=== PATIENT | female | born 1955 | race Caucasian/White ===

== ENCOUNTER → 2016-10-20 | Outpatient (CLI) | payer BC ==
[~2016-10-20] MED LIST: ALBUAER2 INH; ALPR-411 PO; BUPR-79 PO; DESM0.2T2 PO; FLUT220A INH; GLC500 PO; IMIP25TA3 PO; LEVO50TA6 PO; LISI-729 PO; OMEP20CA59 PO; RANI300T PO; SIMV20TA2 PO; THL24/300 PO; [UNRECOGNIZED DRUG - CODE] PO
--- NOTE | 2016-10-20 09:35 | DIAGNOSTIC IMAGING REPORT ---
THYROID ULTRASOUND CLINICAL HISTORY: Multiple thyroid nodules. COMPARISON STUDY: Thyroid ultrasound January 30, 2013. TECHNIQUE: Sonography of the thyroid gland was performed. FINDINGS: The right thyroid lobe measures 4.5 x 1.2 x 1.5 cm and the left lobe measures 5.1 x 0.8 x 1.6 cm. Several small thyroid nodules are again noted, the largest of which is within the isthmus, measuring 1.1 x 1.1 x 0.5 cm. This nodule was previously biopsied. This nodule has decreased in size since prior exam. No enlarging thyroid nodules are noted. IMPRESSION: Multinodular thyroid gland. Interval decrease in size of the dominant previously biopsied isthmus nodule. No enlarging thyroid nodules. No nodules meet criteria for biopsy. Electronically signed by: Dariusz Guzman M.D. 10/20/2016 9:32 AM Dictated Date/Time: 10/20/2016 9:30 AM
== END | disposition home or self-care (01) ==
LOC: C.ULTR 08:31
PROVIDERS: ATTEND Internal Medicine Endocrinology, Diabetes & Metabolism
DX: E04.2 Nontoxic multinodular goiter (principal)

== ENCOUNTER → 2016-10-23 | Outpatient (CLI) | payer BC ==
[2016-10-23 10:56] LABS: HEMATOCRIT 42.1 % (37-47); MEAN CELL VOLUME 91.1 fL (80-100); MEAN CORPUSCULAR HEMOGLOBIN 31.2 pg (25-34); MEAN CORPUSCULAR HGB CONC 34.2 g/dl (32-36); PLATELET COUNT 237 K/uL (130-400); RED BLOOD COUNT 4.62 M/uL (4.2-5.4); WHITE BLOOD COUNT 5.11 K/uL (4.8-10.8)
[2016-10-23 11:11] LABS: ALT/SGPT 20 U/L (12-78); AST/SGOT 9 U/L (15-37); BLOOD UREA NITROGEN 22 mg/dl (7-18); BUN/CREATININE RATIO 19.6 (10-20); CALCIUM 9.6 mg/dl (8.5-10.1); CARBON DIOXIDE 26 mmol/L (21-32); CHLORIDE 104 mmol/L (98-107); GLUCOSE 119 mg/dl (70-99); POTASSIUM 4.3 mmol/L (3.5-5.1); SODIUM 139 mmol/L (136-145)
[2016-10-23 11:18] LABS: ALB/GLOB RATIO 1.1 (0.9-2); ALKALINE PHOSPHATASE 94 U/L (45-117); CHOLESTEROL 159 mg/dl (0-200); CHOLESTEROL/HDL RATIO 3.1; ESTIMATED AVERAGE GLUCOSE 189 mg/dl; FERRITIN 18.1 ng/ml (8.0-388.0); HA1C FLAG Normal (Normal); HDL CHOLESTEROL 52 mg/dl; LDL CHOLESTEROL CALCULATED 69 mg/dl; TRIGLYCERIDES 191 mg/dl (0-150); VERY LOW DENSITY LIPOPROT CALC 38 mg/dl
== END | disposition home or self-care (01) ==
LOC: C.LABBC 09:15
PROVIDERS: ATTEND Internal Medicine Endocrinology, Diabetes & Metabolism
DX: Z00.00 Encounter for general adult medical examination without abnormal findings (principal); Z11.59 Encounter for screening for other viral diseases; E11.9 Type 2 diabetes mellitus without complications; E23.2 Diabetes insipidus; E78.5 Hyperlipidemia, unspecified; E03.9 Hypothyroidism, unspecified

== ENCOUNTER → 2016-11-04 | Outpatient (CLI) | payer BC ==
--- NOTE | 2016-11-04 08:14 | MAMMOGRAPHY REPORT ---
BILATERAL DIGITAL SCREENING MAMMOGRAM WITH CAD: 11/04/2016 CLINICAL HISTORY: Routine screening. Patient has no complaints. TECHNIQUE: Current study was also evaluated with a Computer Aided Detection (CAD) system. Bilatera l CC and MLO views were obtained. COMPARISON: Comparison is made to exams dated: 08/29/2014 mammogram, 09/12/2012 mammogram, 07/30/2011 ma mmogram, 07/29/2010 mammogram, 07/02/2009 mammogram - [facility], and 09/18/2007. BREAST COMPOSITION: There are scattered areas of fibroglandular density in both breasts. FINDINGS: No suspicious masses, calcifications, or areas of architectural distortion are noted in e ither breast. There has been no significant interval change compared to prior exams. Scattered bilat eral benign-appearing calcifications are not significantly changed. IMPRESSION: ACR BI-RADS CATEGORY 2: BENIGN There is no mammographic evidence of malignancy. A 1 year screening mammogram is recommended. The p atient will receive written notification of the results. Approximately 10% of breast cancers are not detected with mammography. A negative mammographic repor t should not delay biopsy if a clinically suggestive mass is present. Gardenia Ward M.D. /:11/04/2016 07:37:58 Hoe Worker: Sharmaine Chu, [facility] letter sent: Normal 1/2 BI-RADS Code: ACR BI-RADS Category 2: Benign
== END | disposition home or self-care (01) ==
LOC: C.MAMM 07:03
PROVIDERS: ATTEND Internal Medicine
DX: Z12.31 Encounter for screening mammogram for malignant neoplasm of breast (principal)

== ENCOUNTER → 2017-03-07 | Outpatient (CLI) | payer BC ==
[2017-03-07 10:13] LABS: ESTIMATED AVERAGE GLUCOSE 140 mg/dl; HA1C FLAG Normal (Normal)
== END | disposition home or self-care (01) ==
LOC: C.LAB1850 06:56
PROVIDERS: ATTEND Internal Medicine Endocrinology, Diabetes & Metabolism
DX: E11.65 Type 2 diabetes mellitus with hyperglycemia (principal); E55.9 Vitamin D deficiency, unspecified

== ENCOUNTER → 2017-04-01 | Outpatient (CLI) | payer BC | END | disposition home or self-care (01) | LOC: C.PAPS 14:11 | PROVIDERS: ATTEND Obstetrics & Gynecology | DX: Z12.4 Encounter for screening for malignant neoplasm of cervix (principal); Z78.0 Asymptomatic menopausal state; Z11.51 Encounter for screening for human papillomavirus (HPV) ==

== ENCOUNTER 2019-07-03 06:23 | Observation (INO) ==
[2019-07-03] MEDS ORDERED: LIDOCAINE HCL 1% 20 ML VIAL ONE (07:19)
[2019-07-03] MEDS ORDERED: BUPIVACAINE 0.25% 30 ML VIAL ONE (07:19)
[2019-07-03] MEDS ORDERED: BACITRACIN INJ 50,000 UNIT VIAL ONE (07:19)
--- NOTE | 2019-07-03 07:52 | Pre Anesthesia Assessment ---
Date of Service July 03, 2019 Pre Sedation Assessment Vital Signs Temp Pulse Resp BP Pulse Ox 07/03/19 07:05 37.2 C 71 16 159/97 H 98 Cardiovascular + regular rate Respiratory normal respiratory effort, lungs clear to auscultation Pre-Sedation Airway Assessment Smoking Status: Never smoker Hx Sleep Apnea: No Short, Thick Neck: No Thyromental Distance: > or= 3.5 Finger Breadths Oral Cavity: + Chipped Teeth and + Dental Abnormalities Mallampati Class: II ASA: ASA3 NPO Status Date of Last Intake of Fluids: 07/02/19 Time of Last Intake of Fluids: 17:00 Date of Last Intake of Solid Food: 07/02/19 Time of Last Intake of Solid Foods: 17:00 Procedure Planning Contraindications for Sedation: none Current Medications Reviewed: Yes Notes The planned sedation has been discussed with the patient. Informed Consent was obtained. I have identified the patient, determined the appropriateness of sedation and have assessed the patient immediately prior to the procedure. All medicine(s) and interventions are by my order.
--- NOTE | 2019-07-03 07:54 | History & Physical Report ---
Date of Service July 03, 2019 Assessment & Plan (1) AV dissociation: History of Present Illness Chief Complaint: HONEYCUTT; AV dissociation Primary Care Provider: Patti Guzman MD +HONEYCUTT with chronic AV dissociation; cardiac cath was unremarkable for a HIS bundle ppm Allergies Allergy/AdvReac Type Severity Reaction Status Date / Time aspirin AdvReac Verified 04/10/19 14:56 Home Medications Home Medications Medication Instructions Recorded Confirmed Type albuterol sulfate 90 mcg/actuation 2 puffs INHALATION Q4H PRN #1 gm 03/02/19 07/03/19 History aerosol inhaler alprazolam 0.5 mg tablet 0.25 - 0.5 mg PO BID PRN #30 tab 03/02/19 07/03/19 History desmopressin 0.2 mg tablet 0.2 mg PO BID #180 tab 03/02/19 07/03/19 History fluticasone propionate 110 2 puffs INHALATION BID #3 gm 03/02/19 07/03/19 History mcg/actuation HFA aerosol inhaler glimepiride 1 mg tablet 1 mg PO DAILY #90 tab 03/02/19 07/03/19 History levothyroxine 50 mcg tablet 50 mcg PO QAM #90 tab 03/02/19 07/03/19 History lisinopril 5 mg tablet 5 mg PO DAILY #90 tab 03/02/19 07/03/19 History magnesium oxide 500 mg capsule 500 mg PO DAILY cap 03/02/19 07/03/19 History metformin 500 mg tablet,extended 1,000 mg PO BID #360 tab 03/02/19 07/03/19 History release 24 hr pantoprazole 40 mg tablet,delayed 40 mg PO DAILY #90 tab 03/02/19 07/03/19 History release simvastatin 40 mg tablet 40 mg PO HS #90 tab 03/02/19 07/03/19 History imipramine HCl 50 mg tablet See Rx Instructions PO .COMPLEX 03/13/19 07/03/19 History tab theophylline 400 mg 400 mg PO DAILY cap 03/13/19 07/03/19 History capsule,extended release 24 hr cholecalciferol (vitamin D3) 50 2,000 units PO DAILY 03/16/19 07/03/19 History mcg (2,000 unit) capsule cyanocobalamin (vitamin B-12) 1,000 mcg PO DAILY 05/08/19 07/03/19 History Past Med/Surg History Medical History Allergic rhinitis (Chronic) Asthma (Chronic) Depression with anxiety (Chronic) Diabetes insipidus (Chronic) Diabetes type 2, controlled (Chronic) Dyslipidemia (Chronic) GERD (gastroesophageal reflux disease) (Chronic) Hypomagnesemia (Chronic) Hypothyroidism (Chronic) Multiple thyroid nodules (Chronic) Second degree AV block (Chronic) Vitamin D deficiency (Chronic) Surgical History History of cardiac cath History of cholecystectomy Family History Father Heart disease Mother Heart disease Other No family history of adverse response to anesthesia No family history of bleeding disorder Social History Preferred Language: Samoan Communication Ability: Effective Patient Access Coordinator Required: No Beliefs That Will Affect Care: None Current Living Situation: Spouse current occupational status: employed 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 Other Information That Helps Us Care for You: No Feels Safe at Home: Yes Safety Concerns: Feels Safe At This Time Smoking Status: Never smoker Second Hand Exposure: Yes ; Hx Alcohol Use: Yes Alcohol type: beer Hx Substance Use: No Review of Systems All systems reviewed & are unremarkable except as noted in HPI & below Physical Exam Physical Exam: aaox3, NAD NC/AT, EOMI Supple No JVD Nrl S1/S2, No murmur CTA b/l no w/r/r soft nt/nd no LE edema b/l skin intact no focal deficits ENMT: Mallampati Class: II Respiratory: normal respiratory effort, lungs clear to auscultation Cardiovascular: Rate/Rhythm: regular rate Results & Data Vital Signs (Past 12 Hours) Vital Signs Temp Pulse Resp BP Pulse Ox 07/03/19 07:05 37.2 C 71 16 159/97 H 98
[2019-07-03] MEDS ORDERED: fentaNYL citrate 100 MCG/2 ML VIAL ONE ×2 (07:56→08:45)
[2019-07-03] MEDS ORDERED: MIDAZOLAM HCL 5 MG/ML 1 ML VIAL ONE ×2 (07:56→08:56)
[2019-07-03] MEDS ORDERED: CEFAZOLIN 250 MG/ML 1 GM VIAL ONE ×2 (07:56→08:14)
[2019-07-03] MEDS ORDERED: ATROPINE SULFATE 0.1 MG/ML 10ML SYR IV ONE (09:39)
[2019-07-03] MEDS ORDERED: ACETAMINOPHEN 325 MG TAB PO PRN (10:46)
[2019-07-03] MEDS ORDERED: OXYCODONE/ACETAMINOPHEN 5mg/325mg TAB PO PRN (10:46)
--- NOTE | 2019-07-03 10:48 | Post Anesthesia Assessment ---
Date of Service July 03, 2019 Post Sedation Assessment Vital Signs Temp Pulse Resp BP Pulse Ox 07/03/19 07:05 37.2 C 71 16 159/97 H 98 Recovery Score Activity: Moves 4 extremities Respiration: Deep Breath/Cough Circulation: +/-20% PreAnes Value Consciousness: Fully Awake Oxygen Saturation: > 92% On Room Air Discharge Sedation Level of Care: Fast Track Phase II Post Sedation Plan On clinical assessment, the patient appears to have tolerated the sedation without complications. Patient is recovering as anticipated. Patient will continue to be monitored by nursing and may be discharged when sedation discharge criteria are met per below protocol. Upon Completions of procedure up to 15 minutes continue every 5 minute vital signs and the P.A.R. score; then discharge to a Phase I or Fast Track to Phase II per the following guidelines: * Discharge Patient to appropriate Phase II area if PAR is 8 or greater or return to pre- procedure baseline. The post - procedure orders will be as directed. * If PAR score is less than 8 or not return to pre-procedure baseline then patient will follow Phase I monitoring till PAR is reached for Phase II. The Phase I may be done in procedure room or may call to secure a Phase I area. * If naloxone or flumazenil are used for reversal, hold in Phase I for continued monitoring from when last reversal dose was given for a minimum of 60 minutes or longer pending the nurse and/or physician discretion of patient condition before discharge to Phase II. Please call the Sedation Physician to re-evaluate and complete post-note for discharge to Phase II area. Do NOT discharge from procedure sedation or Phase 1 until post- sedation evaluation note is complete by procedure /sedation MD Sedation Discharge Instructions to be given to the patient at discharge to home.
--- NOTE | 2019-07-03 10:49 | Operative Report ---
Post Operative Report Pre & Post Diagnosis AV dissociation Operation Date: 07/03/19 08:00 <No data on this case meets the specified criteria> I identified the patient and participated in the time-out.: Yes Procedure Operation Date: 07/03/19 08:00 Actual Procedures p Cineradiography w/Routine Exam - Charline Hernandez DO Surgeon Charline Hernandez, Utility Tech none Estimated Blood Loss 30 Findings Consistent with Post-Op Diagnosis Specimens none Description of Procedure see official report I attest to the content of the Intraoperative Record and any orders documented therein. Any exceptions are noted below.
--- NOTE | 2019-07-03 10:56 | Discharge Summary ---
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 Discharge Exam aaox3, NAD NC/AT, EOMI Supple No JVD Nrl S1/S2, No murmur CTA b/l no w/r/r soft nt/nd no LE edema b/l skin intact no focal deficits left pectoral incision intact, no hematoma mild ecchymosis ENMT Mallampati Class: II Respiratory normal respiratory effort, lungs clear to auscultation Cardiovascular Rate/Rhythm: regular rate Discharge Data Allergies Allergy/AdvReac Type Severity Reaction Status Date / Time aspirin AdvReac Verified 04/10/19 14:56 Procedures Performed Operation Date: 07/03/19 08:00 Actual Procedures p Cineradiography w/Routine Exam - Charline Hernandez, Ordered Studies ECG: -His bundle paced CXR: No PTX, leads in position Pacemaker Interrogation 07/04/2019: Normal lead testing and function Echocardiogram 07/03/2019: No Pericardial effusion 07/03/19 06:45 EP Lab Images for PACS ONCE Hospital Course (1) AV dissociation: Total Time Total Time Spent Total Time Spent (In Minutes): 35 Total Time Includes: Examination of the Patient, Discharge Planning, Medication Reconciliation and Other Discharge Plan Discharge Items Reason For Visit: HIS BUNDLE PACER Discharge Diagnosis: 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 Condition on Discharge: Good Activity: As commented below Activity Comment: do not lift the left elbow over the left shoulder for 1 month Lifting: No more than 10 pounds Lifting Comment: do not lift more than 10 pounds with the left arm for 2 weeks Bathing: Keep incision dry Bathing Comment: keep dressing on & incision dry until your wound check Sexual Activity: After two weeks Call non-emergency contact if: you have any medication questions Addtl Attending Provider Instructions: Device and wound check at [facility], [place] on Tuesday07/10/2019 at 12:30pm Pending Studies at Discharge: No Stand-Alone Forms: My [facility] Medications and DC Order Prescriptions: Continued desmopressin 0.2 mg tablet 0.2 mg PO BID Qty: 180 RF: 0 cholecalciferol (vitamin D3) 2,000 unit capsule 2,000 units PO DAILY RF: 0 alprazolam 0.5 mg tablet 0.25 - 0.5 mg PO BID PRN (Reason: Anxiety) Qty: 30 RF: 0 fluticasone propionate 110 mcg/actuation HFA aerosol inhaler 2 puffs inhalation BID Qty: 3 RF: 0 glimepiride 1 mg tablet 1 mg PO DAILY Qty: 90 RF: 0 levothyroxine 50 mcg tablet 50 mcg PO QAM Qty: 90 RF: 0 lisinopril 5 mg tablet 5 mg PO DAILY Qty: 90 RF: 0 magnesium oxide 500 mg capsule 500 mg PO DAILY RF: 0 metformin 500 mg tablet extended release 24 hr 1,000 mg PO BID Qty: 360 RF: 0 pantoprazole 40 mg tablet,delayed release (DR/EC) 40 mg PO DAILY Qty: 90 RF: 0 albuterol sulfate 90 mcg/actuation HFA aerosol inhaler 2 puffs inhalation Q4H PRN (Reason: Dyspnea) Qty: 1 RF: 0 simvastatin 40 mg tablet 40 mg PO HS Qty: 90 RF: 0 Nikunj-24 400 mg capsule,extended release 24hr 400 mg PO DAILY RF: 0 imipramine HCl 50 mg tablet See Rx Instructions PO .COMPLEX RF: 0 cyanocobalamin (vitamin B-12) 1,000 mcg Tablet 1,000 mcg PO DAILY RF: 0 Admission Data Admit Date/Time: 07/03/19 11:02 Attending Provider: Charline Hernandez Admit Provider: Charline Hernandez Primary Care Provider: Patti Guzman
--- NOTE | 2019-07-03 14:04 | Electrocardiogram Report ---
Test Reason : Blood Pressure : / mmHG Vent. Rate : 071 BPM Atrial Rate : 071 BPM P-R Int : 184 ms QRS Dur : 164 ms QT Int : 550 ms P-R-T Axes : 027 -02 174 degrees QTc Int : 597 ms Atrial-sensed ventricular-paced rhythm Abnormal ECG When compared with ECG of 14-AUG-2018 08:51, Electronic ventricular pacemaker has replaced Junctional rhythm Confirmed by Abdi Sandy ([id number]) on 07/03/2019 2:03:54 PM Referred By: Charline Hernandez Confirmed By:Abdi Sandy
--- NOTE | 2019-07-04 08:24 | XRay Report ---
XR chest 2V PA/lateral CLINICAL HISTORY: post his bundle ppm COMPARISON STUDY: Chest radiograph June 25, 2013 and June 18, 2015. FINDINGS: There is no pneumothorax following placement of a dual lead left subclavian pacemaker. Lead tips project over the right atrial appendage and right ventricle. Cardiomegaly is noted without evid ence for pulmonary edema. Linear bilateral opacities suggest atelectasis. A hiatal hernia is noted. T here are cholecystectomy clips. IMPRESSION: No pneumothorax following placement of a dual lead left subclavian pacemaker. ACT 112: Negative or not required by law. Electronically signed by: Dariusz Guzman M.D. 07/04/2019 8:23 AM
--- NOTE | 2019-07-04 13:58 | Operative Report ---
DATE OF OPERATION: 07/03/2019 PREOPERATIVE DIAGNOSIS: Atrioventricular dissociation accelerated junctional rhythms. POSTOPERATIVE DIAGNOSIS: Atrioventricular dissociation accelerated junctional rhythms. PROCEDURE: His bundle dual chamber rate responsive permanent pacemaker under fluoroscopic guidance along with peripheral venogram, intracardiac electrogram mapping of the His bundle region. SURGEON: Charline Hernandez DO. ASSISTANTS: None. ANESTHESIA: Monitored anesthetic care administered under my supervision by Wallace Calixto. Start time 8:16, end time 10:40. A total of 7 mg of Versed and 175 mcg of fentanyl. INTRAVENOUS FLUIDS: 529 mL. INTRAVENOUS CONTRAST: 10 mL. ANTIBIOTICS: Two grams of Ancef. BLOOD LOSS: 30 mL. URINE OUTPUT: Not applicable. SPECIMENS: None. FINDINGS: See below. DRAINS: None. INDICATIONS FOR THE PROCEDURE: This is a 64-year-old female who has a past medical history for AV dissociation since 07/2018, accelerated junctional rhythms, diabetes, hypertension, hyperlipidemia, asthma, coronary artery disease, minimal disease by cardiac cath in 04/2019, SIGNIFICANT ALLERGY TO BETA BLOCKERS WITH AN ACUTE ASTHMA EXACERBATION IN THE PAST, gastroesophageal reflux disease, anxiety with a depression component, and family history of coronary artery disease. Due to her AV dissociation, she was recommended a His bundle pacemaker. CONSENT: Consent was obtained prior to the patient going into electrophysiology lab. The patient was informed of the risks, benefits and alternative procedure. Risks include but not limited to sudden cardiac , cardiac arrhythmias, cerebrovascular accident, myocardial infarction, injury to the blood vessels, chamber of the heart, lung, bleeding, and infection. The patient understood these risks and agreed to the procedure as planned. Informed consent was obtained. DESCRIPTION OF THE PROCEDURE: The patient was brought into the electrophysiology lab in a fasting state. She was connected to continuous cardiac monitoring. A timeout was performed to ensure patient's identity and procedure correctly. The patient was prepped and draped over the left infraclavicular space in normal surgical standard fashion. She received prophylactic antibiotics prior to incision. Moderate conscious sedation was administered under my supervision for patient's comfort level. [place] precautions were maintained throughout the procedure. 10 mL of 1% lidocaine-bupivacaine mixture were given in the left deltopectoral groove. Incision was made in the left deltopectoral groove. Blunt dissection performed down to identify cephalic vein. Cephalic vein was identified and isolated using 0 silk ties. The vein was nicked with an 11 blade and a guidewire was inserted without any resistance. A 7-Japanese sheath was inserted over the guidewire and the dilator was removed and a second guidewire was inserted through the sheath to allow for retained venous access. The sheath was removed, flushed and reinserted over the dilator and then reinserted over one of the guidewires, and the guidewire and dilator were removed. Then, the preformed His bundle sheath was advanced into the right atrium under fluoroscopic guidance over a Glidewire. The Glidewire and dilator were removed and then the His lead was advanced and we did electrogram intracardiac mapping of the His bundle region. We found the HV to be 75 milliseconds, really could not get an accurate AH due to the AV dissociation. At one point, I had a nice His signal, but when I screwed it in, I found that it was a little bit too nonselective, so I opted to retract it and try again. I did swap out the sheath for a new preformed sheath hoping that this maybe will get me better contact areas. A lot of times we found a nice His, but for some reason we were not getting much in the capture. It was only at higher voltages that it would even capture any tissue. I then tried to swap out the preformed sheath for a deflectable sheath, so the 7-Japanese sheath had to be swapped out for a 9.5-Japanese sheath, then the deflectable His sheath was inserted. This actually allowed me to get higher up on the septum; however, it was too anterior position that I kept bumping into the right ventricle. So, I then removed that. I opted then to do a peripheral venogram and seeing if maybe I got more proximal access instead of through the cephalic, through the axillary that I would get better contact with the tissue in the His bundle region and a better capture threshold. So, 10 mL of IV contrast diluted in 10 mL of saline followed by 20 mL flush was used to perform a peripheral venogram. Axillary venous system was then accessed through a needle stick and a guidewire was inserted without any resistance. An 8-Japanese sheath was inserted over the guidewire. The guidewire and dilator were removed. Then, the preformed His bundle sheath was advanced into the right atrium and we continued with intracardiac electrogram mapping of the His bundle region, and ultimately found it adequate but it was a little bit still nonselective area, screwed it in. The sheath was then slit under fluoroscopic guidance followed then by the 8-Japanese sheath was slit. The lead was fixated to pectoralis muscle using 0 silk suture. Then, I placed the right atrial lead through the 9.5-Japanese sheath that was in the cephalic access and placed the right atrial lead up into the right atrial appendage under fluoroscopic guidance. There was adequate pacing and sensing thresholds and no diaphragmatic stimulation with high output pacing. The 9.5-Japanese sheath was peeled away and lead was fixated to pectoralis muscle using 0 silk suture. There was some backbleeding from the cephalic venous site, so I put a 2-0 Vicryl pursestring around that to stop the backbleeding. Then, additional lidocaine was given and a pacemaker pocket was created using blunt dissection over the pectoralis muscle within the pectoralis fascia. I did secure the right atrial lead to the pectoralis muscle using 0 silk suture. The pocket was flushed with copious amounts of bacitracin saline wash and inspected for hemostasis. Pulse generator was attached to the lead, making sure that the pins were in appropriate position, passed set screws and set screws were all tightened. Pulse generator was then placed in the pocket, making sure that the leads were lying flat beneath the device. A stay stitch using 0 silk suture was used to secure the device to pectoralis muscle. The incision was then closed in 3-layer fashion using 2-0 Vicryl interrupted suture followed by 3-0 Vicryl interrupted suture, followed by 4-0 Monocryl running stitch and Dermabond followed by Telfa and micropore dressing. EQUIPMENT: 1. Pulse generator is a Medtronic Nereyda XT DR CHUYITA [place] [id number], serial number [id number]. 2. Right atrial lead is a Medtronic 5076-52 cm, serial number [id number]. 3. His bundle lead is a Medtronic 9020-69 cm, serial number [id number]. INTRACARDIAC MAPPING: The HV was 75 milliseconds, the [place] QRS was 80 milliseconds, the paced QRS was 140 milliseconds. INTRAOPERATIVE TESTIN. Right atrial lead: P waves 1.2 millivolts, impedance 768 ohms, threshold 1.6 volts at 0.5 milliseconds. 2. His bundle lead: R-wave 6.7 millivolts, impedance 570 ohms, threshold 0.9 volts at 1 millisecond. FINAL MEASUREMENTS THROUGH THE DEVICE: 1. Right atrial lead: P waves 1.4 millivolts, impedance 760 ohms, threshold 0.5 volts at 0.4 milliseconds. 2. His bundle lead: R waves 5.4, impedance 551 ohms, threshold 1 volt at 1 millisecond. FINAL PARAMETERS: DDD 60/130, right atrial amplitude 3.5 volts, pulse width 0.4 milliseconds, sensitivity 0.3 millivolts. Right ventricular amplitude 3 volts, His bundle lead amplitude 3 volts, pulse width 1 millisecond, sensitivity 0.45 milliseconds. IMPRESSION: Successful dual chamber nonselective His bundle rate responsive permanent pacemaker under fluoroscopic guidance along with peripheral venogram secondary to atrioventricular dissociation. PLAN: Monitor patient overnight, 12-lead ECG, chest x-ray. She is not allowed to lift the left elbow or left shoulder for 1 month. She cannot lift more than 10 pounds with the left arm for 2 weeks. She is to keep the dressing on and the site dry until her wound check at [facility] next week. Continue her home medications and routine followup. I attest to the content of the Intraoperative Record and any orders documented therein. Any exception s are noted below.
== END 2019-07-04 11:28 | disposition home or self-care (01) ==
LOC: EP 06:23 → 2S 06:23

== ENCOUNTER 2022-11-15 17:59 | Inpatient (IN) ==
[2022-11-15] MEDS ORDERED: ONDANSETRON INJ 2 MG/ML 2 ML VIAL ONE (18:04)
[2022-11-15 18:29] LABS: Basophils # (auto) 0.04 K/uL (0-0.2); Basophils % (auto) 0.3 %; Hematocrit (blood only) 35.7 % (37.0-47.0); Immature Granulocytes # (auto) 0.23 K/uL (0.01-0.20); Immature Granulocytes % (auto) 1.6 %; Lymphocytes # (auto) 2.65 K/uL (1.2-3.4); Lymphocytes % (auto) 18.2 %; Mean Corpuscular Hemoglobin 28.7 pg (25.0-34.0); Mean Corpuscular Hgb Conc 33.6 g/dL (32.0-36.0); Mean Corpuscular Volume 85.4 fL (80.0-100.0); Mean Platelet Volume 9.6 fL (9.4-12.4); Monocytes # (auto) 0.67 K/uL (0.11-0.59); Monocytes % (auto) 4.6 %; Neutrophils # (auto) 10.96 K/uL (1.40-6.50); Neutrophils % (auto) 75.3 %; Platelet Count 358 K/uL (130-400); RDW Coefficient of Variation 14.3 % (11.5-14.5); Red Blood Count 4.18 M/uL (4.20-5.40); White Blood Count 14.55 K/ul (4.8-10.8)
[2022-11-15] MEDS ORDERED: OPTIRAY 320 500ml IV ONE (18:30)
--- NOTE | 2022-11-15 18:33 | CT Scan Report ---
HEAD CT NONCONTRAST CT DOSE: 966.89 mGy.cm HISTORY: Altered mental status. neuro deficit, acute stroke suspected TECHNIQUE: Multiaxial CT images of the head were performed without the use of intravenous contrast. A utomated exposure control was utilized for this study. A dose lowering technique was utilized adheri ng to the principles of ALARA. Comparison: Brain MRI 10/08/2015. Findings: Trace left mastoid effusion is noted. The right mastoid air cells are clear. The paranasal sinuses are clear. Prior bilateral lens replacement. The calvarium and skull base are intact. The jules tricles and sulci are within normal limits. There is no mass, hematoma, midline shift, or acute infar ct. Impression: No acute intracranial abnormality. ACT 112: Negative or not required by law. Electronically signed by: Anderson Villagomez M.D. 11/15/2022 6:31 PM
--- NOTE | 2022-11-15 18:38 | CT Scan Report ---
HEAD & NECK CTA HISTORY: Altered mental status. neuro deficit, acute stroke suspected TECHNIQUE: Multiaxial CT images of the head were performed following the intravenous administration o f contrast to evaluate the major cerebral vessels. Multiaxial CT images of the neck were also perform ed following the intravenous administration of contrast to evaluate the major cervical vessels. Maxim um intensity projection images were also obtained. A dose lowering technique was utilized adhering to the principles of ALARA. COMPARISON: Brain MRI 10/08/2015. FINDINGS: There is no mass, hematoma, midline shift, or acute infarct. Visualized intracranial internal carotid arteries, distal vertebral arteries, and basilar artery are widely patent. There is no significant s tenosis, occlusion, or aneurysm seen within the bilateral ACAs, MCAs, or data processor. The major dural venous sinuses are patent. Mild calcified plaque within the bilateral carotid siphons. The aortic arch and proximal great vessels are widely patent. There is no significant stenosis, occ lusion, or dissection identified within the bilateral common carotid, internal carotid, or vertebral arteries. No pneumothorax. Interlobular septal thickening and patchy groundglass densities within the upper lobes posteriorly. This likely represents pulmonary edema. Left-sided pacemaker wires are note d. IMPRESSION: 1. No significant stenosis, occlusion, or aneurysm within the [place] of [place]. 2. No significant stenosis, occlusion, or dissection identified within the carotid or vertebral arter ies. 3. [id number] pulmonary edema. ACT 112: Negative or not required by law. Electronically signed by: Anderson Villagomez M.D. 11/15/2022 6:36 PM
--- NOTE | 2022-11-15 18:38 | CT Scan Report ---
HEAD & NECK CTA HISTORY: Altered mental status. neuro deficit, acute stroke suspected TECHNIQUE: Multiaxial CT images of the head were performed following the intravenous administration o f contrast to evaluate the major cerebral vessels. Multiaxial CT images of the neck were also perform ed following the intravenous administration of contrast to evaluate the major cervical vessels. Maxim um intensity projection images were also obtained. A dose lowering technique was utilized adhering to the principles of ALARA. COMPARISON: Brain MRI 10/08/2015. FINDINGS: There is no mass, hematoma, midline shift, or acute infarct. Visualized intracranial internal carotid arteries, distal vertebral arteries, and basilar artery are widely patent. There is no significant s tenosis, occlusion, or aneurysm seen within the bilateral ACAs, MCAs, or manager beauty. The major dural venous sinuses are patent. Mild calcified plaque within the bilateral carotid siphons. The aortic arch and proximal great vessels are widely patent. There is no significant stenosis, occ lusion, or dissection identified within the bilateral common carotid, internal carotid, or vertebral arteries. No pneumothorax. Interlobular septal thickening and patchy groundglass densities within the upper lobes posteriorly. This likely represents pulmonary edema. Left-sided pacemaker wires are note d. IMPRESSION: 1. No significant stenosis, occlusion, or aneurysm within the [place]. 2. No significant stenosis, occlusion, or dissection identified within the carotid or vertebral arter ies. 3. [id number] pulmonary edema. ACT 112: Negative or not required by law. Electronically signed by: Anderson Villagomez M.D. 11/15/2022 6:36 PM
[2022-11-15 18:42] LABS: Partial Thromboplastin Ratio 0.9; Partial Thromboplastin Time 25.4 Seconds (21.0-31.0); Prothrombin Time 10.9 Seconds (9.0-12.0)
[2022-11-15 18:49] LABS: Alanine Aminotransferase 136 U/L (7-52); Albumin Globulin Ratio 1.7 (0.9-2); Albumin Level 4.1 gm/dl (3.4-5.0); Alkaline Phosphatase 74 U/L (34-104); Anion Gap 12 (3-11); Aspartate Aminotransferase 187 U/L (13-39); BUN Creatinine Ratio 18.8 (10-20); Bilirubin,Total 0.3 mg/dl (0.2-1.0); Blood Urea Nitrogen 18 mg/dl (6-23); Calcium 9.3 mg/dl (8.6-10.3); Carbon Dioxide 18 mmol/L (21-32); Chloride 103 mmol/L (98-107); Est GFR (African American) 70.4 ml/min; Est GFR (Non-African American) 60.8 ml/min; Globulin 2.4 gm/dl (2.5-4.0); Glucose 211 mg/dl (70-99(Fasting)); Magnesium 1.3 mg/dl (1.7-2.4); Potassium 4.3 mmol/L (3.5-5.1); Sodium 133 mmol/L (136-145); Total Protein 6.5 gm/dl (6.0-8.3)
[2022-11-15 18:55] LABS: Troponin I High Sensitivity 22.3 pg/ml (0-14)
[2022-11-15] MEDS ORDERED: ONDANSETRON INJ 2 MG/ML 2 ML VIAL IV STA (19:06)
[2022-11-15] MEDS ORDERED: MAGNESIUM SULFATE / D5W 1 GM/100 ML BAG IV STA (19:34)
[2022-11-15] MEDS: MAGNESIUM SULFATE / D5W 1 GM/100 ML BAG IV SCH ×2 (21:15→23:22)
[2022-11-15] MEDS ORDERED: 0.2 MICRON FILTER SET 1 EACH IV ONE (22:12)
[2022-11-15] MEDS ORDERED: HEPARIN SODIUM/DEXTROSE 25,000 UNITS/500 ML BAG IV SCH (22:30)
--- NOTE | 2022-11-15 22:33 | Emergency Department Note ---
Impression & Plan Episode of unresponsiveness, Hypomagnesemia, Elevated troponin Admit to the [facility] ED Provider Note NAME: KRYSTAL RODRIGUEZ AGE: 67 SEX: F ARRIVES VIA: Ambulance INFORMANT: EMS and the patient's ED PROVIDER(S): Adela Coley DO CHIEF COMPLAINT: Unresponsive episode PLAN: Disposition: Admit to the [facility] Condition: Guarded MEDICAL DECISION MAKING: This is a 67-year-old female patient who presents to the emergency department with an unresponsive episode. performed CPR for less than 1 minute before he realized the patient was breathing on her own and stopped. Has been described that patient had her teeth clenched and was breathing loudly. Upon EMS arrival, patient had her own pulse and was breathing. They placed a nasal airway and nonrebreather mask. She had normal vital signs. Patient had a normal blood sugar. Patient's explained that the patient had described feeling stressed throughout the day. Laboratory studies revealed no leukocytosis or anemia. She did have a low magnesium and elevated troponin. Patient went for CT of the brain as well as CT angiogram of the brain and neck which were all normal. Patient's mental status slowly improved throughout her stay in the emergency department to the point that she would open her eyes to her name but would not follow commands. I considered the possibility of acute CVA, seizure, or cardiac dysrhythmia. The patient's pacer will require interrogation. I discussed the case with the [facility] and they will evaluate for further management. Triage Nursing notes reviewed and agree with them. Additional history obtained from the patient's who is at the bedside Vital Signs: reviewed and unremarkable Differential diagnosis: Hypoglycemia, seizure, acute CVA, cardiac dysrhythmia, cardiac arrest ER treatment provided: Cardiac monitoring Twelve-lead EKG IV normal saline bolus IV magnesium Diagnostics interpreted by me: ECG: AV paced rhythm at 103. There is some ST segment depression in the lateral leads Cardiac Monitoring: Paced rhythm at 100 Laboratory studies: See below Imaging studies: As per radiology Portable chest x-ray: See report CT scan of the brain: See report CT of the brain: See report CT of the neck: See report HPI: 67/F arrives for evaluation of unresponsive episode. Patient's explains that the patient was sitting on the floor in front of him as they were talking when she slowly slumped over. He noted that she was unresponsive with her teeth clenched and appeared to have some facial droop. He thought that she was not breathing and may be pulseless so he began chest compressions on her. This lasted for approximately 1 minute before she began breathing on her own. EMS was called. PAST MEDICAL HISTORY:See Below PAST SURGICAL HISTORY:See Below FAMILY HISTORY:See Below SOCIAL HISTORY:See Below HOME MEDICATIONS:See list ALLERGIES:See list VITALS:See Below PHYSICAL EXAMINATION: HEENT: Head - normocephalic and atraumatic. Pupils are equal, round, and reactive to light. Extraocular eye muscles are intact and sclera are anicteric. Ears - bilaterally patent canals with noninjected tympanic membranes and no evidence of hemotympanum. Nose - moist nasal mucosa without discharge. Mouth - moist buccal mucosa. Oropharynx is nonerythematous and there is no tonsillar exudate or edema noted. Neck: Supple; no cervical lymphadenopathy noted Heart: Tachycardic rate and regular rhythm. There is a normal S1 and S2 with no murmurs, clicks, or gallops appreciated. Lungs: Clear to auscultation bilaterally with no wheezes, rales, or rhonchi. Abdomen: Soft, completely nontender, nondistended, with good bowel sounds. There are no palpable pulsatile masses or hepatosplenomegaly. There is no guarding, rigidity, or rebound noted. Extremities: No evidence of cyanosis, clubbing, or edema. There are easily palpable peripheral pulses. Neuro:The patient is unresponsive and will not follow commands. She does withdrawal to pain in all 4 extremities. ED COURSE: The patient was emergently evaluated in room A1. A complete history and physical was performed. Labs were drawn as above. An order was placed for continuous cardiac monitoring. The patient was in a paced rhythm at a rate of 100. A twelve-lead EKG was obtained as described above. Portable chest x-ray was performed. The patient went for CT scan of the brain and CTA of the brain and neck. The patient's arrived and I obtained a more detailed history from him. Patient was started on a magnesium replacement drip. I discussed the case with the [facility]ist. Adela Coley DO Past Med/Surg History Medical History Allergic rhinitis Asthma not well controlled per pt, has not used it for appox 1 week Depression with anxiety Diabetes insipidus desmopressin for this Diabetes type 2, controlled NIDDM Dyslipidemia GERD (gastroesophageal reflux disease) History of COVID-12 January 2022 > not hospitalized, > no further problems Hypomagnesemia Hypothyroidism Multiple thyroid nodules Pacemaker Jun 2019 > [facility] > 2nd degree AV block > [facility] > [employer] Second degree AV block pacemaker Vitamin D deficiency Surgical History History of cardiac cath 2018 > no stents History of cataract surgery History of cholecystectomy History of colonoscopy History of esophagogastroduodenoscopy (EGD) Family History Father Heart disease Mother Heart disease Other No family history of adverse response to anesthesia No family history of bleeding disorder Social History Smoking Status: Former smoker Tobacco Type: Cigarettes Second Hand Exposure: No; Do You Dip or Chew Tobacco: No; Hx Alcohol Use: Yes Alcohol type: beer Hx Substance Use: No Preferred Language: Canadian Communication Ability: Effective Care Aid Required: No Beliefs That Will Affect Care: None Current Living Situation: Spouse current occupational status: employed 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 Feels Safe at Home: Yes Safety Concerns: Feels Safe At This Time Assistive Devices: Glasses Allergies Allergies Allergy/AdvReac Type Severity Reaction Status Date / Time aspirin AdvReac Intermediate shortness Verified 05/26/22 11:53 of breath Home Meds Home Medications Medication Instructions Recorded Confirmed desmopressin 0.2 mg tablet 0.2 mg PO BID #180 tabs 03/02/19 11/15/22 levothyroxine 50 mcg tablet 50 mcg PO DAILYBB #90 tabs 03/02/19 11/15/22 metformin 500 mg tablet,extended 1,000 mg PO BID #360 tabs 03/02/19 11/15/22 release 24 hr pantoprazole 40 mg tablet,delayed 40 mg PO HS #90 tabs 03/02/19 11/15/22 release simvastatin 40 mg tablet 40 mg PO HS #90 tabs 03/02/19 11/15/22 imipramine HCl 50 mg tablet 50 mg PO DIRECTED 03/13/19 11/15/22 losartan 25 mg tablet 25 mg PO HS 05/29/21 11/15/22 zafirlukast 20 mg tablet 20 mg PO BID 05/29/21 11/15/22 cholecalciferol (vitamin D3) 25 25 mcg PO DAILY 04/30/22 11/15/22 mcg (1,000 unit) chewable tablet (Vitamin D3) prednisone 10 mg tablet 10 mg PO QAM 04/30/22 11/15/22 budesonide 0.5 mg/2 mL suspension 10 mg inhalation [facility] 11/15/22 11/15/22 for nebulization fluticasone 500 mcg-salmeterol 50 2 inh inhalation BID 11/15/22 11/15/22 mcg/dose blistr powdr for inhalation glipizide 10 mg tablet 10 mg PO BID 11/15/22 11/15/22 hydroxyzine HCl 25 mg tablet 25 mg PO QID PRN Anxiety 11/15/22 11/15/22 tezepelumab-ekko 210 mg/1.91 mL 0 mg subcut UD 11/15/22 11/15/22 (110 mg/mL) subcutaneous syringe (Tezspire) Results & Data (ED) Vital Signs Vital Signs - 24 hr 11/15/22 17:46 11/15/22 18:04 11/15/22 18:10 Temperature 36.6 C Temperature Source Axillary Pulse Rate 91 H 105 H 99 H Pulse Rate from SpO2 Sensor 105 H 99 H Respiratory Rate 24 28 H 27 H Respiratory Depth Normal Blood Pressure 154/80 H Blood Pressure Mean 104 Blood Pressure Position Sitting Pulse Oximetry 96 96 92 Oxygen Delivery Method Room Air Room Air Room Air Oxygen Flow Rate Sepsis Recent Fever Within 48 Hours No Sepsis New/Unexplained Change in Mental Status N/A Sepsis Action Taken by Nursing No Action Required Oxygen Flow Rate - Titration Pulse Oximetry Post Tiitration 11/15/22 18:26 11/15/22 18:27 11/15/22 18:27 Temperature Temperature Source Pulse Rate 97 H Pulse Rate from SpO2 Sensor 98 H 99 H Respiratory Rate 20 Respiratory Depth Blood Pressure 154/80 H Blood Pressure Mean 104 Blood Pressure Position Pulse Oximetry 89 L 94 Oxygen Delivery Method Room Air Nasal Cannula Oxygen Flow Rate 2 Sepsis Recent Fever Within 48 Hours Sepsis New/Unexplained Change in Mental Status Sepsis Action Taken by Nursing Oxygen Flow Rate - Titration Pulse Oximetry Post Tiitration 11/15/22 18:03 11/15/22 19:10 11/15/22 20:01 Temperature Temperature Source Pulse Rate 104 H 86 81 Pulse Rate from SpO2 Sensor Respiratory Rate 16 16 Respiratory Depth Blood Pressure 142/83 H 121/65 Blood Pressure Mean 102 83 Blood Pressure Position Pulse Oximetry 97 98 Oxygen Delivery Method Nasal Cannula Nasal Cannula Oxygen Flow Rate 3 3 Sepsis Recent Fever Within 48 Hours Sepsis New/Unexplained Change in Mental Status Sepsis Action Taken by Nursing Oxygen Flow Rate - Titration Pulse Oximetry Post Tiitration 11/15/22 20:12 11/15/22 21:01 Temperature Temperature Source Pulse Rate 86 Pulse Rate from SpO2 Sensor Respiratory Rate 16 Respiratory Depth Blood Pressure 137/79 Blood Pressure Mean 98 Blood Pressure Position Pulse Oximetry 99 97 Oxygen Delivery Method Room Air Nasal Cannula Nasal Cannula Oxygen Flow Rate 3 2 Sepsis Recent Fever Within 48 Hours Sepsis New/Unexplained Change in Mental Status Sepsis Action Taken by Nursing Oxygen Flow Rate - Titration 0 Pulse Oximetry Post Tiitration 98 Laboratory Data 11/15/22 18:12 11/15/22 18:12 Lab Results 11/15/22 11/15/22 11/15/22 Range/Units 18:12 18:12 18:12 WBC 14.55 H (4.8-10.8) K/ul RBC 4.18 L (4.20-5.40) M/uL Hgb 12.0 (12.0-16.0) g/dl POC Hgb (12.0-16.0) g/dl Hct 35.7 L (37.0-47.0) % POC Hct (37-47) % MCV 85.4 (80.0-100.0) fL MCH 28.7 (25.0-34.0) pg MCHC 33.6 (32.0-36.0) g/dL RDW Std Deviation 44.0 (36.4-46.3) fL RDW Coeff of Park 14.3 (11.5-14.5) % Plt Count 358 (130-400) K/uL MPV 9.6 (9.4-12.4) fL Immature Gran % (Auto) 1.6 % Neut % (Auto) 75.3 % Lymph % (Auto) 18.2 % Boyd % (Auto) 4.6 % Eos % (Auto) 0.0 % Baso % (Auto) 0.3 % Neut # (Auto) 10.96 H (1.40-6.50) K/uL Lymph # (Auto) 2.65 (1.2-3.4) K/uL Boyd # (Auto) 0.67 H (0.11-0.59) K/uL Eos # (Auto) 0.00 (0-0.50) K/uL Baso # (Auto) 0.04 (0-0.2) K/uL Immature Gran # (Auto) 0.23 H (0.01-0.20) K/uL PT 10.9 (9.0-12.0) Seconds INR 1.0 (0.9-1.1) APTT 25.4 (21.0-31.0) Seconds PTT Ratio 0.9 POC Sodium (135-144) mmol/L Sodium 133 L (136-145) mmol/L POC Potassium (3.3-5.0) mmol/L Potassium 4.3 (3.5-5.1) mmol/L POC Chloride (101-112) mmol/L Chloride 103 (98-107) mmol/L Carbon Dioxide 18 L (21-32) mmol/L POC Total CO2 (24-31) mmol/L Anion Gap 12 H (3-11) POC Anion Gap POC BUN (7-18) mg/dl BUN 18 (6-23) mg/dl Creatinine 0.96 (0.6-1.2) mg/dl POC Creatinine (0.6-1.3) mg/dl Est Cr Clr Drug Dosing Not Reportable Est GFR ( Amer) 70.4 ml/min Est GFR (Non-Af Amer) 60.8 ml/min BUN/Creatinine Ratio 18.8 (10-20) Glucose 211 H (70-99(Fasting)) mg/dl POC Glucose (other) (70-99) mg/dl Calcium 9.3 (8.6-10.3) mg/dl POC Ioniz Calcium Bernice (1.12-1.32) mmol/l Magnesium 1.3 L (1.7-2.4) mg/dl Total Bilirubin 0.3 (0.2-1.0) mg/dl AST 187 H (13-39) U/L ALT 136 H (7-52) U/L Alkaline Phosphatase 74 (34-104) U/L Troponin I High Sens 22.3 H (0-14) pg/ml Total Protein 6.5 (6.0-8.3) gm/dl Albumin 4.1 (3.4-5.0) gm/dl Globulin 2.4 L (2.5-4.0) gm/dl Albumin/Globulin Ratio 1.7 (0.9-2) SARS-CoV-2, RNA, NAAT (NEGATIVE) Blood Type Antibody Screen 11/15/22 11/15/22 11/15/22 Range/Units 18:16 18:22 19:43 WBC (4.8-10.8) K/ul RBC (4.20-5.40) M/uL Hgb (12.0-16.0) g/dl POC Hgb 12.6 (12.0-16.0) g/dl Hct (37.0-47.0) % POC Hct 37 (37-47) % MCV (80.0-100.0) fL MCH (25.0-34.0) pg MCHC (32.0-36.0) g/dL RDW Std Deviation (36.4-46.3) fL RDW Coeff of Park (11.5-14.5) % Plt Count (130-400) K/uL MPV (9.4-12.4) fL Immature Gran % (Auto) % Neut % (Auto) % Lymph % (Auto) % Boyd % (Auto) % Eos % (Auto) % Baso % (Auto) % Neut # (Auto) (1.40-6.50) K/uL Lymph # (Auto) (1.2-3.4) K/uL Boyd # (Auto) (0.11-0.59) K/uL Eos # (Auto) (0-0.50) K/uL Baso # (Auto) (0-0.2) K/uL Immature Gran # (Auto) (0.01-0.20) K/uL PT (9.0-12.0) Seconds INR (0.9-1.1) APTT (21.0-31.0) Seconds PTT Ratio POC Sodium 134 L (135-144) mmol/L Sodium (136-145) mmol/L POC Potassium 4.3 (3.3-5.0) mmol/L Potassium (3.5-5.1) mmol/L POC Chloride 103 (101-112) mmol/L Chloride (98-107) mmol/L Carbon Dioxide (21-32) mmol/L POC Total CO2 < 5 L* (24-31) mmol/L Anion Gap (3-11) POC Anion Gap TNP POC BUN 18 (7-18) mg/dl BUN (6-23) mg/dl Creatinine (0.6-1.2) mg/dl POC Creatinine 0.9 (0.6-1.3) mg/dl Est Cr Clr Drug Dosing Est GFR ( Amer) ml/min Est GFR (Non-Af Amer) ml/min BUN/Creatinine Ratio (10-20) Glucose (70-99(Fasting)) mg/dl POC Glucose (other) 222 H (70-99) mg/dl Calcium (8.6-10.3) mg/dl POC Ioniz Calcium Bernice 0.99 L (1.12-1.32) mmol/l Magnesium (1.7-2.4) mg/dl Total Bilirubin (0.2-1.0) mg/dl AST (13-39) U/L ALT (7-52) U/L Alkaline Phosphatase (34-104) U/L Troponin I High Sens (0-14) pg/ml Total Protein (6.0-8.3) gm/dl Albumin (3.4-5.0) gm/dl Globulin (2.5-4.0) gm/dl Albumin/Globulin Ratio (0.9-2) SARS-CoV-2, RNA, NAAT NEGATIVE (NEGATIVE) Blood Type A Positive Antibody Screen NEGATIVE Administered Medications Atorvastatin Calcium (Atorvastatin 40 Mg Tab) 40 mg PO HS KELSIE Stop: 12/16/22 20:59 Last Admin: 11/16/22 20:05 Dose: 40 mg Documented By: BEBETO Budesonide (Budesonide 0.5 Mg/2 Ml Vial (Pulmicort)) 1 mg INH BIDR KELSIE Stop: 12/16/22 06:59 Last Admin: 11/17/22 07:46 Dose: 1 mg Documented By: Admin: 11/16/22 20:02 Dose: 1 mg Documented By: Admin: 11/16/22 07:43 Dose: 1 mg Documented By: ODILIA Desmopressin Acetate (Desmopressin Acetate 0.1 Mg Tab) 0.2 mg PO BID KELSIE Stop: 12/16/22 08:59 Last Admin: 11/17/22 08:18 Dose: 0.2 mg Documented By: Admin: 11/16/22 20:06 Dose: 0.2 mg Documented By: Admin: 11/16/22 08:09 Dose: 0.2 mg Documented By: RYLAND Enoxaparin Sodium (Enoxaparin Inj 40 Mg/0.4 Ml Syr) 40 mg SQ QAM KELSIE Stop: 12/17/22 08:59 Last Admin: 11/17/22 07:47 Dose: 40 mg Documented By: CARLOS Fluticasone/Vilanterol (Fluticasone/Vilanterol 200/25mcg 14 Puffs/Inhaler) 1 puffs INH DAILY KELSIE Stop: 12/16/22 08:59 Last Admin: 11/17/22 07:47 Dose: 1 puffs Documented By: Admin: 11/16/22 08:09 Dose: 1 puffs Documented By: RYLAND Amiodarone HCl/Dextrose (Nexterone / D5w) 360 mg in 200 mls @ 16.667 mls/hr IV .Q12H KELSIE Stop: 12/16/22 04:39 Last Admin: 11/17/22 07:52 Dose: 0.5 mg/min, 16.7 mls/hr Documented By: CARLOS Co-signed By: ES Infusion: 11/17/22 07:41 Dose: 0.5 mg/min, 16.7 mls/hr Documented By: CARLOS Co-signed By: ES Admin: 11/16/22 19:42 Dose: 0.5 mg/min, 16.7 mls/hr Documented By: BEBETO Co-signed By: TG Infusion: 11/16/22 19:28 Dose: 1 mg/min, 33.3 mls/hr Documented By: BRA Co-signed By: TG Admin: 11/16/22 13:27 Dose: 1 mg/min, 33.3 mls/hr Documented By: SABINO Co-signed By: BLK Infusion: 11/16/22 13:27 Dose: 1 mg/min, 33.3 mls/hr Documented By: BPAlex Co-signed By: PETER Infusion: 11/16/22 10:40 Dose: 1 mg/min, 33.3 mls/hr Documented By: RYLAND Co-signed By: GPF Infusion: 11/16/22 07:12 Dose: 0.5 mg/min, 16.7 mls/hr Documented By: CAIO Co-signed By: RYLAND Admin: 11/16/22 04:35 Dose: 0.5 mg/min, 16.7 mls/hr Documented By: CAIO Co-signed By: TG Piperacillin Sod/Tazobactam (Sod 4.5 gm/ Dextrose) 120 mls @ 30 mls/hr IV Q8H KELSIE; Protocol Stop: 11/18/22 23:59 Last Infusion: 11/17/22 08:53 Dose: 0 mls/hr Documented By: Admin: 11/17/22 05:21 Dose: 30 mls/hr Documented By: Infusion: 11/17/22 02:01 Dose: 0 mls/hr Documented By: Admin: 11/16/22 21:37 Dose: 30 mls/hr Documented By: Infusion: 11/16/22 19:44 Dose: 0 mls/hr Documented By: Admin: 11/16/22 15:19 Dose: 30 mls/hr Documented By: Infusion: 11/16/22 09:46 Dose: 0 mls/hr Documented By: Admin: 11/16/22 06:09 Dose: 30 mls/hr Documented By: CAIO Acetaminophen (Ofirmev) 1,000 mg in 100 mls @ 400 mls/hr IV Q8H PRN PRN Reason: Fever Stop: 11/19/22 00:53 Last Infusion: 11/16/22 20:42 Dose: 0 mls/hr Documented By: Admin: 11/16/22 20:24 Dose: 400 mls/hr Documented By: Infusion: 11/16/22 02:44 Dose: 0 mls/hr Documented By: Admin: 11/16/22 02:29 Dose: 400 mls/hr Documented By: CAIO Insulin Aspart (Insulin Aspart Per Unit Charge) 0 units SC ACHS KELSIE Stop: 12/15/22 22:51 Last Admin: 11/17/22 07:51 Dose: 2 units Documented By: CARLOS Co-signed By: DINA Admin: 11/16/22 20:34 Dose: 4 units Documented By: BEBETO Co-signed By: SHALONDA Levothyroxine Sodium (Levothyroxine Sodium 50 Mcg Tablet) [facility]: 12/16/22 06:29 Last Admin: 11/17/22 05:30 Dose: 50 mcg Documented By: Admin: 11/16/22 06:09 Dose: 50 mcg Documented By: CAIO Montelukast Sodium (Montelukast Sodium 10 Mg Tablet) 10 mg PO QPM [facility]; Protocol Stop: 12/16/22 20:59 Last Admin: 11/16/22 20:05 Dose: 10 mg Documented By: BEBETO Pantoprazole Sodium (Pantoprazole 40 Mg Tab) 40 mg PO [facility] Stop: 12/16/22 20:59 Last Admin: 11/16/22 20:05 Dose: 40 mg Documented By: BEBETO Prednisone (Prednisone 10 Mg Tablet) 10 mg PO DAILY [facility] Stop: 12/16/22 08:59 Last Admin: 11/17/22 07:48 Dose: 10 mg Documented By: Admin: 11/16/22 08:09 Dose: 10 mg Documented By: RYLAND Vitamin D (Cholecalciferol 1,000 Units 25 Mcg Tab) 1,000 units PO DAILY [facility] Stop: 12/16/22 08:59 Last Admin: 11/17/22 07:46 Dose: 1,000 units Documented By: Admin: 11/16/22 08:09 Dose: 1,000 units Documented By: RYLAND Discontinued Medications Amiodarone HCl/Dextrose (Amiodarone 360mg / 200ml D5w (Season[employer] Use Only)) Confirm Administered Dose 360 mg IV .STK-MED ONE Stop: 11/16/22 13:23 Last Admin: 11/16/22 15:11 Dose: Not Given Documented By: RYLAND Fentanyl Citrate (Fentanyl Citrate Pf 100 Mcg/2 Ml Vial) Confirm Administered Do se 100 mcg .ROUTE .STK-MED ONE Stop: 11/16/22 13:47 Last Admin: 11/16/22 14:10 Dose: Not Given Documented By: NIKI Furosemide (Furosemide Inj 20 Mg/2 Ml Vial) 20 mg IV ONE ONE Stop: 11/16/22 15:23 Last Admin: 11/16/22 15:30 Dose: 20 mg Documented By: RYLAND Heparin Sodium (Porcine) (Heparin Sod (Porcine) 1000 Unit/Ml) 5,000 units IV 2320 ONE Stop: 11/15/22 23:21 Last Admin: 11/15/22 23:30 Dose: 5,000 units Documented By: CAIO Co-signed By: SHALONDA Heparin Sodium (Porcine) (Heparin (Porcine) 1000 Unit/Ml 10 Ml ([employer] Use Only)) Confirm Administered Dose 10,000 units .ROUTE .STK-MED ONE Stop: 11/16/22 13:47 Last Admin: 11/16/22 14:10 Dose: Not Given Documented By: NIKI Heparin Sodium/Dextrose (Heparin 60973 Unit/500 Ml D5w) Confirm Administered Dose 25,000 units IV .STK-MED ONE Stop: 11/15/22 22:56 Last Admin: 11/15/22 23:06 Dose: Not Given Documented By: CAIO Heparin Sodium/Sodium Chloride (Heparin In Nss Infusion 1000 Unit/500 Ml (2 U/Ml) Bag) Confirm Administered Dose 3,000 units IV .STK-MED ONE Stop: 11/16/22 13:47 Last Admin: 11/16/22 15:11 Dose: Not Given Documented By: RYLAND Magnesium Sulfate/Dextrose (Magnesium Sulfate / D5w) 1 gm in 100 mls @ 100 mls/hr IV NOW STA Stop: 11/15/22 20:33 Last Infusion: 11/15/22 20:48 Dose: 0 mls/hr Documented By: Admin: 11/15/22 19:48 Dose: 100 mls/hr Documented By: MINDY Magnesium Sulfate/Dextrose (Magnesium Sulfate / D5w) 1 gm in 100 mls @ 50 mls/hr IV Q2H [facility] Stop: 11/16/22 02:44 Last Infusion: 11/16/22 03:32 Dose: 0 mls/hr Documented By: Admin: 11/16/22 01:33 Dose: 50 mls/hr Documented By: Infusion: 11/16/22 01:22 Dose: 50 mls/hr Documented By: Admin: 11/15/22 23:22 Dose: 50 mls/hr Documented By: Infusion: 11/15/22 23:15 Dose: 50 mls/hr Documented By: Admin: 11/15/22 21:15 Dose: 50 mls/hr Documented By: MINDY Heparin Sodium/Dextrose (Heparin Sodium/Dextrose) 25,000 units in 500 mls @ 23 mls/hr IV .[id number] KELSIE; Protocol Stop: 12/15/22 22:29 Last Titration: 11/16/22 15:20 Dose: 0 units/hr, 0 mls/hr Documented By: RYLAND Co-signed By: GPF Titration: 11/16/22 09:00 Dose: 1,150 units/hr, 23 mls/hr Documented By: RYLAND Co-signed By: CMP Titration: 11/16/22 07:12 Dose: 1,150 units/hr, 23 mls/hr Documented By: CAIO Co-signed By: RYLAND Admin: 11/15/22 23:22 Dose: 1,150 units/hr, 23 mls/hr Documented By: CAIO Co-signed By: SHALONDA Amiodarone HCl/Dextrose (Nexterone / D5w) 360 mg in 200 mls @ 33.333 mls/hr IV 2240 ONE; Protocol Stop: 11/16/22 04:39 Last Infusion: 11/16/22 06:11 Dose: 0 mg/min, 0 mls/hr Documented By: CAIO Co-signed By: DORETHA Admin: 11/15/22 22:57 Dose: 1 mg/min, 33.3 mls/hr Documented By: CAIO Co-signed By: SHALONDA Piperacillin Sod/Tazobactam (Sod 4.5 gm/ Dextrose) 120 mls @ 240 mls/hr IV 0030 ONE; Protocol Stop: 11/16/22 00:59 Last Infusion: 11/16/22 02:54 Dose: 0 mls/hr Documented By: Admin: 11/16/22 01:03 Dose: 240 mls/hr Documented By: CAIO Hydrocortisone Sodium (Succinate 50 mg/ Syringe) 1 mls @ 4 mls/min IV Q6H KELSIE Stop: 12/16/22 00:00 Last Admin: 11/16/22 01:03 Dose: 4 mls/min Documented By: CAIO Desmopressin Acetate 0.5 mcg/ (Sodium Chloride) 50.125 mls @ 100 mls/hr IV 0145 ONE Stop: 11/16/22 02:15 Last Infusion: 11/16/22 02:54 Dose: 0 mls/hr Documented By: Admin: 11/16/22 01:47 Dose: 100 mls/hr Documented By: CAIO Potassium Chloride (K González / Wtr) 10 meq in 100 mls @ 100 mls/hr IV ONE ONE Stop: 11/17/22 07:33 Last Infusion: 11/17/22 07:57 Dose: 0 mls/hr Documented By: Admin: 11/17/22 06:53 Dose: 100 mls/hr Documented By: BEBETO Magnesium Sulfate/Dextrose (Magnesium Sulfate / D5w) 1 gm in 100 mls @ 50 mls/hr IV ONE ONE Stop: 11/17/22 08:33 Last Infusion: 11/17/22 08:53 Dose: 0 mls/hr Documented By: Admin: 11/17/22 06:50 Dose: 50 mls/hr Documented By: BEBETO Insulin Aspart (Insulin Aspart Per Unit Charge) 0 units SC Q6 KELSIE Stop: 12/15/22 22:51 Last Admin: 11/16/22 16:53 Dose: Not Given Documented By: Admin: 11/16/22 11:48 Dose: 1 units Documented By: RYLAND Co-signed By: TISHA Admin: 11/16/22 06:38 Dose: 2 units Documented By: CAIO Co-signed By: MISHEL Admin: 11/15/22 23:10 Dose: 3 units Documented By: CAIO Co-signed By: DORETHA Ioversol (Optiray 320 500ml) 110 ml IV ONCE ONE Stop: 11/15/22 18:31 Last Admin: 11/15/22 18:19 Dose: 110 ml Documented By: THERESE Metoprolol Tartrate (Metoprolol Tartrate 1 Mg/Ml Vial) 2.5 mg IV Q6 KELSIE Stop: 12/16/22 00:00 Last Admin: 11/16/22 11:48 Dose: 2.5 mg Documented By: Admin: 11/16/22 06:10 Dose: 2.5 mg Documented By: Admin: 11/15/22 23:22 Dose: 2.5 mg Documented By: CAIO Metoprolol Tartrate (Metoprolol Tartrate 1 Mg/Ml Vial) 5 mg IV NOW STA Stop: 11/16/22 10:07 Last Admin: 11/16/22 10:13 Dose: 5 mg Documented By: RYLAND Metoprolol Tartrate (Metoprolol Tartrate 25 Mg Tab) 25 mg PO ONE ONE Stop: 11/16/22 15:35 Last Admin: 11/16/22 16:01 Dose: 25 mg Documented By: RYLAND Metoprolol Tartrate (Metoprolol Tartrate 25 Mg Tab) 25 mg PO BID [facility] Stop: 12/16/22 20:59 Last Admin: 11/17/22 07:48 Dose: 25 mg Documented By: Admin: 11/16/22 20:05 Dose: 25 mg Documented By: BEBETO Midazolam HCl (Midazolam Hcl 1 Mg/Ml 2ml Vial) Confirm Administered Dose 2 mg .ROUTE .STK-MED ONE Stop: 11/16/22 13:47 Last Admin: 11/16/22 14:10 Dose: Not Given Documented By: NIKI Miscellaneous (Zafirlukast 20 Mg - Order Awaiting Action) 1 each N/A QS [facility] Stop: 12/16/22 07:59 Last Admin: 11/16/22 08:09 Dose: Not Given Documented By: RYLAND Nicardipine HCl (Nicardipine Hcl Inj 2.5 Mg/Ml 10 Ml Amp) Confirm Administered Dose 25 mg .ROUTE .STK-MED ONE Stop: 11/16/22 13:47 Last Admin: 11/16/22 15:12 Dose: Not Given Documented By: RYLAND Nitroglycerin/Dextrose (Nitroglycerin/D5w 100mcg/Ml 20ml Syr) Confirm Administered Dose 2,000 mcg .ROUTE .STK-MED ONE Stop: 11/16/22 13:49 Last Admin: 11/16/22 15:12 Dose: Not Given Documented By: RYLAND Ondansetron HCl (Ondansetron Inj 2 Mg/Ml 2 Ml Vial) Confirm Administered Dose 4 mg .ROUTE .STK-MED ONE Stop: 11/15/22 18:05 Last Admin: 11/15/22 19:09 Dose: Not Given Documented By: LOUISA Ondansetron HCl (Ondansetron Inj 2 Mg/Ml 2 Ml Vial) 4 mg IV NOW STA Stop: 11/15/22 19:07 Last Admin: 11/15/22 18:09 Dose: 4 mg Documented By: LOUISA Imaging Data Radiologist's Impression: Head CT 11/15/22 18:[address] DOSE: 966.89 mGy.cm HISTORY: Altered mental status. neuro deficit, acute stroke suspected TECHNIQUE: Multiaxial CT images of the head were performed without the use of intravenous contrast. Automated exposure control was utilized for this study. A dose lowering technique was utilized adhering to the principles of ALARA. Comparison: Brain MRI 10/08/2015. Findings: Trace left mastoid effusion is noted. The right mastoid air cells are clear. The paranasal sinuses are clear. Prior bilateral lens replacement. The calvarium and skull base are intact. The ventricles and sulci are within normal limits. There is no mass, hematoma, midline shift, or acute infarct. Impression: No acute intracranial abnormality. ACT 112: Negative or not required by law. Electronically signed by: Anderson Villagomez M.D. 11/15/2022 6:31 PM Head CTA 11/15/22 18:04 HEAD & NECK CTA HISTORY: Altered mental status. neuro deficit, acute stroke suspected TECHNIQUE: Multiaxial CT images of the head were performed following the intravenous administration of contrast to evaluate the major cerebral vessels. Multiaxial CT images of the neck were also performed following the intravenous administration of contrast to evaluate the major cervical vessels. Maximum intensity projection images were also obtained. A dose lowering technique was utilized adhering to the principles of ALARA. COMPARISON: Brain MRI 10/08/2015. FINDINGS: There is no mass, hematoma, midline shift, or acute infarct. Visualized intracranial internal carotid arteries, distal vertebral arteries, and basilar artery are widely patent. There is no significant stenosis, occlusion, or aneurysm seen within the bilateral ACAs, MCAs, or business analyst ecommerce. The major dural venous sinuses are patent. Mild calcified plaque within the bilateral carotid siphons. The aortic arch and proximal great vessels are widely patent. There is no significant stenosis, occlusion, or dissection identified within the bilateral common carotid, internal carotid, or vertebral arteries. No pneumothorax. Interlobular septal thickening and patchy groundglass densities within the upper lobes posteriorly. This likely represents pulmonary edema. Left-sided pacemaker wires are noted. IMPRESSION: 1. No significant stenosis, occlusion, or aneurysm within the [place]. 2. No significant stenosis, occlusion, or dissection identified within the carotid or vertebral arteries. 3. Iuik-gy-kwcryjpy pulmonary edema. ACT 112: Negative or not required by law. Electronically signed by: Anderson Villagomez M.D. 11/15/2022 6:36 PM Neck CTA 11/15/22 18:04 HEAD & NECK CTA HISTORY: Altered mental status. neuro deficit, acute stroke suspected TECHNIQUE: Multiaxial CT images of the head were performed following the intravenous administration of contrast to evaluate the major cerebral vessels. Multiaxial CT images of the neck were also performed following the intravenous administration of contrast to evaluate the major cervical vessels. Maximum intensity projection images were also obtained. A dose lowering technique was utilized adhering to the principles of ALARA. COMPARISON: Brain MRI 10/08/2015. FINDINGS: There is no mass, hematoma, midline shift, or acute infarct. Visualized intracranial internal carotid arteries, distal vertebral arteries, and basilar artery are widely patent. There is no significant stenosis, occlusion, or aneurysm seen within the bilateral ACAs, MCAs, or business analyst ecommerce. The major dural venous sinuses are patent. Mild calcified plaque within the bilateral carotid siphons. The aortic arch and proximal great vessels are widely patent. There is no significant stenosis, occlusion, or dissection identified within the bilateral common carotid, internal carotid, or vertebral arteries. No pneumothorax. Interlobular septal thickening and patchy groundglass densities within the upper lobes posteriorly. This likely represents pulmonary edema. Left-sided pacemaker wires are noted. IMPRESSION: 1. No significant stenosis, occlusion, or aneurysm within the [place]. 2. No significant stenosis, occlusion, or dissection identified within the carotid or vertebral arteries. 3. Lgek-tg-eojcoams pulmonary edema. ACT 112: Negative or not required by law. Electronically signed by: Anderson Villagomez M.D. 11/15/2022 6:36 PM Discharge Plan Visit Data Chief Complaint: Unresponsive Stated Complaint: UNRESPONSIVE ED Provider: Adela Coley Discharge Problem: Episode of unresponsiveness, Hypomagnesemia, Elevated troponin Patient Disposition: Admitted As Inpatient Discharge Instructions Interventions: ED Discharge Assessment Last Done: 11/15/22 22:10
[2022-11-15] MEDS ORDERED: AMIODARONE / D5W 360 MG/200 ML BAG IV ONE (22:40)
[2022-11-15] MEDS ORDERED: Heparin IV Adult Wt-Based Standard WITH Bolus Protocol IV SCH (22:42)
[2022-11-15] MEDS ORDERED: HYDROCORTISONE SOD SUCCINATE 100 MG/2 ML VIAL IV SCH (22:52)
[2022-11-15] MEDS ORDERED: GLUCOSE 10 TAB/TUBE PO PRN (22:52)
[2022-11-15] MEDS ORDERED: PHARMACIST DISCHARGE MED REC CONSULT PRN (22:52)
[2022-11-15] MEDS ORDERED: GLUCOSE 40% GEL 15 GM TUBE PO PRN (22:52)
[2022-11-15] MEDS ORDERED: DEXTROSE 50% 50 ML SYRINGE IV PRN (22:52)
[2022-11-15] MEDS ORDERED: CARBOHYDRATES FOR HYPOGLYCEMIA PO PRN (22:52)
[2022-11-15] MEDS ORDERED: GLUCAGON FOR INJ 1 MG VIAL SQ PRN (22:52)
[2022-11-15] MEDS ORDERED: ICU Protocol for HYPERglycemia SCH (22:52)
[2022-11-15] MEDS ORDERED: LORazepam 2 MG/1 ML VIAL IV PRN (22:52)
[2022-11-15] MEDS ORDERED: HEPARIN 25000 UNIT/500 ML D5W IV ONE (22:55)
[2022-11-15] MEDS: INSULIN ASPART PER UNIT CHARGE SC SCH (23:10)
[2022-11-15] MEDS ORDERED: HEPARIN SOD (PORCINE) 1000 UNIT/ML IV ONE (23:20)
[2022-11-15] MEDS: METOPROLOL TARTRATE 1 MG/ML VIAL IV SCH (23:22)
--- NOTE | 2022-11-15 23:24 | Critical Care Consultation ---
Date of Consultation November 15, 2022 Assessment & Plan (1) Cardiac arrest: Reason Critically Ill: [age]-year-old female presents to the ICU after a presumed cardiac arrest from ventricular tachycardia in which the patient received CPR by her and resumed ROSC prior to EMS arrival. She now is admitted to the ICU with mild neurological impairment, currently on heparin and amiodarone drips. Neuro - Acute encephalopathysuspect that she has mild anoxic injury from a presumed cardiac arrest earlier today. This appears to be improving. Her CT head, CTA neck and head were unremarkable. Hold home antidepressants for now. Monitor Cardiac - Cardiac arrestpresumed that the patient was pulseless for short period given her pacer interrogation with 2 minutes of ventricular tachycardia. She did receive CPR by her during this time. ROSC was achieved prior to EMS arrival and she did not receive additional CPR or defibrillation. - History of AV block with pacemaker. EKG paced with QTc of 580. Magnesium also 1.3. Torsades? - Troponin 22 07/28/2008. Started on heparin drip. - Cardiology consulted. Starting on amiodarone drip and IV metoprolol. Patient will likely undergo cardiac catheterization - Follow-up echo -Holding antihypertensives for now - Currently hemodynamically stable and not requiring vasopressor support. Continue to monitor closely in ICU Respiratory - Hypoxialikely mixed etiology as the patient appears to have cardiopulmonary congestion following her arrest and possible aspiration into the right lower lobe based on CT findings. She also has history of asthma but no issue at this time. - Currently maintaining oxygen saturation on nasal cannula without respiratory distress. Wean oxygen as tolerated - Hold on diuresis for now as patient has history of diabetes insipidus and is on desmopressin - Continue prednisone,Breo Ellipta, Pulmicort,nebs as needed - Continuous monitoring pulse ox GI - N.p.o. for now GERDProtonix RENAL/LYTES - Creatinine within normal limits, monitor routine BMPs and replete electrolytes as indicated. Diabetes insipiduscontinue desmopressin - Foleystrict I's and O's ENDO - Diabetes mellitusholding oral agents in favor of sliding scale. ICU hyperglycemic protocol Hypothyroidcontinue Synthroid HEME - H&H stable, monitor routine CBC ID - Aspiration pneumonia?Blood cultures pending. Zosyn for now LINES/IV ACCESS - Peripheral IVs x2 DVT PROPHYLAXIS - SCDs, heparin drip I have personally spent 55 minutes of critical care time in the direct management of this patient. This is a life/limb threatening event. This includes time spent evaluating patient, direct bedside care, chart review, placing orders, interpretation of diagnostic studies, discussion with consultants, patient, and family members, as well as other required patient management activities. This time is exclusive of all separately billable procedures, and teaching time and separate from and in addition to any other critical care service time. Thank you for allowing us to participate in the care of this patient. Please refer to my attending physician's documentation for any further recommendations. (2) Ventricular tachycardia: (3) Hypomagnesemia: (4) Encephalopathy acute: (5) Elevated troponin: (6) Second degree AV block: (7) Hypothyroidism: (8) Dyslipidemia: (9) Asthma: (10) GERD (gastroesophageal reflux disease): (11) Diabetes insipidus: (12) Diabetes type 2, controlled: History of Present Illness Attending Physician: Robert Blanchard MD History of Present Illness Patient is a 67-year-old female with a past medical history of type 2 diabetes, CKD stage III, diabetes insipidus, HLD, asthma, complete heart block (s/p pacemaker), GERD, depression who presented to the emergency department after episode of unresponsiveness and possible cardiac arrest. Patient had witnessed episode for which she became unresponsive and temporarily stopped breathing in which she received CPR for approximately 2 minutes by her . When EMS arrived at the scene patient was obtunded, But did not require additional CPR or shock. Patient was confused and brought to the emergency department where she underwent CT head and CTA head and neck which were unremarkable. Chest x-ray showed bilateral opacifications and she underwent CT chest with contrast which showed Patchy pulmonary opacities in the posterior bilateral upper lobes and the superior segment of the right lower lobe, hiatal hernia, and moderate cardiomegaly. She had magnesium of 1.3 and prolonged QTc of 580 on her EKG which showed paced rhythm. Initial troponin was 22. Her pacemaker was interrogated which showed a 2-minute run of ventricular tachycardia. Cardiology was consulted and recommended amiodarone drip, heparin drip, and metoprolol. It is likely that she will require cardiac catheterization. Patient is now being admitted to ICU for further management at this time. On arrival to the ICU the patient answers questions and follows commands but appears to have some neurological impairment with difficulty remembering which is not her baseline. This is improvement of the initial exam in the emergency department where she was noted to be combative. I would expect that the patient had pulseless V. tach with cardiac arrest and now is exhibiting symptoms of mild anoxic injury. She currently denies headache, dizziness, sore throat, congestion, cough, chest pain, palpitations, shortness of breath, abdominal pain, nausea or vomiting, or diarrhea. Patient does report swelling in her bilateral lower extremities, but has no edema on exam. Allergies Allergy/AdvReac Type Severity Reaction Status Date / Time aspirin AdvReac Intermediate shortness Verified 05/26/22 11:53 of breath Home Medications Medication Instructions Recorded Confirmed Type desmopressin 0.2 mg tablet 0.2 mg PO BID #180 tabs 03/02/19 11/15/22 History levothyroxine 50 mcg tablet 50 mcg PO DAILYBB #90 tabs 03/02/19 11/15/22 History metformin 500 mg tablet,extended 1,000 mg PO BID #360 tabs 03/02/19 11/15/22 History release 24 hr pantoprazole 40 mg tablet,delayed 40 mg PO HS #90 tabs 03/02/19 11/15/22 History release simvastatin 40 mg tablet 40 mg PO HS #90 tabs 03/02/19 11/15/22 History imipramine HCl 50 mg tablet 50 mg PO DIRECTED 03/13/19 11/15/22 History losartan 25 mg tablet 25 mg PO HS 05/29/21 11/15/22 History zafirlukast 20 mg tablet 20 mg PO BID 05/29/21 11/15/22 History cholecalciferol (vitamin D3) 25 25 mcg PO DAILY 04/30/22 11/15/22 History mcg (1,000 unit) chewable tablet (Vitamin D3) prednisone 10 mg tablet 10 mg PO QAM 04/30/22 11/15/22 History budesonide 0.5 mg/2 mL suspension 10 mg inhalation [facility] 11/15/22 11/15/22 History for nebulization fluticasone 500 mcg-salmeterol 50 2 inh inhalation BID 11/15/22 11/15/22 History mcg/dose blistr powdr for inhalation glipizide 10 mg tablet 10 mg PO BID 11/15/22 11/15/22 History hydroxyzine HCl 25 mg tablet 25 mg PO QID PRN Anxiety 11/15/22 11/15/22 History tezepelumab-ekko 210 mg/1.91 mL 0 mg subcut UD 11/15/22 11/15/22 History (110 mg/mL) subcutaneous syringe (Tezspire) Patient History Medical History (Updated 11/16/22 @ 03:08 by MADAY Ahuja) Allergic rhinitis Asthma not well controlled per pt, has not used it for appox 1 week Depression with anxiety Diabetes insipidus desmopressin for this Diabetes type 2, controlled NIDDM Dyslipidemia GERD (gastroesophageal reflux disease) History of COVID-12 January 2022 > not hospitalized, > no further problems Hypomagnesemia Hypothyroidism Multiple thyroid nodules Pacemaker Jun 2019 > [facility] > 2nd degree AV block > follows with Dr. Hernandez with [facility], last checked August 2021 > [employer]tr[employer] Second degree AV block pacemaker Vitamin D deficiency Surgical History History of cardiac cath 2018 > no stents History of cataract surgery History of cholecystectomy History of colonoscopy History of esophagogastroduodenoscopy (EGD) Family History Father Heart disease Mother Heart disease Other No family history of adverse response to anesthesia No family history of bleeding disorder Social History Smoking Status: Former smoker Tobacco Type: Cigarettes Second Hand Exposure: No; Do You Dip or Chew Tobacco: No; Hx Alcohol Use: Yes Alcohol type: beer Hx Substance Use: No Preferred Language: Thai Communication Ability: Effective Biochemical Engineer Required: No Beliefs That Will Affect Care: None Current Living Situation: Spouse current occupational status: employed 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 Feels Safe at Home: Yes Safety Concerns: Feels Safe At This Time Assistive Devices: Glasses Review of Systems Review of Systems: All systems reviewed & are unremarkable except as noted in HPI & below Physical Exam Constitutional: cooperative and comfortable; no acute distress Eyes: PERRL, conjunctivae normal, anicteric sclerae ENMT: external ear and nose normal, oropharynx normal Neck: trachea midline, no thyromegaly Respiratory: normal respiratory effort, lungs clear to auscultation Cardiovascular: RRR, no murmur, no edema Heart Sounds: normal S1 and normal S2; no murmur Extremities: no edema Gastrointestinal (Abdomen): normal bowel sounds, soft, nontender, no hepatosplenomegaly Musculoskeletal: no cyanosis or clubbing, extremities motor strength 5/5 Skin: no rashes, warm and dry Neurologic: PERRL, EOMI, accommodation nl, no face palsy, no dysarthria Psychiatric: Orientation: oriented to person and cooperative; + not oriented to place and + not oriented to time Cognition: + recent memory not intact Results & Data Results & Data Vital Signs (Past 12 Hours) Vital Signs Temp Pulse Resp BP Pulse Ox O2 Del Method O2 Flow Rate 11/15/22 22:35 87 16 132/70 99 Nasal Cannula 2 11/15/22 22:00 83 11/15/22 21:01 86 16 137/79 97 Nasal Cannula 2 11/15/22 20:12 99 Room Air, Nasal Cannula 3 11/15/22 20:01 81 16 121/65 98 Nasal Cannula 3 11/15/22 19:10 86 16 142/83 H 97 Nasal Cannula 3 11/15/22 18:03 104 H 11/15/22 18:27 154/80 H 11/15/22 18:27 97 H 20 94 Nasal Cannula 2 11/15/22 18:26 89 L Room Air 11/15/22 18:10 99 H 27 H 92 Room Air 11/15/22 18:04 105 H 28 H 96 Room Air 11/15/22 17:46 36.6 C 91 H 24 154/80 H 96 Room Air Coding Level of Care Code 80767 CRITICAL CARE 1ST 30-74M Diagnoses Cardiac arrest I46.9 Ventricular tachycardia I47.20 Hypomagnesemia E83.42 Encephalopathy acute G93.40 Elevated troponin R77.8 Second degree AV block I44.1 Hypothyroidism E03.9 Dyslipidemia E78.5 Asthma J45.909 GERD (gastroesophageal reflux disease) K21.9 Diabetes insipidus E23.2 Diabetes type 2, controlled E11.9
--- NOTE | 2022-11-15 23:51 | History and Physical Report ---
DATE OF ADMISSION: 11/15/2022. CHIEF COMPLAINT: Unresponsive episode. HISTORY OF PRESENT ILLNESS: This is a 67-year-old female with past medical history significant for type 2 diabetes, chronic kidney disease stage III, diabetes insipidus, hyperlipidemia, diaphragmatic hernia, severe persistent asthma, history of complete heart block, status post pacemaker, GERD, history of depression, presents with unresponsive episode. As per , the patient was sitting on the floor talking and suddenly around4-4:30 p.m., she suddenly became unresponsive . He starte CPR and called the EMS and he states had four cycles of CPR and he saw that she was somewhat labored breathing. When the EMS came she was breathing ok but she was unresponsive still. thought during the episode she had brief facial droop and also she was clenching her teeth, but no shaking of the body and no biting of the tongue and no incontinence .Denies recent sickness. No recent fevers, no cough, no nausea, vomiting or diarrhea. Before that, she was doing fine. She had some stress today and she took her medication to relax her. He does not know which medication she took. When she came in to ER, she was still unresponsive. Initial workup with CTA of the head and neck and CT of head were okay. Hemodynamically okay. She was requiring 3 L of oxygen. WBC is 14, creatinine 0.9, magnesium 1.3, AST 187, ALT 136, alkaline phosphatase 74. Troponin I high sensitivity 22.3. SARS-CoV-2 rapid test negative. EKG showed paced rhythm and chest x-ray showed pulmonary edema. The patient is then became alert and awake. Says she is not feeling good. She thinks she might have a stroke, but she is irritable, not answering any questions, moving her lower extremities and she is able to squeeze upper extremities to her , but not cooperative with any other exam, not answering any questions . Per cardiology notes patient had cardiac catheterization April 2019 with minimal CAD disease.She also followed with endocrinology long time back in 2004 for diabetes insipidus and she is taking desmopressin. As per , she did not take regularly, but she is on it. ALLERGIES: ASPIRIN. PAST MEDICAL HISTORY: As mentioned above. PAST SURGICAL HISTORY: Colonoscopy, EGD, laparoscopic cholecystectomy, pacemaker insertion, upper endoscopy. It looks like she has cardiac catheterization April 2019 with minimal CAD disease and she also followed with endocrinology long time back in 2005 for diabetes insipidus and she is taking desmopressin. As per , she did not take regularly, but she is on it. FAMILY HISTORY: Significant for paternal grandmother had breast cancer. Maternal grandfather, diabetes. Paternal grandmother, heart disease, heart disorder. Father had fatal [place] at age of 85. Mother fatal [place] at age of 52. SOCIAL HISTORY: . No smoking. Alcohol occasional. No drug use. REVIEW OF SYSTEMS: Unobtainable at this time. PHYSICAL EXAMINATION: GENERAL: The patient is alert and awake, irritable, not obeying commands. VITAL SIGNS: Temperature 36.6, pulse 81, respirations 16, blood pressure 121/65, oxygen 99% on 3 L. HEENT: No facial droop. Speech is okay, but somewhat restless. Could not examine the eyes. The patient is closing her eyes tight. NECK: No obvious neck masses seen. CARDIOVASCULAR: S1 and S2 heard. Regular rate and rhythm. No murmur, no gallop. RESPIRATORY SYSTEM: Normal AP diameter. No accessory muscle use. No wheezing, crackles. ABDOMEN: Soft, bowel sounds present, nontender, no distention. CENTRAL NERVOUS SYSTEM: Alert and awake. Irritable. Not obeying commands and not answering questions, but able to move her extremities and squeeze her upper hands. Speech is clear. No obvious facial droop seen. Could not do complete examination as the patient is irritable and not cooperative. EXTREMITIES: No edema, no erythema. LABORATORY DATA: WBC 14.5, hemoglobin 12, hematocrit 35.7, platelets 358. PT 10.9, INR 1, APTT 25.4. Sodium 133, potassium 4.3, chloride 103, CO2 18, BUN 18, creatinine 0.9, serum glucose 211, calcium 9.3, magnesium 1.3, total bilirubin 0.3, AST 187, ALT 136, alkaline phosphatase 74. Troponin I high sensitivity 2.4. SARS-CoV-2 rapid test negative. IMAGING DATA: Chest x-ray, pulmonary edema. Neck CTA, no significant stenosis, bmrp-[id number]-wzkbzcit pulmonary edema. CTA of the head, no significant stenosis, uwem-[id number] pulmonary edema. CTAof the head without contrast, no acute intracranial abnormalities. EKG, atrial sensed ventricular paced rhythm at a rate of 103, QTc of 589. ASSESSMENT AND PLAN: This is a 67-year-old female, who presents with unresponsive episode. 1. Unresponsive episode, etiology unclear, questionable stroke or cardiac event. Labs are okay. Initial workup with CTA of the head and neck was okay.Has pulmonary edema. The patient is apparently irritable, could be postictal. Will do the seizure precautions. IV Ativan p.r.n. for any breakthrough seizures. Could not do MRI scan because of the pacemaker. We will consult Neurology. We will get an EEG, echocardiogram, pacemaker interrogation. Closely monitor in the ICU. Later Medtr[employer] pacer interrogation revealed VT for 2 minutes around 4pm. Possible VT arrest. Notified cardiology and was recommended amiodarone drip, b blockers replace electrolytes and ok for heparin. Close monitor in ICU 2. Hypomagnesia , prolonged QTc? atrial sensed ventricular paced rhythm .d/w cardiology. IV magnesium. We will follow the repeat labs. 3. Leukocytosis. Possible aspiration. Possible reactive. Empiric abx. 4. Hypoxia Pul edema. on oxygen. Close monitor.Holding on diuretics for now. 5. Mild elevation of troponin. Trended up to 22 to 109 Could be demand ischemia. Follow serial enzymes and echocardiogram.On iv heparin 6. Diabetes. Hold home glipizide. Place on insulin sliding scale. Follow the blood sugars. 7. History of DI. On desmopressin The patient is also on prednisone?. 8. History of asthma. Continue home inhalers. 9. Chronic kidney disease, stage III. Currently, creatinine of 0.9. We will follow the labs. 10. Gastroesophageal reflux disease. On Protonix. 11. Hypothyroidism. We will follow thyroid profile. 12. Hypertension. On losartan, which we will hold for now and monitor the blood pressure. 13. Hyperlipidemia, on statin. 14. Deep venous thrombosis prophylaxis. Sequential compression devices for now. DISPOSITION: Closely monitor in the ICU. Level 1 full code. Job ID: [id number] [facility]
[2022-11-16] MEDS ORDERED: HYDROCORTISONE SOD 50 MG in SYRINGE 0 ML IV SCH
[2022-11-16] MEDS ORDERED: PIPERACILLIN/TAZOBACTAM 4.5 GM (over 30 mins) IV ONE (00:30)
[2022-11-16 00:35] LABS: Appearance Urine Clear (Clear); Bilirubin Urine Negative (Negative); Blood Urine Negative (Negative); Color Urine Yellow; Glucose Urine UA 1+ (Negative); Ketones Urine Trace (Negative); Leukocyte Esterase Urine Negative (Negative); Nitrite Urine Negative (Negative); Protein Urine Negative (Negative); Specific Gravity Urine 1.014 (1.000-1.030); Urobilinogen Urine Negative (Negative)
--- NOTE | 2022-11-16 00:37 | CT Scan Report ---
Exam(s): CT CHEST Without Contrast EXAM: CT Chest Without Intravenous Contrast CLINICAL HISTORY: Reason for exam: Hypoxia. TECHNIQUE: Axial computed tomography images of the chest without intravenous contrast. CTDI is 39.35 mGy and DLP is 716.83 mGy-cm. Automated exposure control was utilized for the study. A dose lowering technique was utilized adhering to the principles of ALARA. COMPARISON: No relevant prior studies available. FINDINGS: Lungs: Patchy pulmonary opacities within posterior bilateral upper lobes and the superior segment of the right lower lobe. Bibasilar subsegmental atelectasis. Pleural space: Unremarkable. No pneumothorax. No significant effusion. Heart: Moderate cardiomegaly. No significant pericardial effusion. No significant coronary artery calcifications. Mediastinum: Large hiatal hernia. Bones/joints: Unremarkable. No acute fracture. No dislocation. Soft tissues: Unremarkable. Vasculature: Unremarkable. No thoracic aortic aneurysm. Lymph nodes: Unremarkable. No enlarged lymph nodes. Gallbladder and bile ducts: Status post cholecystectomy. IMPRESSION: 1. Patchy pulmonary opacities within posterior bilateral upper lobes and the superior segment of the right lower lobe. 2. Large hiatal hernia. 3. Moderate cardiomegaly. Electronically signed by: Jonh Jasmine M.D. 11/16/22 00:36 AM
[2022-11-16] MEDS: MAGNESIUM SULFATE / D5W 1 GM/100 ML BAG IV SCH (01:33)
[2022-11-16] MEDS ORDERED: DESMOPRESSIN ACETATE 0.5 MCG in SODIUM CHLORIDE 0.9% 50 ML IV ONE (01:45)
[2022-11-16] MEDS: ACETAMINOPHEN 1,000 MG/100 ML VIAL IV PRN ×2 (02:29→20:24)
[2022-11-16] MEDS: AMIODARONE / D5W 360 MG/200 ML BAG IV SCH ×3 (04:35→19:42)
[2022-11-16 05:55] LABS: Basophils # (auto) 0.01 K/uL (0-0.2); Basophils % (auto) 0.2 %; Hematocrit (blood only) 37.1 % (37.0-47.0); Hemoglobin 12.2 g/dl (12.0-16.0); Immature Granulocytes # (auto) 0.04 K/uL (0.01-0.20); Immature Granulocytes % (auto) 0.6 %; Lymphocytes # (auto) 0.48 K/uL (1.2-3.4); Lymphocytes % (auto) 7.7 %; Mean Corpuscular Hemoglobin 28.5 pg (25.0-34.0); Mean Corpuscular Hgb Conc 32.9 g/dL (32.0-36.0); Mean Corpuscular Volume 86.7 fL (80.0-100.0); Mean Platelet Volume 9.6 fL (9.4-12.4); Monocytes # (auto) 0.25 K/uL (0.11-0.59); Neutrophils # (auto) 5.43 K/uL (1.40-6.50); Neutrophils % (auto) 87.5 %; Platelet Count 305 K/uL (130-400); RDW Coefficient of Variation 14.4 % (11.5-14.5); RDW Standard Deviation 45.1 fL (36.4-46.3); Red Blood Count 4.28 M/uL (4.20-5.40); White Blood Count 6.21 K/ul (4.8-10.8)
[2022-11-16] MEDS: PIPERACILLIN/TAZOBACTAM 4.5 GM in DEXTROSE 5% 100 ML IV SCH ×3 (06:09→21:37)
[2022-11-16] MEDS: LEVOTHYROXINE SODIUM 50 MCG TABLET PO SCH (06:09)
[2022-11-16] MEDS: METOPROLOL TARTRATE 1 MG/ML VIAL IV SCH ×2 (06:10→11:48)
[2022-11-16 06:17] LABS: Bilirubin,Total 0.3 mg/dl (0.2-1.0); Chol HDL Ratio 2.5 (0-5); Magnesium 2.5 mg/dl (1.7-2.4); Phosphorus 3.3 mg/dl (2.5-4.9)
[2022-11-16 06:30] LABS: Troponin I High Sensitivity 100.8 pg/ml (0-14)
[2022-11-16 06:34] LABS: BUN Creatinine Ratio 17.6 (10-20); Creatinine Clr Calc Pharmacy 60.4 ml/min; Est GFR (African American) 75.1 ml/min; Est GFR (Non-African American) 64.8 ml/min; Potassium 4.3 mmol/L (3.5-5.1); Total Protein 6.5 gm/dl (6.0-8.3)
[2022-11-16] MEDS: INSULIN ASPART PER UNIT CHARGE SC SCH ×4 (06:38→20:34)
--- NOTE | 2022-11-16 06:48 | XRay Report ---
XR chest 1V portable CLINICAL HISTORY: Altered mental status. COMPARISON STUDY: Chest radiograph May 29, 2021. FINDINGS: Left subclavian dual-lead pacer is in place. A hiatal hernia is again noted. There is no pn eumothorax. Possible small bilateral pleural effusions. Moderate interstitial thickening is present. Cardiomegaly is unchanged. IMPRESSION: Cardiomegaly with interstitial pulmonary edema and possible small bilateral pleural effus ions. ACT 112: Negative or not required by law. Electronically signed by: Dariusz Guzman M.D. 11/16/2022 6:47 AM
[2022-11-16 07:22] LABS: Estimated Average Glucose 186 mg/dl; Hemoglobin A1C 8.1 % (4.5-5.6)
[2022-11-16] MEDS: BUDESONIDE 0.5 MG/2 ML VIAL (PULMICORT) INH SCH ×2 (07:43→20:02)
[2022-11-16] MEDS: FLUTICASONE/VILANTEROL 200/25MCG 14 PUFFS/INHALER INH SCH (08:09)
[2022-11-16] MEDS: DESMOPRESSIN ACETATE 0.1 MG TAB PO SCH ×2 (08:09→20:06)
[2022-11-16] MEDS: CHOLECALCIFEROL 1,000 UNITS 25 MCG TAB PO SCH (08:09)
[2022-11-16] MEDS: predniSONE 10 MG TABLET PO SCH (08:09)
[2022-11-16 08:30] LABS: Partial Thromboplastin Ratio 1.7
[2022-11-16 08:54] LABS: Partial Thromboplastin Time 47.2 Seconds (21.0-31.0)
--- NOTE | 2022-11-16 09:05 | Electrocardiogram Report ---
Test Reason : Blood Pressure : / mmHG Vent. Rate : 103 BPM Atrial Rate : 103 BPM P-R Int : 144 ms QRS Dur : 172 ms QT Int : 450 ms P-R-T Axes : 000 024 140 degrees QTc Int : 589 ms Atrial-sensed ventricular-paced rhythm Abnormal ECG When compared with ECG of 29-MAY-2021 09:04, Vent. rate has increased BY 7 BPM Confirmed by Abdi Sandy ([id number]) on 11/16/2022 9:04:37 AM Referred By: REFERRED SELF Confirmed By:Abdi Sandy
[2022-11-16 09:07] LABS: iSTAT Blood Urea Nitrogen 18 mg/dl (7-18); iSTAT Carbon Dioxide < 5 mmol/L (24-31); iSTAT Chloride 103 mmol/L (101-112); iSTAT Creatinine 0.9 mg/dl (0.6-1.3); iSTAT Glucose 222 mg/dl (70-99); iSTAT Hematocrit 37 % (37-47); iSTAT Hemoglobin 12.6 g/dl (12.0-16.0); iSTAT Ionized Calcium 0.99 mmol/l (1.12-1.32); iSTAT Potassium 4.3 mmol/L (3.3-5.0); iSTAT Sodium 134 mmol/L (135-144)
[2022-11-16] MEDS ORDERED: METOPROLOL TARTRATE 1 MG/ML VIAL IV STA (10:06)
--- NOTE | 2022-11-16 11:02 | Cardiology Consultation ---
Date of Consultation November 16, 2022 Assessment & Plan (1) Cardiac arrest: (2) Ventricular tachycardia: (3) Severe left ventricular systolic dysfunction: (4) Fever: Patient with Temperature of 38 C, and likely has had a mild degree of aspiration for which she is on empiric antibiotics with Zosyn. She does not have any preceding symptoms suggestive of infection before her event yesterday. Patient is noted to have a severe decline in her left ventricular systolic dysfunction compared to previous study performed at the time of pacemaker implantation in 2019 with LVEF in the range of 20 to 25%. She has had previous cardiac catheterization 2018 with minimally nonobstructive disease. At present continue IV metoprolol and amiodarone. She has a past documented allergy to metoprolol which apparently exacerbated her asthma in the past, but thus far she is tolerating well. Her mental status is appropriate. Likely proceed with diagnostic cardiac catheterization to exclude coronary culprit in an effort to delineate if this is an ischemic or nonischemic cardiomyopathy. In the meantime her device has been interrogated as noted, we will increase the basal pacing rate from 60 to 75 bpm and attempt to overdrive pace and suppress ventricular arrhythmia. Several providers had expressed concerns with regards to the patient's QT interval being in excess of 500 ms. The patient has a ventricular paced QRS and therefore the QT interval is felt to not be diagnostic in this case and I do not think her ventricular tachycardia is due to an acquired prolonged QT syndrome.. Case discussed with Dr Ocasio of critical care medicine and Dr Blanchard for purpose of coordination of care. I spent a total of 65 minutes on the date of service in preparation, delivery, and documentation of the care provided to this patient, excluding any time spent in the performance of separately billed services. History of Present Illness Attending Physician: Robert Blanchard MD History of Present Illness Beatriz Birmingham is a 67 year old female seen in cardiology consultation Of a cardiac arrest event. The patient's cardiac history dates back to 2019. She has been found to have intermittent high-grade AV block. Cardiac catheterization was performed in April, revealing mild nonobstructive disease including a 10 to 20% lesion in the proximal LAD. She went on to have a dual-chamber Medtronic permanent pacemaker placed on 07/03/2019 with right atrial lead and a His bundle lead. An echocardiogram was performed at [facility] on 07/03/2019 immediately following the device findings of normal left ventricular systolic function, ejection fraction of 60 to 65% at that time without valvular heart disease. Yesterday the patient had a loss of consciousness event witnessed by her . Bystander CPR was initiated with spontaneous return of circulation. When she arrived to the emergency department by EMS she was initially confused. Noncontrast CT of the brain and CT angiogram of the head and neck were unremarkable. The patient's Medtronic pacemaker has since been interrogated and she was found to have an episode of ventricular tachycardia that occurred at 5:07 PM on 11/15/2022 that was approximately 3 minutes in duration. She was admitted to the intensive care unit overnight last night. Her mental status has improved. She has been treated with IV metoprolol and amiodarone infusion. Telemetry has revealed ongoing sinus rhythm with atrial sensed rhythm and ventricular paced rhythm with the exception of a recurrent brief episode of ventricular tachycardia that occurred at 956 this morning with associated near syncope and spontaneous termination of the arrhythmia with resolution of symptoms. The patient does not recall most of the events from yesterday. But she is awake and oriented at present. An echocardiogram performed this morning revealed severe left ventricular systolic dysfunction with ejection fraction the range of 20 to 25% with severe global left ventricular hypokinesis, focal akinesis of the basal septal and basal inferior segments. Mild aortic regurgitation is present. Mild tricuspid vegetation present with mild to moderate pulmonary hypertension, pulmonary artery systolic pressure estimated to be 57 mmHg. Patient notes recent dyspnea on exertion. No recent chest discomfort. No other syncope spells. Further interrogation of her pacemaker does reveal that she had a 24 beat run of nonsustained VT observed on 04/14/2022. Allergies Allergy/AdvReac Type Severity Reaction Status Date / Time aspirin AdvReac Intermediate shortness Verified 05/26/22 11:53 of breath Home Medications Medication Instructions Recorded Confirmed Type desmopressin 0.2 mg tablet 0.2 mg PO BID #180 tabs 03/02/19 11/15/22 History levothyroxine 50 mcg tablet 50 mcg PO DAILYBB #90 tabs 03/02/19 11/15/22 History metformin 500 mg tablet,extended 1,000 mg PO BID #360 tabs 03/02/19 11/15/22 History release 24 hr pantoprazole 40 mg tablet,delayed 40 mg PO HS #90 tabs 03/02/19 11/15/22 History release simvastatin 40 mg tablet 40 mg PO HS #90 tabs 03/02/19 11/15/22 History imipramine HCl 50 mg tablet 50 mg PO DIRECTED 03/13/19 11/15/22 History losartan 25 mg tablet 25 mg PO HS 05/29/21 11/15/22 History zafirlukast 20 mg tablet 20 mg PO BID 05/29/21 11/15/22 History cholecalciferol (vitamin D3) 25 25 mcg PO DAILY 04/30/22 11/15/22 History mcg (1,000 unit) chewable tablet (Vitamin D3) prednisone 10 mg tablet 10 mg PO QAM 04/30/22 11/15/22 History budesonide 0.5 mg/2 mL suspension 10 mg inhalation [facility] 11/15/22 11/15/22 History for nebulization fluticasone 500 mcg-salmeterol 50 2 inh inhalation BID 11/15/22 11/15/22 History mcg/dose blistr powdr for inhalation glipizide 10 mg tablet 10 mg PO BID 11/15/22 11/15/22 History hydroxyzine HCl 25 mg tablet 25 mg PO QID PRN Anxiety 11/15/22 11/15/22 History tezepelumab-ekko 210 mg/1.91 mL 0 mg subcut UD 11/15/22 11/15/22 History (110 mg/mL) subcutaneous syringe (Tezspire) Patient History Medical History Allergic rhinitis Asthma not well controlled per pt, has not used it for appox 1 week Depression with anxiety Diabetes insipidus desmopressin for this Diabetes type 2, controlled NIDDM Dyslipidemia GERD (gastroesophageal reflux disease) History of COVID-12 January 2022 > not hospitalized, > no further problems Hypomagnesemia Hypothyroidism Multiple thyroid nodules Pacemaker Jun 2019 > [facility] > 2nd degree AV block > follows with Dr. Hernandez with [facility], last checked August 2021 > Medtronic Second degree AV block pacemaker Vitamin D deficiency Surgical History History of cardiac cath 2018 > no stents History of cataract surgery History of cholecystectomy History of colonoscopy History of esophagogastroduodenoscopy (EGD) Family History Father Heart disease Mother Heart disease Other No family history of adverse response to anesthesia No family history of bleeding disorder Social History Smoking Status: Former smoker Tobacco Type: Cigarettes Second Hand Exposure: No; Do You Dip or Chew Tobacco: No; Hx Alcohol Use: Yes Alcohol type: beer Hx Substance Use: No Preferred Language: Serbian Communication Ability: Effective 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 Beliefs That Will Affect Care: None Current Living Situation: Spouse current occupational status: employed current occupation: [employer] Feels Safe at Home: Yes Safety Concerns: Feels Safe At This Time Assistive Devices: Glasses Review of Systems Review of Systems: All systems reviewed & are unremarkable except as noted in HPI & below Physical Exam Physical Exam: Temp Pulse Resp BP Pulse Ox O2 Del Method O2 Flow Rate 37.7 C H 60 19 138/98 99 Nasal Cannula 2 11/16/22 08:30 11/16/22 10:13 11/16/22 08:30 11/16/22 10:13 11/16/22 08:30 11/16/22 07:47 11/16/22 07:47 Constitutional: WD/WN, vitals as above Respiratory: normal respiratory effort, lungs clear to auscultation Cardiovascular: RRR, no murmur, no edema Chest (Breasts): normal inspection/palpation of breasts Gastrointestinal (Abdomen): normal bowel sounds, soft, nontender, no hepatosplenomegaly Neurologic: PERRL, EOMI, accommodation nl, no face palsy, no dysarthria Results & Data Laboratory Results Cardiac Enzymes 11/15/22 11/15/22 11/15/22 Range/Units 18:12 21:21 21:21 AST 187 H (13-39) U/L Troponin I High Sens 22.3 H 109.5 H* D (0-14) pg/ml B-Natriuretic Peptide 458 H (0-100) pg/ml 11/16/22 Range/Units 05:38 AST 90 H (13-39) U/L Troponin I High Sens 100.8 H* (0-14) pg/ml B-Natriuretic Peptide (0-100) pg/ml Coagulation 05/22/23 05/22/23 05/23/23 Range/Units 18:12 21:21 07:40 PT 10.9 (9.0-12.0) Seconds APTT 25.4 47.2 H* (21.0-31.0) Seconds B-Natriuretic Peptide 458 H (0-100) pg/ml Lipids 11/16/22 Range/Units 05:38 Triglycerides 59 (0-150) mg/dl Cholesterol 145 (0-200) mg/dl HDL Cholesterol 57 mg/dl Cholesterol/HDL Ratio 2.5 (0-5) CBC 11/15/22 11/16/22 Range/Units 18:12 05:38 WBC 14.55 H 6.21 (4.8-10.8) K/ul RBC 4.18 L 4.28 (4.20-5.40) M/uL Hgb 12.0 12.2 (12.0-16.0) g/dl Hct 35.7 L 37.1 (37.0-47.0) % Plt Count 358 305 (130-400) K/uL Neut # (Auto) 10.96 H 5.43 (1.40-6.50) K/uL Lymph # (Auto) 2.65 0.48 L (1.2-3.4) K/uL [place] # (Auto) 0.67 H 0.25 (0.11-0.59) K/uL Eos # (Auto) 0.00 0.00 (0-0.50) K/uL Baso # (Auto) 0.04 0.01 (0-0.2) K/uL Comprehensive Metabolic Panel 11/15/22 11/16/22 Range/Units 18:12 05:38 Sodium 133 L 139 (136-145) mmol/L Potassium 4.3 4.3 (3.5-5.1) mmol/L Chloride 103 106 (98-107) mmol/L Carbon Dioxide 18 L 23 (21-32) mmol/L BUN 18 16 (6-23) mg/dl Creatinine 0.96 0.91 (0.6-1.2) mg/dl Glucose 211 H 224 H (70-99(Fasting)) mg/dl Calcium 9.3 9.0 (8.6-10.3) mg/dl Direct Bilirubin 0.0 (0-0.2) mg/dl AST 187 H 90 H (13-39) U/L ALT 136 H 101 H (7-52) U/L Alkaline Phosphatase 74 75 (34-104) U/L Total Protein 6.5 6.5 (6.0-8.3) gm/dl Albumin 4.1 4.0 (3.4-5.0) gm/dl Diagnostic Findings EKG performed today 11/16/2022 and reviewed independently: Sinus rhythm with atrial sensing, ventricular paced QRS complexes. Appropriate capture noted. Pacemaker interrogation as noted above, normal functioning device. CT of the chest performed 11/16/2022: Summary of radiology report: Patchy pulmonary opacities in the posterior bilateral lobes moderate cardiomegaly, large hiatal hernia
[2022-11-16] MEDS ORDERED: AMIODARONE 360MG / 200ML D5W (CATH LAB USE ONLY) IV ONE (13:22)
[2022-11-16] MEDS ORDERED: HEPARIN (PORCINE) 1000 UNIT/ML 10 ML (CATH LAB USE ONLY) ONE (13:46)
[2022-11-16] MEDS ORDERED: niCARdipine HCL INJ 2.5 MG/ML 10 ML AMP ONE (13:46)
[2022-11-16] MEDS ORDERED: fentaNYL citrate PF 100 MCG/2 ML VIAL ONE (13:46)
[2022-11-16] MEDS ORDERED: MIDAZOLAM HCL 1 MG/ML 2ML VIAL ONE (13:46)
[2022-11-16] MEDS ORDERED: NITROGLYCERIN/D5W 100MCG/ML 20ML SYR ONE (13:48)
--- NOTE | 2022-11-16 14:37 | Hospitalist Progress Note ---
Date of Service November 16, 2022 Assessment & Plan (1) Ventricular tachycardia: Plan 67-year-old female with PMH of T2DM, CKD stage III, diabetes insipidus, HLD, diaphragmatic hernia, severe persistent asthma, complex heart block status post pacemaker, GERD, depression presented with an unresponsive episode secondary to ventricular tachycardia at home around 5 PM on 11/15/2022. Patient's started CPR and patient had ROSC prior to EMS arrival. 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 Acute Severe LV systolic dysfunciton: 11/16 Echo with EF of 20 to 25%. 07/03/19 ECHO w/ EF of 60-65%. Pulmonary edema: 2/2 cardiac arrest and severe HF Patient was unconscious and patient's initiated CPR prior to arrival, patient had ROSC prior to EMS arrival. Likely pulseless VT at home. Patient might have had aspiration during the event. H/o AV block w/ pacemaker placement. Patient now stable mentation nayak, no neurological signs or symptoms noted. Had 2 events of VT in the morning, patient did not have chest pain or feeling of heart racing. Discussed with cardiology, plan for diagnostic cardiac cath. Patient being managed in ICU, heparin drip for elevated trop. CArdio on board, appreciate recs. On amiod drip and iv metoprolol for VT. Hypomagnesemia: Monitor and replete. Possible aspiration pneumonia: Continue with Zosyn. CT chest reviewed. Patient febrile. Other chronic medical conditions: 6. Diabetes. Hold home glipizide. Place on insulin sliding scale. Follow the blood sugars. 7. History of DI. On desmopressin . 8. History of asthma. Continue home inhalers. 9. Chronic kidney disease, stage III. Currently, creatinine of 0.9. We will follow the labs. 10. Gastroesophageal reflux disease. On Protonix. 11. Hypothyroidism. We will follow thyroid profile. 12. Hypertension. On losartan, which we will hold for now and monitor the blood pressure. 13. Hyperlipidemia, on statin. DVT prophylaxis: SCDs. Disposition: Patient in ICU. Admission and Anticipated Discharge Date Admission Date: November 15, 2022 Subjective Patient seen and examined at bedside as a follow-up of unresponsive episode likely secondary to medical tachycardia at home. Patient was lying in bed, on oxygen via nasal cannula, NAD, denies any chest pain, had 2 episodes of ventricular tachycardia in the morning [first one with 15 beats and second one lasted around 30 seconds.] Patient denies sore throat or flulike illness recently. Patient does have temperature and is febrile. Physical Exam Physical Exam: GENERAL: Alert and oriented x3. NAD, on NC O2. HEENT: No pallor, no icterus. Pupils equal, round and reactive to light. Oral mucosa moist. NECK: No JVD, no neck masses. HEART: S1 and S2 heard. Regular rate and rhythm. No murmur, no gallop. RESPIRATORY SYSTEM: Normal AP diameter. No accessory muscle use. No wheezing, b/b rales ABDOMEN: Soft, bowel sounds present, nontender, no distention. CENTRAL NERVOUS SYSTEM: No facial droop. Speech is clear. Obeys simple commands. Moves extremities. EXTREMITIES: No edema, no erythema seen. Results & Data Results & Data Vital Signs (Past 12 Hours) Vital Signs Temp Pulse Pulse Resp BP BP Pulse Ox 11/16/22 13:01 65 16 122/80 96 11/16/22 11:48 75 120/78 11/16/22 11:41 60 11/16/22 10:13 60 138/98 11/16/22 08:30 37.7 C H 60 19 99 11/16/22 08:30 105/69 11/16/22 08:00 37.8 C H 65 16 98 11/16/22 08:00 121/73 11/16/22 07:30 37.8 C H 64 15 97 11/16/22 07:30 118/77 11/16/22 07:00 37.9 C H 62 17 98 11/16/22 07:00 131/81 11/16/22 06:45 37.9 C H 62 17 96 11/16/22 08:00 61 11/16/22 07:47 64 18 96 11/16/22 06:30 37.8 C H 61 17 98 11/16/22 06:30 125/80 11/16/22 06:00 37.9 C H 74 17 94 11/16/22 06:00 123/72 11/16/22 05:30 37.9 C H 71 19 96 11/16/22 05:30 131/81 11/16/22 05:01 37.9 C H 72 16 98 11/16/22 05:01 139/86 11/16/22 05:00 37.9 C H 75 12 98 11/16/22 04:30 37.9 C H 72 17 89 L 11/16/22 04:30 131/82 11/16/22 04:00 37.9 C H 72 20 95 11/16/22 04:00 135/84 11/16/22 03:30 38.0 C H 72 19 96 11/16/22 03:30 136/73 11/16/22 03:00 38.0 C H 72 20 95 11/16/22 03:00 130/78 11/16/22 06:10 67 123/72 O2 Del Method O2 Flow Rate 11/16/22 13:01 Room Air 11/16/22 11:48 11/16/22 11:41 11/16/22 10:13 11/16/22 08:30 11/16/22 08:30 11/16/22 08:00 11/16/22 08:00 11/16/22 07:30 Room Air 11/16/22 07:30 11/16/22 07:00 11/16/22 07:00 11/16/22 06:45 11/16/22 08:00 11/16/22 07:47 Nasal Cannula 2 11/16/22 06:30 11/16/22 06:30 11/16/22 06:00 11/16/22 06:00 11/16/22 05:30 11/16/22 05:30 11/16/22 05:01 11/16/22 05:01 11/16/22 05:00 11/16/22 04:30 11/16/22 04:30 11/16/22 04:00 11/16/22 04:00 11/16/22 03:30 11/16/22 03:30 11/16/22 03:00 11/16/22 03:00 11/16/22 06:10
[2022-11-16] MEDS ORDERED: FUROSEMIDE INJ 20 MG/2 ML VIAL IV ONE (15:22)
[2022-11-16] MEDS ORDERED: METOPROLOL TARTRATE 25 MG TAB PO ONE (15:34)
--- NOTE | 2022-11-16 15:39 | Communication Note ---
Date of Service: November 16, 2022 Cardiac catheterization films reviewed with Dr. Quezada. Patient with mild progression of the proximal LAD atherosclerosis as compared to the films performed in 2019, however this is not obstructive, and does not explain the patient's severe left ventricular systolic dysfunction with diffuse left ventricular hypokinesis. Patient does have chronic pacing from a His bundle lead with QRS duration of 160 ms, but the echocardiogram does not appear to be consistent with left ventricular dyssynchrony from deleterious pacing effects. Patient's young age of developing AV block in her 60s and history of asthma raises concerns of possible sarcoidosis, however chest CT from overnight did not reveal any mediastinal lymphadenopathy, and the nonischemic cardiomyopathy associated sarcoid often mimics CAD with focal wall motion abnormalities rather than diffuse left ventricular systolic dysfunction. Patient certainly provides a history of progressive dyspnea consistent with her having subacutely developed left ventricular systolic dysfunction over the last few months. 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 We will pr oceed with a dose of furosemide 20 mg IV x1, cautiously given administration of IV contrast for CT angiogram last evening and cardiac catheterization today. Discontinue IV metoprolol and start oral metoprolol. Of note, patient previously not prescribed metoprolol due to asthma, but she has tolerated IV thus far. Future considerations include adding Entresto, but will reconsider this tomorrow in an effort to not start to any medications at 1 time for fear of inducing medication related low blood pressure. We will discontinue unfractioned heparin as this is not felt to have been an acute coronary thrombotic event. Start DVT prophylaxis dose Lovenox tomorrow. LDL cholesterol level 76 mg/dL. Discontinue simvastatin 40 mg daily and transition to atorvastatin 40 mg daily.
--- NOTE | 2022-11-16 15:49 | Critical Care Progress Note ---
Date of Service November 16, 2022 Assessment & Plan (1) Cardiac arrest: Plan: Reason Critically Ill: [age]-year-old female presents to the ICU after a presumed cardiac arrest from ventricular tachycardia in which the patient received CPR by her and resumed ROSC prior to EMS arrival. She now is admitted to the ICU with mild neurological impairment, currently on heparin and amiodarone drips. Neuro - Acute encephalopathyappears to have resolved Cardiac - Ventricular fibrillation -Undergo cardiac cath with cardiology -Continue amiodarone -Continue heparin until cardiac cath -Echo demonstrates interval change Respiratory - Hypoxiaresolved GI - N.p.o. for cardiac cath GERDProtonix RENAL/LYTES - Creatinine within normal limits, monitor routine BMPs and replete electrolytes as indicated. Diabetes insipiduscontinue desmopressin - Foleystrict I's and O's ENDO - Diabetes mellitusholding oral agents in favor of sliding scale. ICU hyperglycemic protocol Hypothyroidcontinue Synthroid HEME - H&H stable, monitor routine CBC ID - Febrile illness -Suspect aspiration pneumonitis. Continue antibiotics as patient may require AICD LINES/IV ACCESS - Peripheral IVs x2 DVT PROPHYLAXIS - SCDs, heparin drip I have personally spent 35 minutes of critical care time in the direct management of this patient. This is a life/limb threatening event. This includes time spent evaluating patient, direct bedside care, chart review, placing orders, interpretation of diagnostic studies, discussion with consultants, patient, and family members, as well as other required patient management activities. This time is exclusive of all separately billable procedures, and teaching time and separate from and in addition to any other critical care service time. (2) Ventricular tachycardia: (3) Hypomagnesemia: (4) Encephalopathy acute: (5) Elevated troponin: (6) Second degree AV block: (7) Hypothyroidism: (8) Dyslipidemia: (9) Asthma: (10) GERD (gastroesophageal reflux disease): (11) Diabetes insipidus: (12) Diabetes type 2, controlled: Admission and Anticipated Discharge Date Admission Date: November 15, 2022 Subjective During my evaluation patient was alert, answering appropriate questions with cardiology regarding diagnosis and need for treatment. Physical Exam Physical Exam: General: Alert. nontoxic. Skin: Warm, dry, Head: Atraumatic Ears, nose, mouth and throat: airway patent Cardiovascular: Normal peripheral perfusion Respiratory: no respiratory distress Gastrointestinal: Non distended Musculoskeletal: No deformity Results & Data Results & Data Vital Signs (Past 12 Hours) Vital Signs Temp Pulse Pulse Resp BP BP Pulse Ox 11/16/22 15:36 37.4 C 75 21 122/77 94 11/16/22 15:21 37.5 C 75 26 H 125/80 91 11/16/22 15:09 37.4 C 90 26 H 122/74 92 11/16/22 14:42 75 117/83 92 11/16/22 14:30 75 139/67 92 11/16/22 13:01 65 16 122/80 96 11/16/22 11:48 75 120/78 11/16/22 11:41 60 11/16/22 10:13 60 138/98 11/16/22 08:30 37.7 C H 60 19 99 11/16/22 08:30 105/69 11/16/22 08:00 37.8 C H 65 16 98 11/16/22 08:00 121/73 11/16/22 07:30 37.8 C H 64 15 97 11/16/22 07:30 118/77 11/16/22 07:00 37.9 C H 62 17 98 11/16/22 07:00 131/81 11/16/22 06:45 37.9 C H 62 17 96 11/16/22 08:00 61 11/16/22 07:47 64 18 96 11/16/22 06:30 37.8 C H 61 17 98 11/16/22 06:30 125/80 11/16/22 06:00 37.9 C H 74 17 94 11/16/22 06:00 123/72 11/16/22 05:30 37.9 C H 71 19 96 11/16/22 05:30 131/81 11/16/22 05:01 37.9 C H 72 16 98 11/16/22 05:01 139/86 11/16/22 05:00 37.9 C H 75 12 98 11/16/22 04:30 37.9 C H 72 17 89 L 11/16/22 04:30 131/82 11/16/22 04:00 37.9 C H 72 20 95 11/16/22 04:00 135/84 11/16/22 06:10 67 123/72 O2 Del Method O2 Flow Rate 11/16/22 15:36 Room Air 11/16/22 15:21 Room Air 11/16/22 15:09 Room Air 11/16/22 14:42 Room Air 11/16/22 14:30 Room Air 11/16/22 13:01 Room Air 11/16/22 11:48 11/16/22 11:41 11/16/22 10:13 11/16/22 08:30 11/16/22 08:30 11/16/22 08:00 11/16/22 08:00 11/16/22 07:30 Room Air 11/16/22 07:30 11/16/22 07:00 11/16/22 07:00 11/16/22 06:45 11/16/22 08:00 11/16/22 07:47 Nasal Cannula 2 11/16/22 06:30 11/16/22 06:30 11/16/22 06:00 11/16/22 06:00 11/16/22 05:30 11/16/22 05:30 11/16/22 05:01 11/16/22 05:01 11/16/22 05:00 11/16/22 04:30 11/16/22 04:30 11/16/22 04:00 11/16/22 04:00 11/16/22 06:10 Coding Level of Care Code 57656 CRITICAL CARE 1ST 30-74M Diagnoses Cardiac arrest I46.9 Ventricular tachycardia I47.20 Hypomagnesemia E83.42 Encephalopathy acute G93.40 Elevated troponin R77.8 Second degree AV block I44.1 Hypothyroidism E03.9 Dyslipidemia E78.5 Asthma J45.909 GERD (gastroesophageal reflux disease) K21.9 Diabetes insipidus E23.2 Diabetes type 2, controlled E11.9
--- NOTE | 2022-11-16 16:27 | Post Anesthesia Assessment ---
Date of Service November 16, 2022 Post Sedation Assessment Vital Signs Temp Pulse Pulse Resp BP BP Pulse Ox 11/16/22 16:06 99.5 F 75 20 120/82 94 11/16/22 15:36 99.3 F 75 21 122/77 94 11/16/22 15:21 99.5 F 75 26 H 125/80 91 11/16/22 15:09 99.3 F 90 26 H 122/74 92 11/16/22 14:42 75 117/83 92 11/16/22 14:30 75 139/67 92 11/16/22 13:01 65 16 122/80 96 11/16/22 11:48 75 120/78 11/16/22 11:41 60 11/16/22 10:13 60 138/98 11/16/22 08:30 99.9 F H 60 19 99 11/16/22 08:30 105/69 11/16/22 08:00 100.0 F H 65 16 98 11/16/22 08:00 121/73 11/16/22 07:30 100.0 F H 64 15 97 11/16/22 07:30 118/77 11/16/22 07:00 100.2 F H 62 17 98 11/16/22 07:00 131/81 11/16/22 06:45 100.2 F H 62 17 96 11/16/22 08:00 61 11/16/22 07:47 64 18 96 11/16/22 06:30 100.0 F H 61 17 98 11/16/22 06:30 125/80 11/16/22 06:00 100.2 F H 74 17 94 11/16/22 06:00 123/72 11/16/22 05:30 100.2 F H 71 19 96 11/16/22 05:30 131/81 11/16/22 05:01 100.2 F H 72 16 98 11/16/22 05:01 139/86 11/16/22 05:00 100.2 F H 75 12 98 11/16/22 04:30 100.2 F H 72 17 89 L 11/16/22 04:30 131/82 11/16/22 04:00 100.2 F H 72 20 95 11/16/22 04:00 135/84 11/16/22 03:30 100.4 F H 72 19 96 05/23/23 03:30 136/73 11/16/22 03:00 100.4 F H 72 20 95 11/16/22 03:00 130/78 11/16/22 02:30 100.4 F H 73 17 96 11/16/22 02:30 132/80 11/16/22 06:10 67 123/72 11/16/22 02:20 100.4 F H 74 20 96 11/16/22 02:10 100.4 F H 74 16 93 11/16/22 02:00 100.2 F H 74 18 95 11/16/22 02:00 130/80 11/16/22 01:50 100.2 F H 72 17 96 11/16/22 01:40 100.2 F H 71 17 97 11/16/22 01:30 100.0 F H 72 19 98 11/16/22 01:30 122/83 11/16/22 01:20 100.0 F H 73 16 98 11/16/22 01:10 100.0 F H 70 18 97 11/16/22 01:00 100.0 F H 72 23 96 11/16/22 01:00 133/73 11/16/22 00:50 100.0 F H 72 17 96 11/16/22 00:40 100.0 F H 73 14 96 11/16/22 00:30 99.9 F H 69 17 97 11/16/22 00:30 131/80 11/16/22 00:20 99.9 F H 71 17 96 11/16/22 00:10 99.9 F H 72 16 96 11/16/22 00:00 99.9 F H 75 16 96 11/16/22 00:00 133/75 11/15/22 23:50 99.9 F H 73 17 97 11/15/22 23:40 99.9 F H 67 20 97 11/16/22 00:05 11/16/22 00:00 80 11/15/22 23:30 99.9 F H 79 21 97 11/15/22 23:30 148/91 H 11/15/22 23:00 99.3 F 88 16 97 11/15/22 22:52 139/81 05 22:52 99.0 F 82 17 97 05 23:55 11/15/22 22:52 88 11/15/22 23:23 98.8 F 81 15 139/81 98 11/15/22 23:22 79 139/81 11/15/22 22:35 87 16 132/70 99 11/15/22 22:00 83 11/15/22 21:01 86 16 137/79 97 11/15/22 20:12 99 11/15/22 20:01 81 16 121/65 98 11/15/22 19:10 86 16 142/83 H 97 11/15/22 18:03 104 H 11/15/22 18:27 154/80 H 11/15/22 18:27 97 H 20 94 11/15/22 18:26 89 L 11/15/22 18:10 99 H 27 H 92 11/15/22 18:04 105 H 28 H 96 11/15/22 17:46 97.9 F 91 H 24 154/80 H 96 Pulse Ox O2 Del Method O2 Del Method O2 Flow Rate O2 Flow Rate 11/16/22 16:06 Room Air 11/16/22 15:36 Room Air 11/16/22 15:21 Room Air 11/16/22 15:09 Room Air 11/16/22 14:42 Room Air 11/16/22 14:30 Room Air 11/16/22 13:01 Room Air 11/16/22 11:48 11/16/22 11:41 11/16/22 10:13 11/16/22 08:30 11/16/22 08:30 11/16/22 08:00 11/16/22 08:00 11/16/22 07:30 Room Air 11/16/22 07:30 11/16/22 07:00 11/16/22 07:00 11/16/22 06:45 11/16/22 08:00 11/16/22 07:47 Nasal Cannula 2 11/16/22 06:30 11/16/22 06:30 11/16/22 06:00 11/16/22 06:00 11/16/22 05:30 11/16/22 05:30 11/16/22 05:01 11/16/22 05:01 11/16/22 05:00 11/16/22 04:30 11/16/22 04:30 11/16/22 04:00 11/16/22 04:00 11/16/22 03:30 11/16/22 03:30 11/16/22 03:00 11/16/22 03:00 11/16/22 02:30 11/16/22 02:30 11/16/22 06:10 11/16/22 02:20 11/16/22 02:10 11/16/22 02:00 11/16/22 02:00 11/16/22 01:50 11/16/22 01:40 11/16/22 01:30 11/16/22 01:30 11/16/22 01:20 11/16/22 01:10 11/16/22 01:00 11/16/22 01:00 11/16/22 00:50 11/16/22 00:40 11/16/22 00:30 11/16/22 00:30 11/16/22 00:20 11/16/22 00:10 11/16/22 00:00 11/16/22 00:00 11/15/22 23:50 11/15/22 23:40 11/16/22 00:05 Nasal Cannula 2 11/16/22 00:00 11/15/22 23:30 11/15/22 23:30 11/15/22 23:00 11/15/22 22:52 11/15/22 22:52 11/15/22 23:55 96 Nasal Cannula 2 11/15/22 22:52 11/15/22 23:23 Nasal Cannula 2 11/15/22 23:22 11/15/22 22:35 Nasal Cannula 2 11/15/22 22:00 11/15/22 21:01 Nasal Cannula 2 11/15/22 20:12 Room Air, Nasal Cannula 3 11/15/22 20:01 Nasal Cannula 3 11/15/22 19:10 Nasal Cannula 3 11/15/22 18:03 11/15/22 18:27 11/15/22 18:27 Nasal Cannula 2 11/15/22 18:26 Room Air 11/15/22 18:10 Room Air 11/15/22 18:04 Room Air 11/15/22 17:46 Room Air Recovery Score Activity: Moves 4 extremities Respiration: Deep Breath/Cough Circulation: +/-20% PreAnes Value Consciousness: Fully Awake Oxygen Saturation: > 92% On Room Air Post Anesthesia Score: 10 Discharge Sedation Level of Care: Fast Track Phase II Post Sedation Plan On clinical assessment, the patient appears to have tolerated the sedation without complications. Patient is recovering as anticipated. Patient will continue to be monitored by nursing and may be discharged when sedation discharge criteria are met per below protocol. Upon Completions of procedure up to 15 minutes continue every 5 minute vital signs and the P.A.R. score; then discharge to a Phase I or Fast Track to Phase II per the following guidelines: * Discharge Patient to appropriate Phase II area if PAR is 8 or greater or return to pre- procedure baseline. The post - procedure orders will be as directed. * If PAR score is less than 8 or not return to pre-procedure baseline then patient will follow Phase I monitoring till PAR is reached for Phase II. The Phase I may be done in procedure room or may call to secure a Phase I area. * If naloxone or flumazenil are used for reversal, hold in Phase I for continued monitoring from when last reversal dose was given for a minimum of 60 minutes or longer pending the nurse and/or physician discretion of patient condition before discharge to Phase II. Please call the Sedation Physician to re-evaluate and complete post-note for discharge to Phase II area. Do NOT discharge from procedure sedation or Phase 1 until post- sedation evaluation note is complete by procedure /sedation MD Sedation Discharge Instructions to be given to the patient at discharge to home.
--- NOTE | 2022-11-16 16:38 | Cardiac Catheterization ---
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 Cardiac Status Clinical evaluation leading to the procedure CAD Presenation: Sx unlikely to be ischemic Diagnostic Physicians Name: Cleve Quezada MD Closure Device Recommendations: Medical Therapy and/or Counseling Cardiac Cath Procedure Full Procedure Date November 16, 2022 Pre-Procedure Diagnosis Pre-Procedure Diagnosis: Cardiomyopathy and Arrhythmia AUC Score AUC Score: 7 Post-Procedure Diagnosis Post-Procedure Diagnosis: Mild CAD Procedure(s) Performed Procedure(s) Performed: Coronary Angiography and Left Heart Cath Central Office Operator Cleve Quezada MD Insurance Salesperson(s) Serg Estimated Blood Loss Estimated Blood Loss: 10 Medication(s) Medication(s): Heparin, Lidocaine 1%, Nicardipine and Nitroglycerin Summary of Findings Indication: Sustained ventricular tachycardia, cardiomyopathy Access: 6 Fr right radial artery Catheters: [place] Findings: LM -Short, normal caliber, no significant disease LAD -medium caliber, calcified, mild diffuse proximal to mid disease up to 40% at takeoff of first septal, distal luminal irregularities, focal 50% stenosis in small apical LAD as wraps around apex. Medium D2 without disease Circumflex -dominant large caliber, no significant disease. Large OM3 with 20 to 30% proximal disease. Left PLB, PDA without significant disease RCA -nondominant, medium caliber, luminal irregularities LVEDP -30 Arterial Closure: TR band Summary: 1. Mild to moderate nonobstructive coronary artery disease -40% mid LAD, focal 50% small apical LAD 25% proximal OM3 2. Elevated intracardiac filling pressure (LVEDP 30) Recommendations: Continued ASCVD risk factor modification and diuretics per Dr. Olivas. Hemodynamics Rest Ao:: 118/73/91 Final Ao: 131/77/99 LV: 127/30 Recommendations Recommendations: Medical Therapy and/or Counseling Specimens Specimens: None Radiation Exposure (mGy) 614 Contrast (mls) 40 Anesthesia Local 5662-5195 Procedural Complication(s) None Disposition ICU I attest to the content of the Intraoperative Record and any orders documented therein. Any exceptions are noted below. [facility] Card Cath Procedure Codes Cardiac Catheterization Procedure 1: Cardiovascular Cath Procedures: 83012 Coronaries and LHC (+/-LV) PG Care Time/CCT Total # of Minutes Spent Total Time Spent with Patient: Total time spent is greater than 50% in coordination of care (as documented) at patient's floor/unit and/or counseling patient:
[2022-11-16] MEDS: MONTELUKAST SODIUM 10 MG TABLET PO SCH (20:05)
[2022-11-16] MEDS: PANTOprazole 40 MG TAB PO SCH (20:05)
[2022-11-16] MEDS: METOPROLOL TARTRATE 25 MG TAB PO SCH (20:05)
[2022-11-16] MEDS: ATORVASTATIN 40 MG TAB PO SCH (20:05)
[2022-11-16] MEDS ORDERED: SIMVASTATIN 40 MG TAB PO SCH (21:00)
[2022-11-17] MEDS: PIPERACILLIN/TAZOBACTAM 4.5 GM in DEXTROSE 5% 100 ML IV SCH ×3 (05:21→21:04)
[2022-11-17] MEDS: LEVOTHYROXINE SODIUM 50 MCG TABLET PO SCH (05:30)
[2022-11-17 06:17] LABS: Basophils # (auto) 0.02 K/uL (0-0.2); Basophils % (auto) 0.3 %; Hematocrit (blood only) 35.8 % (37.0-47.0); Hemoglobin 12.1 g/dl (12.0-16.0); Immature Granulocytes # (auto) 0.03 K/uL (0.01-0.20); Immature Granulocytes % (auto) 0.4 %; Lymphocytes # (auto) 1.23 K/uL (1.2-3.4); Lymphocytes % (auto) 16.5 %; Mean Corpuscular Hemoglobin 28.5 pg (25.0-34.0); Mean Corpuscular Hgb Conc 33.8 g/dL (32.0-36.0); Mean Corpuscular Volume 84.4 fL (80.0-100.0); Mean Platelet Volume 9.6 fL (9.4-12.4); Monocytes # (auto) 0.61 K/uL (0.11-0.59); Monocytes % (auto) 8.2 %; Neutrophils # (auto) 5.55 K/uL (1.40-6.50); Neutrophils % (auto) 74.6 %; Platelet Count 279 K/uL (130-400); RDW Coefficient of Variation 14.6 % (11.5-14.5); RDW Standard Deviation 44.3 fL (36.4-46.3); Red Blood Count 4.24 M/uL (4.20-5.40); White Blood Count 7.44 K/ul (4.8-10.8)
[2022-11-17 06:28] LABS: Calcium 8.7 mg/dl (8.6-10.3); Creatinine Clr Calc Pharmacy 51.8 ml/min; Est GFR (African American) 62.5 ml/min; Est GFR (Non-African American) 53.9 ml/min; Magnesium 1.9 mg/dl (1.7-2.4); Phosphorus 3.9 mg/dl (2.5-4.9); Potassium 3.9 mmol/L (3.5-5.1)
[2022-11-17] MEDS ORDERED: MAGNESIUM SULFATE / D5W 1 GM/100 ML BAG IV ONE (06:34)
[2022-11-17] MEDS ORDERED: POTASSIUM CHLORIDE / WTR 10 MEQ/100 ML PLCT IV ONE (06:34)
[2022-11-17] MEDS: BUDESONIDE 0.5 MG/2 ML VIAL (PULMICORT) INH SCH ×2 (07:46→19:46)
[2022-11-17] MEDS: CHOLECALCIFEROL 1,000 UNITS 25 MCG TAB PO SCH (07:46)
[2022-11-17] MEDS: FLUTICASONE/VILANTEROL 200/25MCG 14 PUFFS/INHALER INH SCH (07:47)
[2022-11-17] MEDS: ENOXAPARIN INJ 40 MG/0.4 ML SYR SQ SCH (07:47)
[2022-11-17] MEDS: METOPROLOL TARTRATE 25 MG TAB PO SCH (07:48)
[2022-11-17] MEDS: predniSONE 10 MG TABLET PO SCH (07:48)
[2022-11-17] MEDS: INSULIN ASPART PER UNIT CHARGE SC SCH ×4 (07:51→20:18)
[2022-11-17] MEDS: AMIODARONE / D5W 360 MG/200 ML BAG IV SCH ×2 (07:52→19:39)
[2022-11-17] MEDS: DESMOPRESSIN ACETATE 0.1 MG TAB PO SCH ×2 (08:18→20:04)
--- NOTE | 2022-11-17 08:21 | Hospitalist Progress Note ---
Date of Service November 17, 2022 Assessment & Plan (1) Ventricular tachycardia: Plan 67-year-old female with PMH of T2DM, CKD stage III, diabetes insipidus, HLD, diaphragmatic hernia, severe persistent asthma, complex heart block status post pacemaker, GERD, depression presented with an unresponsive episode secondary to ventricular tachycardia at home around 5 PM on 11/15/2022. Patient's started CPR and patient had ROSC prior to EMS arrival. She is being managed for the following: Unresponsive episode Cardiac arrest Likely aspiration pneumonia/pneumonitis secondary to cardiac event prior to arrival : Continue with IV Zosyn. Now weaned to room air Acute Severe LV systolic dysfunciton: 11/16 Echo with EF of 20 to 25%. 07/03/19 ECHO w/ EF of 60-65%. Pulmonary edema: 2/2 cardiac arrest and severe HF Patient was unconscious and patient's initiated CPR prior to arrival, patient had ROSC prior to EMS arrival. Likely pulseless VT at home. Patient might have had aspiration during the event. H/o AV block w/ pacemaker placement. Underwent Cardiac Cath 11/16 which showed non obstructive CAD Heparin drip discontinued Switched to oral metoprolol and atorvastatin 40mg Plan for device upgrade to ICD once fever/infection resolves Hypomagnesemia: Monitor and replete. Possible aspiration pneumonia: Continue with Zosyn. Other chronic medical conditions: 6. Diabetes. Hold home glipizide. Place on insulin sliding scale. Follow the blood sugars. 7. History of DI. On desmopressin . 8. History of asthma. Continue home inhalers. 9. Chronic kidney disease, stage III. Currently, creatinine of 0.9. We will follow the labs. 10. Gastroesophageal reflux disease. On Protonix. 11. Hypothyroidism. We will follow thyroid profile. 12. Hypertension. On losartan, which we will hold for now and monitor the blood pressure. 13. Hyperlipidemia, on statin. DVT prophylaxis: previously on heparin drip now discontinued. Lovenox started today Disposition: Patient in ICU. Admission and Anticipated Discharge Date Admission Date: November 15, 2022 Subjective Remains in ICU Patient feels well. Denies chest pain, shortness of breath. Ankle swelling has resolved Reports abdominal discomfort which she attributes to CPR but denies nausea/vomiting. Tolerating diet. No BM since being here which is normal for her, she declines laxative Review of Systems Review of Systems: As above Physical Exam Physical Exam: Appears well, sitting in chair, no acute distress ENMT: head normocephalic, atraumatic, mucous membrane moist Respiratory: breathing comfortably on room air, no wheezing/rhonchi Cardiovascular: regular rate and rhythm, no murmurs/rubs/gallops Gastrointestinal (Abdomen): soft, non distended, no rebound or guarding Musculoskeletal: no edema Neurologic: awake, alert, spontaneously moving extremities, answering questions appropriately Results & Data Results & Data Vital Signs (Past 12 Hours) Vital Signs Temp Pulse Pulse Resp BP BP Pulse Ox 11/17/22 07:47 76 18 96 11/17/22 07:00 37.3 C 75 18 97 11/17/22 06:50 37.3 C 75 16 96 11/17/22 06:45 124/74 11/17/22 06:45 37.3 C 76 17 100 11/17/22 06:40 37.3 C 75 14 94 11/17/22 06:30 37.3 C 75 15 98 11/17/22 06:30 123/79 11/17/22 06:20 37.3 C 75 15 97 11/17/22 06:15 37.2 C 75 14 94 11/17/22 06:15 125/71 11/17/22 06:10 37.2 C 75 15 98 11/17/22 06:00 37.3 C 73 16 92 11/17/22 06:00 121/73 11/17/22 05:50 37.3 C 75 18 95 11/17/22 05:46 37.3 C 75 26 H 96 11/17/22 05:46 108/67 11/17/22 05:40 37.4 C 75 19 95 11/17/22 05:30 37.3 C 75 18 96 11/17/22 05:30 120/73 11/17/22 05:20 37.3 C 75 15 93 11/17/22 05:15 37.3 C 75 15 93 11/17/22 05:15 134/82 11/17/22 05:10 37.3 C 75 20 97 11/17/22 05:00 37.3 C 75 28 H 98 11/17/22 05:00 135/82 11/17/22 04:50 37.3 C 75 24 95 11/17/22 04:45 124/80 05/24/23 04:45 37.2 C 75 17 94 11/17/22 04:40 37.2 C 75 20 93 11/17/22 04:30 37.1 C 73 15 93 11/17/22 04:30 136/83 11/17/22 04:20 37.1 C 75 13 92 11/17/22 04:15 128/79 11/17/22 04:15 37.1 C 75 13 91 11/17/22 04:10 37.1 C 75 15 95 11/17/22 04:00 37.2 C 75 17 96 11/17/22 04:00 130/75 11/17/22 03:50 37.2 C 75 17 95 11/17/22 03:45 37.3 C 75 23 95 11/17/22 03:45 116/75 11/17/22 03:40 37.2 C 75 19 95 11/17/22 03:30 37.3 C 75 22 96 11/17/22 03:30 116/71 11/17/22 03:20 37.3 C 75 19 96 11/17/22 03:15 37.2 C 75 19 98 11/17/22 03:15 128/78 11/17/22 03:10 37.2 C 75 16 96 11/17/22 03:00 37.3 C 75 18 94 11/17/22 03:00 126/83 11/17/22 02:50 37.3 C 75 15 94 11/17/22 01:20 75 11/16/22 20:45 38.0 C H 75 21 93 11/16/22 20:45 115/66 11/16/22 20:30 38.1 C H 75 21 96 11/16/22 20:30 113/72 11/16/22 20:36 38 C H 75 16 113/72 95 O2 Del Method 11/17/22 07:47 Room Air 11/17/22 07:00 11/17/22 06:50 11/17/22 06:45 11/17/22 06:45 11/17/22 06:40 11/17/22 06:30 11/17/22 06:30 11/17/22 06:20 11/17/22 06:15 11/17/22 06:15 11/17/22 06:10 11/17/22 06:00 11/17/22 06:00 11/17/22 05:50 11/17/22 05:46 11/17/22 05:46 11/17/22 05:40 11/17/22 05:30 11/17/22 05:30 11/17/22 05:20 11/17/22 05:15 11/17/22 05:15 11/17/22 05:10 11/17/22 05:00 11/17/22 05:00 11/17/22 04:50 11/17/22 04:45 11/17/22 04:45 11/17/22 04:40 11/17/22 04:30 11/17/22 04:30 11/17/22 04:20 11/17/22 04:15 11/17/22 04:15 11/17/22 04:10 11/17/22 04:00 11/17/22 04:00 11/17/22 03:50 11/17/22 03:45 11/17/22 03:45 11/17/22 03:40 11/17/22 03:30 11/17/22 03:30 11/17/22 03:20 11/17/22 03:15 11/17/22 03:15 11/17/22 03:10 11/17/22 03:00 11/17/22 03:00 11/17/22 02:50 11/17/22 01:20 11/16/22 20:45 11/16/22 20:45 11/16/22 20:30 11/16/22 20:30 11/16/22 20:36 Room Air
--- NOTE | 2022-11-17 09:40 | Critical Care Progress Note ---
Date of Service November 17, 2022 Assessment & Plan (1) Cardiac arrest: Plan: Reason Critically Ill: [age]-year-old female presents to the ICU after a presumed cardiac arrest from ventricular tachycardia in which the patient received CPR by her and resumed ROSC prior to EMS arrival. She now is admitted to the ICU with mild neurological impairment, currently on heparin and amiodarone drips. Neuro - Acute encephalopathyappears to have resolved Cardiac - Cardiomyopathy Ventricular fibrillation -Continue amiodarone -Echo demonstrates interval change Respiratory - Hypoxiaresolved GI - Carb consistent diet GERDProtonix RENAL/LYTES - Creatinine within normal limits, monitor routine BMPs and replete electrolytes as indicated. Diabetes insipiduscontinue desmopressin - Foleystrict I's and O's ENDO - Diabetes mellitusholding oral agents in favor of sliding scale. ICU hyperglycemic protocol Hypothyroidcontinue Synthroid HEME - H&H stable, monitor routine CBC ID - Febrile illness: last documented fever: 2044 -Empiric antibiotic coverage for 72 hours, anticipate discontinuation if remains fever free x24 hours and no blood culture growth LINES/IV ACCESS - Peripheral IVs x2 DVT PROPHYLAXIS - SCDs, lovenox (2) Ventricular tachycardia: (3) Hypomagnesemia: (4) Encephalopathy acute: (5) Elevated troponin: (6) Second degree AV block: (7) Hypothyroidism: (8) Dyslipidemia: (9) Asthma: (10) GERD (gastroesophageal reflux disease): (11) Diabetes insipidus: (12) Diabetes type 2, controlled: Admission and Anticipated Discharge Date Admission Date: November 15, 2022 Results & Data Results & Data Vital Signs (Past 12 Hours) Vital Signs Temp Pulse Pulse Resp BP Pulse Ox O2 Del Method 11/17/22 09:00 37.0 C 75 16 96 11/17/22 09:00 117/67 11/17/22 08:27 37.0 C 75 17 85 L 11/17/22 08:27 105/57 L 11/17/22 08:15 98/56 L 11/17/22 08:15 37.0 C 75 18 95 11/17/22 08:00 36.9 C 75 17 97 11/17/22 08:00 98/65 L 11/17/22 07:45 102/62 11/17/22 07:45 36.9 C 75 19 96 11/17/22 07:30 88/62 L 11/17/22 07:30 37.0 C 76 23 95 11/17/22 07:15 106/60 11/17/22 07:15 37.1 C 75 19 91 11/17/22 07:12 37.1 C 75 18 90 11/17/22 07:12 97/59 L 11/17/22 07:10 87/57 L 11/17/22 07:10 37.2 C 77 18 92 11/17/22 07:08 37.1 C 75 26 H 95 11/17/22 07:08 97/58 L 11/17/22 07:06 37.3 C 75 18 11/17/22 07:06 61/40 L 11/17/22 07:04 71/48 L 11/17/22 07:04 37.2 C 75 17 97 11/17/22 07:01 72/47 L 11/17/22 07:01 37.3 C 75 17 97 11/17/22 07:47 76 18 96 Room Air 11/17/22 07:00 37.3 C 75 18 97 11/17/22 06:50 37.3 C 75 16 96 11/17/22 06:45 124/74 11/17/22 06:45 37.3 C 76 17 100 11/17/22 06:40 37.3 C 75 14 94 11/17/22 06:30 37.3 C 75 15 98 11/17/22 06:30 123/79 11/17/22 06:20 37.3 C 75 15 97 11/17/22 06:15 37.2 C 75 14 94 11/17/22 06:15 125/71 11/17/22 06:10 37.2 C 75 15 98 11/17/22 06:00 37.3 C 73 16 92 11/17/22 06:00 121/73 11/17/22 05:50 37.3 C 75 18 95 11/17/22 05:46 37.3 C 75 26 H 96 11/17/22 05:46 108/67 11/17/22 05:40 37.4 C 75 19 95 11/17/22 05:30 37.3 C 75 18 96 11/17/22 05:30 120/73 11/17/22 05:20 37.3 C 75 15 93 11/17/22 05:15 37.3 C 75 15 93 11/17/22 05:15 134/82 11/17/22 05:10 37.3 C 75 20 97 11/17/22 05:00 37.3 C 75 28 H 98 11/17/22 05:00 135/82 11/17/22 04:50 37.3 C 75 24 95 11/17/22 04:45 124/80 11/17/22 04:45 37.2 C 75 17 94 11/17/22 04:40 37.2 C 75 20 93 11/17/22 04:30 37.1 C 73 15 93 11/17/22 04:30 136/83 11/17/22 04:20 37.1 C 75 13 92 11/17/22 04:15 128/79 11/17/22 04:15 37.1 C 75 13 91 11/17/22 04:10 37.1 C 75 15 95 11/17/22 04:00 37.2 C 75 17 96 11/17/22 04:00 130/75 11/17/22 03:50 37.2 C 75 17 95 11/17/22 03:45 37.3 C 75 23 95 11/17/22 03:45 116/75 11/17/22 03:40 37.2 C 75 19 95 11/17/22 03:30 37.3 C 75 22 96 11/17/22 03:30 116/71 11/17/22 03:20 37.3 C 75 19 96 11/17/22 03:15 37.2 C 75 19 98 11/17/22 03:15 128/78 11/17/22 03:10 37.2 C 75 16 96 11/17/22 03:00 37.3 C 75 18 94 11/17/22 03:00 126/83 11/17/22 02:50 37.3 C 75 15 94 11/17/22 01:20 75 Critical Care Results & Data Vital Signs (Past 12 Hours) Vital Signs Temp Pulse Pulse Resp BP Pulse Ox O2 Del Method 11/17/22 09:00 37.0 C 75 16 96 11/17/22 09:00 117/67 11/17/22 08:27 37.0 C 75 17 85 L 11/17/22 08:27 105/57 L 11/17/22 08:15 98/56 L 11/17/22 08:15 37.0 C 75 18 95 11/17/22 08:00 36.9 C 75 17 97 11/17/22 08:00 98/65 L 11/17/22 07:45 102/62 11/17/22 07:45 36.9 C 75 19 96 11/17/22 07:30 88/62 L 11/17/22 07:30 37.0 C 76 23 95 11/17/22 07:15 106/60 11/17/22 07:15 37.1 C 75 19 91 11/17/22 07:12 37.1 C 75 18 90 11/17/22 07:12 97/59 L 11/17/22 07:10 87/57 L 11/17/22 07:10 37.2 C 77 18 92 11/17/22 07:08 37.1 C 75 26 H 95 11/17/22 07:08 97/58 L 11/17/22 07:06 37.3 C 75 18 11/17/22 07:06 61/40 L 11/17/22 07:04 71/48 L 11/17/22 07:04 37.2 C 75 17 97 11/17/22 07:01 72/47 L 11/17/22 07:01 37.3 C 75 17 97 11/17/22 07:47 76 18 96 Room Air 11/17/22 07:00 37.3 C 75 18 97 11/17/22 06:50 37.3 C 75 16 96 11/17/22 06:45 124/74 11/17/22 06:45 37.3 C 76 17 100 11/17/22 06:40 37.3 C 75 14 94 11/17/22 06:30 37.3 C 75 15 98 11/17/22 06:30 123/79 11/17/22 06:20 37.3 C 75 15 97 11/17/22 06:15 37.2 C 75 14 94 11/17/22 06:15 125/71 11/17/22 06:10 37.2 C 75 15 98 11/17/22 06:00 37.3 C 73 16 92 11/17/22 06:00 121/73 11/17/22 05:50 37.3 C 75 18 95 11/17/22 05:46 37.3 C 75 26 H 96 11/17/22 05:46 108/67 11/17/22 05:40 37.4 C 75 19 95 11/17/22 05:30 37.3 C 75 18 96 11/17/22 05:30 120/73 11/17/22 05:20 37.3 C 75 15 93 11/17/22 05:15 37.3 C 75 15 93 11/17/22 05:15 134/82 11/17/22 05:10 37.3 C 75 20 97 11/17/22 05:00 37.3 C 75 28 H 98 11/17/22 05:00 135/82 11/17/22 04:50 37.3 C 75 24 95 11/17/22 04:45 124/80 11/17/22 04:45 37.2 C 75 17 94 11/17/22 04:40 37.2 C 75 20 93 11/17/22 04:30 37.1 C 73 15 93 11/17/22 04:30 136/83 11/17/22 04:20 37.1 C 75 13 92 11/17/22 04:15 128/79 11/17/22 04:15 37.1 C 75 13 91 11/17/22 04:10 37.1 C 75 15 95 11/17/22 04:00 37.2 C 75 17 96 11/17/22 04:00 130/75 11/17/22 03:50 37.2 C 75 17 95 11/17/22 03:45 37.3 C 75 23 95 11/17/22 03:45 116/75 11/17/22 03:40 37.2 C 75 19 95 11/17/22 03:30 37.3 C 75 22 96 11/17/22 03:30 116/71 05 03:20 37.3 C 75 19 96 11/17/22 03:15 37.2 C 75 19 98 11/17/22 03:15 128/78 11/17/22 03:10 37.2 C 75 16 96 11/17/22 03:00 37.3 C 75 18 94 11/17/22 03:00 126/83 11/17/22 02:50 37.3 C 75 15 94 0523 01:20 75 Lab & Micro Results (Past 24 Hours) RBC 4.24 M/uL (4.20-5.40) 11/17/22 WBC 7.44 K/ul (4.8-10.8) 11/17/22 Hgb 12.1 g/dl (12.0-16.0) 11/17/22 Hct 35.8 % (37.0-47.0) L 11/17/22 MCV 84.4 fL (80.0-100.0) 11/17/22 MCH 28.5 pg (25.0-34.0) 11/17/22 MCHC 33.8 g/dL (32.0-36.0) 11/17/22 RDW Standard Deviation 44.3 fL (36.4-46.3) 11/17/22 RDW Coefficient of Variation 14.6 % (11.5-14.5) H 11/17/22 Plt Count 279 K/uL (130-400) 11/17/22 MPV 9.6 fL (9.4-12.4) 11/17/22 Neutrophils (%) (Auto) 74.6 % 11/17/22 Lymphocytes (%) (Auto) 16.5 % 11/17/22 Monocytes # (Auto) 0.61 K/uL (0.11-0.59) H 11/17/22 Eosinophils # (Auto) 0.00 K/uL (0-0.50) 11/17/22 Immature Granulocyte % (Auto) 0.4 % 11/17/22 Neutrophils # (Auto) 5.55 K/uL (1.40-6.50) 11/17/22 Lymphocytes # (Auto) 1.23 K/uL (1.2-3.4) 11/17/22 Monocytes # (Auto) 0.61 K/uL (0.11-0.59) H 11/17/22 Eosinophils # (Auto) 0.00 K/uL (0-0.50) 11/17/22 Basophils # (Auto) 0.02 K/uL (0-0.2) 11/17/22 Immature Granulocyte # (Auto) 0.03 K/uL (0.01-0.20) 3 Na 136 mmol/L (136-145) 11/17/22 K 3.9 mmol/L (3.5-5.1) 11/17/22 Cl 104 mmol/L (98-107) 11/17/22 CO2 22 mmol/L (21-32) 11/17/22 Anion Gap 10 (3-11) 11/17/22 BUN 17 mg/dl (6-23) 11/17/22 Creatinine 1.06 mg/dl (0.6-1.2) 11/17/22 Estimated GFR ( Amer) 62.5 ml/min 11/17/22 Estimated GFR (Non-Af Amer) 53.9 ml/min 11/17/22 BUN/Creatinine Ratio 16.0 (10-20) 11/17/22 Glu 211 mg/dl (70-99(Fasting)) H 11/17/22 Ca 8.7 mg/dl (8.6-10.3) 11/17/22 Phosphorus Level 3.9 mg/dl (2.5-4.9) 11/17/22 Mg 1.9 mg/dl (1.7-2.4) 11/17/22 05:44 Calcium Level 8.7 mg/dl (8.6-10.3) 11/17/22 05:44 Microbiology 11/15/22 23:02 Aerobic Blood Culture - Preliminary Blood No growth in Aerobic bottle after 24 hours. Anaerobic Blood Culture - Final 11/15/22 23:02 Aerobic Blood Culture - Preliminary Blood No growth in Aerobic bottle after 24 hours. Anaerobic Blood Culture - Final I & O Totals 24 Hours 11/16/22 11/17/22 11/18/22 06:59 06:59 06:59 Intake Total 870.125 / 618.781 2128.510 / 1886.510 520 / 520 Output Total 2150 / 2150 1425 / 1425 Balance -1279.875 / -1279.875 461.510 / 461.510 520 / 520 Cumulative 11/15/22 17:46 thru 11/17/22 08:53 Intake Total 3276.635 Output Total 3575 Balance -298.365 RT Ventilator Mngmt (Last Documented) Ventilator Ordered Settings Respiratory Rate 16 11/17/22 09:00 Ventilator - PT Measurements Respiratory Rate 16 Coding Level of Care Code 92963 SUB INP/OBS CARE 2/35MIN Diagnoses Cardiac arrest I46.9 Ventricular tachycardia I47.20 Hypomagnesemia E83.42 Encephalopathy acute G93.40 Elevated troponin R77.8 Second degree AV block I44.1 Hypothyroidism E03.9 Dyslipidemia E78.5 Asthma J45.909 GERD (gastroesophageal reflux disease) K21.9 Diabetes insipidus E23.2 Diabetes type 2, controlled E11.9
[2022-11-17] MEDS ORDERED: FUROSEMIDE INJ 20 MG/2 ML VIAL IV ONE (10:19)
--- NOTE | 2022-11-17 10:20 | Cardiology Progress Note ---
Date of Service November 17, 2022 Assessment & Plan (1) Cardiac arrest: (2) Ventricular tachycardia: (3) Severe left ventricular systolic dysfunction: (4) Acute on chronic HFrEF (heart failure with reduced ejection fraction): (5) Nonischemic cardiomyopathy: (6) Fever: Plan: Patient with witnessed unresponsive event at home for which her performed CPR for approximately 2 minutes. By the time EMS arrived she was obtunded, however return of circulation had occurred and she did not require additional medication for resuscitation or defibrillation. Mental status appears to be back to her baseline, but she does not recall the day of the event. She describes a several month history of progressive shortness of breath and weight gain and she attributed her breathing issues were due to her asthma, however she has developed severe left ventricular systolic dysfunction, with severe global left ventricular hypokinesis, LVEF 25%. Device interrogation yielded a 3-minute episode of ventricular tachycardia that correlated with her event and I would characterize this has not aborted or survived cardiac arrest event. Patient had 1 additional brief run of nonsustained VT while hospitalized on 11/16/2022 that terminated spontaneously. Therapeutics: The patient has a previously placed dual-chamber permanent pacemaker. The basal rate has been increased from 60-75 and she is now AV sequential paced on telemetry. The basal rate was increased to hopefully suppress underlying PVCs, VT. Given severe left ventricular systolic dysfunction, transition to metoprolol succinate 25 mg twice daily. Continue IV amiodarone load. Diurese with furosemide 20 mg x 1 today. Patient already received a dose of IV potassium, and a dose of oral potassium chloride at 20 mill equivalents would be administered to keep her potassium level above 4 mmol/L. Magnesium level is 1.9 today, and she received IV magnesium. Entresto to be initiated as blood pressure allows today. Future considerations include adding spironolactone. With regards to her cardiac catheterization results, nonobstructive LAD disease noted. Simvastatin changed to atorvastatin for goal LDL less than 70 mg/dL. With regards to fever. Patient with possible aspiration event. Most recent fever was 38 C and just after 8 PM on 11/16/2022. Continue empiric Zosyn. Blood cultures negative thus far. Remove Byers catheter at 2 PM today after she has had her furosemide. DVT prophylaxis: Unfractioned heparin infusion discontinued postcardiac cath, continue Lovenox 40 mg subcu every morning. Ha discussed with Dr Hernandez of EP. Will plan for device upgrade to ICD during hospital stay after fever treated. Future considerations include outpatient PET scan for evaluation of cardiac sarcoidosis given her longstanding history of lung disease, and conduction system disease with third-degree AV block at a relatively young age, and now the development of a nonischemic cardiomyopathy. Admission and Anticipated Discharge Date Admission Date: November 15, 2022 Subjective Patient seen in cardiology follow-up.Overall felt well overnight. She has not had any additional ventricular arrhythmias since 959 on 11/16/2022 when she had an episode of ventricular tachycardia captured on telemetry. She tolerated a dose of IV furosemide yesterday. Byers catheter remains in place. Review of Systems Review of Systems: All systems reviewed & are unremarkable except as noted in HPI & below Physical Exam Physical Exam: Temp Pulse Resp BP Pulse Ox O2 Del Method O2 Flow Rate 37.0 C 75 16 117/67 96 Room Air 2 11/17/22 09:00 11/17/22 09:00 11/17/22 09:00 11/17/22 09:00 11/17/22 09:00 11/17/22 07:47 11/16/22 07:47 Constitutional: WD/WN, vitals as above Respiratory: normal respiratory effort, lungs clear to auscultation Cardiovascular: RRR, no murmur, no edema Chest (Breasts): normal inspection/palpation of breasts Gastrointestinal (Abdomen): normal bowel sounds, soft, nontender, no hepatosplenomegaly Neurologic: PERRL, EOMI, accommodation nl, no face palsy, no dysarthria Results & Data Laboratory Results Cardiac Enzymes 11/16/22 Range/Units 11:22 Troponin I High Sens 61.2 H* D (0-14) pg/ml CBC 11/17/22 Range/Units 05:41 WBC 7.44 (4.8-10.8) K/ul RBC 4.24 (4.20-5.40) M/uL Hgb 12.1 (12.0-16.0) g/dl Hct 35.8 L (37.0-47.0) % Plt Count 279 (130-400) K/uL Neut # (Auto) 5.55 (1.40-6.50) K/uL Lymph # (Auto) 1.23 (1.2-3.4) K/uL Benson # (Auto) 0.61 H (0.11-0.59) K/uL Eos # (Auto) 0.00 (0-0.50) K/uL Baso # (Auto) 0.02 (0-0.2) K/uL Comprehensive Metabolic Panel 11/17/22 Range/Units 05:44 Sodium 136 (136-145) mmol/L Potassium 3.9 (3.5-5.1) mmol/L Chloride 104 (98-107) mmol/L Carbon Dioxide 22 (21-32) mmol/L BUN 17 (6-23) mg/dl Creatinine 1.06 (0.6-1.2) mg/dl Glucose 211 H (70-99(Fasting)) mg/dl Calcium 8.7 (8.6-10.3) mg/dl Intake and Output 11/16/22 11/17/22 11/17/22 22:59 06:59 14:59 Intake Total 1230.667 / 1886.510 120 / 1886.510 520 / 520 Output Total 1125 / 1425 300 / 1425 Balance 105.667 / 461.510 -180 / 461.510 520 / 520 Intake: IV 565.667 / 1221.510 120 / 1221.510 520 / 520 Acetaminophen 1,000 mg In 100 100 / 100 ml @ 400 mls/hr IV Q8H PRN Rx#: [id number] Amiodarone / D5w 360 mg In 200 200 / 394.276 200 / 200 ml @ 0.5 MG/MIN 16.667 mls/hr IV .Q12H [facility] Rx#:[id number] Heparin Sodium/Dextrose 25,000 145.667 / 367.234 units In 500 ml @ 1,150 UNITS/ HR 23 mls/hr IV .[id number] [facility] Rx #:[id number] Magnesium Sulfate / D5w 1 gm In 100 / 100 100 ml @ 50 mls/hr IV ONE ONE Rx#:[id number] Piperacillin/Tazobactam 4.5 gm 120 / 360 120 / 360 120 / 120 In Dextrose 5% 100 ml @ 30 mls/ hr IV Q8H [facility] Rx#:[id number] Potassium Chloride / Wtr 10 meq 100 / 100 In 100 ml @ 100 mls/hr IV ONE ONE Rx#:[id number] Oral 665 / 665 Output: Urine Amount (Catheter) 1125 / 1425 300 / 1425 Temp Sensing Byers 1125 / 1425 300 / 1425 Other: Weight 76.2 kg Weight Measurement Method Built in [facility]
[2022-11-17] MEDS ORDERED: POTASSIUM CHLORIDE CRTAB 20 MEQ TABCR PO STA (10:21)
[2022-11-17] MEDS: VALSARTAN/SACUBITRIL 26/24MG TAB PO SCH ×2 (10:39→10:57)
--- NOTE | 2022-11-17 10:45 | Electrocardiogram Report ---
Test Reason : Blood Pressure : / mmHG Vent. Rate : 069 BPM Atrial Rate : 069 BPM P-R Int : 208 ms QRS Dur : 160 ms QT Int : 510 ms P-R-T Axes : 065 028 245 degrees QTc Int : 546 ms Atrial-sensed ventricular-paced rhythm Abnormal ECG When compared with ECG of 15-NOV-2022 18:02, Vent. rate has decreased BY 34 BPM Confirmed by Abdi Sandy ([id number]) on 11/17/2022 10:44:31 AM Referred By: REFERRED SELF Confirmed By:Abdi Sandy
[2022-11-17] MEDS: LANTUS PER UNIT CHARGE SC SCH ×2 (10:58→20:17)
--- NOTE | 2022-11-17 11:23 | Electrocardiogram Report ---
Test Reason : Blood Pressure : / mmHG Vent. Rate : 075 BPM Atrial Rate : 075 BPM P-R Int : 202 ms QRS Dur : 162 ms QT Int : 432 ms P-R-T Axes : 000 -09 168 degrees QTc Int : 482 ms AV dual-paced rhythm Abnormal ECG When compared with ECG of 16-NOV-2022 06:07, (unconfirmed) Vent. rate has increased BY 6 BPM Confirmed by Abdi Sandy ([id number]) on 11/17/2022 11:22:39 AM Referred By: REFERRED SELF Confirmed By:Abdi Sandy
[2022-11-17] MEDS: CLOPIDOGREL BISULFATE 75 MG TAB PO SCH (12:25)
[2022-11-17] MEDS ORDERED: ACETAMINOPHEN 1,000 MG/100 ML VIAL IV PRN (15:08)
[2022-11-17] MEDS: ACETAMINOPHEN 325 MG TAB PO PRN (15:34)
[2022-11-17] MEDS: METOPROLOL SUCC 25MG EXT REL TAB PO SCH (20:03)
[2022-11-17] MEDS: PANTOprazole 40 MG TAB PO SCH (20:04)
[2022-11-17] MEDS: ATORVASTATIN 40 MG TAB PO SCH (20:04)
[2022-11-17] MEDS: MONTELUKAST SODIUM 10 MG TABLET PO SCH (21:04)
[2022-11-18] MEDS: ACETAMINOPHEN 325 MG TAB PO PRN ×3 (00:15→12:18)
[2022-11-18] MEDS: LEVOTHYROXINE SODIUM 50 MCG TABLET PO SCH (05:34)
[2022-11-18] MEDS: PIPERACILLIN/TAZOBACTAM 4.5 GM in DEXTROSE 5% 100 ML IV SCH ×3 (05:34→23:04)
[2022-11-18 06:05] LABS: Calcium 7.9 mg/dl (8.6-10.3); Magnesium 1.6 mg/dl (1.7-2.4); Potassium 4.5 mmol/L (3.5-5.1)
[2022-11-18 06:14] LABS: BUN Creatinine Ratio 22.7 (10-20); Creatinine Clr Calc Pharmacy 56.7 ml/min; Est GFR (African American) 69.6 ml/min; Phosphorus 3.9 mg/dl (2.5-4.9)
[2022-11-18 07:02] LABS: Basophils # (auto) 0.02 K/uL (0-0.2); Basophils % (auto) 0.2 %; Hematocrit (blood only) 40.6 % (37.0-47.0); Hemoglobin 13.5 g/dl (12.0-16.0); Immature Granulocytes # (auto) 0.03 K/uL (0.01-0.20); Immature Granulocytes % (auto) 0.4 %; Lymphocytes # (auto) 1.63 K/uL (1.2-3.4); Lymphocytes % (auto) 19.7 %; Mean Corpuscular Hemoglobin 28.7 pg (25.0-34.0); Mean Corpuscular Hgb Conc 33.3 g/dL (32.0-36.0); Mean Corpuscular Volume 86.4 fL (80.0-100.0); Mean Platelet Volume 9.7 fL (9.4-12.4); Monocytes # (auto) 0.69 K/uL (0.11-0.59); Monocytes % (auto) 8.3 %; Neutrophils # (auto) 5.92 K/uL (1.40-6.50); Neutrophils % (auto) 71.4 %; Platelet Count 272 K/uL (130-400); RDW Coefficient of Variation 14.6 % (11.5-14.5); White Blood Count 8.29 K/ul (4.8-10.8)
[2022-11-18] MEDS: BUDESONIDE 0.5 MG/2 ML VIAL (PULMICORT) INH SCH ×2 (07:08→19:19)
[2022-11-18 07:33] LABS: Albumin Globulin Ratio 1.5 (0.9-2); Albumin Level 3.8 gm/dl (3.4-5.0); BUN Creatinine Ratio 21.6 (10-20); Bilirubin,Total 0.4 mg/dl (0.2-1.0); Calcium 8.9 mg/dl (8.6-10.3); Creatinine Clr Calc Pharmacy 54.8 ml/min; Est GFR (African American) 69.6 ml/min; Globulin 2.6 gm/dl (2.5-4.0); Potassium 4.1 mmol/L (3.5-5.1); Total Protein 6.4 gm/dl (6.0-8.3)
[2022-11-18] MEDS: LANTUS PER UNIT CHARGE SC SCH ×2 (07:49→20:52)
[2022-11-18] MEDS: INSULIN ASPART PER UNIT CHARGE SC SCH ×4 (07:49→20:52)
[2022-11-18] MEDS: AMIODARONE / D5W 360 MG/200 ML BAG IV SCH (07:49)
[2022-11-18] MEDS ORDERED: FUROSEMIDE INJ 20 MG/2 ML VIAL IV ONE (08:48)
--- NOTE | 2022-11-18 09:05 | Cardiology Progress Note ---
Date of Service November 18, 2022 Assessment & Plan (1) Cardiac arrest: (2) Ventricular tachycardia: (3) Severe left ventricular systolic dysfunction: (4) Acute on chronic HFrEF (heart failure with reduced ejection fraction): (5) Nonischemic cardiomyopathy: (6) Fever: Plan: Patient with witnessed unresponsive event at home for which her performed CPR for approximately 2 minutes. By the time EMS arrived she was obtunded, however return of circulation had occurred and she did not require additional medication for resuscitation or defibrillation. Mental status appears to be back to her baseline, but she does not recall the day of the event. She describes a several month history of progressive shortness of breath and weight gain and she attributed her breathing issues were due to her asthma, however she has developed severe left ventricular systolic dysfunction, with severe global left ventricular hypokinesis, LVEF 25%-Compared to 60-65% in June,. Device interrogation yielded a 3-minute episode of ventricular tachycardia that correlated with her event and I would characterize this has an aborted or survived cardiac arrest event. Patient had 1 additional brief run of nonsustained VT while hospitalized on 11/16/2022 that terminated spontaneously. Therapeutics: The patient has a previously placed dual-chamber permanent pacemaker. The basal rate has been increased from 60-75 and she is now AV sequential paced on telemetry. The basal rate was increased to hopefully suppress underlying PVCs, VT. Discontinue IV amiodarone and transition to oral load with 400 mg PO TID with meals Clopidogrel 75 mg daily (for underlying nonobstructive coronary heart disease in the LAD as patient is allergic to aspirin, reaction of shortness of breath) Metoprolol succinate 25 mg twice daily Entresto 1 tablet twice daily Furosemide 40 mg IV x1 Spironolactone 12.5 mg daily Atorvastatin 40 mg daily Future considerations include adding an oral SGLT2 inhibitor for CHF and DM2, but would prefer to titrate medications as noted above first as blood pressure allows. Last fever was 38 C on 11/16/2022 at 20: 45 hours. Patient to complete course of Zosyn for possible aspiration pneumonia. Case discussed with Dr. Hernandez of EP who performed her initial pacemaker procedure in 2019. Plan for upgrade to ICD once confident pt stable from an infection standpoint and scheduling allows. Diagnostics: Repeat CMP, CBC in am. TSH given h/o hypothyroidism and amiodarone therapy. Future considerations include outpatient PET scan for evaluation of cardiac sarcoidosis given her longstanding history of lung disease, and conduction system disease with third-degree AV block at a relatively young age, and now the development of a nonischemic cardiomyopathy. DVT prophylaxis: Lovenox 40 mg subcu every morning. Billing time I spent a total of 30 minutes on the date of service in preparation, delivery, and documentation of the care provided to this patient, excluding any time spent in the performance of separately billed services. Admission and Anticipated Discharge Date Admission Date: November 15, 2022 Subjective Patient seen in cardiology follow-up. Overall notes feeling well. States that she still does not remember the events of Tuesday or Tuesday. Telemetry reveals AV sequential pacing with rate of 75 bpm, with occasional isolated PVCs, no recurrent ventricular tachycardia since 9:59 AM on 11/16/2022. Byers catheter removed as of the afternoon of 11/17/2022. She remains on IV amiodarone infusion at 0.5mg/min. Review of Systems Review of Systems: All systems reviewed & are unremarkable except as noted in HPI & below Musculoskeletal: Mild epigastric discomfort at the lower rib margin related to chest compress ions, exacerbated by moving in bed. Physical Exam Constitutional: WD/WN, vitals as above Respiratory: normal respiratory effort, lungs clear to auscultation Cardiovascular: RRR, no murmur, no edema Gastrointestinal (Abdomen): normal bowel sounds, soft, nontender, no hepatosplenomegaly Neurologic: PERRL, EOMI, accommodation nl, no face palsy, no dysarthria Psychiatric: A+Ox3, euthymic affect Genitourinary: Byers catheter removed 11/17/2022 Results & Data Vital Signs (Past 12 Hours) Vital Signs Temp Pulse Pulse Resp BP Pulse Ox O2 Del Method 11/18/22 07:00 75 18 99 Room Air 11/18/22 07:00 133/76 11/18/22 07:42 36.7 C 11/18/22 07:10 75 18 96 Room Air 11/18/22 06:00 75 17 130/86 95 Room Air 11/18/22 05:00 75 17 143/81 H 96 Room Air 11/18/22 04:00 36.5 C 75 17 134/82 95 Room Air 05/25/23 03:00 75 17 134/77 95 Room Air 11/18/22 02:00 75 19 123/83 98 Room Air 11/18/22 01:00 75 20 129/96 99 Room Air 11/18/22 00:00 36.6 C 75 20 132/84 95 Room Air 11/17/22 23:00 75 15 147/82 H 96 Room Air 11/17/22 22:00 75 17 132/84 96 Room Air 11/17/22 21:00 76 21 142/88 H 95 Room Air Laboratory Results Hemoglobin 13.5 Platelet count 272 Sodium 133 Potassium 4.1 Creatinine 0.97 Glucose 134 Hemoglobin A1c 8.3% Magnesium 1.6
[2022-11-18] MEDS: FLUTICASONE/VILANTEROL 200/25MCG 14 PUFFS/INHALER INH SCH (09:22)
[2022-11-18] MEDS: DESMOPRESSIN ACETATE 0.1 MG TAB PO SCH ×2 (09:22→19:50)
[2022-11-18] MEDS: SPIRONOLACTONE 12.5 MG TAB PO SCH (09:22)
[2022-11-18] MEDS: predniSONE 10 MG TABLET PO SCH (09:22)
[2022-11-18] MEDS: CLOPIDOGREL BISULFATE 75 MG TAB PO SCH (09:22)
[2022-11-18] MEDS: VALSARTAN/SACUBITRIL 26/24MG TAB PO SCH ×2 (09:22→19:50)
[2022-11-18] MEDS: CHOLECALCIFEROL 1,000 UNITS 25 MCG TAB PO SCH (09:22)
[2022-11-18] MEDS: METOPROLOL SUCC 25MG EXT REL TAB PO SCH ×2 (09:22→19:51)
[2022-11-18] MEDS: ENOXAPARIN INJ 40 MG/0.4 ML SYR SQ SCH (09:23)
[2022-11-18] MEDS: MAGNESIUM OXIDE 400 MG TAB PO SCH ×2 (09:25→19:51)
--- NOTE | 2022-11-18 09:51 | Hospitalist Progress Note ---
Date of Service November 18, 2022 Assessment & Plan (1) Ventricular tachycardia: Plan 67-year-old female with PMH of T2DM, CKD stage III, diabetes insipidus, HLD, diaphragmatic hernia, severe persistent asthma, complex heart block status post pacemaker, GERD, depression presented with an unresponsive episode secondary to ventricular tachycardia at home around 5 PM on 11/15/2022. Patient's started CPR and patient had ROSC prior to EMS arrival. She is being managed for the following: Unresponsive episode Cardiac arrest Likely aspiration pneumonia/pneumonitis secondary to cardiac event prior to arrival : Continue with IV Zosyn. Now weaned to room air. Last fever 11/16 evening Acute Severe LV systolic dysfunciton: 11/16 Echo with EF of 20 to 25%. 07/03/19 ECHO w/ EF of 60-65%. Pulmonary edema: 2/2 cardiac arrest and severe HF Patient was unconscious and patient's initiated CPR prior to arrival, patient had ROSC prior to EMS arrival. Likely pulseless VT at home. Patient might have had aspiration during the event. H/o AV block w/ pacemaker placement. Underwent Cardiac Cath 11/16 which showed non obstructive CAD Heparin drip discontinued Switched to oral metoprolol and atorvastatin 40mg Plan for device upgrade to ICD once fever/infection resolves Appreciate Cardiology input Hypomagnesemia: Monitor and replete. Possible aspiration pneumonia: Continue with Zosyn. Other chronic medical conditions: 6. Diabetes. Hold home glipizide. Place on insulin sliding scale. Follow the blood sugars. 7. History of DI. On desmopressin . 8. History of asthma. Continue home inhalers. 9. Chronic kidney disease, stage III. Trend 10. Gastroesophageal reflux disease. On Protonix. 11. Hypothyroidism. We will follow thyroid profile. 12. Hypertension. On losartan, which is held currently 13. Hyperlipidemia, on statin. DVT prophylaxis: previously on heparin drip now discontinued. Lovenox started 11/17 Disposition: Patient in ICU. Admission and Anticipated Discharge Date Admission Date: November 15, 2022 Subjective Patient feels well. No events overnight. Remains afebrile. Still with some memory impairment. Still having abdominal wall pain when she coughs, now hugging a folded blanket with coughing which is helping Physical Exam Physical Exam: Appears well, no acute distress, non toxic ENMT: Head normocephalic, atraumatic, mucous membrane moist Respiratory: Breathing comfortably on room air, no wheezing/rhonchi Cardiovascular: Regular rate and rhythm, no murmurs/rbs Gastrointestinal (Abdomen): soft, non tender, non distended Musculoskeletal: No edema Neurologic: awake, alert, answers questions appropriately but appears to have some memory impairment Psychiatric: affect normal, speech linear, non pressured Results & Data Results & Data Vital Signs (Past 12 Hours) Vital Signs Temp Pulse Pulse Resp BP Pulse Ox O2 Del Method 11/18/22 07:00 75 18 99 Room Air 11/18/22 07:00 133/76 11/18/22 07:42 36.7 C 11/18/22 07:10 75 18 96 Room Air 11/18/22 06:00 75 17 130/86 95 Room Air 11/18/22 05:00 75 17 143/81 H 96 Room Air 11/18/22 04:00 36.5 C 75 17 134/82 95 Room Air 11/18/22 03:00 75 17 134/77 95 Room Air 11/18/22 02:00 75 19 123/83 98 Room Air 11/18/22 01:00 75 20 129/96 99 Room Air 11/18/22 00:00 36.6 C 75 20 132/84 95 Room Air 11/17/22 23:00 75 15 147/82 H 96 Room Air 11/17/22 22:00 75 17 132/84 96 Room Air
[2022-11-18] MEDS: AMIODARONE 200 MG TAB PO SCH ×2 (12:07→17:03)
[2022-11-18] MEDS: ATORVASTATIN 40 MG TAB PO SCH (19:50)
[2022-11-18] MEDS: PANTOprazole 40 MG TAB PO SCH (19:51)
[2022-11-18] MEDS: MONTELUKAST SODIUM 10 MG TABLET PO SCH (19:51)
[2022-11-18] MEDS ORDERED: MELATONIN 3 MG TAB PO PRN (23:12)
[2022-11-19 04:52] LABS: Basophils # (auto) 0.02 K/uL (0-0.2); Basophils % (auto) 0.3 %; Hemoglobin 13.4 g/dl (12.0-16.0); Immature Granulocytes # (auto) 0.03 K/uL (0.01-0.20); Immature Granulocytes % (auto) 0.4 %; Lymphocytes # (auto) 1.61 K/uL (1.2-3.4); Lymphocytes % (auto) 22.4 %; Mean Corpuscular Hemoglobin 28.1 pg (25.0-34.0); Mean Corpuscular Hgb Conc 33.5 g/dL (32.0-36.0); Mean Corpuscular Volume 83.9 fL (80.0-100.0); Mean Platelet Volume 9.7 fL (9.4-12.4); Monocytes # (auto) 0.67 K/uL (0.11-0.59); Monocytes % (auto) 9.3 %; Neutrophils # (auto) 4.87 K/uL (1.40-6.50); Neutrophils % (auto) 67.6 %; Platelet Count 298 K/uL (130-400); RDW Coefficient of Variation 14.4 % (11.5-14.5); RDW Standard Deviation 43.5 fL (36.4-46.3); Red Blood Count 4.77 M/uL (4.20-5.40)
[2022-11-19 05:09] LABS: Albumin Globulin Ratio 1.4 (0.9-2); Albumin Level 3.7 gm/dl (3.4-5.0); BUN Creatinine Ratio 22.9 (10-20); Bilirubin,Total 0.5 mg/dl (0.2-1.0); Creatinine Clr Calc Pharmacy 50.6 ml/min; Est GFR (African American) 63.2 ml/min; Est GFR (Non-African American) 54.5 ml/min; Globulin 2.7 gm/dl (2.5-4.0); Magnesium 1.7 mg/dl (1.7-2.4); Potassium 3.7 mmol/L (3.5-5.1); Total Protein 6.4 gm/dl (6.0-8.3)
[2022-11-19 05:24] LABS: Thyroid Stimulating Hormone 5.322 uIu/ml (0.300-4.500)
[2022-11-19 06:00] LABS: T4 Free Thyroxine 1.15 ng/dl (0.61-1.60)
[2022-11-19] MEDS: LEVOTHYROXINE SODIUM 50 MCG TABLET PO SCH (06:29)
[2022-11-19] MEDS: BUDESONIDE 0.5 MG/2 ML VIAL (PULMICORT) INH SCH ×2 (06:51→19:14)
[2022-11-19] MEDS ORDERED: POTASSIUM CHLORIDE CRTAB 20 MEQ TABCR PO STA (08:17)
[2022-11-19] MEDS ORDERED: MAGNESIUM SULFATE / D5W 1 GM/100 ML BAG IV ONE (08:18)
[2022-11-19] MEDS: FLUTICASONE/VILANTEROL 200/25MCG 14 PUFFS/INHALER INH SCH (08:24)
[2022-11-19] MEDS: SPIRONOLACTONE 12.5 MG TAB PO SCH (08:24)
[2022-11-19] MEDS: DESMOPRESSIN ACETATE 0.1 MG TAB PO SCH ×2 (08:25→22:58)
[2022-11-19] MEDS: CHOLECALCIFEROL 1,000 UNITS 25 MCG TAB PO SCH (08:25)
[2022-11-19] MEDS: AMIODARONE 200 MG TAB PO SCH ×3 (08:25→17:47)
[2022-11-19] MEDS: MAGNESIUM OXIDE 400 MG TAB PO SCH ×2 (08:25→22:59)
[2022-11-19] MEDS: CLOPIDOGREL BISULFATE 75 MG TAB PO SCH (08:26)
[2022-11-19] MEDS: predniSONE 10 MG TABLET PO SCH (08:26)
[2022-11-19] MEDS: METOPROLOL SUCC 25MG EXT REL TAB PO SCH ×2 (08:26→23:00)
[2022-11-19] MEDS: ENOXAPARIN INJ 40 MG/0.4 ML SYR SQ SCH (08:27)
[2022-11-19] MEDS: LANTUS PER UNIT CHARGE SC SCH (08:32)
[2022-11-19] MEDS: INSULIN ASPART PER UNIT CHARGE SC SCH ×4 (08:34→23:06)
[2022-11-19] MEDS: VALSARTAN/SACUBITRIL 26/24MG TAB PO SCH ×2 (10:33→23:02)
--- NOTE | 2022-11-19 11:37 | Cardiology Progress Note ---
Date of Service November 19, 2022 Assessment & Plan (1) Cardiac arrest: (2) Ventricular tachycardia: (3) Severe left ventricular systolic dysfunction: (4) Acute on chronic HFrEF (heart failure with reduced ejection fraction): (5) Nonischemic cardiomyopathy: (6) Fever: Plan: 67-year-old female with witnessed unresponsive event at home for which her performed CPR for approximately 2 minutes. By the time EMS arrived she was obtunded, however return of circulation had occurred and she did not require additional medication for resuscitation or defibrillation. Device interrogation yielded a 3-minute episode of ventricular tachycardia that correlated with her event and I would characterize this has an aborted or survived cardiac arrest event. Mental status appears to be back to her baseline, but she does not recall the day of the event. She describes a several month history of progressive shortness of breath and weight gain and she attributed her breathing issues were due to her asthma, however she has developed severe left ventricular systolic dysfunction, with severe global left ventricular hypokinesis, LVEF 25%-Compared to 60-65% in June,. Patient had one additional brief run of nonsustained VT while hospitalized on 11/16/2022 that terminated spontaneously. Therapeutics: The patient has a previously placed dual-chamber permanent pacemaker. The basal rate has been increased from 60 to 75 and she is now AV sequential paced on telemetry. The basal rate was increased to hopefully suppress underlying PVCs, VT. IV amiodarone discontinued on 11/18/2022 and she is now on oral amiodarone 400 mg 3 times daily with meals. Clopidogrel 75 mg daily (for underlying nonobstructive coronary heart disease in the LAD as patient is allergic to aspirin, reaction of shortness of breath) Metoprolol succinate 25 mg twice daily Entresto 1 tablet twice daily Furosemide 40 mg PO daily Spironolactone 12.5 mg daily Atorvastatin 40 mg daily KCL 10 mequ daily Magnesium oxide 400 mg BID. Future considerations include adding an oral SGLT2 inhibitor for CHF and DM2, but would prefer to titrate medications as noted above first as blood pressure allows. Last fever was 38 C on 11/16/2022 at 20: 45 hours. Patient completed course of Zosyn for possible aspiration pneumonia, final dose 11/19/22. Case discussed with Dr. Hernandez of who performed her initial pacemaker procedure in 2020. Plan for upgrade to ICD once confident pt stable from an infection standpoint and scheduling allows. TSH and LFTs stable for amiodarone treatment with mild elevation in TSH of 5.322 miu/ml, on 11/19/22. -Continue [employer]SF[employer] levothyroxine dose. Diagnostics: Repeat BMP, Magnesium levels am of 11/20/22. Future considerations include outpatient PET scan for evaluation of cardiac sarcoidosis given her longstanding history of lung disease, and conduction system disease with third-degree AV block at a relatively young age, and now the development of a nonischemic cardiomyopathy. DVT prophylaxis: Lovenox 40 mg subcu every morning. Patient stable for transfer to PCU. Anticipate upgrade to ICD next week. Billing time I spent a total of 35 minutes on the date of service in preparation, delivery, and documentation of the care provided to this patient, excluding any time spent in the performance of separately billed services. Admission and Anticipated Discharge Date Admission Date: November 15, 2022 Subjective Patient seen in cardiology follow-up. Denies any recurrent lightheadedness or dizziness. Telemetry reveals AV sequential pacing at 75 bpm, with occasional isolated PVCs. No recurrence of ventricular tachycardia. Notes some residual chest wall pain at the lower margin of the ribs from having a chest compressions. Review of Systems Review of Systems: All systems reviewed & are unremarkable except as noted in HPI & below Physical Exam Physical Exam: Temp Pulse Resp BP Pulse Ox O2 Del Method O2 Flow Rate 36.7 C 75 23 136/70 99 Room Air 2 11/19/22 07:05 11/19/22 09:00 11/19/22 09:00 11/19/22 07:05 11/19/22 07:05 11/19/22 07:05 11/16/22 07:47 Constitutional: WD/WN, vitals as above Respiratory: normal respiratory effort, lungs clear to auscultation Cardiovascular: RRR, no murmur, no edema Chest (Breasts): normal inspection/palpation of breasts Gastrointestinal (Abdomen): normal bowel sounds, soft, nontender, no hepatosplenomegaly Neurologic: PERRL, EOMI, accommodation nl, no face palsy, no dysarthria Psychiatric: A+Ox3, euthymic affect Results & Data Vital Signs (Past 12 Hours) Vital Signs Temp Pulse Pulse Resp BP BP Pulse Ox 11/19/22 09:00 75 23 11/19/22 08:00 76 18 11/19/22 07:04 76 16 11/19/22 07:04 136/70 95 11/19/22 07:00 75 15 11/19/22 07:05 36.7 C 77 16 136/70 99 11/19/22 06:59 76 18 96 11/19/22 03:09 36.5 C 76 18 139/88 95 11/19/22 02:30 75 O2 Del Method 11/19/22 09:00 11/19/22 08:00 11/19/22 07:04 11/19/22 07:04 11/19/22 07:00 11/19/22 07:05 Room Air 11/19/22 06:59 Room Air 11/19/22 03:09 Room Air 11/19/22 02:30 Laboratory Results Cardiac Enzymes 11/19/22 Range/Units 04:25 AST 16 (13-39) U/L CBC 11/19/22 Range/Units 04:25 WBC 7.20 (4.8-10.8) K/ul RBC 4.77 (4.20-5.40) M/uL Hgb 13.4 (12.0-16.0) g/dl Hct 40.0 (37.0-47.0) % Plt Count 298 (130-400) K/uL Neut # (Auto) 4.87 (1.40-6.50) K/uL Lymph # (Auto) 1.61 (1.2-3.4) K/uL Grainger # (Auto) 0.67 H (0.11-0.59) K/uL Eos # (Auto) 0.00 (0-0.50) K/uL Baso # (Auto) 0.02 (0-0.2) K/uL Comprehensive Metabolic Panel 11/19/22 Range/Units 04:25 Sodium 134 L (136-145) mmol/L Potassium 3.7 (3.5-5.1) mmol/L Chloride 99 (98-107) mmol/L Carbon Dioxide 26 (21-32) mmol/L BUN 24 H (6-23) mg/dl Creatinine 1.05 (0.6-1.2) mg/dl Glucose 85 (70-99(Fasting)) mg/dl Calcium 9.0 (8.6-10.3) mg/dl AST 16 (13-39) U/L ALT 39 (7-52) U/L Alkaline Phosphatase 71 (34-104) U/L Total Protein 6.4 (6.0-8.3) gm/dl Albumin 3.7 (3.4-5.0) gm/dl
[2022-11-19] MEDS: FUROSEMIDE 40 MG TAB PO SCH (12:24)
[2022-11-19] MEDS: POTASSIUM CHLORIDE 10 MEQ TABCR PO SCH (12:24)
[2022-11-19] MEDS: ACETAMINOPHEN 325 MG TAB PO PRN (12:39)
--- NOTE | 2022-11-19 15:04 | Hospitalist Progress Note ---
Date of Service November 19, 2022 Assessment & Plan (1) Ventricular tachycardia: Plan 67-year-old female with PMH of T2DM, CKD stage III, diabetes insipidus, HLD, diaphragmatic hernia, severe persistent asthma, complex heart block status post pacemaker, GERD, depression presented with an unresponsive episode secondary to ventricular tachycardia at home around 5 PM on 11/15/2022. Patient's started CPR and patient had ROSC prior to EMS arrival. She is being managed for the following: Unresponsive episode Cardiac arrest Likely aspiration pneumonia/pneumonitis secondary to cardiac event prior to arrival : Continue with IV Zosyn. Now weaned to room air. Last fever 11/16 evening Acute Severe LV systolic dysfunciton: 11/16 Echo with EF of 20 to 25%. 07/03/19 ECHO w/ EF of 60-65%. Pulmonary edema: 2/2 cardiac arrest and severe HF Patient was unconscious and patient's initiated CPR prior to arrival, patient had ROSC prior to EMS arrival. Likely pulseless VT at home. Patient might have had aspiration during the event. H/o AV block w/ pacemaker placement. Underwent Cardiac Cath 11/16 which showed non obstructive CAD Heparin drip discontinued Switched to oral metoprolol and atorvastatin 40mg Plan for device upgrade to ICD 11/24 Appreciate Cardiology input Hypomagnesemia: Monitor and replete. Possible aspiration pneumonia: finished 3 days of zosyn, will switch to Augmentin to complete 7 day course. No further fevers Other chronic medical conditions: 6. Diabetes. Hold home glipizide. Place on insulin sliding scale. Follow the blood sugars. 7. History of DI. On desmopressin . 8. History of asthma. Continue home inhalers. 9. Chronic kidney disease, stage III. Trend 10. Gastroesophageal reflux disease. On Protonix. 11. Hypothyroidism. We will follow thyroid profile. 12. Hypertension. On losartan, which is held currently 13. Hyperlipidemia, on statin. DVT prophylaxis: previously on heparin drip now discontinued. Lovenox started 11/17 Disposition: Patient PCU. PT evaluation prior to discharge Admission and Anticipated Discharge Date Admission Date: November 15, 2022 Subjective Doing well. Transferred to PCU level of care yesterday but remained physically in ICU until today Remains afebrile Tolerating diet BM yesterday Review of Systems Review of Systems: as above Physical Exam Physical Exam: Appears well. No acute distress, non toxic ENMT: head normocephalic, atraumatic Respiratory: breathing comfortably on room air, no wheezing/rhonchi Cardiovascular: regular rate and rhythm, no murmurs/rubs/gallops Gastrointestinal (Abdomen): soft, non tender, non distended Musculoskeletal: No edema Neurologic: awake, alert, spontaneously moving extremities Results & Data Results & Data Vital Signs (Past 12 Hours) Vital Signs Temp Pulse Pulse Resp BP BP Pulse Ox 11/19/22 11:04 129/85 11/19/22 11:04 75 21 96 11/19/22 11:00 75 16 11/19/22 10:00 75 18 11/19/22 11:27 36.6 C 11/19/22 09:00 75 23 11/19/22 08:00 76 18 11/19/22 07:04 76 16 11/19/22 07:04 136/70 95 11/19/22 07:00 75 15 11/19/22 07:05 36.7 C 77 16 136/70 99 11/19/22 06:59 76 18 96 11/19/22 03:09 36.5 C 76 18 139/88 95 O2 Del Method 11/19/22 11:04 11/19/22 11:04 Room Air 11/19/22 11:00 11/19/22 10:00 11/19/22 11:27 11/19/22 09:00 11/19/22 08:00 11/19/22 07:04 11/19/22 07:04 11/19/22 07:00 11/19/22 07:05 Room Air 11/19/22 06:59 Room Air 11/19/22 03:09 Room Air
[2022-11-19] MEDS: AMOXICILLIN/CLAVULANATE 875 MG TAB PO SCH (17:46)
[2022-11-19] MEDS: ATORVASTATIN 40 MG TAB PO SCH (22:58)
[2022-11-19] MEDS: MONTELUKAST SODIUM 10 MG TABLET PO SCH (23:00)
[2022-11-19] MEDS: PANTOprazole 40 MG TAB PO SCH (23:01)
[2022-11-20] MEDS: ACETAMINOPHEN 325 MG TAB PO PRN ×2 (05:44→14:39)
[2022-11-20] MEDS: LEVOTHYROXINE SODIUM 50 MCG TABLET PO SCH (05:45)
[2022-11-20] MEDS: BUDESONIDE 0.5 MG/2 ML VIAL (PULMICORT) INH SCH ×2 (07:14→19:50)
[2022-11-20 07:22] LABS: BUN Creatinine Ratio 35.7 (10-20); Calcium 9.7 mg/dl (8.6-10.3); Creatinine Clr Calc Pharmacy 54.5 ml/min; Est GFR (African American) 68.7 ml/min; Est GFR (Non-African American) 59.3 ml/min; Magnesium 1.9 mg/dl (1.7-2.4); Potassium 4.2 mmol/L (3.5-5.1)
[2022-11-20] MEDS: FUROSEMIDE 40 MG TAB PO SCH (07:41)
[2022-11-20] MEDS: AMOXICILLIN/CLAVULANATE 875 MG TAB PO SCH ×2 (07:41→17:08)
[2022-11-20] MEDS: VALSARTAN/SACUBITRIL 26/24MG TAB PO SCH ×2 (07:41→21:05)
[2022-11-20] MEDS: METOPROLOL SUCC 25MG EXT REL TAB PO SCH ×2 (07:42→21:06)
[2022-11-20] MEDS: DESMOPRESSIN ACETATE 0.1 MG TAB PO SCH ×2 (07:42→21:05)
[2022-11-20] MEDS: predniSONE 10 MG TABLET PO SCH (07:42)
[2022-11-20] MEDS: MAGNESIUM OXIDE 400 MG TAB PO SCH ×2 (07:42→21:05)
[2022-11-20] MEDS: POTASSIUM CHLORIDE 10 MEQ TABCR PO SCH (07:43)
[2022-11-20] MEDS: SPIRONOLACTONE 12.5 MG TAB PO SCH (07:43)
[2022-11-20] MEDS: AMIODARONE 200 MG TAB PO SCH ×3 (07:44→17:07)
[2022-11-20] MEDS: CLOPIDOGREL BISULFATE 75 MG TAB PO SCH (07:44)
[2022-11-20] MEDS: CHOLECALCIFEROL 1,000 UNITS 25 MCG TAB PO SCH (07:44)
[2022-11-20] MEDS: SACCHAROMYCES BOULARDII 250 MG CAP PO SCH (09:12)
[2022-11-20] MEDS: INSULIN ASPART PER UNIT CHARGE SC SCH ×4 (09:19→21:04)
--- NOTE | 2022-11-20 09:43 | Cardiology Progress Note ---
Date of Service November 20, 2022 Assessment & Plan (1) Cardiac arrest: (2) Ventricular tachycardia: (3) Severe left ventricular systolic dysfunction: (4) Acute on chronic HFrEF (heart failure with reduced ejection fraction): (5) Nonischemic cardiomyopathy: (6) Fever: Plan The patient is clinically stable. No additional arrhythmias at this time. She will have an upgrade to an ICD planned for Tuesday. Admission and Anticipated Discharge Date Admission Date: November 15, 2022 Subjective The patient is sitting in a chair. She had an uneventful night. She is 100% paced Review of Systems Review of Systems: Review of Systems: See HPI for pertinent positives. All other 10 point review of systems are negative. Physical Exam Physical Exam: General: no acute distress and stated age Head: normocephalic, no masses, lesions, tenderness or abnormalities Eyes: conjunctiva are pink and non-injected, sclera clear Neck: supple, no adenopathy, no bruits, normal jugular venous pulse, no hepatojugular reflux Chest: normal shape and normal respiratory effort Lungs: clear to auscultation and percussion Cardiac Exam: - regular rate & rhythm, no murmurs gallops or rubs - normal S1, normal S2 Pulses: 2(+) throughout Abdomen: abdomen soft, non-tender, no abnormal masses and no hepatosplenomegaly Musculoskeletal: no gait disturbance, no joint inflammation, no deforming arthritis Extremities: no edema and no cyanosis Neuro: grossly normal exam Results & Data Vital Signs (Past 12 Hours) Vital Signs Temp Pulse Pulse Resp BP BP Pulse Ox 11/20/22 07:15 75 16 92 11/20/22 06:14 36.5 C 75 16 151/74 H 95 11/20/22 04:00 75 16 94 11/20/22 03:25 100/56 L 11/20/22 03:25 75 17 11/20/22 03:00 75 12 11/20/22 03:00 36.5 C 75 18 100/56 L 99 11/20/22 02:00 76 19 11/20/22 01:00 16 11/20/22 00:00 76 20 11/19/22 23:05 126/86 11/19/22 23:05 78 20 11/19/22 23:00 77 17 11/19/22 22:00 77 22 11/19/22 22:00 11/19/22 22:00 76 11/19/22 23:11 36.4 C L 77 16 126/86 97 O2 Del Method 11/20/22 07:15 Room Air 11/20/22 06:14 Room Air 11/20/22 04:00 11/20/22 03:25 11/20/22 03:25 11/20/22 03:00 11/20/22 03:00 Room Air 11/20/22 02:00 11/20/22 01:00 11/20/22 00:00 11/19/22 23:05 11/19/22 23:05 11/19/22 23:00 11/19/22 22:00 11/19/22 22:00 Room Air 11/19/22 22:00 11/19/22 23:11 Room Air Laboratory Results Laboratory Results - last 24 hr 11/19/22 11/19/22 11/19/22 11:02 16:18 20:13 Sodium Potassium Chloride Carbon Dioxide Anion Gap BUN Creatinine Est Cr Clr Drug Dosing Est GFR ( Amer) Est GFR (Non-Af Amer) BUN/Creatinine Ratio Glucose POC Glucose 167 H 232 H 263 H Calcium Magnesium 11/20/22 11/20/22 11/20/22 05:44 07:27 07:48 Sodium 136 Potassium 4.2 Chloride 100 Carbon Dioxide 27 Anion Gap 9 BUN 35 H Creatinine 0.98 Est Cr Clr Drug Dosing 54.5 Est GFR ( Amer) 68.7 Est GFR (Non-Af Amer) 59.3 BUN/Creatinine Ratio 35.7 H Glucose 46 L* POC Glucose 46 L* 144 H Calcium 9.7 Magnesium 1.9 Medications Administered Current Inpatient Medications Acetaminophen (Acetaminophen 325 Mg Tab) 650 mg PO Q4H PRN PRN Reason: fever or pain Stop: 12/17/22 15:06 Last Admin: 11/20/22 05:44 Dose: 650 mg Amiodarone HCl (Amiodarone 200 Mg Tab) 400 mg PO TIDM [facility] Stop: 12/18/22 11:59 Last Admin: 11/20/22 07:44 Dose: 400 mg Amoxicillin/Clavulanate Potassium (Amoxicillin/Clavulanate 875 Mg Tab) 1 tab PO BIDM [facility]; Protocol Stop: 11/23/22 16:59 Last Admin: 11/20/22 07:41 Dose: 1 tab Atorvastatin Calcium (Atorvastatin 40 Mg Tab) 40 mg PO HS [facility] Stop: 12/16/22 20:59 Last Admin: 11/19/22 22:58 Dose: 40 mg Budesonide (Budesonide 0.5 Mg/2 Ml Vial (Pulmicort)) 1 mg INH BIDR [facility] Stop: 12/16/22 06:59 Last Admin: 11/20/22 07:14 Dose: 1 mg Clopidogrel Bisulfate (Clopidogrel Bisulfate 75 Mg Tab) 75 mg PO QAM [facility] Stop: 12/17/22 11:14 Last Admin: 11/20/22 07:44 Dose: 75 mg Desmopressin Acetate (Desmopressin Acetate 0.1 Mg Tab) 0.2 mg PO BID [facility] Stop: 12/16/22 08:59 Last Admin: 11/20/22 07:42 Dose: 0.2 mg Dextrose (Dextrose 50% 50 Ml Syringe) 25 - 50 ml IV UD PRN; Protocol PRN Reason: Hypoglycemia Protocol Stop: 12/15/22 22:51 Last Admin: 11/20/22 07:30 Dose: 50 ml Enoxaparin Sodium (Enoxaparin Inj 40 Mg/0.4 Ml Syr) 40 mg SQ QAM [facility] Stop: 12/17/22 08:59 Last Admin: 11/19/22 08:27 Dose: 40 mg Fluticasone/Vilanterol (Fluticasone/Vilanterol 200/25mcg 14 Puffs/Inhaler) 1 puffs INH DAILY [facility] Stop: 12/16/22 08:59 Last Admin: 11/19/22 08:24 Dose: 1 puffs Furosemide (Furosemide 40 Mg Tab) 40 mg PO QAM [facility] Stop: 12/19/22 11:44 Last Admin: 11/20/22 07:41 Dose: 40 mg Glucagon (Glucagon For Inj 1 Mg Vial) 1 mg SQ UD PRN; Protocol PRN Reason: Hypoglycemia Protocol Stop: 12/15/22 22:51 Glucose (Glucose 10 Tab/Tube) 4 - 8 tab PO UD PRN; Protocol PRN Reason: Hypoglycemia Treatment Stop: 12/15/22 22:51 Glucose (Glucose 40% Gel 15 Gm Tube) 15 - 30 gm PO UD PRN; Protocol PRN Reason: Hypoglycemia Protocol Stop: 12/15/22 22:51 Insulin Aspart (Insulin Aspart Per Unit Charge) 0 units SC ACHS [facility] Stop: 12/15/22 22:51 Last Admin: 11/20/22 09:19 Dose: Not Given Levothyroxine Sodium (Levothyroxine Sodium 50 Mcg Tablet) 50 mcg PO DAILYBB [facility] Stop: 12/16/22 06:29 Last Admin: 11/20/22 05:45 Dose: 50 mcg Lorazepam (Lorazepam 2 Mg/1 Ml Vial) 1 mg IV Q2H PRN PRN Reason: Breakthrough Seizures Stop: 12/15/22 22:51 Magnesium Oxide (Magnesium Oxide 400 Mg Tab) 400 mg PO BID [facility] Stop: 12/18/22 08:59 Last Admin: 11/20/22 07:42 Dose: 400 mg Melatonin (Melatonin 3 Mg Tab) 3 mg PO HS PRN PRN Reason: Sleep Stop: 12/18/22 23:11 Last Admin: 11/18/22 23:24 Dose: 3 mg Metoprolol Succinate (Metoprolol Succ 25mg Ext Rel Tab) 25 mg PO BID [facility] Stop: 12/17/22 20:59 Last Admin: 11/20/22 07:42 Dose: 25 mg Miscellaneous (Carbohydrates For Hypoglycemia ) 15 - 30 gm PO UD PRN PRN Reason: Hypoglycemia Protocol Stop: 12/15/22 22:51 Montelukast Sodium (Montelukast Sodium 10 Mg Tablet) 10 mg PO QPM [facility]; Protocol Stop: 12/16/22 20:59 Last Admin: 11/19/22 23:00 Dose: 10 mg Pantoprazole Sodium (Pantoprazole 40 Mg Tab) 40 mg PO HS [facility] Stop: 12/16/22 20:59 Last Admin: 11/19/22 23:01 Dose: 40 mg Potassium Chloride (Potassium Chloride 10 Meq Tabcr) 10 meq PO DAILY [facility] Stop: 12/19/22 11:44 Last Admin: 11/20/22 07:43 Dose: 10 meq Prednisone (Prednisone 10 Mg Tablet) 10 mg PO DAILY [facility] Stop: 12/16/22 08:59 Last Admin: 11/20/22 07:42 Dose: 10 mg Saccharomyces Boulardii (Saccharomyces Boulardii 250 Mg Cap) 250 mg PO DAILY [facility] Stop: 12/20/22 08:59 Last Admin: 11/20/22 09:12 Dose: 250 mg Sacubitril/Valsartan (Valsartan/Sacubitril 26/24mg Tab) 1 tab PO BID [facility] Stop: 12/17/22 10:29 Last Admin: 11/20/22 07:41 Dose: 1 tab Spironolactone (Spironolactone 12.5 Mg Tab) 12.5 mg PO DAILY [facility] Stop: 12/18/22 08:59 Last Admin: 11/20/22 07:43 Dose: 12.5 mg Vitamin D (Cholecalciferol 1,000 Units 25 Mcg Tab) 1,000 units PO DAILY [facility] Stop: 12/16/22 08:59 Last Admin: 11/20/22 07:44 Dose: 1,000 units
[2022-11-20] MEDS: FLUTICASONE/VILANTEROL 200/25MCG 14 PUFFS/INHALER INH SCH (10:03)
[2022-11-20] MEDS: ENOXAPARIN INJ 40 MG/0.4 ML SYR SQ SCH (11:48)
--- NOTE | 2022-11-20 13:57 | Hospitalist Progress Note ---
Date of Service November 20, 2022 Assessment & Plan (1) Ventricular tachycardia: Plan 67-year-old female with PMH of T2DM, CKD stage III, diabetes insipidus, HLD, diaphragmatic hernia, severe persistent asthma, complex heart block status post pacemaker, GERD, depression presented with an unresponsive episode secondary to ventricular tachycardia at home around 5 PM on 11/15/2022. Patient's started CPR and patient had ROSC prior to EMS arrival. She is being managed for the following: Unresponsive episode Cardiac arrest Likely aspiration pneumonia/pneumonitis secondary to cardiac event prior to arrival : Continue with IV Zosyn. Now weaned to room air. Last fever 11/16 evening Acute Severe LV systolic dysfunciton: 11/16 Echo with EF of 20 to 25%. 07/03/19 ECHO w/ EF of 60-65%. Pulmonary edema: 2/2 cardiac arrest and severe HF Patient was unconscious and patient's initiated CPR prior to arrival, patient had ROSC prior to EMS arrival. Likely pulseless VT at home. Patient might have had aspiration during the event. H/o AV block w/ pacemaker placement. Underwent Cardiac Cath 11/16 which showed non obstructive CAD Heparin drip discontinued Switched to oral metoprolol and atorvastatin 40mg Plan for device upgrade to ICD 11/24 Appreciate Cardiology input Hypomagnesemia: Monitor and replete as needed Possible aspiration pneumonia: finished 3 days of zosyn, switched to Augmentin to complete 7 day course. No further fevers T2 NIDDM with hypoglycemia Diabetes. Hold home glipizide. Place on insulin sliding scale. Episode of hypoglycemia. Will consult glycemic pharmacist Other chronic medical conditions: 7. History of DI. On desmopressin . 8. History of asthma. Continue home inhalers. 9. Chronic kidney disease, stage III. Trend 10. Gastroesophageal reflux disease. On Protonix. 11. Hypothyroidism. We will follow thyroid profile. 12. Hypertension.previously on losartan. Now on entresto 13. Hyperlipidemia, on statin. DVT prophylaxis: previously on heparin drip now discontinued. Lovenox started 11/17 Disposition: Patient PCU. PT evaluation prior to discharge Admission and Anticipated Discharge Date Admission Date: November 15, 2022 Subjective This morning blood sugar low Remains afebrile Tolerating meals Review of Systems Review of Systems: As above in HPI, remaining ROS otherwise negative Physical Exam Physical Exam: Appears well, sitting in her chair, pleasant and comfortable Respiratory: Breathing comfortably on room air, no wheezing/rhonchi/rales Cardiovascular: Regular rate and rhythm, no murmurs/rubs Gastrointestinal (Abdomen): soft, non tender Musculoskeletal: No edema Neurologic: awake, alert, spontaneously moving extremities Results & Data Results & Data Vital Signs (Past 12 Hours) Vital Signs Temp Pulse Pulse Resp BP BP Pulse Ox 11/20/22 12:09 36.8 C 77 18 126/72 99 11/20/22 07:30 75 11/20/22 08:00 11/20/22 08:00 75 11/20/22 07:15 75 16 92 11/20/22 06:14 36.5 C 75 16 151/74 H 95 11/20/22 04:00 75 16 94 11/20/22 03:25 100/56 L 11/20/22 03:25 75 17 11/20/22 03:00 75 12 11/20/22 03:00 36.5 C 75 18 100/56 L 99 11/20/22 02:00 76 19 O2 Del Method 11/20/22 12:09 Room Air 11/20/22 07:30 11/20/22 08:00 Room Air 11/20/22 08:00 11/20/22 07:15 Room Air 11/20/22 06:14 Room Air 11/20/22 04:00 11/20/22 03:25 11/20/22 03:25 11/20/22 03:00 11/20/22 03:00 Room Air 11/20/22 02:00
[2022-11-20] MEDS ORDERED: PHARMACY GLYCEMIC MGMT CONSULT PRN (13:58)
--- NOTE | 2022-11-20 14:33 | Pharmacy Report ---
Pharmacy Glycemic Short Note 2 - Date of Service November 20, 2022 - Glycemic Short BSG Results (Last 24 hours): 11/19/22 11/19/22 11/20/22 16:18 20:13 05:44 Glucose 46 L* POC Glucose 232 H 263 H 11/20/22 11/20/22 11/20/22 07:27 07:48 11:26 Glucose POC Glucose 46 L* 144 H 349 H* 11/20/22 11:27 Glucose POC Glucose 324 H* OUTPATIENT ANTIDIABETIC REGIMEN: * glipizide, metformin ASSESSMENT: * 67 year old admitted with cardiac arrest/asp pneumonia. Type 2 diabetic managed only on orals at home. BSGs very labile over last couple of days. Pharmacy consulted for glycemic management today. * BSGs low this morning ~46 mg/dL - treated with IV dextrose per hypoglycemia protocol. Up to 144 mg/dL on recheck. Last dose of basal insulin was yesterday AM and 5 units only * Unclear if low BSG this AM related to previous basal insulin or possibly too novolog correctional insulin * Plan to hold basal insulin for now, will continue tighter CF/CR throughout day but have very loose parameter for HS time * Patient on daily prednisone, could consider small dose of NPH in AM PLAN FOR INPATIENT GLYCEMIC CONTROL: * Hold outpatient oral diabetes medications * Basal insulin * Lantus - hold * Bolus insulin * NovoLog per scale ACHS or Q6hrs while NPO * Goal Range: Low 110 mg/dL - High 140 mg/dL * Correction Factor: 20 mg/dL/unit * Nutritional / Prandial insulin per carb ratio of 1 unit per 7 grams CHO consumed HS time CF 40 / CR --
[2022-11-20] MEDS: MONTELUKAST SODIUM 10 MG TABLET PO SCH (21:05)
[2022-11-20] MEDS: PANTOprazole 40 MG TAB PO SCH (21:05)
[2022-11-20] MEDS: ATORVASTATIN 40 MG TAB PO SCH (21:06)
[2022-11-21] MEDS ORDERED: LORazepam 0.5 MG TAB PO PRN (01:14)
[2022-11-21] MEDS: LEVOTHYROXINE SODIUM 50 MCG TABLET PO SCH (06:01)
[2022-11-21] MEDS: ACETAMINOPHEN 325 MG TAB PO PRN ×3 (06:06→20:59)
[2022-11-21] MEDS: BUDESONIDE 0.5 MG/2 ML VIAL (PULMICORT) INH SCH ×2 (06:49→18:56)
[2022-11-21 07:12] LABS: BUN Creatinine Ratio 39.4 (10-20); Calcium 9.4 mg/dl (8.6-10.3); Creatinine Clr Calc Pharmacy 51.5 ml/min; Est GFR (African American) 63.9 ml/min; Est GFR (Non-African American) 55.2 ml/min; Magnesium 1.7 mg/dl (1.7-2.4); Potassium 4.3 mmol/L (3.5-5.1)
[2022-11-21] MEDS ORDERED: MAGNESIUM SULFATE / D5W 1 GM/100 ML BAG IV ONE (07:50)
[2022-11-21] MEDS: SACCHAROMYCES BOULARDII 250 MG CAP PO SCH (08:20)
[2022-11-21] MEDS: FUROSEMIDE 40 MG TAB PO SCH (08:20)
[2022-11-21] MEDS: AMOXICILLIN/CLAVULANATE 875 MG TAB PO SCH ×2 (08:20→17:13)
[2022-11-21] MEDS: AMIODARONE 200 MG TAB PO SCH ×2 (08:21→17:13)
[2022-11-21] MEDS: predniSONE 10 MG TABLET PO SCH (08:21)
[2022-11-21] MEDS: CLOPIDOGREL BISULFATE 75 MG TAB PO SCH (08:22)
[2022-11-21] MEDS: CHOLECALCIFEROL 1,000 UNITS 25 MCG TAB PO SCH (08:22)
[2022-11-21] MEDS: SPIRONOLACTONE 12.5 MG TAB PO SCH (08:22)
[2022-11-21] MEDS: VALSARTAN/SACUBITRIL 26/24MG TAB PO SCH ×2 (08:22→20:53)
[2022-11-21] MEDS: DESMOPRESSIN ACETATE 0.1 MG TAB PO SCH ×2 (08:23→20:52)
[2022-11-21] MEDS: METOPROLOL SUCC 25MG EXT REL TAB PO SCH ×2 (08:23→20:54)
[2022-11-21] MEDS: ENOXAPARIN INJ 40 MG/0.4 ML SYR SQ SCH (08:24)
[2022-11-21] MEDS: INSULIN ASPART PER UNIT CHARGE SC SCH ×4 (08:26→20:33)
[2022-11-21] MEDS: POTASSIUM CHLORIDE 10 MEQ TABCR PO SCH (08:29)
[2022-11-21] MEDS: MAGNESIUM OXIDE 400 MG TAB PO SCH ×2 (08:29→20:59)
[2022-11-21] MEDS ORDERED: NovoLIN-N (NPH) PER UNIT CHARGE SQ SCH (09:00)
--- NOTE | 2022-11-21 09:51 | Cardiology Progress Note ---
Date of Service November 21, 2022 Assessment & Plan (1) Cardiac arrest: (2) Ventricular tachycardia: (3) Severe left ventricular systolic dysfunction: (4) Acute on chronic HFrEF (heart failure with reduced ejection fraction): (5) Nonischemic cardiomyopathy: (6) Fever: Plan The patient is clinically stable. On guideline directed medications for cardiomyopathy. Rhythm is stable. Will back down on the amiodarone dosing. Admission and Anticipated Discharge Date Admission Date: November 15, 2022 Subjective The patient had an uneventful night. Review of Systems Review of Systems: Review of Systems: See HPI for pertinent positives. All other 10 point review of systems are negative. Physical Exam Physical Exam: General: no acute distress and stated age Head: normocephalic, no masses, lesions, tenderness or abnormalities Eyes: conjunctiva are pink and non-injected, sclera clear Neck: supple, no adenopathy, no bruits, normal jugular venous pulse, no hepatojugular reflux Chest: normal shape and normal respiratory effort Lungs: clear to auscultation and percussion Cardiac Exam: - regular rate & rhythm, no murmurs gallops or rubs - normal S1, normal S2 Pulses: 2(+) throughout Abdomen: abdomen soft, non-tender, no abnormal masses and no hepatosplenomegaly Musculoskeletal: no gait disturbance, no joint inflammation, no deforming arthritis Extremities: no edema and no cyanosis Neuro: grossly normal exam Results & Data Vital Signs (Past 12 Hours) Vital Signs Temp Pulse Pulse Resp BP BP Pulse Ox 11/21/22 07:59 36.9 C 75 17 130/70 98 11/21/22 07:48 11/21/22 06:49 75 18 96 11/21/22 03:00 36.6 C 75 20 135/85 97 11/21/22 01:00 75 16 11/21/22 00:00 75 19 11/20/22 23:15 137/80 11/20/22 23:15 75 18 96 11/20/22 23:00 75 17 11/20/22 22:00 75 17 11/20/22 22:06 79 11/20/22 23:00 36.5 C 75 18 137/80 97 O2 Del Method 11/21/22 07:59 Room Air 11/21/22 07:48 Room Air 11/21/22 06:49 Room Air 11/21/22 03:00 Room Air 11/21/22 01:00 11/21/22 00:00 11/20/22 23:15 11/20/22 23:15 11/20/22 23:00 11/20/22 22:00 11/20/22 22:06 11/20/22 23:00 Room Air Laboratory Results Laboratory Results - last 24 hr 11/20/22 11/20/22 11/20/22 11:26 11:27 16:12 Sodium Potassium Chloride Carbon Dioxide Anion Gap BUN Creatinine Est Cr Clr Drug Dosing Est GFR ( Amer) Est GFR (Non-Af Amer) BUN/Creatinine Ratio Glucose POC Glucose 349 H* 324 H* 292 H Calcium Magnesium 11/20/22 11/21/22 11/21/22 20:12 06:24 07:22 Sodium 131 L Potassium 4.3 Chloride 98 Carbon Dioxide 26 Anion Gap 7 BUN 41 H Creatinine 1.04 Est Cr Clr Drug Dosing 51.5 Est GFR ( Amer) 63.9 Est GFR (Non-Af Amer) 55.2 BUN/Creatinine Ratio 39.4 H Glucose 159 H POC Glucose 176 H 158 H Calcium 9.4 Magnesium 1.7 Medications Administered Current Inpatient Medications Acetaminophen (Acetaminophen 325 Mg Tab) 650 mg PO Q4H PRN PRN Reason: fever or pain Stop: 12/17/22 15:06 Last Admin: 11/21/22 06:06 Dose: 650 mg Amiodarone HCl (Amiodarone 200 Mg Tab) 400 mg PO TIDM [facility] Stop: 12/18/22 11:59 Last Admin: 11/21/22 08:21 Dose: 400 mg Amoxicillin/Clavulanate Potassium (Amoxicillin/Clavulanate 875 Mg Tab) 1 tab PO BIDM [facility]; Protocol Stop: 11/23/22 16:59 Last Admin: 11/21/22 08:20 Dose: 1 tab Atorvastatin Calcium (Atorvastatin 40 Mg Tab) 40 mg PO HS [facility] Stop: 12/16/22 20:59 Last Admin: 11/20/22 21:06 Dose: 40 mg Budesonide (Budesonide 0.5 Mg/2 Ml Vial (Pulmicort)) 1 mg INH BIDR [facility] Stop: 12/16/22 06:59 Last Admin: 11/21/22 06:49 Dose: 1 mg Clopidogrel Bisulfate (Clopidogrel Bisulfate 75 Mg Tab) 75 mg PO QAM [facility] Stop: 12/17/22 11:14 Last Admin: 11/21/22 08:22 Dose: 75 mg Desmopressin Acetate (Desmopressin Acetate 0.1 Mg Tab) 0.2 mg PO BID [facility] Stop: 12/16/22 08:59 Last Admin: 11/21/22 08:23 Dose: 0.2 mg Dextrose (Dextrose 50% 50 Ml Syringe) 25 - 50 ml IV UD PRN; Protocol PRN Reason: Hypoglycemia Protocol Stop: 12/15/22 22:51 Last Admin: 11/20/22 07:30 Dose: 50 ml Enoxaparin Sodium (Enoxaparin Inj 40 Mg/0.4 Ml Syr) 40 mg SQ QAM [facility] Stop: 12/17/22 08:59 Last Admin: 11/21/22 08:24 Dose: 40 mg Fluticasone/Vilanterol (Fluticasone/Vilanterol 200/25mcg 14 Puffs/Inhaler) 1 puffs INH DAILY [facility] Stop: 12/16/22 08:59 Last Admin: 11/20/22 10:03 Dose: Not Given Furosemide (Furosemide 40 Mg Tab) 40 mg PO QAM [facility] Stop: 12/19/22 11:44 Last Admin: 11/21/22 08:20 Dose: 40 mg Glucagon (Glucagon For Inj 1 Mg Vial) 1 mg SQ UD PRN; Protocol PRN Reason: Hypoglycemia Protocol Stop: 12/15/22 22:51 Glucose (Glucose 10 Tab/Tube) 4 - 8 tab PO UD PRN; Protocol PRN Reason: Hypoglycemia Treatment Stop: 12/15/22 22:51 Glucose (Glucose 40% Gel 15 Gm Tube) 15 - 30 gm PO UD PRN; Protocol PRN Reason: Hypoglycemia Protocol Stop: 12/15/22 22:51 Insulin Aspart (Insulin Aspart Per Unit Charge) 0 units SC 0730,1130,1630 [facility] Stop: 12/20/22 16:29 Last Admin: 11/21/22 08:26 Dose: 8 units Insulin Aspart (Insulin Aspart Per Unit Charge) 0 units SC DAILY@2100 [facility] Stop: 12/20/22 20:59 Last Admin: 11/20/22 21:04 Dose: Not Given Insulin Human NPH (Novolin-N (Nph) Per Unit Charge) 8 units SQ DAILY [facility] Stop: 11/21/22 12:00 Last Admin: 11/21/22 08:24 Dose: 8 units Levothyroxine Sodium (Levothyroxine Sodium 50 Mcg Tablet) 50 mcg PO DAILYBB [facility] Stop: 12/16/22 06:29 Last Admin: 11/21/22 06:01 Dose: 50 mcg Lorazepam (Lorazepam 2 Mg/1 Ml Vial) 1 mg IV Q2H PRN PRN Reason: Breakthrough Seizures Stop: 12/15/22 22:51 Lorazepam (Lorazepam 0.5 Mg Tab) 0.25 mg PO HS PRN PRN Reason: insomnia Stop: 12/21/22 01:13 Magnesium Oxide (Magnesium Oxide 400 Mg Tab) 400 mg PO BID [facility] Stop: 12/18/22 08:59 Last Admin: 11/21/22 08:29 Dose: 400 mg Melatonin (Melatonin 3 Mg Tab) 3 mg PO HS PRN PRN Reason: Sleep Stop: 12/18/22 23:11 Last Admin: 11/18/22 23:24 Dose: 3 mg Metoprolol Succinate (Metoprolol Succ 25mg Ext Rel Tab) 25 mg PO BID [facility] Stop: 12/17/22 20:59 Last Admin: 11/21/22 08:23 Dose: 25 mg Miscellaneous (Carbohydrates For Hypoglycemia ) 15 - 30 gm PO UD PRN PRN Reason: Hypoglycemia Protocol Stop: 12/15/22 22:51 Miscellaneous Information (Pharmacy Glycemic Mgmt Consult) 1 each N/A UD PRN; Protocol PRN Reason: Consult Stop: 12/20/22 13:57 Montelukast Sodium (Montelukast Sodium 10 Mg Tablet) 10 mg PO QPM [facility]; Protocol Stop: 12/16/22 20:59 Last Admin: 11/20/22 21:05 Dose: 10 mg Pantoprazole Sodium (Pantoprazole 40 Mg Tab) 40 mg PO HS [facility] Stop: 12/16/22 20:59 Last Admin: 11/20/22 21:05 Dose: 40 mg Potassium Chloride (Potassium Chloride 10 Meq Tabcr) 10 meq PO DAILY [facility] Stop: 12/19/22 11:44 Last Admin: 11/21/22 08:29 Dose: 10 meq Prednisone (Prednisone 10 Mg Tablet) 10 mg PO DAILY [facility] Stop: 12/16/22 08:59 Last Admin: 11/21/22 08:21 Dose: 10 mg Saccharomyces Boulardii (Saccharomyces Boulardii 250 Mg Cap) 250 mg PO DAILY [facility] Stop: 12/20/22 08:59 Last Admin: 11/21/22 08:20 Dose: 250 mg Sacubitril/Valsartan (Valsartan/Sacubitril 26/24mg Tab) 1 tab PO BID [facility] Stop: 12/17/22 10:29 Last Admin: 11/21/22 08:22 Dose: 1 tab Spironolactone (Spironolactone 12.5 Mg Tab) 12.5 mg PO DAILY [facility] Stop: 12/18/22 08:59 Last Admin: 11/21/22 08:22 Dose: 12.5 mg Vitamin D (Cholecalciferol 1,000 Units 25 Mcg Tab) 1,000 units PO DAILY [facility] Stop: 12/16/22 08:59 Last Admin: 11/21/22 08:22 Dose: 1,000 units
[2022-11-21] MEDS: FLUTICASONE/VILANTEROL 200/25MCG 14 PUFFS/INHALER INH SCH (12:05)
--- NOTE | 2022-11-21 14:14 | Hospitalist Progress Note ---
Date of Service November 21, 2022 Assessment & Plan (1) Ventricular tachycardia: Plan 67-year-old female with PMH of T2DM, CKD stage III, diabetes insipidus, HLD, diaphragmatic hernia, severe persistent asthma, complex heart block status post pacemaker, GERD, depression presented with an unresponsive episode secondary to ventricular tachycardia at home around 5 PM on 11/15/2022. Patient's started CPR and patient had ROSC prior to EMS arrival. She is being managed for the following: Unresponsive episode Cardiac arrest Likely aspiration pneumonia/pneumonitis secondary to cardiac event prior to arrival : Continue with antibiotics. Now weaned to room air. Last fever 11/16 evening Acute Severe LV systolic dysfunciton: 11/16 Echo with EF of 20 to 25%. 07/03/19 ECHO w/ EF of 60-65%. Pulmonary edema: 2/2 cardiac arrest and severe HF Patient was unconscious and patient's initiated CPR prior to arrival, patient had ROSC prior to EMS arrival. Likely pulseless VT at home. Patient might have had aspiration during the event. H/o AV block w/ pacemaker placement. Underwent Cardiac Cath 11/16 which showed non obstructive CAD Heparin drip discontinued Switched to oral metoprolol and atorvastatin 40mg Plan for device upgrade to ICD 11/24 Appreciate Cardiology input Hypomagnesemia: Monitor and replete as needed Possible aspiration pneumonia: finished 3 days of zosyn, switched to Augmentin to complete 7 day course. No further fevers T2 NIDDM with hypoglycemia now with hyperglycemia Diabetes. Hold home glipizide. Place on insulin sliding scale. Managed by glycemic pharmacist on prednisone for her asthma, will wean off Other chronic medical conditions: 7. History of DI. On desmopressin . 8. History of asthma. Continue home inhalers. Was previoulsy on prednisone 10mg daily which was continued here, will wean off. No wheezing/SOB currently 9. Chronic kidney disease, stage III. Trend 10. Gastroesophageal reflux disease. On Protonix. 11. Hypothyroidism. We will follow thyroid profile. 12. Hypertension.previously on losartan. Now on entresto 13. Hyperlipidemia, on statin. DVT prophylaxis: previously on heparin drip now discontinued. Lovenox started 11/17 Disposition: Patient PCU. PT evaluation prior to discharge Admission and Anticipated Discharge Date Admission Date: November 15, 2022 Subjective Patient feels well overall but feels tired because she couldn't sleep overnight. Requesting something to help with sleep Review of glucose levels, FS after meals were >400. Patient is on prednisone 10mg daily which she was on for her asthma. She is not chronically maintained on prednisone and is agreeable to wean off prednisone. No chest pain, shortness of breath Review of Systems Review of Systems: as above Physical Exam Physical Exam: Awake, alert, pleasant and comfortable Respiratory: breathing comfortably on room air, no wheezing/rhonchi/rales Cardiovascular: regular rate and rhythm, no murmurs/rubs/gallops Gastrointestinal (Abdomen): soft, non tender, non distended Musculoskeletal: no edema Neurologic: awake, alert, spontaneously moving extremtiies Results & Data Results & Data Vital Signs (Past 12 Hours) Vital Signs Temp Pulse Resp BP Pulse Ox O2 Del Method 11/21/22 12:00 36.5 C 75 17 127/66 98 Room Air 11/21/22 07:59 36.9 C 75 17 130/70 98 Room Air 11/21/22 07:48 Room Air 11/21/22 06:49 75 18 96 Room Air 11/21/22 03:00 36.6 C 75 20 135/85 97 Room Air
--- NOTE | 2022-11-21 15:05 | Pharmacy Report ---
Pharmacy Glycemic Short Note 2 - Date of Service November 21, 2022 - Glycemic Short BSG Results (Last 24 hours): 11/20/22 11/20/22 11/21/22 16:12 20:12 06:24 Glucose 159 H POC Glucose 292 H 176 H 11/21/22 11/21/22 11/21/22 07:22 11:24 11:26 Glucose POC Glucose 158 H 485 H* 415 H* OUTPATIENT ANTIDIABETIC REGIMEN: * glipizide, metformin ASSESSMENT: 11/21 * Patient received total of 29 units of insulin yesterday, no basal insulin * Fasting BSG 158 mg/dL - had loosened novolog parameters at HS due to concerns for contributing to low bSG in AM * Added on small dose of NPH this AM of 8 units daily to be given with PO prednisone * Lunch BSG elevated - confirmed with RN that patient is not snacking, had omlet/banana/OJ for breakfast * Repeat BSG this afternoon 198 - trending down, no changes at this time. Will have RN check again at dinner 11/20 * 67 year old admitted with cardiac arrest/asp pneumonia. Type 2 diabetic managed only on orals at home. BSGs very labile over last couple of days. Pharmacy consulted for glycemic management today. * BSGs low this morning ~46 mg/dL - treated with IV dextrose per hypoglycemia protocol. Up to 144 mg/dL on recheck. Last dose of basal insulin was yesterday AM and 5 units only * Unclear if low BSG this AM related to previous basal insulin or possibly too novolog correctional insulin * Plan to hold basal insulin for now, will continue tighter CF/CR throughout day but have very loose parameter for HS time * Patient on daily prednisone, could consider small dose of NPH in AM PLAN FOR INPATIENT GLYCEMIC CONTROL: * Hold outpatient oral diabetes medications * Basal insulin * NPH 8 units x 1 today with po prednisone * Bolus insulin * NovoLog per scale ACHS or Q6hrs while NPO * Goal Range: Low 110 mg/dL - High 140 mg/dL * Correction Factor: 20 mg/dL/unit * Nutritional / Prandial insulin per carb ratio of 1 unit per 7 grams CHO consumed HS time CF 40 / CR --
[2022-11-21] MEDS: MELATONIN 3 MG TAB PO SCH (20:52)
[2022-11-21] MEDS: MONTELUKAST SODIUM 10 MG TABLET PO SCH (20:53)
[2022-11-21] MEDS: ATORVASTATIN 40 MG TAB PO SCH (20:54)
[2022-11-21] MEDS: PANTOprazole 40 MG TAB PO SCH (20:54)
[2022-11-22] MEDS: LEVOTHYROXINE SODIUM 50 MCG TABLET PO SCH (05:52)
[2022-11-22] MEDS: BUDESONIDE 0.5 MG/2 ML VIAL (PULMICORT) INH SCH ×2 (06:53→18:53)
[2022-11-22 07:45] LABS: BUN Creatinine Ratio 32.2 (10-20); Calcium 9.5 mg/dl (8.6-10.3); Creatinine Clr Calc Pharmacy 46.7 ml/min; Est GFR (African American) 56.6 ml/min; Est GFR (Non-African American) 48.9 ml/min; Magnesium 2.1 mg/dl (1.7-2.4)
[2022-11-22] MEDS: INSULIN ASPART PER UNIT CHARGE SC SCH ×4 (08:17→20:15)
[2022-11-22] MEDS: AMIODARONE 200 MG TAB PO SCH ×2 (08:18→16:35)
[2022-11-22] MEDS: METOPROLOL SUCC 25MG EXT REL TAB PO SCH ×2 (08:19→20:15)
[2022-11-22] MEDS: AMOXICILLIN/CLAVULANATE 875 MG TAB PO SCH ×2 (08:19→16:36)
[2022-11-22] MEDS: FUROSEMIDE 40 MG TAB PO SCH (08:19)
[2022-11-22] MEDS: DESMOPRESSIN ACETATE 0.1 MG TAB PO SCH ×2 (08:20→20:14)
[2022-11-22] MEDS: CHOLECALCIFEROL 1,000 UNITS 25 MCG TAB PO SCH (08:20)
[2022-11-22] MEDS: VALSARTAN/SACUBITRIL 26/24MG TAB PO SCH ×2 (08:20→20:15)
[2022-11-22] MEDS: ENOXAPARIN INJ 40 MG/0.4 ML SYR SQ SCH (08:21)
[2022-11-22] MEDS: CLOPIDOGREL BISULFATE 75 MG TAB PO SCH (08:21)
[2022-11-22] MEDS: SPIRONOLACTONE 12.5 MG TAB PO SCH (08:21)
[2022-11-22] MEDS: SACCHAROMYCES BOULARDII 250 MG CAP PO SCH (08:21)
[2022-11-22] MEDS: predniSONE 5 MG TAB PO SCH (08:21)
[2022-11-22] MEDS: FLUTICASONE/VILANTEROL 200/25MCG 14 PUFFS/INHALER INH SCH (08:22)
[2022-11-22] MEDS: MAGNESIUM OXIDE 400 MG TAB PO SCH ×2 (08:24→20:20)
[2022-11-22] MEDS: NovoLIN-N (NPH) PER UNIT CHARGE SQ SCH (09:47)
--- NOTE | 2022-11-22 09:48 | Cardiology Progress Note ---
Date of Service November 22, 2022 Assessment & Plan (1) Cardiac arrest: (2) Ventricular tachycardia: (3) Severe left ventricular systolic dysfunction: (4) Acute on chronic HFrEF (heart failure with reduced ejection fraction): (5) Nonischemic cardiomyopathy: Plan The patient's rhythm is stable. Still planning for ICD on Tuesday. We will lower amiodarone to 200 twice daily. Admission and Anticipated Discharge Date Admission Date: November 15, 2022 Subjective The patient had an uneventful night. Review of Systems Review of Systems: Review of Systems: See HPI for pertinent positives. All other 10 point review of systems are negative. Physical Exam Physical Exam: General: no acute distress and stated age Head: normocephalic, no masses, lesions, tenderness or abnormalities Eyes: conjunctiva are pink and non-injected, sclera clear Neck: supple, no adenopathy, no bruits, normal jugular venous pulse, no hepatojugular reflux Chest: normal shape and normal respiratory effort Lungs: clear to auscultation and percussion Cardiac Exam: - regular rate & rhythm, no murmurs gallops or rubs - normal S1, normal S2 Pulses: 2(+) throughout Abdomen: abdomen soft, non-tender, no abnormal masses and no hepatosplenomegaly Musculoskeletal: no gait disturbance, no joint inflammation, no deforming arthritis Extremities: no edema and no cyanosis Neuro: grossly normal exam Results & Data Vital Signs (Past 12 Hours) Vital Signs Temp Pulse Pulse Resp BP Pulse Ox O2 Del Method 11/22/22 07:26 36.5 C 80 17 128/74 98 Room Air 11/22/22 06:54 79 16 100 Room Air 11/22/22 03:34 36.5 C 75 18 132/68 98 Room Air 11/21/22 23:23 36.9 C 75 18 137/72 100 Room Air 11/21/22 23:10 76 Laboratory Results Laboratory Results - last 24 hr 11/21/22 11/21/22 11/21/22 11:24 11:26 15:06 Sodium Potassium Chloride Carbon Dioxide Anion Gap BUN Creatinine Est Cr Clr Drug Dosing Est GFR ( Amer) Est GFR (Non-Af Amer) BUN/Creatinine Ratio Glucose POC Glucose 485 H* 415 H* 198 H Calcium Magnesium 11/21/22 11/21/22 11/22/22 16:41 20:24 06:11 Sodium 135 L Potassium 5.0 Chloride 101 Carbon Dioxide 26 Anion Gap 8 BUN 37 H Creatinine 1.15 Est Cr Clr Drug Dosing 46.7 Est GFR ( Amer) 56.6 Est GFR (Non-Af Amer) 48.9 BUN/Creatinine Ratio 32.2 H Glucose 134 H POC Glucose 101 H 112 H Calcium 9.5 Magnesium 2.1 11/22/22 07:15 Sodium Potassium Chloride Carbon Dioxide Anion Gap BUN Creatinine Est Cr Clr Drug Dosing Est GFR ( Amer) Est GFR (Non-Af Amer) BUN/Creatinine Ratio Glucose POC Glucose 120 H Calcium Magnesium Medications Administered Current Inpatient Medications Acetaminophen (Acetaminophen 325 Mg Tab) 650 mg PO Q4H PRN PRN Reason: fever or pain Stop: 12/17/22 15:06 Last Admin: 11/21/22 20:59 Dose: 650 mg Amiodarone HCl (Amiodarone 200 Mg Tab) 400 mg PO BIDM [facility] Stop: 12/21/22 16:59 Last Admin: 11/22/22 08:18 Dose: 400 mg Amoxicillin/Clavulanate Potassium (Amoxicillin/Clavulanate 875 Mg Tab) 1 tab PO BIDM [facility]; Protocol Stop: 11/23/22 16:59 Last Admin: 11/22/22 08:19 Dose: 1 tab Atorvastatin Calcium (Atorvastatin 40 Mg Tab) 40 mg PO HS [facility] Stop: 12/16/22 20:59 Last Admin: 11/21/22 20:54 Dose: 40 mg Budesonide (Budesonide 0.5 Mg/2 Ml Vial (Pulmicort)) 1 mg INH BIDR [facility] Stop: 12/16/22 06:59 Last Admin: 11/22/22 06:53 Dose: 1 mg Clopidogrel Bisulfate (Clopidogrel Bisulfate 75 Mg Tab) 75 mg PO QAM [facility] Stop: 12/17/22 11:14 Last Admin: 11/22/22 08:21 Dose: 75 mg Desmopressin Acetate (Desmopressin Acetate 0.1 Mg Tab) 0.2 mg PO BID [facility] Stop: 12/16/22 08:59 Last Admin: 11/22/22 08:20 Dose: 0.2 mg Dextrose (Dextrose 50% 50 Ml Syringe) 25 - 50 ml IV UD PRN; Protocol PRN Reason: Hypoglycemia Protocol Stop: 12/15/22 22:51 Last Admin: 11/20/22 07:30 Dose: 50 ml Enoxaparin Sodium (Enoxaparin Inj 40 Mg/0.4 Ml Syr) 40 mg SQ QAM [facility] Stop: 12/17/22 08:59 Last Admin: 11/22/22 08:21 Dose: 40 mg Fluticasone/Vilanterol (Fluticasone/Vilanterol 200/25mcg 14 Puffs/Inhaler) 1 puffs INH DAILY KELSIE Stop: 12/16/22 08:59 Last Admin: 11/22/22 08:22 Dose: 1 puffs Furosemide (Furosemide 40 Mg Tab) 40 mg PO QAM [facility] Stop: 12/19/22 11:44 Last Admin: 11/22/22 08:19 Dose: 40 mg Glucagon (Glucagon For Inj 1 Mg Vial) 1 mg SQ UD PRN; Protocol PRN Reason: Hypoglycemia Protocol Stop: 12/15/22 22:51 Glucose (Glucose 10 Tab/Tube) 4 - 8 tab PO UD PRN; Protocol PRN Reason: Hypoglycemia Treatment Stop: 12/15/22 22:51 Glucose (Glucose 40% Gel 15 Gm Tube) 15 - 30 gm PO UD PRN; Protocol PRN Reason: Hypoglycemia Protocol Stop: 12/15/22 22:51 Insulin Aspart (Insulin Aspart Per Unit Charge) 0 units SC 0730,1130,1630 [facility] Stop: 12/20/22 16:29 Last Admin: 11/22/22 08:17 Dose: 6 units Insulin Aspart (Insulin Aspart Per Unit Charge) 0 units SC DAILY@2100 [facility] Stop: 12/20/22 20:59 Last Admin: 11/21/22 20:33 Dose: Not Given Insulin Human NPH (Novolin-N (Nph) Per Unit Charge) 5 units SQ DAILY [facility] Stop: 11/24/22 09:01 Last Admin: 11/22/22 09:47 Dose: 5 units Levothyroxine Sodium (Levothyroxine Sodium 50 Mcg Tablet) 50 mcg PO DAILYBB [facility] Stop: 12/16/22 06:29 Last Admin: 11/22/22 05:52 Dose: 50 mcg Lorazepam (Lorazepam 2 Mg/1 Ml Vial) 1 mg IV Q2H PRN PRN Reason: Breakthrough Seizures Stop: 12/15/22 22:51 Lorazepam (Lorazepam 0.5 Mg Tab) 0.25 mg PO HS PRN PRN Reason: insomnia Stop: 12/21/22 01:13 Magnesium Oxide (Magnesium Oxide 400 Mg Tab) 400 mg PO BID KELSIE Stop: 12/18/22 08:59 Last Admin: 11/22/22 08:24 Dose: 400 mg Melatonin (Melatonin 3 Mg Tab) 3 mg PO HS KELSIE Stop: 12/21/22 20:59 Last Admin: 11/21/22 20:52 Dose: 3 mg Metoprolol Succinate (Metoprolol Succ 25mg Ext Rel Tab) 25 mg PO BID KELSIE Stop: 12/17/22 20:59 Last Admin: 11/22/22 08:19 Dose: 25 mg Miscellaneous (Carbohydrates For Hypoglycemia ) 15 - 30 gm PO UD PRN PRN Reason: Hypoglycemia Protocol Stop: 12/15/22 22:51 Miscellaneous Information (Pharmacy Glycemic Mgmt Consult) 1 each N/A UD PRN; Protocol PRN Reason: Consult Stop: 12/20/22 13:57 Montelukast Sodium (Montelukast Sodium 10 Mg Tablet) 10 mg PO QPM [facility]; Protocol Stop: 12/16/22 20:59 Last Admin: 11/21/22 20:53 Dose: 10 mg Pantoprazole Sodium (Pantoprazole 40 Mg Tab) 40 mg PO HS KELSIE Stop: 12/16/22 20:59 Last Admin: 11/21/22 20:54 Dose: 40 mg Prednisone (Prednisone 5 Mg Tab) 5 mg PO DAILY KELSIE Stop: 11/24/22 09:01 Last Admin: 11/22/22 08:21 Dose: 5 mg Saccharomyces Boulardii (Saccharomyces Boulardii 250 Mg Cap) 250 mg PO DAILY KELSIE Stop: 12/20/22 08:59 Last Admin: 11/22/22 08:21 Dose: 250 mg Sacubitril/Valsartan (Valsartan/Sacubitril 26/24mg Tab) 1 tab PO BID [facility] Stop: 12/17/22 10:29 Last Admin: 11/22/22 08:20 Dose: 1 tab Spironolactone (Spironolactone 12.5 Mg Tab) 12.5 mg PO DAILY [facility] Stop: 12/18/22 08:59 Last Admin: 11/22/22 08:21 Dose: 12.5 mg Vitamin D (Cholecalciferol 1,000 Units 25 Mcg Tab) 1,000 units PO DAILY KELSIE Stop: 12/16/22 08:59 Last Admin: 11/22/22 08:20 Dose: 1,000 units
[2022-11-22] MEDS ORDERED: INSULIN ASPART PER UNIT CHARGE SC SCH (14:00)
--- NOTE | 2022-11-22 14:24 | Pharmacy Report ---
Pharmacy Glycemic Short Note 2 - Date of Service November 22, 2022 - Glycemic Short BSG Results (Last 24 hours): 11/21/22 11/21/22 11/21/22 15:06 16:41 20:24 Glucose POC Glucose 198 H 101 H 112 H 11/22/22 11/22/22 11/22/22 06:11 07:15 11:20 Glucose 134 H POC Glucose 120 H 375 H* 11/22/22 11/22/22 11:21 14:07 Glucose POC Glucose 366 H* 261 H OUTPATIENT ANTIDIABETIC REGIMEN: * glipizide, metformin ASSESSMENT: 11/22 * Patient received total of 33 units of insulin yesterday, 8 units basal insulin * Fasting BSG 134 mg/dL - Prednisone decreased to 5mg daily x3 days, NPH d ecreased. Continue only CF (no CR) at HS. * Blood sugar consistently rising > 200 points from breakfast to lunch, tighten CF/CR extensively at breakfast only. * Gave extra dose of correctional insulin today at 1400. 11/21 * Patient received total of 29 units of insulin yesterday, no basal insulin * Fasting BSG 158 mg/dL - had loosened novolog parameters at HS due to concerns for contributing to low bSG in AM * Added on small dose of NPH this AM of 8 units daily to be given with PO prednisone * Lunch BSG elevated - confirmed with RN that patient is not snacking, had omlet/banana/OJ for breakfast * Repeat BSG this afternoon 198 - trending down, no changes at this time. Will have RN check again at dinner 11/20 * 67 year old admitted with cardiac arrest/asp pneumonia. Type 2 diabetic managed only on orals at home. BSGs very labile over last couple of days. Pharmacy consulted for glycemic management today. * BSGs low this morning ~46 mg/dL - treated with IV dextrose per hypoglycemia protocol. Up to 144 mg/dL on recheck. Last dose of basal insulin was yesterday AM and 5 units only * Unclear if low BSG this AM related to previous basal insulin or possibly too novolog correctional insulin * Plan to hold basal insulin for now, will continue tighter CF/CR throughout day but have very loose parameter for HS time * Patient on daily prednisone, could consider small dose of NPH in AM PLAN FOR INPATIENT GLYCEMIC CONTROL: * Hold outpatient oral diabetes medications * Basal insulin * NPH 5 units SQ daily with po prednisone x 3 days * Bolus insulin * NovoLog per scale ACHS or Q6hrs while NPO * Goal Range: Low 110 mg/dL - High 140 mg/dL * Breakfast: * Correction Factor: 15 mg/dL/unit * Nutritional / Prandial insulin per carb ratio of 1 unit per 4 grams CHO consumed * Lunch and Dinner * Correction Factor: 20 mg/dL/unit * Nutritional / Prandial insulin per carb ratio of 1 unit per 7 grams CHO consumed * HS: * Correction Factor: 40 mg/dL/unit * Nutritional / Prandial insulin per carb ratio of 1 unit per -- grams CHO consumed
[2022-11-22] MEDS ORDERED: POLYETHYLENE (MIRALAX) 17 GM PACK PO PRN (17:27)
--- NOTE | 2022-11-22 17:39 | Hospitalist Progress Note ---
Date of Service November 22, 2022 Assessment & Plan (1) Ventricular tachycardia: Plan Patient is a 67 yr female with H/O DM II, CKD stage III, diabetes insipidus, HLD, diaphragmatic hernia, severe persistent asthma, complex heart block status post pacemaker, GERD, depression presented with an unresponsive episode secondary to ventricular tachycardia at home around 5 PM on 11/15/2022. Patient's started CPR and patient had ROSC prior to EMS arrival. She is being managed for the following: Unresponsive episode Cardiac arrest Likely aspiration pneumonia/pneumonitis secondary to cardiac event prior to arrival : Acute Severe LV systolic dysfunction: 11/16 Echo with EF of 20 to 25%. 07/03/19 ECHO w/ EF of 60-65%. Pulmonary edema: 2/2 cardiac arrest and severe HF Likely pulseless VT at home. Patient might have had aspiration during the event. H/o AV block w/ pacemaker placement. S/P Cardiac Cath 11/16 which showed non obstructive CAD --CT Chest:Patchy pulmonary opacities within posterior bilateral upper lobes and the superior segment of the right lower lobe. Large hiatal hernia. Moderate cardiomegaly. IV heparin discontinued Continue amiodarone, metoprolol, atorvastatin, Plavix. Also on Entresto, spironolactone, Lasix Monitor I's and O's, daily weight, volume status Appreciate cardiology input Needs device upgrade to ICD on 531 Hypomagnesemia: Monitor and replete as needed Possible aspiration pneumonia: IV zosyn transitioned to Augmentin to complete 7 day course DM II HbA1c 8.1 Hold home glipizide Continue insulin per protocol Glycemic pharmacist consulted on prednisone for her asthma, currently being weaned off Other chronic medical conditions: History of DI. On desmopressin . History of asthma. Continue home inhalers. Previously on prednisone 10mg daily which was continued here, will wean off Chronic kidney disease, stage III. Monitor renal function GERD On Protonix. Hypothyroidism. TSH mildly elevated, normal free T4. Continue levothyroxine Hypertension: Continue current medications Hyperlipidemia: on statin. DVT Px: Lovenox SQ CODE STATUS Full code Admission and Anticipated Discharge Date Admission Date: November 15, 2022 Subjective Patient is seen and examined at bedside States having some discomfort secondary to CPR Denies any chest pain, dyspnea, dizziness, nausea Plan for ICD placement on Tuesday No other complaints Review of Systems Review of Systems: All systems reviewed & are unremarkable except as noted in Subjective Physical Exam Physical Exam: Physical Exam: Vitals signs as noted above General Appearance:Moderately built and nourished, no apparent distress Head: normocephalic, Atraumatic Eyes: normal inspection, EOMI Neck: supple, Trachea midline Respiratory/Chest: Normal breath sounds, CTA, No accessory muscle use Cardiovascular: S1, S2, No murmur Abdomen/GI:Soft, Non tender, Bowel sounds present Extremities/Musculoskeletal:normal inspection, no edema Neurologic/Psych:AAOX3, grossly no focal neurological deficits Skin: normal color, warm Results & Data Results & Data Vital Signs (Past 12 Hours) Vital Signs Temp Pulse Pulse Resp BP Pulse Ox O2 Del Method 11/22/22 15:07 36.5 C 78 20 120/67 98 Room Air 11/22/22 11:39 36.5 C 77 18 94/73 L 93 Room Air 11/22/22 07:00 76 11/22/22 07:26 36.5 C 80 17 128/74 98 Room Air 11/22/22 06:54 79 16 100 Room Air Laboratory Results [facility] 11/22/22 06:11 Sodium 135 L Potassium 5.0 Chloride 101 Carbon Dioxide 26 BUN 37 H Creatinine 1.15 Glucose 134 H Calcium 9.5
[2022-11-22] MEDS: ATORVASTATIN 40 MG TAB PO SCH (20:15)
[2022-11-22] MEDS: MONTELUKAST SODIUM 10 MG TABLET PO SCH (20:15)
[2022-11-22] MEDS: MELATONIN 3 MG TAB PO SCH (20:15)
[2022-11-22] MEDS: PANTOprazole 40 MG TAB PO SCH (20:15)
[2022-11-22] MEDS: DOCUSATE SODIUM 100 MG CAP PO SCH (20:15)
[2022-11-23] MEDS: LEVOTHYROXINE SODIUM 50 MCG TABLET PO SCH (05:41)
[2022-11-23] MEDS: ACETAMINOPHEN 325 MG TAB PO PRN ×2 (05:41→20:38)
[2022-11-23] MEDS: BUDESONIDE 0.5 MG/2 ML VIAL (PULMICORT) INH SCH ×2 (07:08→19:26)
[2022-11-23 07:19] LABS: Calcium 9.4 mg/dl (8.6-10.3); Creatinine Clr Calc Pharmacy 41.8 ml/min; Est GFR (African American) 49.7 ml/min; Est GFR (Non-African American) 42.9 ml/min; Potassium 5.3 mmol/L (3.5-5.1)
[2022-11-23] MEDS: INSULIN ASPART PER UNIT CHARGE SC SCH ×4 (07:57→20:12)
[2022-11-23] MEDS: AMIODARONE 200 MG TAB PO SCH ×2 (08:53→16:52)
[2022-11-23] MEDS: CLOPIDOGREL BISULFATE 75 MG TAB PO SCH (08:54)
[2022-11-23] MEDS: AMOXICILLIN/CLAVULANATE 875 MG TAB PO SCH (08:54)
[2022-11-23] MEDS: CHOLECALCIFEROL 1,000 UNITS 25 MCG TAB PO SCH (08:54)
[2022-11-23] MEDS: DESMOPRESSIN ACETATE 0.1 MG TAB PO SCH ×2 (08:55→20:42)
[2022-11-23] MEDS: DOCUSATE SODIUM 100 MG CAP PO SCH (08:55)
[2022-11-23] MEDS: FUROSEMIDE 40 MG TAB PO SCH (08:56)
[2022-11-23] MEDS: FLUTICASONE/VILANTEROL 200/25MCG 14 PUFFS/INHALER INH SCH (08:56)
[2022-11-23] MEDS: NovoLIN-N (NPH) PER UNIT CHARGE SQ SCH (08:56)
[2022-11-23] MEDS: ENOXAPARIN INJ 40 MG/0.4 ML SYR SQ SCH (08:56)
[2022-11-23] MEDS: METOPROLOL SUCC 25MG EXT REL TAB PO SCH ×2 (08:57→20:41)
[2022-11-23] MEDS: SPIRONOLACTONE 12.5 MG TAB PO SCH (08:58)
[2022-11-23] MEDS: SACCHAROMYCES BOULARDII 250 MG CAP PO SCH (08:58)
[2022-11-23] MEDS: VALSARTAN/SACUBITRIL 26/24MG TAB PO SCH ×2 (08:58→20:40)
[2022-11-23] MEDS: predniSONE 5 MG TAB PO SCH (08:58)
[2022-11-23] MEDS: MAGNESIUM OXIDE 400 MG TAB PO SCH ×2 (09:00→20:38)
--- NOTE | 2022-11-23 09:58 | Cardiology Progress Note ---
Date of Service November 23, 2022 Assessment & Plan (1) Cardiac arrest: (2) Ventricular tachycardia: (3) Severe left ventricular systolic dysfunction: (4) Acute on chronic HFrEF (heart failure with reduced ejection fraction): (5) Nonischemic cardiomyopathy: Plan The plan is for the patient have an ICD placed tomorrow. She will be made n.p.o. after midnight. Decrease amiodarone dose to 200 mg daily. Admission and Anticipated Discharge Date Admission Date: November 15, 2022 Subjective The patient is resting during my visit. Review of Systems Review of Systems: Review of Systems: See HPI for pertinent positives. All other 10 point review of systems are negative. Physical Exam Physical Exam: General: no acute distress and stated age Head: normocephalic, no masses, lesions, tenderness or abnormalities Eyes: conjunctiva are pink and non-injected, sclera clear Neck: supple, no adenopathy, no bruits, normal jugular venous pulse, no hepatojugular reflux Chest: normal shape and normal respiratory effort Lungs: clear to auscultation and percussion Cardiac Exam: - regular rate & rhythm, no murmurs gallops or rubs - normal S1, normal S2 Pulses: 2(+) throughout Abdomen: abdomen soft, non-tender, no abnormal masses and no hepatosplenomegaly Musculoskeletal: no gait disturbance, no joint inflammation, no deforming arthritis Extremities: no edema and no cyanosis Neuro: grossly normal exam Results & Data Vital Signs (Past 12 Hours) Vital Signs Temp Pulse Pulse Resp BP Pulse Ox O2 Del Method 11/23/22 07:30 36.4 C L 75 15 125/75 98 Room Air 11/23/22 08:00 75 11/23/22 07:09 76 16 100 Room Air 11/23/22 03:00 36.4 C L 75 18 124/76 95 Room Air 11/22/22 23:22 36.9 C 75 18 131/73 98 Room Air 11/22/22 23:21 75 Laboratory Results Laboratory Results - last 24 hr 11/22/22 11/22/22 11/22/22 11:20 11:21 14:07 Sodium Potassium Chloride Carbon Dioxide Anion Gap BUN Creatinine Est Cr Clr Drug Dosing Est GFR ( Amer) Est GFR (Non-Af Amer) BUN/Creatinine Ratio Glucose POC Glucose 375 H* 366 H* 261 H Calcium Magnesium 11/22/22 11/22/22 11/23/22 16:09 20:08 06:09 Sodium 135 L Potassium 5.3 H Chloride 101 Carbon Dioxide 27 Anion Gap 7 BUN 41 H Creatinine 1.28 H Est Cr Clr Drug Dosing 41.8 Est GFR ( Amer) 49.7 Est GFR (Non-Af Amer) 42.9 BUN/Creatinine Ratio 32.0 H Glucose 164 H POC Glucose 121 H 92 Calcium 9.4 Magnesium 2.0 11/23/22 07:34 Sodium Potassium Chloride Carbon Dioxide Anion Gap BUN Creatinine Est Cr Clr Drug Dosing Est GFR ( Amer) Est GFR (Non-Af Amer) BUN/Creatinine Ratio Glucose POC Glucose 165 H Calcium Magnesium Medications Administered Current Inpatient Medications Acetaminophen (Acetaminophen 325 Mg Tab) 650 mg PO Q4H PRN PRN Reason: fever or pain Stop: 12/17/22 15:06 Last Admin: 11/23/22 05:41 Dose: 650 mg Amiodarone HCl (Amiodarone 200 Mg Tab) 200 mg PO BIDM [facility] Stop: 12/22/22 16:59 Last Admin: 11/23/22 08:53 Dose: 200 mg Amoxicillin/Clavulanate Potassium (Amoxicillin/Clavulanate 875 Mg Tab) 1 tab PO BIDM [facility]; Protocol Stop: 11/23/22 16:59 Last Admin: 11/23/22 08:54 Dose: 1 tab Atorvastatin Calcium (Atorvastatin 40 Mg Tab) 40 mg PO HS [facility] Stop: 12/16/22 20:59 Last Admin: 11/22/22 20:15 Dose: 40 mg Budesonide (Budesonide 0.5 Mg/2 Ml Vial (Pulmicort)) 1 mg INH BIDR [facility] Stop: 12/16/22 06:59 Last Admin: 11/23/22 07:08 Dose: 1 mg Clopidogrel Bisulfate (Clopidogrel Bisulfate 75 Mg Tab) 75 mg PO QAM [facility] Stop: 12/17/22 11:14 Last Admin: 11/23/22 08:54 Dose: 75 mg Desmopressin Acetate (Desmopressin Acetate 0.1 Mg Tab) 0.2 mg PO BID [facility] Stop: 12/16/22 08:59 Last Admin: 11/23/22 08:55 Dose: 0.2 mg Dextrose (Dextrose 50% 50 Ml Syringe) 25 - 50 ml IV UD PRN; Protocol PRN Reason: Hypoglycemia Protocol Stop: 12/15/22 22:51 Last Admin: 11/20/22 07:30 Dose: 50 ml Docusate Sodium (Docusate Sodium 100 Mg Cap) 100 mg PO BID [facility] Stop: 12/22/22 20:59 Last Admin: 11/23/22 08:55 Dose: 100 mg Enoxaparin Sodium (Enoxaparin Inj 40 Mg/0.4 Ml Syr) 40 mg SQ QAM [facility] Stop: 12/17/22 08:59 Last Admin: 11/23/22 08:56 Dose: 40 mg Fluticasone/Vilanterol (Fluticasone/Vilanterol 200/25mcg 14 Puffs/Inhaler) 1 puffs INH DAILY [facility] Stop: 12/16/22 08:59 Last Admin: 11/23/22 08:56 Dose: 1 puffs Furosemide (Furosemide 40 Mg Tab) 40 mg PO QAM [facility] Stop: 12/19/22 11:44 Last Admin: 11/23/22 08:56 Dose: 40 mg Glucagon (Glucagon For Inj 1 Mg Vial) 1 mg SQ UD PRN; Protocol PRN Reason: Hypoglycemia Protocol Stop: 12/15/22 22:51 Glucose (Glucose 10 Tab/Tube) 4 - 8 tab PO UD PRN; Protocol PRN Reason: Hypoglycemia Treatment Stop: 12/15/22 22:51 Glucose (Glucose 40% Gel 15 Gm Tube) 15 - 30 gm PO UD PRN; Protocol PRN Reason: Hypoglycemia Protocol Stop: 12/15/22 22:51 Sodium Chloride (Nss 1000ml) 1,000 mls @ 80 mls/hr IV .[id number] [facility] Stop: 12/23/22 23:59 Insulin Aspart (Insulin Aspart Per Unit Charge) 0 units SC DAILY@2100 [facility] Stop: 12/20/22 20:59 Last Admin: 11/22/22 20:15 Dose: Not Given Insulin Aspart (Insulin Aspart Per Unit Charge) 0 units SC 1130,1630 [facility] Stop: 12/22/22 16:29 Last Admin: 11/22/22 16:34 Dose: 5 units Insulin Aspart (Insulin Aspart Per Unit Charge) 0 units SC 0730 [facility] Stop: 12/23/22 07:29 Last Admin: 11/23/22 07:57 Dose: 16 units Insulin Human NPH (Novolin-N (Nph) Per Unit Charge) 5 units SQ DAILY [facility] Stop: 11/24/22 09:01 Last Admin: 11/23/22 08:56 Dose: 5 units Levothyroxine Sodium (Levothyroxine Sodium 50 Mcg Tablet) 50 mcg PO DAILYBB [facility] Stop: 12/16/22 06:29 Last Admin: 11/23/22 05:41 Dose: 50 mcg Lorazepam (Lorazepam 2 Mg/1 Ml Vial) 1 mg IV Q2H PRN PRN Reason: Breakthrough Seizures Stop: 12/15/22 22:51 Lorazepam (Lorazepam 0.5 Mg Tab) 0.25 mg PO HS PRN PRN Reason: insomnia Stop: 12/21/22 01:13 Magnesium Oxide (Magnesium Oxide 400 Mg Tab) 400 mg PO BID [facility] Stop: 12/18/22 08:59 Last Admin: 11/23/22 09:00 Dose: 400 mg Melatonin (Melatonin 3 Mg Tab) 3 mg PO HS [facility] Stop: 12/21/22 20:59 Last Admin: 11/22/22 20:15 Dose: 3 mg Metoprolol Succinate (Metoprolol Succ 25mg Ext Rel Tab) 25 mg PO BID [facility] Stop: 12/17/22 20:59 Last Admin: 11/23/22 08:57 Dose: 25 mg Miscellaneous (Carbohydrates For Hypoglycemia ) 15 - 30 gm PO UD PRN PRN Reason: Hypoglycemia Protocol Stop: 12/15/22 22:51 Miscellaneous Information (Pharmacy Glycemic Mgmt Consult) 1 each N/A UD PRN; Protocol PRN Reason: Consult Stop: 12/20/22 13:57 Montelukast Sodium (Montelukast Sodium 10 Mg Tablet) 10 mg PO QPM [facility]; Protocol Stop: 12/16/22 20:59 Last Admin: 11/22/22 20:15 Dose: 10 mg Pantoprazole Sodium (Pantoprazole 40 Mg Tab) 40 mg PO HS [facility] Stop: 12/16/22 20:59 Last Admin: 11/22/22 20:15 Dose: 40 mg Polyethylene Glycol (Polyethylene (Miralax) 17 Gm Pack) 17 gm PO DAILY PRN PRN Reason: Constipation Stop: 12/22/22 17:26 Prednisone (Prednisone 5 Mg Tab) 5 mg PO DAILY [facility] Stop: 11/24/22 09:01 Last Admin: 11/23/22 08:58 Dose: 5 mg Saccharomyces Boulardii (Saccharomyces Boulardii 250 Mg Cap) 250 mg PO DAILY [facility] Stop: 12/20/22 08:59 Last Admin: 11/23/22 08:58 Dose: 250 mg Sacubitril/Valsartan (Valsartan/Sacubitril 26/24mg Tab) 1 tab PO BID [facility] Stop: 12/17/22 10:29 Last Admin: 11/23/22 08:58 Dose: 1 tab Spironolactone (Spironolactone 12.5 Mg Tab) 12.5 mg PO DAILY [facility] Stop: 12/18/22 08:59 Last Admin: 11/22/22 08:21 Dose: 12.5 mg Vitamin D (Cholecalciferol 1,000 Units 25 Mcg Tab) 1,000 units PO DAILY [facility] Stop: 12/16/22 08:59 Last Admin: 11/23/22 08:54 Dose: 1,000 units
[2022-11-23] MEDS: SODIUM CHLORIDE 0.9% 1000ML 1,000 ML IV SCH ×2 (10:14→22:55)
[2022-11-23] MEDS ORDERED: DOCUSATE SODIUM 100 MG CAP PO PRN (10:40)
--- NOTE | 2022-11-23 14:15 | Pharmacy Report ---
Pharmacy Glycemic Short Note 2 - Date of Service November 23, 2022 - Glycemic Short BSG Results (Last 24 hours): 11/22/22 11/22/22 11/23/22 16:09 20:08 06:09 Glucose 164 H POC Glucose 121 H 92 11/23/22 11/23/22 07:34 11:26 Glucose POC Glucose 165 H 249 H OUTPATIENT ANTIDIABETIC REGIMEN: * glipizide, metformin ASSESSMENT: 11/23 * Patient received 38 units of insulin yesterday, 5 units of basal * Fasting elevated this AM but will monitor trend, last day of prednisone tomorrow AM * Lunch BSG improved with tighter novolog paramters at breakfast, will continue for now, will likely need adjustment pending steroid change. 11/22 * Patient received total of 33 units of insulin yesterday, 8 units basal insulin * Fasting BSG 134 mg/dL - Prednisone decreased to 5mg daily x3 days, NPH decreased. Continue only CF (no CR) at HS. * Blood sugar consistently rising > 200 points from breakfast to lunch, tighten CF/CR extensively at breakfast only. * Gave extra dose of correctional insulin today at 1400. 11/21 * Patient received total of 29 units of insulin yesterday, no basal insulin * Fasting BSG 158 mg/dL - had loosened novolog parameters at HS due to concerns for contributing to low bSG in AM * Added on small dose of NPH this AM of 8 units daily to be given with PO prednisone * Lunch BSG elevated - confirmed with RN that patient is not snacking, had omlet/banana/OJ for breakfast * Repeat BSG this afternoon 198 - trending down, no changes at this time. Will have RN check again at dinner 11/20 * 67 year old admitted with cardiac arrest/asp pneumonia. Type 2 diabetic managed only on orals at home. BSGs very labile over last couple of days. Pharmacy consulted for glycemic management today. * BSGs low this morning ~46 mg/dL - treated with IV dextrose per hypoglycemia protocol. Up to 144 mg/dL on recheck. Last dose of basal insulin was yesterday AM and 5 units only * Unclear if low BSG this AM related to previous basal insulin or possibly too novolog correctional insulin * Plan to hold basal insulin for now, will continue tighter CF/CR throughout day but have very loose parameter for HS time * Patient on daily prednisone, could consider small dose of NPH in AM PLAN FOR INPATIENT GLYCEMIC CONTROL: * Hold outpatient oral diabetes medications * Basal insulin * NPH 5 units SQ daily with po prednisone x 3 days * Bolus insulin * NovoLog per scale ACHS or Q6hrs while NPO * Goal Range: Low 110 mg/dL - High 140 mg/dL * Breakfast: * Correction Factor: 15 mg/dL/unit * Nutritional / Prandial insulin per carb ratio of 1 unit per 4 grams CHO consumed * Lunch and Dinner * Correction Factor: 20 mg/dL/unit * Nutritional / Prandial insulin per carb ratio of 1 unit per 7 grams CHO consumed * HS: * Correction Factor: 40 mg/dL/unit * Nutritional / Prandial insulin per carb ratio of 1 unit per -- grams CHO consumed
--- NOTE | 2022-11-23 16:58 | Hospitalist Progress Note ---
Date of Service November 23, 2022 Assessment & Plan (1) Ventricular tachycardia: Plan Patient is a 67 yr female with H/O DM II, CKD stage III, diabetes insipidus, HLD, diaphragmatic hernia, severe persistent asthma, complex heart block status post pacemaker, GERD, depression presented with an unresponsive episode secondary to ventricular tachycardia at home around 5 PM on 11/15/2022. Patient's started CPR and patient had ROSC prior to EMS arrival. She is being managed for the following: Unresponsive episode Cardiac arrest Likely aspiration pneumonia/pneumonitis secondary to cardiac event prior to arrival : Acute Severe LV systolic dysfunction: 11/16 Echo with EF of 20 to 25%. 07/03/19 ECHO w/ EF of 60-65%. Pulmonary edema: 2/2 cardiac arrest and severe HF Likely pulseless VT at home. Patient might have had aspiration during the event. H/o AV block w/ pacemaker placement. S/P Cardiac Cath 11/16 which showed non obstructive CAD --CT Chest:Patchy pulmonary opacities within posterior bilateral upper lobes and the superior segment of the right lower lobe. Large hiatal hernia. Moderate cardiomegaly. IV heparin discontinued Continue amiodarone, metoprolol, atorvastatin, Plavix. Also on Entresto, spironolactone, Lasix Monitor I's and O's, daily weight, volume status Appreciate cardiology input Plan for ICD placement tomorrow N.p.o. after midnight Hypomagnesemia: Monitor and replete as needed Possible aspiration pneumonia: IV zosyn transitioned to Augmentin to complete 7 day course DM II HbA1c 8.1 Hold home glipizide Continue insulin per protocol Glycemic pharmacist consulted on prednisone for her asthma, currently being weaned off Other chronic medical conditions: History of DI. On desmopressin . History of asthma. Continue home inhalers. Previously on prednisone 10mg daily which was continued here, will wean off Chronic kidney disease, stage III. Monitor renal function GERD On Protonix. Hypothyroidism. TSH mildly elevated, normal free T4. Continue levothyroxine Hypertension: Continue current medications Hyperlipidemia: on statin. DVT Px: Lovenox SQ CODE STATUS Full code Admission and Anticipated Discharge Date Admission Date: November 15, 2022 Subjective Patient is seen and examined at bedside No new complaints Plan for ICD placement tomorrow Denies any chest pain, dyspnea, dizziness, nausea No issues overnight Review of Systems Review of Systems: All systems reviewed & are unremarkable except as noted in Subjective Physical Exam Physical Exam: Physical Exam: Vitals signs as noted above General Appearance:Moderately built and nourished, no apparent distress Head: normocephalic, Atraumatic Eyes: normal inspection, EOMI Neck: supple, Trachea midline Respiratory/Chest: Normal breath sounds, CTA, No accessory muscle use Cardiovascular: S1, S2, No murmur Abdomen/GI:Soft, Non tender, Bowel sounds present Extremities/Musculoskeletal:normal inspection, no edema Neurologic/Psych:AAOX3, grossly no focal neurological deficits Skin: normal color, warm Results & Data Results & Data Vital Signs (Past 12 Hours) Vital Signs Temp Pulse Pulse Resp BP Pulse Ox O2 Del Method 11/23/22 16:30 36.9 C 76 18 125/73 97 Room Air 11/23/22 15:23 75 11/23/22 08:00 Room Air 11/23/22 11:30 36.8 C 76 16 118/65 97 Room Air 11/23/22 07:30 36.4 C L 75 15 125/75 98 Room Air 11/23/22 08:00 75 11/23/22 07:09 76 16 100 Room Air Laboratory Results [facility] 11/23/22 06:09 Sodium 135 L Potassium 5.3 H Chloride 101 Carbon Dioxide 27 BUN 41 H Creatinine 1.28 H Glucose 164 H Calcium 9.4
[2022-11-23] MEDS: PANTOprazole 40 MG TAB PO SCH (20:40)
[2022-11-23] MEDS: MELATONIN 3 MG TAB PO SCH (20:41)
[2022-11-23] MEDS: ATORVASTATIN 40 MG TAB PO SCH (20:42)
[2022-11-23] MEDS: MONTELUKAST SODIUM 10 MG TABLET PO SCH (20:43)
[2022-11-24] MEDS: LEVOTHYROXINE SODIUM 50 MCG TABLET PO SCH (05:59)
[2022-11-24 06:15] LABS: Hematocrit (blood only) 38.7 % (37.0-47.0); Hemoglobin 12.5 g/dl (12.0-16.0); Mean Corpuscular Hgb Conc 32.3 g/dL (32.0-36.0); Mean Corpuscular Volume 86.8 fL (80.0-100.0); Mean Platelet Volume 9.8 fL (9.4-12.4); Platelet Count 306 K/uL (130-400); RDW Coefficient of Variation 15.1 % (11.5-14.5); RDW Standard Deviation 47.6 fL (36.4-46.3); Red Blood Count 4.46 M/uL (4.20-5.40); White Blood Count 6.48 K/ul (4.8-10.8)
[2022-11-24] MEDS: BUDESONIDE 0.5 MG/2 ML VIAL (PULMICORT) INH SCH ×2 (06:51→19:14)
[2022-11-24 07:02] LABS: Calcium 8.9 mg/dl (8.6-10.3); Magnesium 1.8 mg/dl (1.7-2.4); Potassium 4.5 mmol/L (3.5-5.1)
[2022-11-24 07:09] LABS: BUN Creatinine Ratio 38.1 (10-20); Creatinine Clr Calc Pharmacy 63.7 ml/min; Est GFR (African American) 82.8 ml/min; Est GFR (Non-African American) 71.4 ml/min
[2022-11-24] MEDS: VALSARTAN/SACUBITRIL 26/24MG TAB PO SCH ×2 (08:04→20:11)
[2022-11-24] MEDS: DESMOPRESSIN ACETATE 0.1 MG TAB PO SCH ×2 (08:04→20:11)
[2022-11-24] MEDS: METOPROLOL SUCC 25MG EXT REL TAB PO SCH ×2 (08:04→20:10)
[2022-11-24] MEDS: SACCHAROMYCES BOULARDII 250 MG CAP PO SCH (08:05)
[2022-11-24] MEDS: predniSONE 5 MG TAB PO SCH (08:05)
[2022-11-24] MEDS: CHOLECALCIFEROL 1,000 UNITS 25 MCG TAB PO SCH (08:05)
[2022-11-24] MEDS: FUROSEMIDE 40 MG TAB PO SCH (08:05)
[2022-11-24] MEDS: FLUTICASONE/VILANTEROL 200/25MCG 14 PUFFS/INHALER INH SCH (08:07)
[2022-11-24] MEDS: AMIODARONE 200 MG TAB PO SCH ×2 (08:07→17:57)
[2022-11-24] MEDS: NovoLIN-N (NPH) PER UNIT CHARGE SQ SCH (08:12)
[2022-11-24] MEDS: MAGNESIUM OXIDE 400 MG TAB PO SCH ×2 (08:18→20:14)
[2022-11-24] MEDS: INSULIN ASPART PER UNIT CHARGE SC SCH ×4 (08:18→20:36)
[2022-11-24] MEDS: CLOPIDOGREL BISULFATE 75 MG TAB PO SCH (08:58)
[2022-11-24] MEDS: ENOXAPARIN INJ 40 MG/0.4 ML SYR SQ SCH (09:24)
[2022-11-24] MEDS: SODIUM CHLORIDE 0.9% 1000ML 1,000 ML IV SCH (11:06)
--- NOTE | 2022-11-24 13:06 | Pharmacy Report ---
Pharmacy Glycemic Short Note 2 - Date of Service November 24, 2022 - Glycemic Short BSG Results (Last 24 hours): 11/23/22 11/23/22 11/24/22 16:09 20:09 05:40 Glucose 128 H POC Glucose 119 H 153 H 11/24/22 11/24/22 07:09 11:20 Glucose POC Glucose 145 H 200 H OUTPATIENT ANTIDIABETIC REGIMEN: * glipizide, metformin ASSESSMENT: 11/24 * Patient received 36 units of insulin yesterday * 5 units of NPH given this AM with prednisone, both NPH and prednisone discontinued after AM dose this morning * Patient NPO for ICD placement this afternoon, lunch BSG still elevated, therefore will keep slightly tightened carb ratio/correction factor tomorrow AM despite prednisone discontinuation- can reassess in AM 11/23 * Patient received 38 units of insulin yesterday, 5 units of basal * Fasting elevated this AM but will monitor trend, last day of prednisone tomorrow AM * Lunch BSG improved with tighter novolog paramters at breakfast, will continue for now, will likely need adjustment pending steroid change. 11/22 * Patient received total of 33 units of insulin yesterday, 8 units basal insulin * Fasting BSG 134 mg/dL - Prednisone decreased to 5mg daily x3 days, NPH decreased. Continue only CF (no CR) at HS. * Blood sugar consistently rising > 200 points from breakfast to lunch, tighten CF/CR extensively at breakfast only. * Gave extra dose of correctional insulin today at 1400. 11/21 * Patient received total of 29 units of insulin yesterday, no basal insulin * Fasting BSG 158 mg/dL - had loosened novolog parameters at HS due to concerns for contributing to low bSG in AM * Added on small dose of NPH this AM of 8 units daily to be given with PO prednisone * Lunch BSG elevated - confirmed with RN that patient is not snacking, had omlet/banana/OJ for breakfast * Repeat BSG this afternoon 198 - trending down, no changes at this time. Will have RN check again at dinner 11/20 * 67 year old admitted with cardiac arrest/asp pneumonia. Type 2 diabetic managed only on orals at home. BSGs very labile over last couple of days. Pharmacy consulted for glycemic management today. * BSGs low this morning ~46 mg/dL - treated with IV dextrose per hypoglycemia protocol. Up to 144 mg/dL on recheck. Last dose of basal insulin was yesterday AM and 5 units only * Unclear if low BSG this AM related to previous basal insulin or possibly too novolog correctional insulin * Plan to hold basal insulin for now, will continue tighter CF/CR throughout day but have very loose parameter for HS time * Patient on daily prednisone, could consider small dose of NPH in AM PLAN FOR INPATIENT GLYCEMIC CONTROL: * Hold outpatient oral diabetes medications * Basal insulin * NPH 5 units SQ daily with po prednisone x 3 days * Bolus insulin * NovoLog per scale ACHS or Q6hrs while NPO * Goal Range: Low 110 mg/dL - High 140 mg/dL * Breakfast: * Correction Factor: 15 mg/dL/unit * Nutritional / Prandial insulin per carb ratio of 1 unit per 5 grams CHO consumed * Lunch and Dinner * Correction Factor: 20 mg/dL/unit * Nutritional / Prandial insulin per carb ratio of 1 unit per 7 grams CHO consumed * HS: * Correction Factor: 40 mg/dL/unit * Nutritional / Prandial insulin per carb ratio of 1 unit per -- grams CHO consumed
[2022-11-24] MEDS ORDERED: LIDOCAINE 1% LOCAL 20 ML VIAL ONE (14:07)
[2022-11-24] MEDS ORDERED: VANCOMYCIN HCL 1000MG/20ML VIAL ONE (14:08)
[2022-11-24] MEDS ORDERED: WATER, STERILE FOR INJ 10 ML VIAL ONE (14:08)
[2022-11-24] MEDS ORDERED: BUPIVACAINE 0.25% PF 30 ML VIAL ONE (14:08)
--- NOTE | 2022-11-24 14:38 | History & Physical Bridge Note ---
Date of Service November 24, 2022 History & Physical Bridge Note I have examined the patient, reviewed the History & Physical and in the interval since the performance of the History & Physical I have noted the following changes of clinical significance: pt with VT and cardiomyopathy on echo; recommend upgrade to BiV ICD; discussed risks of the procedure which are not limited to injury to blood vessels, chamber of the heart, lung, stroke, heart attack, arrhythmia and ; she expressed an understanding and consents signed.
--- NOTE | 2022-11-24 14:39 | Pre Anesthesia Assessment ---
Date of Service November 24, 2022 Pre Sedation Assessment Vital Signs Temp Pulse Pulse Resp BP BP Pulse Ox 11/24/22 14:33 75 16 140/79 96 11/24/22 11:06 36.6 C 81 16 145/74 H 98 11/24/22 07:11 36.4 C L 75 18 125/72 95 11/24/22 06:51 75 16 97 11/24/22 03:25 36.4 C L 77 18 129/70 93 11/24/22 03:39 36.5 C 77 16 136/71 97 11/23/22 23:00 75 11/23/22 22:34 36.6 C 75 16 147/79 H 98 11/23/22 19:27 75 18 97 11/23/22 19:00 36.5 C 77 18 132/79 96 11/23/22 16:30 36.9 C 76 18 125/73 97 11/23/22 15:23 75 O2 Del Method 11/24/22 14:33 Room Air 11/24/22 11:06 Room Air 11/24/22 07:11 Room Air 11/24/22 06:51 Room Air 11/24/22 03:25 Room Air 11/24/22 03:39 Room Air 11/23/22 23:00 11/23/22 22:34 Room Air 11/23/22 19:27 Room Air 11/23/22 19:00 Room Air 11/23/22 16:30 Room Air 11/23/22 15:23 Cardiovascular RRR, no murmur, no edema Respiratory normal respiratory effort, lungs clear to auscultation Pre-Sedation Airway Assessment Smoking Status: Former smoker Hx Sleep Apnea: No Hx Difficult Intubation: No Short, Thick Neck: No Thyromental Distance: > or= 3.5 Finger Breadths Oral Cavity: + WNL Mallampati Class: III ASA: ASA4 NPO Status Date of Last Intake of Fluids: 11/24/22 Time of Last Intake of Fluids: 08:00 Last Oral Intake of Fluids Comment: sip with meds Date of Last Intake of Solid Food: 11/23/22 Procedure Planning Contraindications for Sedation: none Current Medications Reviewed: Yes Notes The planned sedation has been discussed with the patient. Informed Consent was obtained. I have identified the patient, determined the appropriateness of sedation and have assessed the patient immediately prior to the procedure. All medicine(s) and interventions are by my order.
[2022-11-24] MEDS ORDERED: fentaNYL citrate PF 100 MCG/2 ML VIAL ONE (15:08)
[2022-11-24] MEDS ORDERED: MIDAZOLAM HCL 5 MG/ML 1 ML VIAL ONE (15:08)
[2022-11-24] MEDS ORDERED: ceFAZolin 330 MG/ML 1 GM VIAL ONE (15:08)
--- NOTE | 2022-11-24 16:57 | Hospitalist Progress Note ---
Date of Service November 24, 2022 Assessment & Plan (1) Ventricular tachycardia: Plan Patient is a 67 yr female with H/O DM II, CKD stage III, diabetes insipidus, HLD, diaphragmatic hernia, severe persistent asthma, complex heart block status post pacemaker, GERD, depression presented with an unresponsive episode secondary to ventricular tachycardia at home around 5 PM on 11/15/2022. Patient's started CPR and patient had ROSC prior to EMS arrival. She is being managed for the following: Unresponsive episode Cardiac arrest Likely aspiration pneumonia/pneumonitis secondary to cardiac event prior to arrival : Acute Severe LV systolic dysfunction: 11/16 Echo with EF of 20 to 25%. 07/03/19 ECHO w/ EF of 60-65%. Pulmonary edema: 2/2 cardiac arrest and severe HF Likely pulseless VT at home. Patient might have had aspiration during the event. H/o AV block w/ pacemaker placement. S/P Cardiac Cath 11/16 which showed non obstructive CAD --CT Chest:Patchy pulmonary opacities within posterior bilateral upper lobes and the superior segment of the right lower lobe. Large hiatal hernia. Moderate cardiomegaly. IV heparin discontinued Continue amiodarone, metoprolol, atorvastatin, Plavix. Also on Entresto, Lasix Monitor I's and O's, daily weight, volume status Appreciate cardiology input Planned for ICD placement today Hyperkalemia Continue to hold spironolactone Potassium levels improved Monitor Hypomagnesemia: Monitor and replete as needed Possible aspiration pneumonia: IV zosyn transitioned to Augmentin to complete 7 day course DM II HbA1c 8.1 Hold home glipizide Continue insulin per protocol Glycemic pharmacist consulted on prednisone for her asthma, currently weaned off Other chronic medical conditions: History of DI. On desmopressin . History of asthma. Continue home inhalers. Previously on prednisone 10mg daily which was continued here, will wean off Chronic kidney disease, stage III. Monitor renal function GERD On Protonix. Hypothyroidism. TSH mildly elevated, normal free T4. Continue levothyroxine Hypertension: Continue current medications Hyperlipidemia: on statin. DVT Px: Lovenox SQ CODE STATUS Full code Admission and Anticipated Discharge Date Admission Date: November 15, 2022 Subjective Patient is seen and examined at bedside Plan for ICD placement today Offers no new complaints this morning Denies any chest pain, dyspnea, dizziness, nausea Review of Systems Review of Systems: All systems reviewed & are unremarkable except as noted in Subjective Physical Exam Physical Exam: Physical Exam: Vitals signs as noted above General Appearance:Moderately built and nourished, no apparent distress Head: normocephalic, Atraumatic Eyes: normal inspection, EOMI Neck: supple, Trachea midline Respiratory/Chest: Normal breath sounds, CTA, No accessory muscle use Cardiovascular: S1, S2, No murmur Abdomen/GI:Soft, Non tender, Bowel sounds present Extremities/Musculoskeletal:normal inspection, no edema Neurologic/Psych:AAOX3, grossly no focal neurological deficits Skin: normal color, warm Results & Data Results & Data Vital Signs (Past 12 Hours) Vital Signs Temp Pulse Pulse Resp BP BP Pulse Ox 11/24/22 16:53 37.1 C 80 16 115/81 99 11/24/22 15:00 75 11/24/22 07:00 75 11/24/22 14:33 75 16 140/79 96 11/24/22 11:06 36.6 C 81 16 145/74 H 98 11/24/22 07:11 36.4 C L 75 18 125/72 95 11/24/22 06:51 75 16 97 O2 Del Method 11/24/22 16:53 Room Air 11/24/22 15:00 11/24/22 07:00 11/24/22 14:33 Room Air 11/24/22 11:06 Room Air 11/24/22 07:11 Room Air 11/24/22 06:51 Room Air
[2022-11-24] MEDS ORDERED: AMIODARONE / D5W 150 MG/100 ML BAG IV STA (18:42)
[2022-11-24] MEDS ORDERED: AMIODARONE / D5W 360 MG/200 ML BAG IV ONE (18:45)
[2022-11-24] MEDS ORDERED: 0.2 MICRON FILTER SET 1 EACH IV ONE (18:45)
--- NOTE | 2022-11-24 19:15 | XRay Report ---
XR chest 1V portable HISTORY: Status post cardiac pacemaker placement. COMPARISON: Chest 11/15/2022. FINDINGS: There is a left-sided pacemaker/defibrillator. The leads appear intact. No pneumothorax. Th e cardiac silhouette remains mildly enlarged. Right basilar and left midlung zone linear densities fa vor subsegmental atelectasis are scarring. No evidence for pulmonary edema. A large hiatus hernia is again noted. IMPRESSION: 1. Left-sided pacemaker/defibrillator. No pneumothorax. 2. Large hiatus hernia again noted. ACT 112: Negative or not required by law. Electronically signed by: Anderson Villagomez M.D. 11/24/2022 7:14 PM
[2022-11-24] MEDS: PANTOprazole 40 MG TAB PO SCH (20:10)
[2022-11-24] MEDS: ATORVASTATIN 40 MG TAB PO SCH (20:10)
[2022-11-24] MEDS: MONTELUKAST SODIUM 10 MG TABLET PO SCH (20:11)
[2022-11-24] MEDS: MELATONIN 3 MG TAB PO SCH (21:51)
[2022-11-24] MEDS: ACETAMINOPHEN 325 MG TAB PO PRN (21:53)
[2022-11-25] MEDS: LEVOTHYROXINE SODIUM 50 MCG TABLET PO SCH (06:09)
[2022-11-25] MEDS: BUDESONIDE 0.5 MG/2 ML VIAL (PULMICORT) INH SCH ×2 (07:23→19:19)
[2022-11-25 08:10] LABS: Hematocrit (blood only) 43.4 % (37.0-47.0); Hemoglobin 13.9 g/dl (12.0-16.0); Mean Corpuscular Hemoglobin 28.4 pg (25.0-34.0); Mean Corpuscular Volume 88.8 fL (80.0-100.0); Mean Platelet Volume 9.7 fL (9.4-12.4); Platelet Count 356 K/uL (130-400); RDW Coefficient of Variation 15.1 % (11.5-14.5); Red Blood Count 4.89 M/uL (4.20-5.40); White Blood Count 8.79 K/ul (4.8-10.8)
[2022-11-25] MEDS: VALSARTAN/SACUBITRIL 26/24MG TAB PO SCH (08:15)
[2022-11-25] MEDS: DESMOPRESSIN ACETATE 0.1 MG TAB PO SCH ×2 (08:15→20:21)
[2022-11-25] MEDS: CLOPIDOGREL BISULFATE 75 MG TAB PO SCH (08:15)
[2022-11-25] MEDS: FUROSEMIDE 40 MG TAB PO SCH (08:15)
[2022-11-25] MEDS: METOPROLOL SUCC 25MG EXT REL TAB PO SCH ×2 (08:15→20:19)
[2022-11-25] MEDS: FLUTICASONE/VILANTEROL 200/25MCG 14 PUFFS/INHALER INH SCH (08:15)
--- NOTE | 2022-11-25 08:15 | Electrocardiogram Report ---
Test Reason : Blood Pressure : / mmHG Vent. Rate : 080 BPM Atrial Rate : 080 BPM P-R Int : 166 ms QRS Dur : 168 ms QT Int : 534 ms P-R-T Axes : 024 246 052 degrees QTc Int : 615 ms AV dual-paced rhythm Biventricular pacemaker detected Abnormal ECG When compared with ECG of 17-NOV-2022 06:46, Vent. rate has increased BY 5 BPM Confirmed by Gilbert Alonso ([id number]) on 11/25/2022 8:15:22 AM Referred By: REFERRED SELF Confirmed By:Gilbert Alonso
[2022-11-25] MEDS: SACCHAROMYCES BOULARDII 250 MG CAP PO SCH (08:16)
[2022-11-25] MEDS: ENOXAPARIN INJ 40 MG/0.4 ML SYR SQ SCH (08:16)
[2022-11-25] MEDS: CHOLECALCIFEROL 1,000 UNITS 25 MCG TAB PO SCH (08:16)
[2022-11-25] MEDS: AMIODARONE 200 MG TAB PO SCH (08:16)
--- NOTE | 2022-11-25 08:16 | Electrocardiogram Report ---
Test Reason : Blood Pressure : / mmHG Vent. Rate : 116 BPM Atrial Rate : 107 BPM P-R Int : 000 ms QRS Dur : 138 ms QT Int : 340 ms P-R-T Axes : 000 044 212 degrees QTc Int : 472 ms Ventricular-paced rhythm with frequent atrial-paced complexes and with frequent , and consecutive Pre mature ventricular complexes Abnormal ECG When compared with ECG of 24-NOV-2022 17:20, Premature ventricular complexes are now Present Vent. rate has increased BY 36 BPM Confirmed by Gilbert Alonso ([id number]) on 11/25/2022 8:16:16 AM Referred By: REFERRED SELF Confirmed By:Gilbert Alonso
[2022-11-25] MEDS: MAGNESIUM OXIDE 400 MG TAB PO SCH ×2 (08:18→20:22)
--- NOTE | 2022-11-25 08:19 | Electrocardiogram Report ---
Test Reason : Blood Pressure : / mmHG Vent. Rate : 114 BPM Atrial Rate : 060 BPM P-R Int : 000 ms QRS Dur : 162 ms QT Int : 288 ms P-R-T Axes : 000 055 209 degrees QTc Int : 396 ms Sequential atrial-ventricular pacing with frequent , and consecutive Premature ventricular complexes Abnormal ECG When compared with ECG of 24-NOV-2022 18:07, No significant change Confirmed by Gilbert Alonso ([id number]) on 11/25/2022 8:18:47 AM Referred By: REFERRED SELF Confirmed By:Gilbert Alonso
[2022-11-25 08:39] LABS: Calcium 9.7 mg/dl (8.6-10.3); Magnesium 1.9 mg/dl (1.7-2.4); Potassium 5.1 mmol/L (3.5-5.1)
[2022-11-25 08:44] LABS: Creatinine Clr Calc Pharmacy 52.9 ml/min; Est GFR (Non-African American) 57.8 ml/min
--- NOTE | 2022-11-25 09:12 | XRay Report ---
XR chest 2V PA/lateral HISTORY: s/p upgrade to BiV ICD COMPARISON: Chest 11/24/2022. FINDINGS: Left-sided defibrillator/pacemaker is again noted. The leads appear intact. No pneumothorax . There is a large hiatus hernia. The heart remains mildly enlarged. Right basilar linear densities f avor subsegmental atelectasis. This remains unchanged. No evidence for pulmonary edema. IMPRESSION: 1. No pneumothorax. 2. Large hiatus hernia, unchanged. 3. Right basilar linear densities persist and favor subsegmental atelectasis. ACT 112: Negative or not required by law. Electronically signed by: Anderson Villagomez M.D. 11/25/2022 9:11 AM
--- NOTE | 2022-11-25 09:33 | Cardiology Progress Note ---
Date of Service November 25, 2022 Assessment & Plan (1) Cardiac arrest: (2) Ventricular tachycardia: (3) Severe left ventricular systolic dysfunction: (4) Acute on chronic HFrEF (heart failure with reduced ejection fraction): (5) Nonischemic cardiomyopathy: Plan The patient is clinically stable. Adjusting guideline directed medications. I think also we can reduce her daily dose of amiodarone to 200 mg daily. Admission and Anticipated Discharge Date Admission Date: November 15, 2022 Subjective The patient without complaints this morning. After having her ICD implanted late yesterday she was having some runs of wide-complex tachycardia. The pacing rate of her device was increased and she had no additional arrhythmias through the night. Amiodarone was discontinued this morning. Review of Systems Review of Systems: Review of Systems: See HPI for pertinent positives. All other 10 point review of systems are negative. Physical Exam Physical Exam: General: no acute distress and stated age Head: normocephalic, no masses, lesions, tenderness or abnormalities Eyes: conjunctiva are pink and non-injected, sclera clear Neck: supple, no adenopathy, no bruits, normal jugular venous pulse, no hepatojugular reflux Chest: normal shape and normal respiratory effort Lungs: clear to auscultation and percussion Cardiac Exam: - regular rate & rhythm, no murmurs gallops or rubs - normal S1, normal S2 Pulses: 2(+) throughout Abdomen: abdomen soft, non-tender, no abnormal masses and no hepatosplenomegaly Musculoskeletal: no gait disturbance, no joint inflammation, no deforming arthritis Extremities: no edema and no cyanosis Neuro: grossly normal exam Results & Data Vital Signs (Past 12 Hours) Vital Signs Temp Pulse Pulse Resp BP BP Pulse Ox 11/25/22 07:00 89 11/25/22 07:23 88 20 98 11/25/22 07:19 36.4 C L 89 20 129/77 99 11/25/22 03:37 37.0 C 89 22 121/68 98 11/24/22 23:00 89 11/24/22 22:23 36.4 C L 89 18 120/66 98 O2 Del Method 11/25/22 07:00 11/25/22 07:23 Room Air 11/25/22 07:19 Room Air 11/25/22 03:37 Room Air 11/24/22 23:00 11/24/22 22:23 Room Air Laboratory Results Laboratory Results - last 24 hr 11/24/22 11/24/22 11/24/22 11:20 16:57 20:29 WBC RBC Hgb Hct MCV MCH MCHC RDW Std Deviation RDW Coeff of Park Plt Count MPV Sodium Potassium Chloride Carbon Dioxide Anion Gap BUN Creatinine Est Cr Clr Drug Dosing Est GFR ( Amer) Est GFR (Non-Af Amer) BUN/Creatinine Ratio Glucose POC Glucose 200 H 129 H 129 H Calcium Magnesium 11/25/22 11/25/22 11/25/22 07:23 07:46 07:46 WBC 8.79 RBC 4.89 Hgb 13.9 Hct 43.4 MCV 88.8 MCH 28.4 MCHC 32.0 RDW Std Deviation 49.0 H RDW Coeff of Park 15.1 H Plt Count 356 MPV 9.7 Sodium 134 L Potassium 5.1 Chloride 101 Carbon Dioxide 22 Anion Gap 11 BUN 26 H Creatinine 1.00 Est Cr Clr Drug Dosing 52.9 Est GFR ( Amer) 67.0 Est GFR (Non-Af Amer) 57.8 BUN/Creatinine Ratio 26.0 H Glucose 187 H POC Glucose 179 H Calcium 9.7 Magnesium 1.9 11/25/22 09:27 WBC RBC Hgb Hct MCV MCH MCHC RDW Std Deviation RDW Coeff of Aprk Plt Count MPV Sodium Potassium Chloride Carbon Dioxide Anion Gap BUN Creatinine Est Cr Clr Drug Dosing Est GFR ( Amer) Est GFR (Non-Af Amer) BUN/Creatinine Ratio Glucose POC Glucose 247 H Calcium Magnesium Medications Administered Current Inpatient Medications Acetaminophen (Acetaminophen 325 Mg Tab) 650 mg PO Q4H PRN PRN Reason: fever or pain Stop: 12/17/22 15:06 Last Admin: 11/24/22 21:53 Dose: 650 mg Amiodarone HCl (Amiodarone 200 Mg Tab) 200 mg PO BIDM [facility] Stop: 12/22/22 16:59 Last Admin: 11/25/22 08:16 Dose: 200 mg Atorvastatin Calcium (Atorvastatin 40 Mg Tab) 40 mg PO HS [facility] Stop: 12/16/22 20:59 Last Admin: 11/24/22 20:10 Dose: 40 mg Budesonide (Budesonide 0.5 Mg/2 Ml Vial (Pulmicort)) 1 mg INH BIDR [facility] Stop: 12/16/22 06:59 Last Admin: 11/25/22 07:23 Dose: 1 mg Clopidogrel Bisulfate (Clopidogrel Bisulfate 75 Mg Tab) 75 mg PO QAM [facility] Stop: 12/17/22 11:14 Last Admin: 11/25/22 08:15 Dose: 75 mg Desmopressin Acetate (Desmopressin Acetate 0.1 Mg Tab) 0.2 mg PO BID [facility] Stop: 12/16/22 08:59 Last Admin: 11/25/22 08:15 Dose: 0.2 mg Dextrose (Dextrose 50% 50 Ml Syringe) 25 - 50 ml IV UD PRN; Protocol PRN Reason: Hypoglycemia Protocol Stop: 12/15/22 22:51 Last Admin: 11/20/22 07:30 Dose: 50 ml Docusate Sodium (Docusate Sodium 100 Mg Cap) 100 mg PO BID PRN PRN Reason: Constipation Stop: 12/22/22 20:59 Enoxaparin Sodium (Enoxaparin Inj 40 Mg/0.4 Ml Syr) 40 mg SQ [facility] Stop: 12/17/22 08:59 Last Admin: 11/25/22 08:16 Dose: 40 mg Fluticasone/Vilanterol (Fluticasone/Vilanterol 200/25mcg 14 Puffs/Inhaler) 1 puffs INH DAILY [facility] Stop: 12/16/22 08:59 Last Admin: 11/25/22 08:15 Dose: 1 puffs Furosemide (Furosemide 40 Mg Tab) 40 mg PO QAM [facility] Stop: 12/19/22 11:44 Last Admin: 11/25/22 08:15 Dose: 40 mg Glucagon (Glucagon For Inj 1 Mg Vial) 1 mg SQ UD PRN; Protocol PRN Reason: Hypoglycemia Protocol Stop: 12/15/22 22:51 Glucose (Glucose 10 Tab/Tube) 4 - 8 tab PO UD PRN; Protocol PRN Reason: Hypoglycemia Treatment Stop: 12/15/22 22:51 Glucose (Glucose 40% Gel 15 Gm Tube) 15 - 30 gm PO UD PRN; Protocol PRN Reason: Hypoglycemia Protocol Stop: 12/15/22 22:51 Insulin Aspart (Insulin Aspart Per Unit Charge) 0 units SC DAILY@2100 [facility] Stop: 12/20/22 20:59 Last Admin: 11/24/22 20:36 Dose: Not Given Insulin Aspart (Insulin Aspart Per Unit Charge) 0 units SC 1130,1630 [facility] Stop: 12/22/22 16:29 Last Admin: 11/24/22 17:48 Dose: Not Given Insulin Aspart (Insulin Aspart Per Unit Charge) 0 units MI 0730 [facility] Stop: 12/23/22 07:29 Last Admin: 11/24/22 08:18 Dose: 1 units Levothyroxine Sodium (Levothyroxine Sodium 50 Mcg Tablet) 50 mcg PO DAILYBB [facility] Stop: 12/16/22 06:29 Last Admin: 11/25/22 06:09 Dose: 50 mcg Lorazepam (Lorazepam 2 Mg/1 Ml Vial) 1 mg IV Q2H PRN PRN Reason: Breakthrough Seizures Stop: 12/15/22 22:51 Lorazepam (Lorazepam 0.5 Mg Tab) 0.25 mg PO HS PRN PRN Reason: insomnia Stop: 12/21/22 01:13 Magnesium Oxide (Magnesium Oxide 400 Mg Tab) 400 mg PO BID [facility] Stop: 12/18/22 08:59 Last Admin: 11/25/22 08:18 Dose: 400 mg Melatonin (Melatonin 3 Mg Tab) [address] [facility] Stop: 12/21/22 20:59 Last Admin: 11/24/22 21:51 Dose: 3 mg Metoprolol Succinate (Metoprolol Succ 25mg Ext Rel Tab) 25 mg PO BID [facility] Stop: 12/17/22 20:59 Last Admin: 11/25/22 08:15 Dose: 25 mg Miscellaneous (Carbohydrates For Hypoglycemia ) 15 - 30 gm PO UD PRN PRN Reason: Hypoglycemia Protocol Stop: 12/15/22 22:51 Miscellaneous Information (Pharmacy Glycemic Mgmt Consult) 1 each N/A UD PRN; Protocol PRN Reason: Consult Stop: 12/20/22 13:57 Montelukast Sodium (Montelukast Sodium 10 Mg Tablet) 10 mg PO QPM [facility]; Protocol Stop: 12/16/22 20:59 Last Admin: 11/24/22 20:11 Dose: 10 mg Pantoprazole Sodium (Pantoprazole 40 Mg Tab) 40 mg PO HS [facility] Stop: 12/16/22 20:59 Last Admin: 11/24/22 20:10 Dose: 40 mg Polyethylene Glycol (Polyethylene (Miralax) 17 Gm Pack) 17 gm PO DAILY PRN PRN Reason: Constipation Stop: 06/28/23 17:26 Saccharomyces Boulardii (Saccharomyces Boulardii 250 Mg Cap) 250 mg PO DAILY [facility] Stop: 12/20/22 08:59 Last Admin: 11/25/22 08:16 Dose: 250 mg Sacubitril/Valsartan (Valsartan/Sacubitril 26/24mg Tab) 1 tab PO BID [facility] Stop: 12/17/22 10:29 Last Admin: 11/25/22 08:15 Dose: 1 tab Spironolactone (Spironolactone 12.5 Mg Tab) 12.5 mg PO DAILY [facility] Stop: 12/18/22 08:59 Last Admin: 11/22/22 08:21 Dose: 12.5 mg Vitamin D (Cholecalciferol 1,000 Units 25 Mcg Tab) 1,000 units PO DAILY [facility] Stop: 12/16/22 08:59 Last Admin: 11/25/22 08:16 Dose: 1,000 units
[2022-11-25] MEDS: INSULIN ASPART PER UNIT CHARGE SC SCH ×4 (10:48→20:21)
--- NOTE | 2022-11-25 11:12 | Pharmacy Report ---
Pharmacy Glycemic Short Note 2 - Date of Service November 25, 2022 - Glycemic Short BSG Results (Last 24 hours): 11/24/22 11/24/22 11/24/22 11:20 16:57 20:29 Glucose POC Glucose 200 H 129 H 129 H 11/25/22 11/25/22 11/25/22 07:23 07:46 09:27 Glucose 187 H POC Glucose 179 H 247 H 11/25/22 11/25/22 10:44 10:45 Glucose POC Glucose 412 H* 416 H* OUTPATIENT ANTIDIABETIC REGIMEN: * glipizide, metformin ASSESSMENT: 11/25: * BSGs [phone]/dL the last 24h. Pt received 5 units of basal and 4 units of bolus insulin yesterday. * NPO last karmen --> this AM. Did not receive Novolog with AM BSG check as patient wanted to wait until she ate (late breakfast). * Will continue to hold NPH given d/c steroids. No change to Novolog parameters for now- will reassess tomorrow after resumption of normal diet. 11/24 * Patient received 36 units of insulin yesterday * 5 units of NPH given this AM with prednisone, both NPH and prednisone discontinued after AM dose this morning * Patient NPO for ICD placement this afternoon, lunch BSG still elevated, therefore will keep slightly tightened carb ratio/correction factor tomorrow AM despite prednisone discontinuation- can reassess in AM 11/23 * Patient received 38 units of insulin yesterday, 5 units of basal * Fasting elevated this AM but will monitor trend, last day of prednisone tomorrow AM * Lunch BSG improved with tighter novolog paramters at breakfast, will continue for now, will likely need adjustment pending steroid change. 11/22 * Patient received total of 33 units of insulin yesterday, 8 units basal insulin * Fasting BSG 134 mg/dL - Prednisone decreased to 5mg daily x3 days, NPH decreased. Continue only CF (no CR) at HS. * Blood sugar consistently rising > 200 points from breakfast to lunch, tighten CF/CR extensively at breakfast only. * Gave extra dose of correctional insulin today at 1400. 11/21 * Patient received total of 29 units of insulin yesterday, no basal insulin * Fasting BSG 158 mg/dL - had loosened novolog parameters at HS due to concerns for contributing to low bSG in AM * Added on small dose of NPH this AM of 8 units daily to be given with PO prednisone * Lunch BSG elevated - confirmed with RN that patient is not snacking, had omlet/banana/OJ for breakfast * Repeat BSG this afternoon 198 - trending down, no changes at this time. Will have RN check again at dinner 11/20 * 67 year old admitted with cardiac arrest/asp pneumonia. Type 2 diabetic managed only on orals at home. BSGs very labile over last couple of days. Pharmacy consulted for glycemic management today. * BSGs low this morning ~46 mg/dL - treated with IV dextrose per hypoglycemia protocol. Up to 144 mg/dL on recheck. Last dose of basal insulin was yesterday AM and 5 units only * Unclear if low BSG this AM related to previous basal insulin or possibly too novolog correctional insulin * Plan to hold basal insulin for now, will continue tighter CF/CR throughout day but have very loose parameter for HS time * Patient on daily prednisone, could consider small dose of NPH in AM PLAN FOR INPATIENT GLYCEMIC CONTROL: * Hold outpatient oral diabetes medications * Basal insulin * n/a * Bolus insulin * NovoLog per scale ACHS or Q6hrs while NPO * Goal Range: Low 110 mg/dL - High 140 mg/dL * Breakfast: * Correction Factor: 15 mg/dL/unit * Nutritional / Prandial insulin per carb ratio of 1 unit per 5 grams CHO consumed * Lunch and Dinner * Correction Factor: 20 mg/dL/unit * Nutritional / Prandial insulin per carb ratio of 1 unit per 7 grams CHO consumed * HS: * Correction Factor: 40 mg/dL/unit * Nutritional / Prandial insulin per carb ratio of 1 unit per -- grams CHO consumed
--- NOTE | 2022-11-25 15:51 | Hospitalist Progress Note ---
Date of Service November 25, 2022 Assessment & Plan (1) Ventricular tachycardia: Plan Patient is a 67 yr female with H/O DM II, CKD stage III, diabetes insipidus, HLD, diaphragmatic hernia, severe persistent asthma, complex heart block status post pacemaker, GERD, depression presented with an unresponsive episode secondary to ventricular tachycardia at home around 5 PM on 11/15/2022. Patient's started CPR and patient had ROSC prior to EMS arrival. She is being managed for the following: Unresponsive episode Cardiac arrest Likely aspiration pneumonia/pneumonitis secondary to cardiac event prior to arrival : Acute Severe LV systolic dysfunction: 11/16 Echo with EF of 20 to 25%. 07/03/19 ECHO w/ EF of 60-65%. Pulmonary edema: 2/2 cardiac arrest and severe HF Likely pulseless VT at home. Patient might have had aspiration during the event. H/o AV block w/ pacemaker placement. S/P Cardiac Cath 11/16 which showed non obstructive CAD --CT Chest:Patchy pulmonary opacities within posterior bilateral upper lobes and the superior segment of the right lower lobe. Large hiatal hernia. Moderate cardiomegaly. IV heparin discontinued S/P ICD placement on 11/24/22 Continue amiodarone, metoprolol, atorvastatin, Plavix. Also on Entresto, Lasix Monitor I's and O's, daily weight, volume status Appreciate cardiology input Pacemaker adjusted today Continue amiodarone as per cardiology Likely discharge tomorrow if remains stable Hyperkalemia Continue to hold spironolactone Potassium levels improved Monitor Hypomagnesemia: Monitor and replete as needed Possible aspiration pneumonia: IV zosyn transitioned to Augmentin to complete 7 day course Completed antibiotic course DM II HbA1c 8.1 Hold home glipizide Continue insulin per protocol Glycemic pharmacist consulted on prednisone for her asthma, weaned off of Prednisone Other chronic medical conditions: History of DI. On desmopressin . History of asthma. Continue home inhalers. Previously on prednisone 10mg daily which was continued here, will wean off Chronic kidney disease, stage III. Monitor renal function GERD On Protonix. Hypothyroidism. TSH mildly elevated, normal free T4. Continue levothyroxine Hypertension: Continue current medications Hyperlipidemia: on statin. DVT Px: Lovenox SQ CODE STATUS Full code Admission and Anticipated Discharge Date Admission Date: November 15, 2022 Subjective Patient is seen and examined at bedside Had wide-complex tachycardia after ICD implantation yesterday Pacemaker adjusted this morning Patient states feeling well today Offers no new complaints other than having some mild soreness at the site of ICD placement Denies any chest pain, dyspnea, dizziness, nausea Review of Systems Review of Systems: All systems reviewed & are unremarkable except as noted in Subjective Physical Exam Physical Exam: Physical Exam: Vitals signs as noted above General Appearance:Moderately built and nourished, no apparent distress Head: normocephalic, Atraumatic Eyes: normal inspection, EOMI Neck: supple, Trachea midline Respiratory/Chest: Normal breath sounds, CTA, No accessory muscle use Cardiovascular: S1, S2, No murmur Abdomen/GI:Soft, Non tender, Bowel sounds present Extremities/Musculoskeletal:normal inspection, no edema Neurologic/Psych:AAOX3, grossly no focal neurological deficits Skin: normal color, warm Results & Data Results & Data Vital Signs (Past 12 Hours) Vital Signs Temp Pulse Pulse Resp BP Pulse Ox O2 Del Method 11/25/22 15:42 36.4 C L 90 19 108/59 L 99 Room Air 11/25/22 11:41 92 H 18 129/69 99 Room Air 11/25/22 07:00 89 11/25/22 07:23 88 20 98 Room Air 11/25/22 07:19 36.4 C L 89 20 129/77 99 Room Air Laboratory Results Short CBC 11/25/22 Range/Units 07:46 WBC 8.79 (4.8-10.8) K/ul Hgb 13.9 (12.0-16.0) g/dl Hct 43.4 (37.0-47.0) % Plt Count 356 (130-400) K/uL [facility] 11/25/22 07:46 Sodium 134 L Potassium 5.1 Chloride 101 Carbon Dioxide 22 BUN 26 H Creatinine 1.00 Glucose 187 H Calcium 9.7
--- NOTE | 2022-11-25 17:20 | Electrocardiogram Report ---
Test Reason : Blood Pressure : / mmHG Vent. Rate : 089 BPM Atrial Rate : 089 BPM P-R Int : 132 ms QRS Dur : 168 ms QT Int : 518 ms P-R-T Axes : 039 253 056 degrees QTc Int : 630 ms Poor data quality, interpretation may be adversely affected AV dual-paced rhythm Biventricular pacemaker detected Abnormal ECG When compared with ECG of 24-NOV-2022 18:07, Premature ventricular complexes no longer present Confirmed by Gilbert Alonso ([id number]) on 11/25/2022 5:20:10 PM Referred By: REFERRED SELF Confirmed By:Gilbert Alonso
[2022-11-25] MEDS: VALSARTAN/SACUBITRIL 51/49 MG TAB PO SCH (20:18)
[2022-11-25] MEDS: PANTOprazole 40 MG TAB PO SCH (20:19)
[2022-11-25] MEDS: ATORVASTATIN 40 MG TAB PO SCH (20:21)
[2022-11-25] MEDS: MONTELUKAST SODIUM 10 MG TABLET PO SCH (20:21)
[2022-11-25] MEDS: MELATONIN 3 MG TAB PO SCH (21:39)
[2022-11-26] MEDS: ACETAMINOPHEN 325 MG TAB PO PRN ×2 (02:49→10:31)
[2022-11-26] MEDS: LEVOTHYROXINE SODIUM 50 MCG TABLET PO SCH (06:08)
[2022-11-26 06:14] LABS: Calcium 9.4 mg/dl (8.6-10.3); Est GFR (Non-African American) 48.3 ml/min; Magnesium 1.8 mg/dl (1.7-2.4); Potassium 4.9 mmol/L (3.5-5.1)
[2022-11-26] MEDS: BUDESONIDE 0.5 MG/2 ML VIAL (PULMICORT) INH SCH (07:24)
[2022-11-26] MEDS: INSULIN ASPART PER UNIT CHARGE SC SCH ×2 (07:40→11:41)
[2022-11-26] MEDS: SACCHAROMYCES BOULARDII 250 MG CAP PO SCH (07:42)
[2022-11-26] MEDS: VALSARTAN/SACUBITRIL 51/49 MG TAB PO SCH (07:43)
[2022-11-26] MEDS: CHOLECALCIFEROL 1,000 UNITS 25 MCG TAB PO SCH (07:43)
[2022-11-26] MEDS: DESMOPRESSIN ACETATE 0.1 MG TAB PO SCH (07:43)
[2022-11-26] MEDS: METOPROLOL SUCC 25MG EXT REL TAB PO SCH (07:44)
[2022-11-26] MEDS: FUROSEMIDE 40 MG TAB PO SCH (07:44)
[2022-11-26] MEDS: CLOPIDOGREL BISULFATE 75 MG TAB PO SCH (07:44)
[2022-11-26] MEDS: ENOXAPARIN INJ 40 MG/0.4 ML SYR SQ SCH (07:45)
[2022-11-26] MEDS: FLUTICASONE/VILANTEROL 200/25MCG 14 PUFFS/INHALER INH SCH (07:46)
[2022-11-26] MEDS ORDERED: LANTUS PER UNIT CHARGE SC SCH (09:00)
[2022-11-26] MEDS ORDERED: AMIODARONE 200 MG TAB PO SCH (09:00)
--- NOTE | 2022-11-26 09:14 | Cardiology Progress Note ---
Date of Service November 26, 2022 Assessment & Plan (1) Cardiac arrest: (2) Ventricular tachycardia: (3) Severe left ventricular systolic dysfunction: (4) Acute on chronic HFrEF (heart failure with reduced ejection fraction): (5) Nonischemic cardiomyopathy: Plan Reviewed the patient's telemetry. Her ventricular ectopy has been markedly decreased. She is in a paced rhythm with rate of 90 bpm. She is on guideline directed medications for her cardiomyopathy. I spoke with Dr. Gray and she is in agreement the patient can be discharged today to outpatient follow-up. I will arrange close follow-up through our clinic next week. Admission and Anticipated Discharge Date Admission Date: November 15, 2022 Subjective The patient had an uneventful night. No new complaints. Review of Systems Review of Systems: Review of Systems: See HPI for pertinent positives. All other 10 point review of systems are negative. Musculoskeletal: Physical Exam Physical Exam: General: no acute distress and stated age Head: normocephalic, no masses, lesions, tenderness or abnormalities Eyes: conjunctiva are pink and non-injected, sclera clear Neck: supple, no adenopathy, no bruits, normal jugular venous pulse, no hepatojugular reflux Chest: normal shape and normal respiratory effort Lungs: clear to auscultation and percussion Cardiac Exam: - regular rate & rhythm, no murmurs gallops or rubs - normal S1, normal S2 Pulses: 2(+) throughout Abdomen: abdomen soft, non-tender, no abnormal masses and no hepatosplenomegaly Musculoskeletal: no gait disturbance, no joint inflammation, no deforming arthritis Extremities: no edema and no cyanosis, ICD site looks good Neuro: grossly normal exam Results & Data Vital Signs (Past 12 Hours) Vital Signs Temp Pulse Pulse Resp BP Pulse Ox O2 Del Method 11/26/22 07:25 90 16 98 Room Air 11/26/22 06:55 36.8 C 89 16 119/64 100 Room Air 11/26/22 02:50 36.6 C 90 16 110/75 100 Room Air 11/25/22 23:46 90 18 114/71 100 Room Air 11/25/22 23:00 90 Laboratory Results Laboratory Results - last 24 hr 11/25/22 11/25/22 11/25/22 09:27 10:44 10:45 Sodium Potassium Chloride Carbon Dioxide Anion Gap BUN Creatinine Est Cr Clr Drug Dosing Est GFR ( Amer) Est GFR (Non-Af Amer) BUN/Creatinine Ratio Glucose POC Glucose 247 H 412 H* 416 H* Calcium Magnesium 11/25/22 11/25/22 11/26/22 16:22 20:06 05:28 Sodium 135 L Potassium 4.9 Chloride 102 Carbon Dioxide 25 Anion Gap 8 BUN 36 H Creatinine 1.16 Est Cr Clr Drug Dosing 46.0 Est GFR ( Amer) 56.0 Est GFR (Non-Af Amer) 48.3 BUN/Creatinine Ratio 31.0 H Glucose 194 H POC Glucose 291 H 105 H Calcium 9.4 Magnesium 1.8 11/26/22 07:33 Sodium Potassium Chloride Carbon Dioxide Anion Gap BUN Creatinine Est Cr Clr Drug Dosing Est GFR ( Amer) Est GFR (Non-Af Amer) BUN/Creatinine Ratio Glucose POC Glucose 188 H Calcium Magnesium Medications Administered Current Inpatient Medications Acetaminophen (Acetaminophen 325 Mg Tab) 650 mg PO Q4H PRN PRN Reason: fever or pain Stop: 12/17/22 15:06 Last Admin: 11/26/22 02:49 Dose: 650 mg Amiodarone HCl (Amiodarone 200 Mg Tab) 200 mg PO DAILY [facility] Stop: 12/26/22 08:59 Last Admin: 11/26/22 07:44 Dose: 200 mg Atorvastatin Calcium (Atorvastatin 40 Mg Tab) 40 mg PO HS [facility] Stop: 12/16/22 20:59 Last Admin: 11/25/22 20:21 Dose: 40 mg Budesonide (Budesonide 0.5 Mg/2 Ml Vial (Pulmicort)) 1 mg INH BIDR [facility] Stop: 12/16/22 06:59 Last Admin: 11/26/22 07:24 Dose: 1 mg Clopidogrel Bisulfate (Clopidogrel Bisulfate 75 Mg Tab) 75 mg PO QAM [facility] Stop: 12/17/22 11:14 Last Admin: 11/26/22 07:44 Dose: 75 mg Desmopressin Acetate (Desmopressin Acetate 0.1 Mg Tab) 0.2 mg PO BID [facility] Stop: 12/16/22 08:59 Last Admin: 11/26/22 07:43 Dose: 0.2 mg Dextrose (Dextrose 50% 50 Ml Syringe) 25 - 50 ml IV UD PRN; Protocol PRN Reason: Hypoglycemia Protocol Stop: 12/15/22 22:51 Last Admin: 11/20/22 07:30 Dose: 50 ml Docusate Sodium (Docusate Sodium 100 Mg Cap) 100 mg PO BID PRN PRN Reason: Constipation Stop: 12/22/22 20:59 Enoxaparin Sodium (Enoxaparin Inj 40 Mg/0.4 Ml Syr) 40 mg SQ QAM [facility] Stop: 12/17/22 08:59 Last Admin: 11/26/22 07:45 Dose: 40 mg Fluticasone/Vilanterol (Fluticasone/Vilanterol 200/25mcg 14 Puffs/Inhaler) 1 puffs INH DAILY [facility] Stop: 12/16/22 08:59 Last Admin: 11/26/22 07:46 Dose: 1 puffs Furosemide (Furosemide 40 Mg Tab) 40 mg PO QAM [facility] Stop: 12/19/22 11:44 Last Admin: 11/26/22 07:44 Dose: 40 mg Glucagon (Glucagon For Inj 1 Mg Vial) 1 mg SQ UD PRN; Protocol PRN Reason: Hypoglycemia Protocol Stop: 12/15/22 22:51 Glucose (Glucose 10 Tab/Tube) 4 - 8 tab PO UD PRN; Protocol PRN Reason: Hypoglycemia Treatment Stop: 12/15/22 22:51 Glucose (Glucose 40% Gel 15 Gm Tube) 15 - 30 gm PO UD PRN; Protocol PRN Reason: Hypoglycemia Protocol Stop: 12/15/22 22:51 Insulin Aspart (Insulin Aspart Per Unit Charge) 0 units SC DAILY@2100 [facility] Stop: 12/20/22 20:59 Last Admin: 11/25/22 20:21 Dose: Not Given Insulin Aspart (Insulin Aspart Per Unit Charge) 0 units SC 1130,1630 [facility] Stop: 12/22/22 16:29 Last Admin: 11/25/22 16:50 Dose: 12 units Insulin Aspart (Insulin Aspart Per Unit Charge) 0 units SC 0730 [facility] Stop: 12/23/22 07:29 Last Admin: 11/26/22 07:40 Dose: 15 units Insulin Glargine (Lantus Per Unit Charge) 5 units SC DAILY [facility] Stop: 12/26/22 08:59 Levothyroxine Sodium (Levothyroxine Sodium 50 Mcg Tablet) 50 mcg PO DAILYBB [facility] Stop: 12/16/22 06:29 Last Admin: 11/26/22 06:08 Dose: 50 mcg Lorazepam (Lorazepam 2 Mg/1 Ml Vial) 1 mg IV Q2H PRN PRN Reason: Breakthrough Seizures Stop: 12/15/22 22:51 Lorazepam (Lorazepam 0.5 Mg Tab) 0.25 mg PO HS PRN PRN Reason: insomnia Stop: 12/21/22 01:13 Magnesium Oxide (Magnesium Oxide 400 Mg Tab) 400 mg PO BID [facility] Stop: 12/18/22 08:59 Last Admin: 11/25/22 20:22 Dose: 400 mg Melatonin (Melatonin 3 Mg Tab) 3 mg PO HS [facility] Stop: 12/21/22 20:59 Last Admin: 11/25/22 21:39 Dose: 3 mg Metoprolol Succinate (Metoprolol Succ 25mg Ext Rel Tab) 25 mg PO BID [facility] Stop: 12/17/22 20:59 Last Admin: 11/26/22 07:44 Dose: 25 mg Miscellaneous (Carbohydrates For Hypoglycemia ) 15 - 30 gm PO UD PRN PRN Reason: Hypoglycemia Protocol Stop: 12/15/22 22:51 Miscellaneous Information (Pharmacy Glycemic Mgmt Consult) 1 each N/A UD PRN; Protocol PRN Reason: Consult Stop: 12/20/22 13:57 Montelukast Sodium (Montelukast Sodium 10 Mg Tablet) 10 mg PO QPM [facility]; Protocol Stop: 12/16/22 20:59 Last Admin: 11/25/22 20:21 Dose: 10 mg Pantoprazole Sodium (Pantoprazole 40 Mg Tab) 40 mg PO HS [facility] Stop: 12/16/22 20:59 Last Admin: 11/25/22 20:19 Dose: 40 mg Polyethylene Glycol (Polyethylene (Miralax) 17 Gm Pack) 17 gm PO DAILY PRN PRN Reason: Constipation Stop: 12/22/22 17:26 Saccharomyces Boulardii (Saccharomyces Boulardii 250 Mg Cap) 250 mg PO DAILY [facility] Stop: 12/20/22 08:59 Last Admin: 11/26/22 07:42 Dose: 250 mg Sacubitril/Valsartan (Valsartan/Sacubitril 51/49 Mg Tab) 1 tab PO BID [facility] Stop: 12/25/22 20:59 Last Admin: 11/26/22 07:43 Dose: 1 tab Spironolactone (Spironolactone 12.5 Mg Tab) 12.5 mg PO DAILY [facility] Stop: 12/18/22 08:59 Last Admin: 11/22/22 08:21 Dose: 12.5 mg Vitamin D (Cholecalciferol 1,000 Units 25 Mcg Tab) 1,000 units PO DAILY [facility] Stop: 12/16/22 08:59 Last Admin: 11/26/22 07:43 Dose: 1,000 units
[2022-11-26] MEDS: MAGNESIUM OXIDE 400 MG TAB PO SCH (10:03)
--- NOTE | 2022-11-26 12:10 | Hospitalist Progress Note ---
Date of Service November 26, 2022 Assessment & Plan (1) Ventricular tachycardia: Plan Patient is a 67 yr female with H/O DM II, CKD stage III, diabetes insipidus, HLD, diaphragmatic hernia, severe persistent asthma, complex heart block status post pacemaker, GERD, depression presented with an unresponsive episode secondary to ventricular tachycardia at home around 5 PM on 11/15/2022. Patient's started CPR and patient had ROSC prior to EMS arrival. She is being managed for the following: Unresponsive episode Cardiac arrest Likely aspiration pneumonia/pneumonitis secondary to cardiac event prior to arrival : Acute Severe LV systolic dysfunction: 11/16 Echo with EF of 20 to 25%. 07/03/19 ECHO w/ EF of 60-65%. Pulmonary edema: 2/2 cardiac arrest and severe HF Likely pulseless VT at home. Patient might have had aspiration during the event. H/o AV block w/ pacemaker placement. S/P Cardiac Cath 11/16 which showed non obstructive CAD --CT Chest:Patchy pulmonary opacities within posterior bilateral upper lobes and the superior segment of the right lower lobe. Large hiatal hernia. Moderate cardiomegaly. IV heparin discontinued S/P ICD placement on 11/24/22 Continue amiodarone, metoprolol, atorvastatin, Plavix. Also on Entresto, Lasix Monitor I's and O's, daily weight, volume status Appreciate cardiology input Pacemaker adjusted today Continue amiodarone as per cardiology Plan to discharge home today Advised to follow-up with cardiology in 1 week Hyperkalemia Spironolactone discontinued for now Potassium levels improved Monitor Hypomagnesemia: Monitor and replete as needed Possible aspiration pneumonia: IV zosyn transitioned to Augmentin to complete 7 day course Completed antibiotic course DM II HbA1c 8.1 Hold home glipizide Continue insulin per protocol Glycemic pharmacist consulted on prednisone for her asthma, weaned off of Prednisone Other chronic medical conditions: History of DI. On desmopressin . History of asthma. Continue home inhalers. Previously on prednisone 10mg daily which was continued here, will wean off Chronic kidney disease, stage III. Monitor renal function GERD On Protonix. Hypothyroidism. TSH mildly elevated, normal free T4. Continue levothyroxine Hypertension: Continue current medications Hyperlipidemia: on statin. DVT Px: Lovenox SQ CODE STATUS Full code Admission and Anticipated Discharge Date Admission Date: November 15, 2022 Subjective Patient is seen and examined at bedside No new complaints Ventricular ectopy markedly decreased per cardiology Discussed with cardiology today Denies any chest pain, dyspnea, dizziness, nausea Plan to discharge home today Review of Systems Review of Systems: All systems reviewed & are unremarkable except as noted in Subjective Physical Exam Physical Exam: Physical Exam: Vitals signs as noted above General Appearance:Moderately built and nourished, no apparent distress Head: normocephalic, Atraumatic Eyes: normal inspection, EOMI Neck: supple, Trachea midline Respiratory/Chest: Normal breath sounds, CTA, No accessory muscle use Cardiovascular: S1, S2, No murmur Abdomen/GI:Soft, Non tender, Bowel sounds present Extremities/Musculoskeletal:normal inspection, no edema Neurologic/Psych:AAOX3, grossly no focal neurological deficits Skin: normal color, warm Results & Data Results & Data Vital Signs (Past 12 Hours) Vital Signs Temp Pulse Resp BP Pulse Ox O2 Del Method 11/26/22 12:06 35.7 C L 87 18 103/69 98 Room Air 11/26/22 07:30 Room Air 11/26/22 07:25 90 16 98 Room Air 11/26/22 06:55 36.8 C 89 16 119/64 100 Room Air 11/26/22 02:50 36.6 C 90 16 110/75 100 Room Air Laboratory Results [facility] 11/26/22 05:28 Sodium 135 L Potassium 4.9 Chloride 102 Carbon Dioxide 25 BUN 36 H Creatinine 1.16 Glucose 194 H Calcium 9.4
--- NOTE | 2022-11-26 12:22 | Discharge Summary ---
Date of Service November 26, 2022 Admission HPI Per Admitting Provider CHIEF COMPLAINT: Unresponsive episode. HISTORY OF PRESENT ILLNESS: This is a 67-year-old female with past medical history significant for type 2 diabetes, chronic kidney disease stage III, diabetes insipidus, hyperlipidemia, diaphragmatic hernia, severe persistent asthma, history of complete heart block, status post pacemaker, GERD, history of depression, presents with unresponsive episode. As per , the patient was sitting on the floor talking and suddenly around4-4:30 p.m., she suddenly became unresponsive . He starte CPR and called the EMS and he states had four cycles of CPR and he saw that she was somewhat labored breathing. When the EMS came she was breathing ok but she was unresponsive still. thought during the episode she had brief facial droop and also she was clenching her teeth, but no shaking of the body and no biting of the tongue and no incontinence .Denies recent sickness. No recent fevers, no cough, no nausea, vomiting or diarrhea. Before that, she was doing fine. She had some stress today and she took her medication to relax her. He does not know which medication she took. When she came in to ER, she was still unresponsive. Initial workup with CTA of the he ad and neck and CT of head were okay. Hemodynamically okay. She was requiring 3 L of oxygen. WBC is 14, creatinine 0.9, magnesium 1.3, AST 187, ALT 136, alkaline phosphatase 74. Troponin I high sensitivity 22.3. SARS-CoV-2 rapid test negative. EKG showed paced rhythm and chest x-ray showed pulmonary edema. The patient is then became alert and awake. Says she is not feeling good. She thinks she might have a stroke, but she is irritable, not answering any questions, moving her lower extremities and she is able to squeeze upper extremities to her , but not cooperative with any other exam, not answering any questions . Per cardiology notes patient had cardiac catheterization April 2019 with minimal CAD disease.She also followed with endocrinology long time back in 2004 for diabetes insipidus and she is taking desmopressin. As per , she did not take regularly, but she is on it. Admission Exam Per Admitting Provider PHYSICAL EXAMINATION: GENERAL: The patient is alert and awake, irritable, not obeying commands. VITAL SIGNS: Temperature 36.6, pulse 81, respirations 16, blood pressure 121 /65, oxygen 99% on 3 L. HEENT: No facial droop. Speech is okay, but somewhat restless. Could not examine the eyes. The patient is closing her eyes tight. NECK: No obvious neck masses seen. CARDIOVASCULAR: S1 and S2 heard. Regular rate and rhythm. No murmur, no gallop. RESPIRATORY SYSTEM: Normal AP diameter. No accessory muscle use. No wheezing, crackles. ABDOMEN: Soft, bowel sounds present, nontender, no distention. CENTRAL NERVOUS SYSTEM: Alert and awake. Irritable. Not obeying commands and not answering questions, but able to move her extremities and squeeze her upper hands. Speech is clear. No obvious facial droop seen. Could not do complete examination as the patient is irritable and not cooperative. EXTREMITIES: No edema, no erythema. Principal Diagnosis Cardiac arrest Ventricular tachycardia Acute on chronic systolic heart failure Hyperkalemia Discharge Data Allergies Allergy/AdvReac Type Severity Reaction Status Date / Time aspirin AdvReac Intermediate shortness Verified 05/26/22 11:53 of breath Consultations 11/15/22 19:48 ED Decision to Admit Stat 11/16/22 06:49 Consult Cardiology Routine Procedures Performed Operation Date: 11/24/22 14:00 Actual Procedures p Insertion ICD w/Existing Dual - Charline Hernandez, s Venogram, Unilateral - Charline Hernandez DO s Insertion Single Lead Only - Charline Hernandez, DO Laboratory Results WBC 8.79 K/ul (4.8-10.8) 11/25/22 07:46 RBC 4.89 M/uL (4.20-5.40) 11/25/22 07:46 Hgb 13.9 g/dl (12.0-16.0) 11/25/22 07:46 POC Hgb 12.6 g/dl (12.0-16.0) 11/15/22 18:16 Hct 43.4 % (37.0-47.0) 11/25/22 07:46 POC Hct 37 % (37-47) 11/15/22 18:16 MCV 88.8 fL (80.0-100.0) 11/25/22 07:46 MCH 28.4 pg (25.0-34.0) 11/25/22 07:46 MCHC 32.0 g/dL (32.0-36.0) 11/25/22 07:46 RDW Std Deviation 49.0 fL (36.4-46.3) H 11/25/22 07:46 RDW Coeff of [place] 15.1 % (11.5-14.5) H 11/25/22 07:46 Plt Count 356 K/uL (130-400) 11/25/22 07:46 MPV 9.7 fL (9.4-12.4) 11/25/22 07:46 Immature Gran % (Auto) 0.4 % 11/19/22 04:25 Neut % (Auto) 67.6 % 11/19/22 04:25 Lymph % (Auto) 22.4 % 11/19/22 04:25 [place] % (Auto) 9.3 % 11/19/22 04:25 Eos % (Auto) 0.0 % 11/19/22 04:25 Baso % (Auto) 0.3 % 11/19/22 04:25 Neut # (Auto) 4.87 K/uL (1.40-6.50) 11/19/22 04:25 Lymph # (Auto) 1.61 K/uL (1.2-3.4) 11/19/22 04:25 [place] # (Auto) 0.67 K/uL (0.11-0.59) H 11/19/22 04:25 Eos # (Auto) 0.00 K/uL (0-0.50) 11/19/22 04:25 Baso # (Auto) 0.02 K/uL (0-0.2) 11/19/22 04:25 Immature Gran # (Auto) 0.03 K/uL (0.01-0.20) 11/19/22 04:25 Absolute Nucleated RBC Cancelled 11/18/22 05:23 Nucleated RBC % (auto) Cancelled 11/18/22 05:23 Neutrophils % (Manual) Cancelled 11/18/22 05:23 Band Neutrophils % Cancelled 11/18/22 05:23 Lymphocytes % (Manual) Cancelled 11/18/22 05:23 Prolymphocyte % Cancelled 11/18/22 05:23 Reactive Lymphs % (Man) Cancelled 11/18/22 05:23 Monocytes % (Manual) Cancelled 11/18/22 05:23 Eosinophils % (Manual) Cancelled 11/18/22 05:23 Basophils % (Manual) Cancelled 11/18/22 05:23 Metamyelocytes % (Man) Cancelled 11/18/22 05:23 Myelocytes % (Man) Cancelled 11/18/22 05:23 Promyelocytes % (Man) Cancelled 11/18/22 05:23 Blast Cells % (Manual) Cancelled 11/18/22 05:23 Plasma Cell % (Manual) Cancelled 11/18/22 05:23 Other Cells % Cancelled 11/18/22 05:23 Nucleated RBC % Cancelled 11/18/22 05:23 Neutrophils # (Manual) Cancelled 11/18/22 05:23 Band Neutrophils # Cancelled 11/18/22 05:23 Total Absolute Neuts Cancelled 11/18/22 05:23 Lymphocytes # (Manual) Cancelled 11/18/22 05:23 Prolymphocyte # Cancelled 11/18/22 05:23 Reactive Lymphs # Cancelled 11/18/22 05:23 Total Abs Lymphocytes Cancelled 11/18/22 05:23 Monocytes # (Manual) Cancelled 11/18/22 05:23 Eosinophils # (Manual) Cancelled 11/18/22 05:23 Basophils # (Manual) Cancelled 11/18/22 05:23 Metamyelocytes # (Man) Cancelled 11/18/22 05:23 Myelocytes # (Manual) Cancelled 11/18/22 05:23 Promyelocytes # (Man) Cancelled 11/18/22 05:23 Blast Cells # (Man) Cancelled 11/18/22 05:23 Plasma Cell # (Manual) Cancelled 11/18/22 05:23 Other Cells # Cancelled 11/18/22 05:23 Nucleated RBCs # (Man) Cancelled 11/18/22 05:23 Hypersegmented Neuts Cancelled 11/18/22 05:23 Hyposegmented Neuts Cancelled 11/18/22 05:23 Hypogranular Neuts Cancelled 11/18/22 05:23 Large Granular Lymphs Cancelled 11/18/22 05:23 # Lrg Granular Lymphs Cancelled 11/18/22 05:23 Hairy Cells Cancelled 11/18/22 05:23 Smudge Cells Cancelled 11/18/22 05:23 Toxic Granulation Cancelled 11/18/22 05:23 Toxic Vacuolation Cancelled 11/18/22 05:23 Dohle Bodies Cancelled 11/18/22 05:23 Erlinda Rods Cancelled 11/18/22 05:23 Platelet Estimate Cancelled 11/18/22 05:23 Hypogranular Platelets Cancelled 11/18/22 05:23 Giant Platelets Cancelled 11/18/22 05:23 Platelet Satelliting Cancelled 11/18/22 05:23 RBC Morphology Cancelled 11/18/22 05:23 Polychromasia Cancelled 11/18/22 05:23 Hypochromasia Cancelled 11/18/22 05:23 Poikilocytosis Cancelled 11/18/22 05:23 Basophilic Stippling Cancelled 11/18/22 05:23 Anisocytosis Cancelled 11/18/22 05:23 Microcytosis Cancelled 11/18/22 05:23 Macrocytosis Cancelled 11/18/22 05:23 Spherocytes Cancelled 11/18/22 05:23 Pappenheimer Bodies Cancelled 11/18/22 05:23 Sickle Cells Cancelled 11/18/22 05:23 Target Cells Cancelled 11/18/22 05:23 Tear Drop Cells Cancelled 11/18/22 05:23 Ovalocytes Cancelled 11/18/22 05:23 Stomatocytes Cancelled 11/18/22 05:23 [place] Bodies Cancelled 11/18/22 05:23 Echinocytes Cancelled 11/18/22 05:23 Acanthocytes (Spur) Cancelled 11/18/22 05:23 Rouleaux Cancelled 11/18/22 05:23 RBC Agglutinates Cancelled 11/18/22 05:23 Schistocytes Cancelled 11/18/22 05:23 Sezary Cell Cancelled 11/18/22 05:23 PT 10.9 Seconds (9.0-12.0) 11/15/22 18:12 INR 1.0 (0.9-1.1) 11/15/22 18:12 APTT 47.2 Seconds (21.0-31.0) H* 11/16/22 07:40 PTT Ratio 1.7 11/16/22 07:40 POC Sodium 134 mmol/L (135-144) L 11/15/22 18:16 Sodium 135 mmol/L (136-145) L 11/26/22 05:28 POC Potassium 4.3 mmol/L (3.3-5.0) 11/15/22 18:16 Potassium 4.9 mmol/L (3.5-5.1) 11/26/22 05:28 POC Chloride 103 mmol/L (101-112) 11/15/22 18:16 Chloride 102 mmol/L (98-107) 11/26/22 05:28 Carbon Dioxide 25 mmol/L (21-32) 11/26/22 05:28 POC Total CO2 < 5 mmol/L (24-31) L* 11/15/22 18:16 Anion Gap 8 (3-11) 11/26/22 05:28 POC Anion Gap TNP 11/15/22 18:16 POC BUN 18 mg/dl (7-18) 11/15/22 18:16 BUN 36 mg/dl (6-23) H 11/26/22 05:28 Creatinine 1.16 mg/dl (0.6-1.2) 11/26/22 05:28 POC Creatinine 0.9 mg/dl (0.6-1.3) 11/15/22 18:16 Est Cr Clr Drug Dosing 46.0 ml/min 11/26/22 05:28 Est GFR ( Amer) 56.0 ml/min 11/26/22 05:28 Est GFR (Non-Af Amer) 48.3 ml/min 11/26/22 05:28 BUN/Creatinine Ratio 31.0 (10-20) H 11/26/22 05:28 Glucose 194 mg/dl (70-99(Fasting)) H 11/26/22 05:28 POC Glucose 292 mg/dl (70-99) H 11/26/22 11:27 POC Glucose (other) 222 mg/dl (70-99) H 11/15/22 18:16 Estimat Average Glucose 186 mg/dl 11/16/22 05:38 Hemoglobin A1c 8.1 % (4.5-5.6) H 11/16/22 05:38 Lactate 1.2 mmol/L (0.4-2.0) 11/15/22 21:21 Calcium 9.4 mg/dl (8.6-10.3) 11/26/22 05:28 POC Ioniz Calcium Bernice 0.99 mmol/l (1.12-1.32) L 11/15/22 18:16 Phosphorus 3.9 mg/dl (2.5-4.9) 11/18/22 05:23 Magnesium 1.8 mg/dl (1.7-2.4) 11/26/22 05:28 Total Bilirubin 0.5 mg/dl (0.2-1.0) 11/19/22 04:25 Direct Bilirubin 0.0 mg/dl (0-0.2) 11/16/22 05:38 AST 16 U/L (13-39) 11/19/22 04:25 ALT 39 U/L (7-52) 11/19/22 04:25 Alkaline Phosphatase 71 U/L (34-104) 11/19/22 04:25 Troponin I High Sens 61.2 pg/ml (0-14) H* D 11/16/22 11:22 B-Natriuretic Peptide 458 pg/ml (0-100) H 11/15/22 21:21 Total Protein 6.4 gm/dl (6.0-8.3) 11/19/22 04:25 Albumin 3.7 gm/dl (3.4-5.0) 11/19/22 04:25 Globulin 2.7 gm/dl (2.5-4.0) 11/19/22 04:25 Albumin/Globulin Ratio 1.4 (0.9-2) 11/19/22 04:25 Triglycerides 59 mg/dl (0-150) 11/16/22 05:38 Cholesterol 145 mg/dl (0-200) 11/16/22 05:38 LDL Cholesterol, Calc 76 mg/dl 11/16/22 05:38 VLDL Cholesterol, Calc 12 mg/dl (0-30) 11/16/22 05:38 HDL Cholesterol 57 mg/dl 11/16/22 05:38 Cholesterol/HDL Ratio 2.5 (0-5) 11/16/22 05:38 Angiotensin Convert Enz 16 U/L (9-67) 11/15/22 18:12 TSH 5.322 uIu/ml (0.300-4.500) H 11/19/22 04:25 Free T4 1.15 ng/dl (0.61-1.60) 11/19/22 04:25 Urine Color Yellow 05/23/23 00:00 Urine Appearance Clear (Clear) 11/16/22 00:00 Urine pH 6.0 (4.5-7.5) 11/16/22 00:00 Ur Specific [place] 1.014 (1.000-1.030) 11/16/22 00:00 Urine Protein Negative (Negative) 11/16/22 00:00 Urine Glucose (UA) 1+ (Negative) H 11/16/22 00:00 Urine Ketones Trace (Negative) H 11/16/22 00:00 Urine Blood Negative (Negative) 11/16/22 00:00 Urine Nitrite Negative (Negative) 11/16/22 00:00 Urine Bilirubin Negative (Negative) 11/16/22 00:00 Urine Urobilinogen Negative (Negative) 11/16/22 00:00 Ur Leukocyte Esterase Negative (Negative) 11/16/22 00:00 Nasal Screen MRSA (PCR) Negative (Negative) 11/15/22 22:45 SARS-CoV-2, RNA, NAAT NEGATIVE (NEGATIVE) 11/15/22 19:43 Blood Parasites ID Cancelled 11/18/22 05:23 Blood Type A Positive 11/15/22 18:22 Antibody Screen NEGATIVE 11/15/22 18:[address] 11/15/22 18:[address] DOSE: 966.89 mGy.cm HISTORY: Altered mental status. neuro deficit, acute stroke suspected TECHNIQUE: Multiaxial CT images of the head were performed without the use of intravenous contrast. Automated exposure control was utilized for this study. A dose lowering technique was utilized adhering to the principles of ALARA. Comparison: Brain MRI 10/08/2015. Findings: Trace left mastoid effusion is noted. The right mastoid air cells are clear. The paranasal sinuses are clear. Prior bilateral lens replacement. The calvarium and skull base are intact. The ventricles and sulci are within normal limits. There is no mass, hematoma, midline shift, or acute infarct. Impression: No acute intracranial abnormality. ACT 112: Negative or not required by law. Electronically signed by: Anderson Villagomez M.D. 11/15/2022 6:31 PM Head CTA 11/15/22 18:04 HEAD & NECK CTA HISTORY: Altered mental status. neuro deficit, acute stroke suspected TECHNIQUE: Multiaxial CT images of the head were performed following the intravenous administration of contrast to evaluate the major cerebral vessels. Multiaxial CT images of the neck were also performed following the intravenous administration of contrast to evaluate the major cervical vessels. Maximum intensity projection images were also obtained. A dose lowering technique was utilized adhering to the principles of ALARA. COMPARISON: Brain MRI 10/08/2015. FINDINGS: There is no mass, hematoma, midline shift, or acute infarct. Visualized intracranial internal carotid arteries, distal vertebral arteries, and basilar artery are widely patent. There is no significant stenosis, occlusion, or aneurysm seen within the bilateral ACAs, MCAs, or director systems. The major dural venous sinuses are patent. Mild calcified plaque within the bilateral carotid siphons. The aortic arch and proximal great vessels are widely patent. There is no significant stenosis, occlusion, or dissection identified within the bilateral common carotid, internal carotid, or vertebral arteries. No pneumothorax. Interlobular septal thickening and patchy groundglass densities within the upper lobes posteriorly. This likely represents pulmonary edema. Left-sided pacemaker wires are noted. IMPRESSION: 1. No significant stenosis, occlusion, or aneurysm within the skull [place]. 2. No significant stenosis, occlusion, or dissection identified within the carotid or vertebral arteries. 3. [id number] pulmonary edema. ACT 112: Negative or not required by law. Electronically signed by: Anderson Villagomez M.D. 11/15/2022 6:36 PM Neck CTA 11/15/22 18:04 HEAD & NECK CTA HISTORY: Altered mental status. neuro deficit, acute stroke suspected TECHNIQUE: Multiaxial CT images of the head were performed following the intravenous administration of contrast to evaluate the major cerebral vessels. Multiaxial CT images of the neck were also performed following the intravenous administration of contrast to evaluate the major cervical vessels. Maximum intensity projection images were also obtained. A dose lowering technique was utilized adhering to the principles of ALARA. COMPARISON: Brain MRI 10/08/2015. FINDINGS: There is no mass, hematoma, midline shift, or acute infarct. Visualized intracranial internal carotid arteries, distal vertebral arteries, and basilar artery are widely patent. There is no significant stenosis, occlusion, or aneurysm seen within the bilateral ACAs, MCAs, or director systems. The major dural venous sinuses are patent. Mild calcified plaque within the bilateral carotid siphons. The aortic arch and proximal great vessels are widely patent. There is no significant stenosis, occlusion, or dissection identified within the bilateral common carotid, internal carotid, or vertebral arteries. No pneumothorax. Interlobular septal thickening and patchy groundglass densities within the upper lobes posteriorly. This likely represents pulmonary edema. Left-sided pacemaker wires are noted. IMPRESSION: 1. No significant stenosis, occlusion, or aneurysm within the skull [place]. 2. No significant stenosis, occlusion, or dissection identified within the carotid or vertebral arteries. 3. [id number] pulmonary edema. ACT 112: Negative or not required by law. Electronically signed by: Anderson Villagomez M.D. 11/15/2022 6:[address] 11/15/22 20:34 Exam(s): CT CHEST Without Contrast EXAM: CT Chest Without Intravenous Contrast CLINICAL HISTORY: Reason for exam: Hypoxia. TECHNIQUE: Axial computed tomography images of the chest without intravenous contrast. CTDI is 39.35 mGy and DLP is 716.83 mGy-cm. Automated exposure control was utilized for the study. A dose lowering technique was utilized adhering to the principles of ALARA. COMPARISON: No relevant prior studies available. FINDINGS: Lungs: Patchy pulmonary opacities within posterior bilateral upper lobes and the superior segment of the right lower lobe. Bibasilar subsegmental atelectasis. Pleural space: Unremarkable. No pneumothorax. No significant effusion. Heart: Moderate cardiomegaly. No significant pericardial effusion. No significant coronary artery calcifications. Mediastinum: Large hiatal hernia. Bones/joints: Unremarkable. No acute fracture. No dislocation. Soft tissues: Unremarkable. Vasculature: Unremarkable. No thoracic aortic aneurysm. Lymph nodes: Unremarkable. No enlarged lymph nodes. Gallbladder and bile ducts: Status post cholecystectomy. IMPRESSION: 1. Patchy pulmonary opacities within posterior bilateral upper lobes and the superior segment of the right lower lobe. 2. Large hiatal hernia. 3. Moderate cardiomegaly. Electronically signed by: Jonh Jasmine M.D. 11/16/22 00:36 AM Chest X-Ray 11/25/22 07:00 XR chest 2V PA/lateral HISTORY: s/p upgrade to BiV ICD COMPARISON: Chest 11/24/2022. FINDINGS: Left-sided defibrillator/pacemaker is again noted. The leads appear intact. No pneumothorax. There is a large hiatus hernia. The heart remains mildly enlarged. Right basilar linear densities favor subsegmental atelectasis. This remains unchanged. No evidence for pulmonary edema. IMPRESSION: 1. No pneumothorax. 2. Large hiatus hernia, unchanged. 3. Right basilar linear densities persist and favor subsegmental atelectasis. ACT 112: Negative or not required by law. Electronically signed by: Anderson Villagomez M.D. 11/25/2022 9:11 AM Ordered Studies 11/15/22 18:04 CT angio head w con Stat CT angio neck with con Stat CT head/brain wo con Stat 11/15/22 20:34 CT chest diagnostic wo con Stat 11/16/22 13:00 CL Cath Imgs for PACS use only Routine 11/24/22 06:45 EP Lab Images for PACS ONCE Hospital Course (1) Ventricular tachycardia: Plan Patient is a 67 yr female with H/O DM II, CKD stage III, diabetes insipidus, HLD, diaphragmatic hernia, severe persistent asthma, complex heart block status post pacemaker, GERD, depression presented with an unresponsive episode secondary to ventricular tachycardia at home around 5 PM on 11/15/2022. Patient's started CPR and patient had ROSC prior to EMS arrival. She is being managed for the following: Unresponsive episode Cardiac arrest Likely aspiration pneumonia/pneumonitis secondary to cardiac event prior to arrival : Acute Severe LV systolic dysfunction: 11/16 Echo with EF of 20 to 25%. 07/03/19 ECHO w/ EF of 60-65%. Pulmonary edema: 2/2 cardiac arrest and severe HF Likely pulseless VT at home. Patient might have had aspiration during the event. H/o AV block w/ pacemaker placement. S/P Cardiac Cath 11/16 which showed non obstructive CAD --CT Chest:Patchy pulmonary opacities within posterior bilateral upper lobes and the superior segment of the right lower lobe. Large hiatal hernia. Moderate cardiomegaly. IV heparin discontinued S/P ICD placement on 11/24/22 Continue amiodarone, metoprolol, atorvastatin, Plavix. Also on Entresto, Lasix Monitor I's and O's, daily weight, volume status Appreciate cardiology input Pacemaker adjusted today Continue amiodarone as per cardiology Plan to discharge home today Advised to follow-up with cardiology in 1 week Hyperkalemia Spironolactone discontinued for now Potassium levels improved Monitor Hypomagnesemia: Monitor and replete as needed Possible aspiration pneumonia: IV zosyn transitioned to Augmentin to complete 7 day course Completed antibiotic course DM II HbA1c 8.1 Hold home glipizide Continue insulin per protocol Glycemic pharmacist consulted on prednisone for her asthma, weaned off of Prednisone Other chronic medical conditions: History of DI. On desmopressin . History of asthma. Continue home inhalers. Previously on prednisone 10mg daily which was continued here, will wean off Chronic kidney disease, stage III. Monitor renal function GERD On Protonix. Hypothyroidism. TSH mildly elevated, normal free T4. Continue levothyroxine Hypertension: Continue current medications Hyperlipidemia: on statin. DVT Px: Lovenox SQ CODE STATUS Full code Total Time Total Time Spent Total Time Spent (In Minutes): 58 minutes Discharge Plan Discharge Items Patient Disposition: Home - Self-Care Reason For Visit: UNRESPONSIVE Discharge Diagnosis: Cardiac arrest Ventricular tachycardia Acute on chronic systolic heart failure Hyperkalemia Activity: As commented below Activity Comment: do not raise the left elbow over the left shoulder for 1 month Lifting: No more than 10 pounds Lifting Comment: do not lift more than 10 pounds with the left arm for 2 weeks Bathing: Keep incision dry Bathing Comment: keep dressing on & dry until wound check next week Sexual Activity: After two weeks Non-emergency contact: Primary Care Provider and Post Doctoral Fellow Call non-emergency contact if: you have any medication questions, your symptoms worsen, your pain is concerning for you, you have a fever, your wound has increased redness, your wound has increased drainage and your wound pain has increased Follow-up/Referrals: Jenni Jasmine MD [Primary Care Provider] - (Date & Time 12/02/2022 11:20 AM Provider Jenni Jasmine MD Department General Internal Medicine [facility] ) Diet: Carb Consistent or DM2 and Heart Healthy Addtl Attending Provider Instructions: Device and wound check next week at [facility] Cardiology Add Scoop Machine Operator Provider Instructions: Follow-up with your primary care physician Dr. Jenni Jasmine on 12/02/2022 11:20 AM Follow-up with your aquatics coordinator / in 1 week Seek immediate medical attention if your symptoms reoccur or worsen Please take all medications as instructed on discharge list below. Please call if you have any questions or problems. You can reach a [facility] hospitalist on duty at [facility] 24 hours a day by calling [phone] Call your Primary Care doctor if any of the following symptoms or problems start or get worse: * Shortness of breath or difficulty breathing * Wake up at night short of breath * Chest pain * Cough * Swelling of your hands, feet, or legs * More fatigued or tired with your normal activity * Palpitations - sudden fast heart beats WEIGHT * Weigh yourself every morning after using the bathroom. * Use the same scale. * Wear the same amount of clothing. * Write your weight down on a chart. * Call your Primary Care doctor if you gain more than 2-3 pounds in 1-2 days. MEDICATIONS * Use this discharge instruction sheet for medication instructions. * Take your medications at the time your doctor ordered. * Do not skip a dose of your medicines. * If you miss a dose of medicine, take it as soon as possible, but DO NOT DOUBLE A DOSE. * Read your medicine information when you get home. * Know all of the side effects of your medicine. If in doubt, ask your pharmacist * Call your Primary Care doctor's office if you have any side effects. * Be sure all of your doctors know what medicine and herbs you take (including cold, flu, and herbal medicine). Take the following with you to your follow-up doctor appointments: * Weight Chart * Medication List * List of questions Do not drink excessive alcohol, beer or wine. Pending Studies at Discharge: No Stand-Alone Forms: My [facility], Smoking Cessation Medications and DC Order Prescriptions: New furosemide 40 mg Tablet 40 mg PO QAM Qty: 30 1RF atorvastatin 40 mg Tablet 40 mg PO HS Qty: 30 1RF amiodarone 200 mg Tablet 200 mg PO DAILY Qty: 30 1RF clopidogrel 75 mg Tablet 75 mg PO QAM Qty: 30 1RF metoprolol succinate 25 mg Tablet Extended Release 24 Hr 25 mg PO BID Qty: 60 1RF Entresto 49-51 mg Tablet 1 tab PO BID Qty: 60 1RF magnesium chloride 64 mg tablet,delayed release (DR/EC) 64 mg PO DAILY Qty: 30 0RF Continued desmopressin 0.2 mg tablet 0.2 mg PO BID Qty: 180 Patient Comments: approved 12/27/2018-12/28/2019 levothyroxine 50 mcg tablet 50 mcg PO DAILYBB Qty: 90 metformin 500 mg tablet extended release 24 hr 1,000 mg PO BID Qty: 360 pantoprazole 40 mg tablet,delayed release (DR/EC) 40 mg PO HS Qty: 90 imipramine HCl 50 mg tablet 50 mg PO DIRECTED Patient Comments: Take 100 mg (2 tabs) qAM and 150 mg (3 tabs) qPM PO ; Rx Instructions: (2 tabs) qAM and 150 mg (3 tabs) qPM zafirlukast 20 mg tablet 20 mg PO BID cholecalciferol (vitamin D3) [Vitamin D3] 25 mcg (1,000 unit) Tablet,Chewable 25 mcg PO DAILY glipizide 10 mg tablet 10 mg PO BID budesonide 0.5 mg/2 mL suspension for nebulization 10 mg inhalation [facility] Rx Instructions: 2 vial dose hydroxyzine HCl 25 mg tablet 25 mg PO QID PRN (Reason: Anxiety) Tezspire 210 mg/1.91 mL (110 mg/mL) syringe 0 mg SUBCUT UD fluticasone propion-salmeterol 500-50 mcg/dose blister with device 2 inh INHALATION BID Discontinued simvastatin 40 mg tablet 40 mg PO HS Qty: 90 losartan 25 mg tablet 25 mg PO HS prednisone 10 mg Tablet 10 mg PO QAM Discharge Orders: Discharge Order- CHF (Routine); Ordered 11/26/22 Ordered By: Alex De La Cruz/Other Patient Handouts: Managing Type 2 Diabetes Admission Data Admit Date/Time: 11/15/22 21:07 Attending Provider: Alex Gil Admit Provider: Nik Restrepo Primary Care Provider: Jenni Jasmine Other Providers: Robert Blanchard ; Deonte Puga ; Nik Restrepo ; Dalton Olivas
--- NOTE | 2022-12-08 12:40 | Operative Report (OR) ---
DATE OF PROCEDURE: 11/24/2022. 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 POSTOPERATIVE DIAGNOSES: VF on pacemaker interrogation along with syncope, complete heart block, chr onic heart failure with reduced ejection fraction, [place] [employer] class II-III, nonischem ic cardiomyopathy. PROCEDURE: Upgrade to a biventricular rate responsive implantable cardiac defibrillator along with a peripheral venogram and coronary sinus venogram and extraction of a pacemaker lead all under fluoros copic guidance. SURGEON: Charline Hernandez DO. SKI MOLDER: None. ANESTHESIA: Monitored conscious sedation administered under my supervision by Remington Faust; start time 3:10, end time 4:33. A total of 5 mg of Versed and 100 mcg of fentanyl. INTRAVENOUS FLUIDS: 104 mL. ANTIBIOTICS: 2 grams of Ancef. CONTRAST: 20 mL. BLOOD LOSS: 50 mL. URINE OUTPUT: Not applicable. SPECIMENS: None. FINDINGS: See below. DRAINS: None. COMPLICATIONS: None. CONDITION: Stable. INDICATIONS: This is a 67-year-old female with a past medical history for complete heart block where she underwent a dual chamber His bundle permanent pacemaker in June 2019, hyperlipidemia, hypothy roidism, gastroesophageal reflux disease, diabetes, and hypertension. She presented to [facility] with syncope, correlate with ventricular fibrillation on her pacemaker interrogation that fortunately spontaneously converted . Echocardiogram during this admission showed that she had new developed cardiomyopathy of 20%. Cardiac catheterization showed minimal coronary artery dis ease with no intervention necessary. Due to the ventricular fibrillation, cardiac arrest presentatio n and worsening cardiomyopathy, she was recommended an upgrade to a BiV ICD along with His bundle rosetta d extraction since it was new pacemaker lead insertion. CONSENT: Consent was obtained prior to the patient going into electrophysiology lab. The patient wa s informed of risks, benefits, and alternatives to the procedure. Risks include, but not limited to, sudden cardiac , cardiac arrhythmias, cerebrovascular accident, myocardial infarction, injury t o the blood vessels, chamber of the heart and lung, bleeding and infection. The patient understood t hese risks and agreed to the procedure as planned. Informed consent was obtained. DESCRIPTION OF PROCEDURE: The patient was brought into electrophysiology lab in a fasting state. Sh e was connected to continuous hospital monitor. Timeout was performed to ensure patient identity and procedure correctly. She was prepped and draped over the left infraclavicular space in normal surgic al standard fashion. Monitored conscious sedation was given throughout the procedure for patient's c omfort level. [place] precautions were maintained throughout the procedure. She received prophyla ctic antibiotics prior to incision. A 20 mL of 1% lidocaine-bupivacaine mixture were given in the prior surgical incision. Incision was created over the prior surgical incision. Blunt dissection was performed down to the pulse generator . Then, the pulse generator remained in the body and a peripheral venogram was performed to identify the axillary vein. Venous axillary access was obtained on 2 separate occasions without any problems . Then, a guidewire was inserted without any resistance through both the needle sticks. Then, throu gh the more lateral stick, a 9.5-Stateless sheath was inserted over the guidewire, the guidewire and dil ator were removed and the right ventricular defibrillator lead was advanced through the right ventric le, positioned in the right ventricular apex under fluoroscopic guidance. There was adequate pacing and sensing thresholds and no diaphragmatic stimulation with output pacing. The 9.5-Stateless sheath wa s peeled away and the lead was fixated to pectoralis muscle using 0 silk suture. Through the more medial stick, a 9.5-Stateless sheath was inserted over the guidewire. The guidewire an d dilator removed. Then, the MPX Attain Command sheath was advanced through the 9.5-Stateless sheath ov er a Glidewire into the right ventricle. The Glidewire and dilator removed. Then, the Supra CS diag nostic catheter was advanced through the MPX Attain sheath and the coronary sinus was cannulated and then the MPX was advanced over the coronary sinus Supra CS catheter into the CS. Then, the Supra CS catheter was removed, and a balloon was placed through the MPX and the coronary sinus venogram was pe rformed, which showed a nice posterolateral branch. I was able to wire this branch with a Whisper wi re and then tracked the lead over it and there was adequate Pacing threshold testing without any diap hragmatic stimulation with high output pacing. Then, the MPX sheath was slit and the 9.5-Stateless hutton th was peeled away and the lead was fixated to pectoralis muscle using 0 silk suture. Then, I checked the ____ right atrial lead intraoperatively and connected the right atrial lead, the new defibrillator lead and the new coronary sinus lead to the new pulse generator making sure the pin s were in appropriate position, passed set screws, and set screws were all tightened. I then detache d the His bundle pacemaker, chronic lead from the old pacemaker generator and then removed the suture sleeve and then with gentle extraction removed the chronic His bundle pacemaker lead from the body. Then, the pocket was disrupted, the capsule was disrupted inferiorly and caudally to allow for new bl ood flow and the pocket was flushed with copious amounts of vancomycin and saline wash and inspected for hemostasis. Then, the pulse generator was placed in the antibiotic pouch followed then by being placed in the pocket, making sure the leads were lying flat beneath the device. The incision was sada sed in a 3-layer fashion using 2-0 Vicryl interrupted suture, followed by 3-0 Vicryl interrupted sutu re, followed by 4-0 Monocryl running stitch and Dermabond was applied followed by Telfa and Tegaderm dressing. EQUIPMENT: The explanted generator is a Medtronic model W1DR01, serial number [id number], implanted 07/03/2019. Extracted His bundle pacemaker lead that ____ 3830-69 cm, serial number [id number], implanted 020. The new pulse generator is a Medtronic Claria MRI Quad SUPERVISOR FORCE ADJUSTMENT-D SureScan [id number], serial number [id number]. TYRX pouch, reference [id number], lot number [id number]. Right atrial lead, 5076-52 cm, serial number ____, implanted 07/03/2019. The new defibrillator lead is Medtronic 6935M-62 cm, serial number [id number]. The new coronary sinus lead is Medtronic 4598-88 cm, serial number [id number]. INTRAPROCEDURAL FINDINGS: 1. Right atrial lead, P waves 3.7 millivolts, impedance 407 ohms, threshold 0.3 volts at 0.5 millise conds. 2. Right ventricular defibrillator lead, no R waves. The patient is dependent. Impedance 940 ohms, threshold 1 volt at 0.5 milliseconds. 3. Coronary sinus lead, impedance 585 ohms, threshold 3.2 volts at 1 millisecond. FINAL MEASUREMENTS THROUGH THE DEVICE. 1. Right atrial lead, P waves 3.5 millivolts, impedance 380 ohms, threshold 0.5 volts at 0.4 millise conds. 2. Right ventricular lead, no R waves. The patient is paced. Impedance 703 ohms, threshold 0.75 vo lts at 0.4 milliseconds. 3. Coronary sinus lead, impedance 532 ohms, threshold 1.75 volts at 1 millisecond. FINAL PARAMETERS: DDDR 70/130, right atrial amplitude 1.5 volts, pulse width 0.4 milliseconds, sensi tivity 0.3 millivolts. Right ventricular amplitude 5 volts, pulse width 0.4 milliseconds, sensitivit y 0.3 millivolts. Coronary sinus lead amplitude 3 volts, pulse width 1 millisecond. VT monitor zone 140 beats per minute for 32 detection intervals and VT zone 162 beats per minute for 20 detection intervals and VF zone at 200 beats per minute for 24 detection intervals. IMPRESSION: Successful upgrade to a biventricular rate responsive implantable cardiac defibrillator along with coronary sinus and peripheral venograms and extraction of chronic His pacemaker leads all under fluoroscopic guidance secondary to ventricular fibrillation, cardiac arrest, complete heart blo ck, nonischemic cardiomyopathy and chronic heart failure with reduced ejection fraction, [place] He[employer] Class II. PLAN: Monitor the patient post-procedure. Transfer her back to telemetry unit. Monitor her overnig ht. She is not to lift the left elbow or left shoulder for 1 month. She cannot lift more than 10 po unds with left arm for 2 weeks. She is to keep the dressing on and dry until her wound check next we ek. Job ID: [id number]
== END 2022-11-26 14:55 | disposition home or self-care (01) | DRG 224 ==
LOC: ED 17:59 → SUATTDRO 21:07 → 1E 21:07 → 2E 11-19 12:40

== ENCOUNTER 2023-02-16 12:11 | Inpatient (IN) ==
--- NOTE | 2023-02-16 12:41 | Emergency Department Note ---
Impression & Plan Hypomagnesemia, Renal insufficiency, Closed traumatic nondisplaced fracture of multiple ribs of right side, Closed fracture of transverse process of lumbar vertebra, AICD (automatic cardioverter/defibrillator) present ED Provider Note NAME: KRYSTAL RODRIGUEZ AGE: 67 SEX: F ARRIVES VIA: Ambulance INFORMANT: Patient ED PROVIDER(S): Mina Gee MD CHIEF COMPLAINT: Right hip and low back pain, fall on Tuesday. Hypotensive for E MS. PLAN: Disposition: Admit MEDICAL DECISION MAKING: The patient is a pleasant 67-year-old woman with a past medical history of systolic heart failure/nonischemic cardiomyopathy, EF of 25%, history of ventricular tachycardia, status post PPM and AICD, GERD, type 2 diabetes, question of history of diabetes insipidus (taken off of Desmopressin by Endocrine per patient) who presents to the emergency department via EMS for evaluation of ongoing back and right hip pain after having a fall on Tuesday where she believes she probably lost her balance maneuvering in her home around their dog falling onto her right side on the hearth of the fireplace. She was able to get up after the fall and has been ambulating but continues to have pain. She denies feeling lightheaded or short of breath. EMS arrived emergency to their home and found the patient be hypotensive with systolic blood pressure in the 70s when she was sitting on her bed. She otherwise denies any recent fevers, chills, cough, congestion, GI or symptoms. On arrival to Emergency Department the patient is uncomfortable but in no distress, afebrile with blood pressure 90s/60s and vital signs otherwise stable. She appears clinically dry. no midline CTL spine tenderness palpation or step- offs. She does have mild tenderness of the right upper lumbar paraspinal region, and right flank without bony crepitus. No joint edema. Pelvis is stable. Right hip with full range of motion though causing pain. EKG is ventricular paced without overt acute ischemia. WBC and platelets within normal limits. H/H similar to prior values. Glucose is 308 however chemistry with out metabolic acidosis. Creatinine 1.49, increased from recent though approximate to prior range of values. Magnesium 1.2 with IV repletion provided and sodium 133 and electrolytes otherwise unremarkable. LFTs unremarkable. High-sensitivity troponin 12.5, within normal limits. BNP is 239, nonspecific and improved from prior. Lipase not elevated. TSH within normal limits. CT of the abdomen pelvis and lumbar spine were performed. Note is made of nondisplaced acute right L1 and L2 transverse process fractures as well as nondisplaced acute right posterior 9-12 rib fractures. Note is made of multiple subacute bilateral anterior rib fractures which potentially may correlate to patient's fall March given no tenderness. Interrogation of the patient's PPM/AICD was obtained. Appreciate assistance by [employer] cnc maintenance technician who did evaluate the patient at the bedside and adjusted he r settings as the patient had a rate setting in the 90s when she had a place due to having ventricular arrhythmias but the intention was to set this at a lower rate which was performed today at the bedside. Otherwise the patient's fluid status had remained stable without evidence of hypervolemia. Upon reevaluation the patient's pressure had improved and was stable following IV fluid hydration cautiously with normal saline 250 cc boluses x2. Findings reviewed with the patient and she does agree with plan for admission for pain management. Case was discussed with Nikita Kent, with Dr. Juarez Shelton hospitalist who will evaluate the patient for admission. Triage Nursing notes reviewed and agree them. Prior/outside medical records reviewed Vital Signs: reviewed Differential diagnosis: Fracture, subluxation, dislocation, contusion, ligamentous injury, neurovascular, compartment syndrome, rhabdomyolysis, as well as other pathologies. ER treatment provided: See below. Diagnostics interpreted by me: ECG: AV dual paced rhythm, 89 bpm, no ectopy, no overt acute ischemia. Cardiac Monitoring: An order for continuous cardiac monitoring was placed and demonstrated AV dual paced rhythm, 89 bpm, no ectopy. Laboratory studies: See below Imaging studies: See below Consultation(s): Case was discussed with Nikita Kent PAC, with Dr. Juarez Shelton hospitalist who will evaluate the patient for admission. HPI: The patient is a pleasant 67-year-old woman with a past medical history of systolic heart failure/nonischemic cardiomyopathy, EF of 25%, history of ventric ular tachycardia, status post PPM and AICD, GERD, type 2 diabetes, question of history of diabetes insipidus (taken off of Desmopressin by Endocrine per patient) who presents to the emergency department via EMS for evaluation of ongoing back and right hip pain after having a fall on Tuesday where she believes she probably lost her balance maneuvering in her home around their dog falling onto her right side on the hearth of the fireplace. She was able to get up after the fall and has been ambulating but continues to have pain. She denies feeling lightheaded or short of breath. EMS arrived emergency to their home and found the patient be hypotensive with systolic blood pressure in the 70s when she was sitting on her bed. She otherwise denies any recent fevers, chills, cough, congestion, GI or symptoms. ROS: See above HPI for pertinent positives & negatives. A total of 10 systems reviewed and were otherwise negative. VITALS:See Below PHYSICAL EXAMINATION: GENERAL: Awake, alert, uncomfortable-appearing, in no distress HENT: Normocephalic, atraumatic. Oropharynx with dry mucous membranes and otherwise unremarkable. EYES: Normal conjunctiva. Sclera non-icteric. NECK: Supple. No nuchal rigidity. FROM. No JVD. RESPIRATORY: Clear to auscultation. CARDIAC: Regular rate, normal rhythm. Extremities warm and well perfused. Pulses equal. ABDOMEN: Soft, non-distended. No tenderness to palpation. No rebound or guarding. No masses. RECTAL: Deferred. MUSCULOSKELETAL: Chest examination reveals no tenderness. The back is symmetrical on inspection without obvious abnormality. There is no midline CTL spine tenderness palpation or step-offs. She does have mild tenderness of the right upper lumbar paraspinal region, and right flank without bony crepitus. No joint edema. Pelvis is stable. Right hip with full range of motion though causing pain. LOWER EXTREMITIES: Calves are equal size bilaterally and non-tender. No edema. No discoloration. NEURO: Normal sensorium. No sensory or motor deficits noted. SKIN: No rash or jaundice noted. ED COURSE: Critical Care: I have personally spent greater than 35 minutes of critical care time in the direct management of this patient. This includes bedside care, interpretation of diagnostic studies, and testing, discussion with consultants, patient, and family members, and other required patient management activities. This 35 minut es is in excess of all separately billable procedures. Mina Gee MD Past Med/Surg History Medical History Allergic rhinitis Asthma not well controlled per pt, has not used it for appox 1 week Depression with anxiety Diabetes insipidus desmopressin for this Diabetes type 2, controlled NIDDM Dyslipidemia GERD (gastroesophageal reflux disease) History of COVID-12 January 2022 > not hospitalized, > no further problems Hypomagnesemia Hypothyroidism Multiple thyroid nodules Pacemaker Jun 2019 > [facility] > 2nd degree AV block > follows with Dr. Hernandez with [facility], last checked August 2021 > [employer] Second degree AV block pacemaker Vitamin D deficiency Surgical History History of cardiac cath 2018 > no stents History of cataract surgery History of cholecystectomy History of colonoscopy History of esophagogastroduodenoscopy (EGD) Family History Father Heart disease Mother Heart disease Other No family history of adverse response to anesthesia No family history of bleeding disorder Social History Smoking Status: Never smoker Tobacco Type: Cigarettes Second Hand Exposure: No; Do You Dip or Chew Tobacco: No; Hx Alcohol Use: Yes Alcohol type: beer Hx Substance Use: No Preferred Language: Romanian Communication Ability: Effective Portable Machine Sander Required: No Beliefs That Will Affect Care: None Current Living Situation: Spouse current occupational status: employed 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 Feels Safe at Home: Yes Assistive Devices: None Allergies Allergies Allergy/AdvReac Type Severity Reaction Status Date / Time aspirin AdvReac Intermediate shortness Verified 02/16/23 17:06 of breath Home Meds Home Medications Medication Instructions Recorded Confirmed desmopressin 0.2 mg tablet 0.2 mg PO BID #180 tabs 03/02/19 11/15/22 levothyroxine 50 mcg tablet 50 mcg PO DAILYBB #90 tabs 03/02/19 11/15/22 metformin 500 mg tablet,extended 1,000 mg PO BID #360 tabs 03/02/19 02/16/23 release 24 hr pantoprazole 40 mg tablet,delayed 40 mg PO HS #90 tabs 03/02/19 11/15/22 release imipramine HCl 50 mg tablet 50 mg PO DIRECTED 03/13/19 11/15/22 zafirlukast 20 mg tablet 20 mg PO BID 05/29/21 11/15/22 cholecalciferol (vitamin D3) 25 25 mcg PO DAILY 04/30/22 02/16/23 mcg (1,000 unit) chewable tablet (Vitamin D3) budesonide 0.5 mg/2 mL suspension 10 mg inhalation [facility]HS 11/15/22 11/15/22 for nebulization fluticasone 500 mcg-salmeterol 50 2 inh inhalation BID 11/15/22 11/15/22 mcg/dose blistr powdr for inhalation glipizide 10 mg tablet 10 mg PO BID 11/15/22 11/15/22 hydroxyzine HCl 25 mg tablet 25 mg PO QID PRN Anxiety 11/15/22 02/16/23 prednisone 10 mg tablet 10 mg PO DAILY 02/16/23 02/16/23 semaglutide 0.25 mg or 0.5 mg (2 0.25 mg subcut WK 02/16/23 02/16/23 mg/3 mL) subcutaneous pen injector (Ozempic) Previous Rx's Medication Instructions Recorded amiodarone 200 mg tablet 200 mg PO DAILY #30 tabs 11/26/22 atorvastatin 40 mg tablet 40 mg PO HS #30 tabs 11/26/22 clopidogrel 75 mg tablet 75 mg PO QAM #30 tabs 11/26/22 furosemide 40 mg tablet 40 mg PO QAM #30 tabs 11/26/22 magnesium chloride 64 mg 64 mg PO DAILY #30 tabs 11/26/22 (magnesium chloride) tablet,delayed release metoprolol succinate 25 mg 25 mg PO BID #60 tabs 11/26/22 tablet,extended release 24 hr sacubitril 49 mg-valsartan 51 mg 1 tab PO BID #60 tabs 11/26/22 tablet (Entresto) Results & Data (ED) Vital Signs Vital Signs - 24 hr 02/16/23 12:24 02/16/23 12:24 02/16/23 12:35 Temperature 36.5 C Temperature Source Oral Pulse Rate 90 90 Pulse Rate [Apical] Respiratory Rate 16 Respiratory Effort / Characteristics Respiratory Depth Blood Pressure 96/64 L Blood Pressure [Right Arm] Blood Pressure Mean 74 Blood Pressure Mean [Right Arm] Pulse Oximetry 100 Oxygen Delivery Method Room Air Sepsis Recent Fever Within 48 Hours No Sepsis New/Unexplained Change in Mental Status No Sepsis Action Taken by Nursing No Action Required 02/16/23 12:45 02/16/23 13:03 02/16/23 15:28 Temperature Temperature Source Pulse Rate Pulse Rate [Apical] 89 89 Respiratory Rate 16 18 Respiratory Effort / Characteristics Non-Labored Respiratory Depth Normal Blood Pressure Blood Pressure [Right Arm] 98/61 L 93/63 L Blood Pressure Mean Blood Pressure Mean [Right Arm] 73 73 Pulse Oximetry 100 100 99 Oxygen Delivery Method Room Air Room Air Room Air Sepsis Recent Fever Within 48 Hours Sepsis New/Unexplained Change in Mental Status Sepsis Action Taken by Nursing 02/16/23 16:00 02/16/23 16:24 02/16/23 16:30 Temperature Temperature Source Pulse Rate 75 75 75 Pulse Rate [Apical] Respiratory Rate 17 13 Respiratory Effort / Characteristics Respiratory Depth Blood Pressure 110/60 97/63 L Blood Pressure [Right Arm] Blood Pressure Mean 76 74 Blood Pressure Mean [Right Arm] Pulse Oximetry 97 100 Oxygen Delivery Method Room Air Room Air Sepsis Recent Fever Within 48 Hours Sepsis New/Unexplained Change in Mental Status Sepsis Action Taken by Nursing 02/16/23 17:00 02/16/23 17:30 02/16/23 18:01 Temperature Temperature Source Pulse Rate 75 75 75 Pulse Rate [Apical] Respiratory Rate 16 23 20 Respiratory Effort / Characteristics Respiratory Depth Blood Pressure 96/55 L 95/55 L 109/61 Blood Pressure [Right Arm] Blood Pressure Mean 68 68 77 Blood Pressure Mean [Right Arm] Pulse Oximetry 97 100 100 Oxygen Delivery Method Room Air Room Air Room Air Sepsis Recent Fever Within 48 Hours Sepsis New/Unexplained Change in Mental Status Sepsis Action Taken by Nursing 02/16/23 18:30 02/16/23 19:00 Temperature Temperature Source Pulse Rate 75 75 Pulse Rate [Apical] Respiratory Rate 18 14 Respiratory Effort / Characteristics Respiratory Depth Blood Pressure 106/61 107/61 Blood Pressure [Right Arm] Blood Pressure Mean 76 76 Blood Pressure Mean [Right Arm] Pulse Oximetry 100 97 Oxygen Delivery Method Room Air Room Air Sepsis Recent Fever Within 48 Hours Sepsis New/Unexplained Change in Mental Status Sepsis Action Taken by Nursing Laboratory Data Attestation: I reviewed the patient's lab results. 02/16/23 12:40 02/16/23 12:40 Lab Results 02/16/23 02/16/23 02/16/23 Range/Units 12:40 12:40 12:40 WBC 7.82 (4.8-10.8) K/ul RBC 3.52 L (4.20-5.40) M/uL Hgb 10.7 L (12.0-16.0) g/dl Hct 31.6 L (37.0-47.0) % MCV 89.8 (80.0-100.0) fL MCH 30.4 (25.0-34.0) pg MCHC 33.9 (32.0-36.0) g/dL RDW Std Deviation 47.8 H (36.4-46.3) fL RDW Coeff of [place] 14.7 H (11.5-14.5) % Plt Count 294 (130-400) K/uL MPV 10.2 (9.4-12.4) fL Immature Gran % (Auto) 0.6 % Neut % (Auto) 79.8 % Lymph % (Auto) 13.8 % [place] % (Auto) 5.5 % Eos % (Auto) 0.0 % Baso % (Auto) 0.3 % Neut # (Auto) 6.24 (1.40-6.50) K/uL Lymph # (Auto) 1.08 L (1.20-3.40) K/uL [place] # (Auto) 0.43 (0.11-0.59) K/uL Eos # (Auto) 0.00 (0.00-0.50) K/uL Baso # (Auto) 0.02 (0.00-0.20) K/uL Immature Gran # (Auto) 0.05 (0.01-0.20) K/uL PT (9.0-12.0) Seconds INR (0.9-1.1) Sodium 133 L (136-145) mmol/L Potassium 4.5 (3.5-5.1) mmol/L Chloride 100 (98-107) mmol/L Carbon Dioxide 21 (21-32) mmol/L Anion Gap 12 H (3-11) BUN 35 H (6-23) mg/dl Creatinine 1.49 H (0.6-1.2) mg/dl Est Cr Clr Drug Dosing 34.9 ml/min Est GFR ( Amer) 41.4 ml/min Est GFR (Non-Af Amer) 35.7 ml/min BUN/Creatinine Ratio 23.5 H (10-20) Glucose 308 H* (70-99(Fasting)) mg/dl Calcium 8.6 (8.6-10.3) mg/dl Phosphorus 3.5 (2.5-4.9) mg/dl Magnesium 1.2 L (1.7-2.4) mg/dl Total Bilirubin 0.4 (0.2-1.0) mg/dl AST 13 (13-39) U/L ALT 15 (7-52) U/L Alkaline Phosphatase 104 (34-104) U/L Troponin I High Sens 12.5 (0-14) pg/ml B-Natriuretic Peptide (0-100) pg/ml Total Protein 6.3 (6.0-8.3) gm/dl Albumin 3.5 (3.4-5.0) gm/dl Globulin 2.8 (2.5-4.0) gm/dl Albumin/Globulin Ratio 1.3 (0.9-2) Lipase 23 (11-82) U/L TSH 3.528 (0.300-4.500) uIu/ml 02/16/23 02/16/23 Range/Units 12:55 12:55 WBC (4.8-10.8) K/ul RBC (4.20-5.40) M/uL Hgb (12.0-16.0) g/dl Hct (37.0-47.0) % MCV (80.0-100.0) fL MCH (25.0-34.0) pg MCHC (32.0-36.0) g/dL RDW Std Deviation (36.4-46.3) fL RDW Coeff of [place] (11.5-14.5) % Plt Count (130-400) K/uL MPV (9.4-12.4) fL Immature Gran % (Auto) % Neut % (Auto) % Lymph % (Auto) % [place] % (Auto) % Eos % (Auto) % Baso % (Auto) % Neut # (Auto) (1.40-6.50) K/uL Lymph # (Auto) (1.20-3.40) K/uL [place] # (Auto) (0.11-0.59) K/uL Eos # (Auto) (0.00-0.50) K/uL Baso # (Auto) (0.00-0.20) K/uL Immature Gran # (Auto) (0.01-0.20) K/uL PT 11.2 (9.0-12.0) Seconds INR 1.0 (0.9-1.1) Sodium (136-145) mmol/L Potassium (3.5-5.1) mmol/L Chloride (98-107) mmol/L Carbon Dioxide (21-32) mmol/L Anion Gap (3-11) BUN (6-23) mg/dl Creatinine (0.6-1.2) mg/dl Est Cr Clr Drug Dosing ml/min Est GFR ( Amer) ml/min Est GFR (Non-Af Amer) ml/min BUN/Creatinine Ratio (10-20) Glucose (70-99(Fasting)) mg/dl Calcium (8.6-10.3) mg/dl Phosphorus (2.5-4.9) mg/dl Magnesium (1.7-2.4) mg/dl Total Bilirubin (0.2-1.0) mg/dl AST (13-39) U/L ALT (7-52) U/L Alkaline Phosphatase (34-104) U/L Troponin I High Sens (0-14) pg/ml B-Natriuretic Peptide 239 H (0-100) pg/ml Total Protein (6.0-8.3) gm/dl Albumin (3.4-5.0) gm/dl Globulin (2.5-4.0) gm/dl Albumin/Globulin Ratio (0.9-2) Lipase (11-82) U/L TSH (0.300-4.500) uIu/ml Administered Medications Discontinued Medications Fentanyl Citrate (Fentanyl Citrate Pf 100 Mcg/2 Ml Vial) 25 mcg IV NOW STA Stop: 02/16/23 13:03 Last Admin: 02/16/23 13:24 Dose: 25 mcg Documented By: CARLOS MANUEL Sodium Chloride (Nss) 250 mls @ 999 mls/hr IV .Q16M ONE Stop: 02/16/23 13:17 Last Infusion: 02/16/23 14:00 Dose: 0 mls/hr Documented By: CARLOS MANUEL Admin: 02/16/23 13:24 Dose: 999 mls/hr Documented By: CARLOS MANUEL Acetaminophen (Ofirmev) 1,000 mg in 100 mls @ 400 mls/hr IV NOW STA Stop: 02/16/23 13:16 Last Infusion: 02/16/23 13:57 Dose: 0 mls/hr Documented By: CARLOS MANUEL Admin: 02/16/23 13:27 Dose: 400 mls/hr Documented By: CARLOS MANUEL Magnesium Sulfate/Dextrose (Magnesium Sulfate / D5w) 1 gm in 100 mls @ 100 mls/hr IV Q1H KELSIE Stop: 02/16/23 16:12 Last Infusion: 02/16/23 16:32 Dose: 0 mls/hr Documented By: Admin: 02/16/23 15:29 Dose: 100 mls/hr Documented By: Infusion: 02/16/23 15:28 Dose: 0 mls/hr Documented By: Admin: 02/16/23 14:20 Dose: 100 mls/hr Documented By: CARLOS MANUEL Sodium Chloride (Nss) 250 mls @ 999 mls/hr IV .Q16M ONE Stop: 02/16/23 15:45 Last Infusion: 02/16/23 16:26 Dose: 0 mls/hr Documented By: Admin: 02/16/23 15:49 Dose: 999 mls/hr Documented By: KAREEN Ioversol (Optiray 320 100ml) 92 ml IV ONCE ONE Stop: 02/16/23 14:31 Last Admin: 02/16/23 14:10 Dose: 92 ml Documented By: Lenny Imaging Data Radiologist's Impression: Chest X-Ray 02/16/23 12:36 XR chest 1V portable CLINICAL HISTORY: Chest pain, nonspecific TECHNIQUE: Single frontal radiograph of the chest was obtained. Comparison: Comparison is made to chest radiograph 11/25/2022 FINDINGS: Pacemaker defibrillator is seen. The cardiomediastinal silhouette is normal. The lungs are clear. No evidence of pleural effusion or pneumothorax. A prominent hiatal hernia is again seen. IMPRESSION: No acute chest disease. ACT 112: Negative or not required by law. Electronically signed by: Gaston Davis M.D. 02/16/2023 1:35 PM Abdomen/Pelvis CT 02/16/23 13:[address] WITH IV CONTRAST CT DOSE: 972.25 mGy.cm HISTORY: Fall, lumbar, right hip pain TECHNIQUE: Multiaxial CT images of the abdomen and pelvis were performed following the use of intravenous contrast. A dose lowering technique was utilized adhering to the principles of ALARA. COMPARISON STUDY: Chest CT 11/15/2022. FINDINGS: There is a stable 3 mm nodular density within the left lung base on image 72. This remains unchanged. There is a moderate to large hiatus hernia again noted. The heart is mildly enlarged. Pacemaker wires are present. No pneumoperitoneum. No pneumatosis. There are acute nondisplaced right L1 and L2 transverse process fractures. Multiple subacute/healing bilateral anterior rib fractures. There are also acute right posterior ninth through 12th rib fractures. Prior cholecystectomy. The liver, spleen, adrenal glands, and pancreas are within normal limits. There are few punctate bilateral renal calculi. No ureteral calculi. No hydronephrosis. The main portal vein is patent. Normal caliber abdominal aorta. No retroperitoneal hematoma or lymphadenopathy. Small subcutaneous contusion within the right lower back. Normal bladder. The uterus and bilateral adnexa are within normal limits. Trace pelvic free fluid. Moderate fecal retention. No bowel wall thickening or obstruction. Normal appendix. IMPRESSION: 1. Nondisplaced acute right L1 and L2 transverse process fractures. 2. Nondisplaced acute right posterior ninth through 12th rib fractures. . 3. Multiple subacute bilateral anterior rib fractures. 4. Additional findings as described above. ACT 112: Negative or not required by law. Electronically signed by: Anderson Villagomez M.D. 02/16/2023 3:[address] 02/16/23 13:02 CT lumbar spine w con HISTORY: 67 years-old Female fall pain . Back pain status post fall COMPARISON: CT abdomen and pelvis of same day TECHNIQUE: Multiple axial CT images of the lumbar spine were obtained following the intravenous administration of 92 mL Optiray 320. A dose lowering technique was used consistent with the principals of ALARA. FINDINGS: Levoscoliosis. Acute nondisplaced fractures of the right L1 and L2 transverse processes. No acute sacral insufficiency fracture. No additional acute fracture or subluxation identified. Multilevel degenerative changes include moderate to severe facet arthrosis at L5-S1. No high-grade central canal or neural foraminal narrowing identified by CT technique. The intra-abdominal and intrapelvic structures are better evaluated on the comparison CT abdomen and pelvis exam. IMPRESSION: 1. Acute nondisplaced right L1 and L2 transverse process fractures. 2. Please refer to the CT abdomen and pelvis study of same day for discussion of the right-sided rib fractures. 3. Lumbar levoscoliosis. ACT 112: Negative or not required by law. The above report was generated using voice recognition software. It may contain grammatical, syntax or spelling errors. Electronically signed by: Francesco Naik M.D. 02/16/2023 3:26 PM Discharge Plan Visit Data Chief Complaint: Hypotension ED Provider: Mina Gee Discharge Problem: Hypomagnesemia, Renal insufficiency, Closed traumatic nondisplaced fracture of multiple ribs of right side, Closed fracture of transverse process of lumbar vertebra, AICD (automatic cardioverter/defibrillator) present Forms Stand Alone Forms: [employer] Prescriptions Prescriptions: No Action desmopressin 0.2 mg tablet 0.2 mg PO BID Qty: 180 Patient Comments: approved 12/27/2018-12/28/2019 levothyroxine 50 mcg tablet 50 mcg PO DAILYBB Qty: 90 metformin 500 mg tablet extended release 24 hr 1,000 mg PO BID Qty: 360 pantoprazole 40 mg tablet,delayed release (DR/EC) 40 mg PO HS Qty: 90 imipramine HCl 50 mg tablet 50 mg PO DIRECTED Patient Comments: Take 100 mg (2 tabs) qAM and 150 mg (3 tabs) qPM PO ; Rx Instructions: (2 tabs) qAM and 150 mg (3 tabs) qPM zafirlukast 20 mg tablet 20 mg PO BID cholecalciferol (vitamin D3) [Vitamin D3] 25 mcg (1,000 unit) Tablet,Chewable 25 mcg PO DAILY glipizide 10 mg tablet 10 mg PO BID budesonide 0.5 mg/2 mL suspension for nebulization 10 mg inhalation [facility]HS Rx Instructions: 2 vial dose hydroxyzine HCl 25 mg tablet 25 mg PO QID PRN (Reason: Anxiety) fluticasone propion-salmeterol 500-50 mcg/dose blister with device 2 inh INHALATION BID furosemide 40 mg Tablet 40 mg PO QAM Qty: 30 1RF atorvastatin 40 mg Tablet 40 mg PO HS Qty: 30 1RF amiodarone 200 mg Tablet 200 mg PO DAILY Qty: 30 1RF clopidogrel 75 mg Tablet 75 mg PO QAM Qty: 30 1RF metoprolol succinate 25 mg Tablet Extended Release 24 Hr 25 mg PO BID Qty: 60 1RF Entresto 49-51 mg Tablet 1 tab PO BID Qty: 60 1RF magnesium chloride 64 mg tablet,delayed release (DR/EC) 64 mg PO DAILY Qty: 30 0RF prednisone 10 mg tablet 10 mg PO DAILY Ozempic 0.25 mg or 0.5 mg (2 mg/3 mL) pen injector 0.25 mg SUBCUT WK Referrals Referrals: Jenni Jasmine MD [Primary Care Provider] -
[2023-02-16] MEDS ORDERED: ACETAMINOPHEN 1,000 MG/100 ML VIAL IV STA (13:02)
[2023-02-16] MEDS ORDERED: fentaNYL citrate PF 100 MCG/2 ML VIAL IV STA (13:02)
[2023-02-16] MEDS ORDERED: SODIUM CHLORIDE 0.9% 250 ML IV ONE ×2 (13:02→15:30)
[2023-02-16 13:05] LABS: Basophils # (auto) 0.02 K/uL (0.00-0.20); Basophils % (auto) 0.3 %; Hematocrit (blood only) 31.6 % (37.0-47.0); Hemoglobin 10.7 g/dl (12.0-16.0); Immature Granulocytes # (auto) 0.05 K/uL (0.01-0.20); Immature Granulocytes % (auto) 0.6 %; Lymphocytes # (auto) 1.08 K/uL (1.20-3.40); Lymphocytes % (auto) 13.8 %; Mean Corpuscular Hemoglobin 30.4 pg (25.0-34.0); Mean Corpuscular Hgb Conc 33.9 g/dL (32.0-36.0); Mean Corpuscular Volume 89.8 fL (80.0-100.0); Mean Platelet Volume 10.2 fL (9.4-12.4); Monocytes # (auto) 0.43 K/uL (0.11-0.59); Monocytes % (auto) 5.5 %; Neutrophils # (auto) 6.24 K/uL (1.40-6.50); Neutrophils % (auto) 79.8 %; Platelet Count 294 K/uL (130-400); RDW Coefficient of Variation 14.7 % (11.5-14.5); RDW Standard Deviation 47.8 fL (36.4-46.3); Red Blood Count 3.52 M/uL (4.20-5.40); White Blood Count 7.82 K/ul (4.8-10.8)
--- NOTE | 2023-02-16 13:36 | XRay Report ---
XR chest 1V portable CLINICAL HISTORY: Chest pain, nonspecific TECHNIQUE: Single frontal radiograph of the chest was obtained. Comparison: Comparison is made to chest radiograph 11/25/2022 FINDINGS: Pacemaker defibrillator is seen. The cardiomediastinal silhouette is normal. The lungs are clear. No evidence of pleural effusion or pneumothorax. A prominent hiatal hernia is again seen. IMPRESSION: No acute chest disease. ACT 112: Negative or not required by law. Electronically signed by: Gaston Davis M.D. 02/16/2023 1:35 PM
[2023-02-16 13:43] LABS: Albumin Globulin Ratio 1.3 (0.9-2); Albumin Level 3.5 gm/dl (3.4-5.0); BUN Creatinine Ratio 23.5 (10-20); Bilirubin,Total 0.4 mg/dl (0.2-1.0); Calcium 8.6 mg/dl (8.6-10.3); Creatinine Clr Calc Pharmacy 34.9 ml/min; Est GFR (African American) 41.4 ml/min; Est GFR (Non-African American) 35.7 ml/min; Globulin 2.8 gm/dl (2.5-4.0); Magnesium 1.2 mg/dl (1.7-2.4); Phosphorus 3.5 mg/dl (2.5-4.9); Potassium 4.5 mmol/L (3.5-5.1); Total Protein 6.3 gm/dl (6.0-8.3); Troponin I High Sensitivity 12.5 pg/ml (0-14)
[2023-02-16 13:43] LABS: Prothrombin Time 11.2 Seconds (9.0-12.0)
[2023-02-16] MEDS: MAGNESIUM SULFATE / D5W 1 GM/100 ML BAG IV SCH ×2 (14:20→15:29)
[2023-02-16] MEDS ORDERED: OPTIRAY 320 100ml IV ONE (14:30)
--- NOTE | 2023-02-16 15:20 | CT Scan Report ---
ABDOMEN AND PELVIS CT WITH IV CONTRAST CT DOSE: 972.25 mGy.cm HISTORY: Fall, lumbar, right hip pain TECHNIQUE: Multiaxial CT images of the abdomen and pelvis were performed following the use of intrave nous contrast. A dose lowering technique was utilized adhering to the principles of ALARA. COMPARISON STUDY: Chest CT 11/15/2022. FINDINGS: There is a stable 3 mm nodular density within the left lung base on image 72. This remains unchanged. There is a moderate to large hiatus hernia again noted. The heart is mildly enlarged. Pace maker wires are present. No pneumoperitoneum. No pneumatosis. There are acute nondisplaced right L1 a nd L2 transverse process fractures. Multiple subacute/healing bilateral anterior rib fractures. There are also acute right posterior ninth through 12th rib fractures. Prior cholecystectomy. The liver, s pleen, adrenal glands, and pancreas are within normal limits. There are few punctate bilateral renal calculi. No ureteral calculi. No hydronephrosis. The main portal vein is patent. Normal caliber abdom inal aorta. No retroperitoneal hematoma or lymphadenopathy. Small subcutaneous contusion within the r ight lower back. Normal bladder. The uterus and bilateral adnexa are within normal limits. Trace pelv ic free fluid. Moderate fecal retention. No bowel wall thickening or obstruction. Normal appendix. IMPRESSION: 1. Nondisplaced acute right L1 and L2 transverse process fractures. 2. Nondisplaced acute right posterior ninth through 12th rib fractures. . 3. Multiple subacute bilateral anterior rib fractures. 4. Additional findings as described above. ACT 112: Negative or not required by law. Electronically signed by: Anderson Villagomez M.D. 02/16/2023 3:19 PM
--- NOTE | 2023-02-16 15:28 | CT Scan Report ---
CT lumbar spine w con HISTORY: 67 years-old Female fall pain . Back pain status post fall COMPARISON: CT abdomen and pelvis of same day TECHNIQUE: Multiple axial CT images of the lumbar spine were obtained following the intravenous admin istration of 92 mL Optiray 320. A dose lowering technique was used consistent with the principals of ALARA. FINDINGS: Levoscoliosis. Acute nondisplaced fractures of the right L1 and L2 transverse processes. No acute sac ral insufficiency fracture. No additional acute fracture or subluxation identified. Multilevel degene rative changes include moderate to severe facet arthrosis at L5-S1. No high-grade central canal or ne ural foraminal narrowing identified by CT technique. The intra-abdominal and intrapelvic structures are better evaluated on the comparison CT abdomen and pelvis exam. IMPRESSION: 1. Acute nondisplaced right L1 and L2 transverse process fractures. 2. Please refer to the CT abdomen and pelvis study of same day for discussion of the right-sided rib fractures. 3. Lumbar levoscoliosis. ACT 112: Negative or not required by law. The above report was generated using voice recognition software. It may contain grammatical, syntax o r spelling errors. Electronically signed by: Francesco Naik M.D. 02/16/2023 3:26 PM
--- NOTE | 2023-02-16 18:16 | History & Physical Report ---
Date of Service February 16, 2023 Assessment & Plan (1) Fall: (2) Closed traumatic nondisplaced fracture of multiple ribs of right side: (3) Closed fracture of transverse process of lumbar vertebra: Plan: Patient is 67 y/o F with PMH heart block, nonischemic cardiomyopathy, s/p pacemaker, asthma, DM II, diabetes insipidus, hypothyroidism and others listed below presented to ER with complaint of fall and right back pain x4 days. CT Lumbar spine: 1. Acute nondisplaced right L1 and L2 transverse process fractures. 2. Please refer to the CT abdomen and pelvis study of same day for discussion of the right-sided rib fractures. 3. Lumbar levoscoliosis. CT abd/pelvis: 1. Nondisplaced acute right L1 and L2 transverse process fractures. 2. Nondisplaced acute right posterior ninth through 12th rib fractures. . 3. Multiple subacute bilateral anterior rib fractures. 4. Additional findings as described above. CXR: no acute infiltrate, no pneumothorax noted per my interpretation In ER given fentanyl with some relief Fall precautions PT/OT eval Scheduled Tylenol, tramadol, oxycodone as needed pain Ortho spine consult Incentive spirometry CBC, BMP in am (4) WILFRID (acute kidney injury): Plan: Cr: 1.49. Baseline 0.9-1.0 In ER given 500 NSS Hold Lasix for now Monitor renal functions Avoid nephrotoxic agents when possible (5) Hypomagnesemia: Plan: Magnesium: 1.2 In ER given 2 g magnesium sulfate (6) Second degree AV block: (7) Nonischemic cardiomyopathy: Plan: S/P ICD Pacemaker interrogation Hold Entresto for now given soft BPs in ER Continue amiodarone, metoprolol succinate, Plavix (8) Asthma: Plan: No signs acute exacerbation Continue home inhalers, nebulizers, zafirlukast (9) Diabetes type 2, controlled: Plan: A1c: 7.9 on 01/11/2023 Random glucose 308 Hold home metformin, Ozempic Basal bolus insulin per protocol (10) Diabetes insipidus: Plan: Previously diagnosed with diabetes insipidus [email or web address]. Has been taken off DDAVP recently (11) Hypothyroidism: Plan: TSH: 3.5 Continue levothyroxine DVT Prophylaxis SCDs for now DNR/DNI as per discussion with pt Follows with Dr Jenni Jasmine for routine care Pt was seen and care coordinated with Dr Pizarro. See addendum I spent a total of 76 minutes reviewing notes, outpatient records, labs, medication, coordinating, documenting and providing care for this patient ex cluding time spent in the performance of separately billed services. History of Present Illness Chief Complaint: back pain Primary Care Provider: Jenni Jasmine MD Patient is 67 y/o F with PMH heart block, nonischemic cardiomyopathy, s/p pacemaker/ICD asthma, DM II, diabetes insipidus, hypothyroidism and others listed below presented to ER with complaint of fall and right back pain x4 days. Patient states 4 days ago started up out of her recliner and felt off balance and went to stand walk and states dog was near her feet and she fell onto right side hitting her right side and back on fireplace. Patient denies hitting head, denies LOC. She reports since has been having right-sided back pain that radiates down right buttock and thigh. Pain aggravated with movement and walking. Denies neck pain, abdominal pain, or other extremity pain. Denies any chest pain or shortness of breath. Has not noticed any ecchymosis or skin discolorations to chest, abdomen or back. She has been taking Tylenol without relief. Denies any other known injury. Patient states that she has been feeling "off balance" with walking recently. States last fall was in March 2022 and states at that time had diffuse ecchymosis of anterior chest with anterior chest wall pain. Denies fever/chills, diaphoresis, N/V/D/C, ALEGRE, dizziness, syncope, vision changes, neck pain, CP, SOB, orthopnea, palpitations, cough, sore throat, rhinorrhea, abdominal pain, paresthesias, extremity weakness, extremity edema, rashes, urinary symptoms. Allergies Allergy/AdvReac Type Severity Reaction Status Date / Time aspirin AdvReac Intermediate shortness Verified 02/16/23 17:06 of breath Home Medications Medication Instructions Recorded Confirmed Type levothyroxine 50 mcg tablet 50 mcg PO DAILYBB #90 tabs 03/02/19 02/16/23 History metformin 500 mg tablet,extended 500 mg PO BID #360 tabs 03/02/19 02/16/23 History release 24 hr pantoprazole 40 mg tablet,delayed 40 mg PO HS #90 tabs 03/02/19 02/16/23 History release zafirlukast 20 mg tablet 20 mg PO BID 05/29/21 02/16/23 History cholecalciferol (vitamin D3) 25 25 mcg PO DAILY 04/30/22 02/16/23 History mcg (1,000 unit) chewable tablet (Vitamin D3) budesonide 0.5 mg/2 mL suspension 1 mg inhalation [facility] 11/15/22 02/16/23 History for nebulization amiodarone 200 mg tablet 200 mg PO DAILY #30 tabs 11/26/22 02/16/23 Rx atorvastatin 40 mg tablet 40 mg PO HS #30 tabs 11/26/22 02/16/23 Rx clopidogrel 75 mg tablet 75 mg PO QAM #30 tabs 11/26/22 02/16/23 Rx furosemide 40 mg tablet 40 mg PO QAM #30 tabs 11/26/22 02/16/23 Rx magnesium chloride 64 mg 64 mg PO DAILY #30 tabs 11/26/22 02/16/23 Rx (magnesium chloride) tablet,delayed release metoprolol succinate 25 mg 25 mg PO BID #60 tabs 11/26/22 02/16/23 Rx tablet,extended release 24 hr sacubitril 49 mg-valsartan 51 mg 1 tab PO BID #60 tabs 11/26/22 02/16/23 Rx tablet (Entresto) albuterol sulfate 90 mcg/actuation 2 puff inhalation Q6H PRN 02/16/23 02/16/23 History aerosol inhaler Shortness Of Breath Or Wheezing fluticasone propionate 110 2 puff inhalation BID 02/16/23 02/16/23 History mcg/actuation HFA aerosol inhaler (Flovent HFA) prednisone 10 mg tablet 10 mg PO DAILY 02/16/23 02/16/23 History semaglutide 0.25 mg or 0.5 mg (2 0.25 mg subcut WK 02/16/23 02/16/23 History mg/3 mL) subcutaneous pen injector (Ozempic) tiotropium bromide 2.5 2 puff inhalation DAILY 02/16/23 02/16/23 History mcg/actuation mist for inhalation (Spiriva Respimat) Past Med/Surg History Medical History Allergic rhinitis Asthma not well controlled per pt, has not used it for appox 1 week Depression with anxiety Diabetes insipidus desmopressin for this Diabetes type 2, controlled NIDDM Dyslipidemia GERD (gastroesophageal reflux disease) History of COVID-12 January 2022 > not hospitalized, > no further problems Hypomagnesemia Hypothyroidism Multiple thyroid nodules Pacemaker Jun 2019 > [facility] > 2nd degree AV block > follows with Dr. Hernandez with [facility], last checked August 2021 > [employer] Second degree AV block pacemaker Vitamin D deficiency Surgical History History of cardiac cath 2018 > no stents History of cataract surgery History of cholecystectomy History of colonoscopy History of esophagogastroduodenoscopy (EGD) Family History Father Heart disease Mother Heart disease Other No family history of adverse response to anesthesia No family history of bleeding disorder Social History Smoking Status: Never smoker Tobacco Type: Cigarettes Second Hand Exposure: No; Do You Dip or Chew Tobacco: No; Hx Alcohol Use: Yes Alcohol type: beer Hx Substance Use: No Preferred Language: Uzbek Communication Ability: Effective Field Support Rep Required: No Beliefs That Will Affect Care: None Current Living Situation: Spouse current occupational status: employed 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 Feels Safe at Home: Yes Assistive Devices: None Review of Systems Review of Systems: All systems reviewed & are unremarkable except as noted in HPI & below Physical Exam Physical Exam: General: no acute distress, WDWN Head: normocephalic, atraumatic Eyes: PERRL, EOM's intact, conjunctiva non-injected, anicteric ENT: normal inspection external ears, nose, mucous membranes moist Neck: supple, trachea midline, non-tender, ROM intact Lungs: clear, no respiratory distress, no wheezing/rhonchi/rales Chest wall: No ecchymosis or skin discoloration, +tenderness to palpation right lateral lower ribs CV: RRR, no murmur, no JVD, no pretibial edema Abd: normal BS, soft, non-tender Back: No ecchymosis or discoloration, no spinous process tenderness to palpation, +right lumbar tenderness palpation Ext: no cyanosis, no calf tenderness, ROM bilateral and lower extremities intact, distal pulses intact Neuro: A&O x 3, no focal deficits noted, normal affect Skin: warm, dry Results & Data Results & Data Vital Signs (Past 12 Hours) Vital Signs Temp Pulse Pulse Resp BP BP Pulse Ox 02/16/23 17:00 75 16 96/55 L 97 02/16/23 16:30 75 13 97/63 L 100 02/16/23 16:24 75 02/16/23 16:00 75 17 110/60 97 02/16/23 15:28 89 18 93/63 L 99 02/16/23 13:03 89 16 98/61 L 100 02/16/23 12:45 100 02/16/23 12:35 90 02/16/23 12:24 02/16/23 12:24 36.5 C 90 16 96/64 L 100 O2 Del Method 02/16/23 17:00 Room Air 02/16/23 16:30 Room Air 02/16/23 16:24 02/16/23 16:00 Room Air 02/16/23 15:28 Room Air 02/16/23 13:03 Room Air 02/16/23 12:45 Room Air 02/16/23 12:35 02/16/23 12:24 Room Air 02/16/23 12:24 Laboratory Results Short CBC 02/16/23 Range/Units 12:40 WBC 7.82 (4.8-10.8) K/ul Hgb 10.7 L (12.0-16.0) g/dl Hct 31.6 L (37.0-47.0) % Plt Count 294 (130-400) K/uL BMP 02/16/23 12:40 Sodium 133 L Potassium 4.5 Chloride 100 Carbon Dioxide 21 BUN 35 H Creatinine 1.49 H Glucose 308 H* Calcium 8.6 Liver Function 02/16/23 Range/Units 12:40 Total Bilirubin 0.4 (0.2-1.0) mg/dl AST 13 (13-39) U/L ALT 15 (7-52) U/L Alkaline Phosphatase 104 (34-104) U/L Albumin 3.5 (3.4-5.0) gm/dl Diagnostic Findings Chest X-Ray 02/16/23 12:36 XR chest 1V portable CLINICAL HISTORY: Chest pain, nonspecific TECHNIQUE: Single frontal radiograph of the chest was obtained. Comparison: Comparison is made to chest radiograph 11/25/2022 FINDINGS: Pacemaker defibrillator is seen. The cardiomediastinal silhouette is normal. The lungs are clear. No evidence of pleural effusion or pneumothorax. A prominent hiatal hernia is again seen. IMPRESSION: No acute chest disease. ACT 112: Negative or not required by law. Electronically signed by: Gaston Davis M.D. 02/16/2023 1:35 PM Abdomen/Pelvis CT 02/16/23 13:[address] WITH IV CONTRAST CT DOSE: 972.25 mGy.cm HISTORY: Fall, lumbar, right hip pain TECHNIQUE: Multiaxial CT images of the abdomen and pelvis were performed following the use of intravenous contrast. A dose lowering technique was utilized adhering to the principles of ALARA. COMPARISON STUDY: Chest CT 11/15/2022. FINDINGS: There is a stable 3 mm nodular density within the left lung base on image 72. This remains unchanged. There is a moderate to large hiatus hernia again noted. The heart is mildly enlarged. Pacemaker wires are present. No pneumoperitoneum. No pneumatosis. There are acute nondisplaced right L1 and L2 transverse process fractures. Multiple subacute/healing bilateral anterior rib fractures. There are also acute right posterior ninth through 12th rib fractures. Prior cholecystectomy. The liver, spleen, adrenal glands, and pancreas are within normal limits. There are few punctate bilateral renal calculi. No ureteral calculi. No hydronephrosis. The main portal vein is patent. Normal caliber abdominal aorta. No retroperitoneal hematoma or lymphadenopathy. Small subcutaneous contusion within the right lower back. Normal bladder. The uterus and bilateral adnexa are within normal limits. Trace pelvic free fluid. Moderate fecal retention. No bowel wall thickening or obstruction. Normal appendix. IMPRESSION: 1. Nondisplaced acute right L1 and L2 transverse process fractures. 2. Nondisplaced acute right posterior ninth through 12th rib fractures. . 3. Multiple subacute bilateral anterior rib fractures. 4. Additional findings as described above. ACT 112: Negative or not required by law. Electronically signed by: Anderson Villagomez M.D. 02/16/2023 3:[address] 02/16/23 13:02 CT lumbar spine w con HISTORY: 67 years-old Female fall pain . Back pain status post fall COMPARISON: CT abdomen and pelvis of same day TECHNIQUE: Multiple axial CT images of the lumbar spine were obtained following the intravenous administration of 92 mL Optiray 320. A dose lowering technique was used consistent with the principals of FRANCIA. FINDINGS: Levoscoliosis. Acute nondisplaced fractures of the right L1 and L2 transverse processes. No acute sacral insufficiency fracture. No additional acute fracture or subluxation identified. Multilevel degenerative changes include moderate to severe facet arthrosis at L5-S1. No high-grade central canal or neural foraminal narrowing identified by CT technique. The intra-abdominal and intrapelvic structures are better evaluated on the comparison CT abdomen and pelvis exam. IMPRESSION: 1. Acute nondisplaced right L1 and L2 transverse process fractures. 2. Please refer to the CT abdomen and pelvis study of same day for discussion of the right-sided rib fractures. 3. Lumbar levoscoliosis. ACT 112: Negative or not required by law. The above report was generated using voice recognition software. It may contain grammatical, syntax or spelling errors. Electronically signed by: Francesco Naik M.D. 02/16/2023 3:26 PM Supervising Physician Co-Signing Physician Notes I have seen and discussed the case with the collaborating MIGNON. I agree with the above H&P. I have reviewed and confirmed the patients medical history, the findings on physical examination, and the patients diagnosis and treatment plan with [facility] MIGNON and agree with the information documented. In short, Ms Birmingham is a 67 y/o woman with complicated history of nonischemic cardiomyopathy, s/p BivICD, asthma, DM II, diabetes insipidus, hypothyroidism who presents to ED for continued pain after fall sustained on Tuesday. Patient was able to get off the ground; however, a searing pain in her right glute and continued global pain brought her to the ED. Patient states it was strictly a mechanical fall over her dog. Vitals were notable for relative hypotension (baseline in 110s per patient). Labs revealed hgb of 10 (baseline ~13), NA 133 (roughly in range of patient's normal), and WILFRID. Physical exam was notable for pleasant woman, laying supine in bed. Movement limited secondary to pain. Imaging revealed multiple spinal/rib fractures, nondisplaced. Plan for Ortho-Spine consult with TLS precautions. Plan for patients HFrEF, continue metoprolol, hold entresto and lasix iso wilfrid and hypotension--possible precipitating factor in fall; device check ordered, resume GDMT as tolerated. Plan to resume home asthma regimen; insulin regimen for DMII; home synthroid for hypothyroid. Urine/Serum Osmo ordered for DI history, patient d/c off desmopressin earlier this year. Dispo contingent on Ortho-Spine recommendations.
--- NOTE | 2023-02-16 18:22 | Electrocardiogram Report ---
Test Reason : Blood Pressure : / mmHG Vent. Rate : 089 BPM Atrial Rate : 089 BPM P-R Int : 126 ms QRS Dur : 174 ms QT Int : 526 ms P-R-T Axes : 092 233 096 degrees QTc Int : 639 ms AV dual-paced rhythm Biventricular pacemaker detected Abnormal ECG When compared with ECG of 25-NOV-2022 09:05, No significant change was found Confirmed by Crescencio Long ([id number]) on 02/16/2023 6:22:14 PM Referred By: Confirmed By:Crescencio Long
[2023-02-16] MEDS ORDERED: DEXTROSE 50% 50 ML SYRINGE IV PRN (20:45)
[2023-02-16] MEDS ORDERED: GLUCAGON FOR INJ 1 MG VIAL SQ PRN (20:45)
[2023-02-16] MEDS ORDERED: GLUCOSE 40% GEL 15 GM TUBE PO PRN (20:45)
[2023-02-16] MEDS ORDERED: oxyCODONE HCL IR 5 MG TAB (IMMEDIATE RELEASE) PO PRN (20:45)
[2023-02-16] MEDS ORDERED: CARBOHYDRATES FOR HYPOGLYCEMIA PO PRN (20:45)
[2023-02-16] MEDS ORDERED: POLYETHYLENE (MIRALAX) 17 GM PACK PO PRN (20:45)
[2023-02-16] MEDS ORDERED: ALBUTEROL HFA 8 GM INHALER INH PRN (20:45)
[2023-02-16] MEDS ORDERED: GLUCOSE 10 TAB/TUBE PO PRN (20:45)
[2023-02-16] MEDS ORDERED: MAGNESIUM HYDROXIDE SUSP 30 ML UDC PO PRN (20:45)
[2023-02-16] MEDS ORDERED: FLUTICASONE HFA 110MCG INHALER INH SCH (21:00)
[2023-02-16] MEDS: ACETAMINOPHEN 500 MG TAB PO SCH (21:39)
[2023-02-16] MEDS: METOPROLOL SUCC 25MG EXT REL TAB PO SCH (21:39)
[2023-02-16] MEDS: DOCUSATE SODIUM 100 MG CAP PO SCH (21:40)
[2023-02-16] MEDS: ATORVASTATIN 40 MG TAB PO SCH (21:40)
[2023-02-16] MEDS: VALSARTAN/SACUBITRIL 51/49 MG TAB PO SCH (21:40)
[2023-02-16] MEDS: PANTOprazole 40 MG TAB PO SCH (21:40)
[2023-02-16] MEDS: INSULIN ASPART PER UNIT CHARGE SC SCH (22:39)
[2023-02-16] MEDS: LANTUS PER UNIT CHARGE SQ SCH (22:40)
[2023-02-16 23:16] LABS: Creatinine Urine Random 74.1 mg/dl; Urine Potassium 29.2 mmol/L
[2023-02-17] MEDS: ACETAMINOPHEN 500 MG TAB PO SCH ×3 (05:26→21:34)
[2023-02-17] MEDS: LEVOTHYROXINE SODIUM 50 MCG TABLET PO SCH (05:26)
[2023-02-17] MEDS ORDERED: ALBUMIN 25% 25 GM/100 ML VIAL IV ONE (05:51)
[2023-02-17] MEDS ORDERED: BUDESONIDE 0.5 MG/2 ML VIAL (PULMICORT) INH SCH (07:00)
[2023-02-17 07:49] LABS: Hemoglobin 9.7 g/dl (12.0-16.0); Mean Corpuscular Hgb Conc 34.6 g/dL (32.0-36.0); Mean Corpuscular Volume 89.5 fL (80.0-100.0); Mean Platelet Volume 9.8 fL (9.4-12.4); Platelet Count 245 K/uL (130-400); RDW Coefficient of Variation 15.3 % (11.5-14.5); Red Blood Count 3.13 M/uL (4.20-5.40); White Blood Count 4.82 K/ul (4.8-10.8)
[2023-02-17 08:14] LABS: BUN Creatinine Ratio 21.6 (10-20); Calcium 8.7 mg/dl (8.6-10.3); Creatinine Clr Calc Pharmacy 41.9 ml/min; Est GFR (African American) 51.2 ml/min; Est GFR (Non-African American) 44.2 ml/min; Magnesium 1.8 mg/dl (1.7-2.4)
[2023-02-17] MEDS: traMADol HCL 50 MG TABLET PO PRN ×2 (08:30→17:34)
[2023-02-17] MEDS: AMIODARONE 200 MG TAB PO SCH (08:30)
[2023-02-17] MEDS: CHOLECALCIFEROL 1,000 UNITS 25 MCG TAB PO SCH (08:30)
[2023-02-17] MEDS: CLOPIDOGREL BISULFATE 75 MG TAB PO SCH (08:30)
[2023-02-17] MEDS: METOPROLOL SUCC 25MG EXT REL TAB PO SCH ×2 (08:31→19:49)
[2023-02-17] MEDS: DOCUSATE SODIUM 100 MG CAP PO SCH ×2 (08:31→19:52)
[2023-02-17] MEDS: UMECLIDINIUM BROMIDE 62.5MCG/BLISTER 7 PUFFS/INHALER INH SCH (08:32)
[2023-02-17] MEDS: VALSARTAN/SACUBITRIL 51/49 MG TAB PO SCH (08:32)
[2023-02-17] MEDS: FLUTICASONE FUROATE 200MCG 14 PUFFS/INHALER INH SCH (08:33)
[2023-02-17] MEDS: LANTUS PER UNIT CHARGE SQ SCH ×2 (08:47→21:33)
[2023-02-17] MEDS: INSULIN ASPART PER UNIT CHARGE SC SCH ×4 (09:28→21:33)
--- NOTE | 2023-02-17 12:01 | Consultation ---
Date of Consultation February 17, 2023 Assessment & Plan (1) Closed fracture of transverse process of lumbar vertebra: Beatriz sustained a right L1 and right L2 transverse process fractures as well as rib fracture status post fall [address] Mcnair has reviewed imaging. Treatment plan is conservative. He has ordered a brace for her. I am not sure if she will will tolerate the brace mostly in light of this reproducing/intensifying pain from her rib fractures. If this does increase her rib fracture pain she may discontinue use of the brace. It is not essential in healing. Fractures are stable. If she does choose to wear the brace it is only with ambulation/activity. Ambulate ad kiley. No lifting over 5 pounds. We will see her in the office in a few weeks. We will sign off. If you have any further questions please do not hesitate to contact us. History of Present Illness Reason for Consultation: Transverse process fractures Attending Physician: Alonzo Mae MD History of Present Illness Is a 67-year-old female who had a fall 4 days ago at home. She landed on the hearth in front of the fireplace. She was able to get up on her own. Pain was immediate mostly on the right side of her body. This is where she landed. Denies hitting her head or loss of consciousness. She was taking Tylenol at home but pain became quite limiting therefore she came to the emergency room yesterday and was subsequently admitted. Allergies Allergy/AdvReac Type Severity Reaction Status Date / Time aspirin AdvReac Intermediate shortness Verified 02/16/23 17:06 of breath Home Medications Medication Instructions Recorded Confirmed Type levothyroxine 50 mcg tablet 50 mcg PO DAILYBB #90 tabs 03/02/19 02/16/23 History metformin 500 mg tablet,extended 500 mg PO BID #360 tabs 03/02/19 02/16/23 History release 24 hr pantoprazole 40 mg tablet,delayed 40 mg PO HS #90 tabs 03/02/19 02/16/23 History release zafirlukast 20 mg tablet 20 mg PO BID 05/29/21 02/16/23 History cholecalciferol (vitamin D3) 25 25 mcg PO DAILY 04/30/22 02/16/23 History mcg (1,000 unit) chewable tablet (Vitamin D3) budesonide 0.5 mg/2 mL suspension 1 mg inhalation [facility] 11/15/22 02/16/23 History for nebulization amiodarone 200 mg tablet 200 mg PO DAILY #30 tabs 11/26/22 02/16/23 Rx atorvastatin 40 mg tablet 40 mg PO HS #30 tabs 11/26/22 02/16/23 Rx clopidogrel 75 mg tablet 75 mg PO QAM #30 tabs 11/26/22 02/16/23 Rx furosemide 40 mg tablet 40 mg PO QAM #30 tabs 11/26/22 02/16/23 Rx magnesium chloride 64 mg 64 mg PO DAILY #30 tabs 11/26/22 02/16/23 Rx (magnesium chloride) tablet,delayed release metoprolol succinate 25 mg 25 mg PO BID #60 tabs 11/26/22 02/16/23 Rx tablet,extended release 24 hr sacubitril 49 mg-valsartan 51 mg 1 tab PO BID #60 tabs 11/26/22 02/16/23 Rx tablet (Entresto) albuterol sulfate 90 mcg/actuation 2 puff inhalation Q6H PRN 02/16/23 02/16/23 History aerosol inhaler Shortness Of Breath Or Wheezing fluticasone propionate 110 2 puff inhalation BID 02/16/23 02/16/23 History mcg/actuation HFA aerosol inhaler (Flovent HFA) prednisone 10 mg tablet 10 mg PO DAILY 02/16/23 02/16/23 History semaglutide 0.25 mg or 0.5 mg (2 0.25 mg subcut WK 02/16/23 02/16/23 History mg/3 mL) subcutaneous pen injector (Ozempic) tiotropium bromide 2.5 2 puff inhalation DAILY 02/16/23 02/16/23 History mcg/actuation mist for inhalation (Spiriva Respimat) Patient History Medical History Allergic rhinitis Asthma not well controlled per pt, has not used it for appox 1 week Depression with anxiety Diabetes insipidus desmopressin for this Diabetes type 2, controlled NIDDM Dyslipidemia GERD (gastroesophageal reflux disease) History of COVID-12 January 2022 > not hospitalized, > no further problems Hypomagnesemia Hypothyroidism Multiple thyroid nodules Pacemaker Jun 2019 > [facility] > 2nd degree AV block > follows with Dr. Hernandez with [facility], last checked August 2021 > [employer] Second degree AV block pacemaker Vitamin D deficiency Surgical History History of cardiac cath 2018 > no stents History of cataract surgery History of cholecystectomy History of colonoscopy History of esophagogastroduodenoscopy (EGD) Family History Father Heart disease Mother Heart disease Other No family history of adverse response to anesthesia No family history of bleeding disorder Social History Smoking Status: Never smoker Tobacco Type: Cigarettes Second Hand Exposure: No; Do You Dip or Chew Tobacco: No; Hx Alcohol Use: Yes Alcohol type: beer Hx Substance Use: No Preferred Language: Afghan Communication Ability: Effective Senior Health Consultant Required: No Beliefs That Will Affect Care: None Current Living Situation: Spouse current occupational status: employed current occupation: [employer] Other Information That Helps Us Care for You: No Feels Safe at Home: Yes Assistive Devices: Nebulizer and Walker Review of Systems Review of Systems: All systems reviewed & are unremarkable except as noted in HPI & below Physical Exam Physical Exam: She is lying in bed in no acute distress She is seen in conjunction with her Alert and oriented x3 Painful to palpation of the thoracolumbar Negative logrolling bilateral lower Negative tension signs bilateral lower EXTR 5/5 strength bilateral EHL, dorsiflexion, plantarflexion, car subsequent hamstrings, hip flexors, hip abductor's and hip adductor's Results & Data Vital Signs (Past 12 Hours) Vital Signs Temp Pulse Pulse Resp BP Pulse Ox O2 Del Method 02/17/23 08:38 Room Air 02/17/23 08:20 36.5 C 77 18 95/62 L 96 Room Air 02/17/23 07:56 75 16 98 Room Air 02/17/23 03:06 36.5 C 75 18 95/58 L 98 Room Air 02/17/23 01:12 75 Diagnostic Findings [place], [place] [phone] CT Scan Report Patient:BEATRIZ RODRIGUEZ Admit Date:02/16/23 MR#:[id number] Address1:[address] Acct ID:[id number] Address2: Date:1955 [facility] Zip:[place] [address] Age:67 Location:ED Sex:F Room/Bed: Att Phy: Diagnosis:HYPOTENSION Catalina Phy:Jenni Jasmine MD Service Date:02/16/23 Fam Phy: Interpreting Phy:Francesco NiakAdmit Phy: Ordering Phy:Mina Gee M.D. cc: ~ CT lumbar spine w con HISTORY: 67 years-old Female fall pain . Back pain status post fall COMPARISON: CT abdomen and pelvis of same day TECHNIQUE: Multiple axial CT images of the lumbar spine were obtained following the intravenous administration of 92 mL Optiray 320. A dose lowering technique was used consistent with the principals of ALARA. FINDINGS: Levoscoliosis. Acute nondisplaced fractures of the right L1 and L2 transverse processes. No acute sacral insufficiency fracture. No additional acute fracture or subluxation identified. Multilevel degenerative changes include moderate to severe facet arthrosis at L5-S1. No high-grade central canal or neural foraminal narrowing identified by CT technique. The intra-abdominal and intrapelvic structures are better evaluated on the comparison CT abdomen and pelvis exam. IMPRESSION: 1. Acute nondisplaced right L1 and L2 transverse process fractures. 2. Please refer to the CT abdomen and pelvis study of same day for discussion of the right-sided rib fractures. 3. Lumbar levoscoliosis. ACT 112: Negative or not required by law. The above report was generated using voice recognition software. It may contain grammatical, syntax or spelling errors. Electronically signed by: Francesco Naik M.D. 02/16/2023 3:26 PM Dictated:02/16/23 1509 Transcribed: 02/16/23 1514
[2023-02-17 13:11] LABS: Estimated Average Glucose 180 mg/dl; Hemoglobin A1C 7.9 % (4.5-5.6)
[2023-02-17] MEDS: BUDESONIDE 0.5 MG/2 ML VIAL (PULMICORT) INH SCH (19:09)
--- NOTE | 2023-02-17 19:13 | Hospitalist Progress Note ---
Date of Service February 17, 2023 Assessment & Plan (1) Fall: (2) Closed traumatic nondisplaced fracture of multiple ribs of right side: (3) Closed fracture of transverse process of lumbar vertebra: Plan: per admitting service notes with addendum: Patient is 67 y/o F with PMH heart block, nonischemic cardiomyopathy, s/p pacemaker, asthma, DM II, diabetes insipidus, hypothyroidism and others listed below presented to ER with complaint of fall and right back pain x4 days. CT Lumbar spine: 1. Acute nondisplaced right L1 and L2 transverse process fractures. 2. Please refer to the CT abdomen and pelvis study of same day for discussion of the right-sided rib fractures. 3. Lumbar levoscoliosis. CT abd/pelvis: 1. Nondisplaced acute right L1 and L2 transverse process fractures. 2. Nondisplaced acute right posterior ninth through 12th rib fractures. . 3. Multiple subacute bilateral anterior rib fractures. 4. Additional findings as described above. CXR: no acute infiltrate, no pneumothorax noted per my interpretation 02/17 pain well controlled continue pain meds PRN Incentive Spirometry Ortho Spine: no surgery recommended (4) WILFRID (acute kidney injury): Plan: Cr: 1.49. Baseline 0.9-1.0 In ER given 500 NSS Hold Lasix for now crea improving 1.2 (5) Hypomagnesemia: Plan: Magnesium: 1.2 In ER given 2 g magnesium sulfate (6) Second degree AV block: (7) Nonischemic cardiomyopathy: Plan: S/P ICD Pacemaker interrogation Hold Entresto for now given soft BPs in ER Continue amiodarone, metoprolol succinate, Plavix 02/17 hold Entresto BP on the lower side monitor closely (8) Asthma: Plan: No signs acute exacerbation Continue home inhalers, nebulizers, zafirlukast (9) Diabetes type 2, controlled: Plan: A1c: 7.9 on 01/11/2023 Random glucose 308 Hold home metformin, Ozempic Basal bolus insulin per protocol (10) Diabetes insipidus: Plan: Previously diagnosed with diabetes insipidus [facility] Has been taken off DDAVP recently (11) Hypothyroidism: Plan: TSH: 3.5 Continue levothyroxine DVT Prophylaxis SCDs for now DNR/DNI as per discussion with pt Follows with Dr Jenni Jasmine for routine care plan of care discussed with patient in detail and at length all questions answered she is understanding, agreeable, comfortable with the plan of care Admission and Anticipated Discharge Date Admission Date: February 16, 2023 Subjective ff up for fall, etc seen resting in bed, comfortable states back and rib pain adequately controlled no chest pain, dyspnea, palpitations, dizziness no fever/chills no other symptoms Review of Systems Review of Systems: all noted and negative except for above Physical Exam Physical Exam: General- oriented x 3, not in distress, speaks in sentences with no effort or accessory muscle use Eyes- anicteric Neck- no JVD Lungs- clear breath sounds bilaterally, no rales/wheezes Heart- normal rate, regular rhythm; no murmurs Abdomen- normal bowel sounds, nondistended, soft, nontender Extremities- no pretibial edema, no calf tenderness Neuro- alert, oriented x 3; no gross focal neurologic deficits Skin- warm & dry Results & Data Results & Data Vital Signs (Past 12 Hours) Vital Signs Temp Pulse Resp BP BP Pulse Ox O2 Del Method 02/17/23 16:27 36.5 C 76 18 115/71 99 Room Air 02/17/23 12:05 36.5 C 76 18 106/70 98 Room Air 02/17/23 08:38 Room Air 02/17/23 08:20 36.5 C 77 18 95/62 L 96 Room Air 02/17/23 07:56 75 16 98 Room Air all noted and reviewed including below
[2023-02-17] MEDS: ATORVASTATIN 40 MG TAB PO SCH (19:49)
[2023-02-17] MEDS: PANTOprazole 40 MG TAB PO SCH (19:53)
[2023-02-18] MEDS: ACETAMINOPHEN 500 MG TAB PO SCH (06:00)
[2023-02-18] MEDS: LEVOTHYROXINE SODIUM 50 MCG TABLET PO SCH (06:01)
[2023-02-18] MEDS: traMADol HCL 50 MG TABLET PO PRN (06:03)
[2023-02-18] MEDS: BUDESONIDE 0.5 MG/2 ML VIAL (PULMICORT) INH SCH (07:38)
[2023-02-18] MEDS: AMIODARONE 200 MG TAB PO SCH (08:26)
[2023-02-18] MEDS: METOPROLOL SUCC 25MG EXT REL TAB PO SCH (08:26)
[2023-02-18] MEDS: CHOLECALCIFEROL 1,000 UNITS 25 MCG TAB PO SCH (08:26)
[2023-02-18] MEDS: FLUTICASONE FUROATE 200MCG 14 PUFFS/INHALER INH SCH (08:27)
[2023-02-18] MEDS: CLOPIDOGREL BISULFATE 75 MG TAB PO SCH (08:27)
[2023-02-18] MEDS: UMECLIDINIUM BROMIDE 62.5MCG/BLISTER 7 PUFFS/INHALER INH SCH (08:28)
[2023-02-18] MEDS: DOCUSATE SODIUM 100 MG CAP PO SCH (08:30)
[2023-02-18] MEDS ORDERED: HYDROCODONE/ACETAMOPHEN 5/325MG TAB PO PRN (08:35)
[2023-02-18] MEDS: LANTUS PER UNIT CHARGE SQ SCH (08:53)
[2023-02-18] MEDS: INSULIN ASPART PER UNIT CHARGE SC SCH (08:57)
[2023-02-18 09:43] LABS: Basophils # (auto) 0.02 K/uL (0.00-0.20); Basophils % (auto) 0.3 %; Hematocrit (blood only) 31.2 % (37.0-47.0); Hemoglobin 10.5 g/dl (12.0-16.0); Immature Granulocytes # (auto) 0.02 K/uL (0.01-0.20); Immature Granulocytes % (auto) 0.3 %; Lymphocytes # (auto) 0.86 K/uL (1.20-3.40); Lymphocytes % (auto) 13.3 %; Mean Corpuscular Hemoglobin 30.7 pg (25.0-34.0); Mean Corpuscular Hgb Conc 33.7 g/dL (32.0-36.0); Mean Corpuscular Volume 91.2 fL (80.0-100.0); Mean Platelet Volume 9.9 fL (9.4-12.4); Monocytes # (auto) 0.32 K/uL (0.11-0.59); Neutrophils # (auto) 5.23 K/uL (1.40-6.50); Neutrophils % (auto) 81.1 %; Platelet Count 268 K/uL (130-400); RDW Coefficient of Variation 15.3 % (11.5-14.5); RDW Standard Deviation 51.4 fL (36.4-46.3); Red Blood Count 3.42 M/uL (4.20-5.40); White Blood Count 6.45 K/ul (4.8-10.8)
[2023-02-18 10:01] LABS: BUN Creatinine Ratio 16.5 (10-20); Creatinine Clr Calc Pharmacy 38.1 ml/min; Est GFR (African American) 50.2 ml/min; Est GFR (Non-African American) 43.3 ml/min; Potassium 3.7 mmol/L (3.5-5.1)
[2023-02-18 11:33] VITALS: BP 99/61; TEMP 97.9; O2SAT 96
--- NOTE | 2023-02-18 12:23 | Discharge Summary ---
Discharge Summary Date of Service February 18, 2023 Notes For Next Care Provider Medication Changes From Visit Entresto reduced to 1/2 tab BID. Dutton as needed Admission HPI Per Admitting Provider Patient is 67 y/o F with PMH heart block, nonischemic cardiomyopathy, s/p pacemaker/ICD asthma, DM II, diabetes insipidus, hypothyroidism and others listed below presented to ER with complaint of fall and right back pain x4 days. Patient states 4 days ago started up out of her recliner and felt off balance and went to stand walk and states dog was near her feet and she fell onto right side hitting her right side and back on fireplace. Patient denies hitting head, denies LOC. She reports since has been having right-sided back pain that radiates down right buttock and thigh. Pain aggravated with movement and walking. Denies neck pain, abdominal pain, or other extremity pain. Denies any chest pain or shortness of breath. Has not noticed any ecchymosis or skin discolorations to chest, abdomen or back. She has been taking Tylenol without relief. Denies any other known injury. Patient states that she has been feeling "off balance" with walking recently. States last fall was in March 2022 and states at that time had diffuse ecchymosis of anterior chest with anterior chest wall pain. Denies fever/chills, diaphoresis, N/V/D/C, ALEGRE, dizziness, syncope, vision changes, neck pain, CP, SOB, orthopnea, palpitations, cough, sore throat, rhinorrhea, abdominal pain, paresthesias, extremity weakness, extremity edema, rashes, urinary symptoms. Admission Exam Per Admitting Provider General: no acute distress, WDWN Head: normocephalic, atraumatic Eyes: PERRL, EOM's intact, conjunctiva non-injected, anicteric ENT: normal inspection external ears, nose, mucous membranes moist Neck: supple, trachea midline, non-tender, ROM intact Lungs: clear, no respiratory distress, no wheezing/rhonchi/rales Chest wall: No ecchymosis or skin discoloration, +tenderness to palpation right lateral lower ribs CV: RRR, no murmur, no JVD, no pretibial edema Abd: normal BS, soft, non-tender Back: No ecchymosis or discoloration, no spinous process tenderness to palpation, +right lumbar tenderness palpation Ext: no cyanosis, no calf tenderness, ROM bilateral and lower extremities intact, distal pulses intact Neuro: A&O x 3, no focal deficits noted, normal affect Skin: warm, dry Principal Dx & Hospital Course #1 = Principal Diagnosis (1) Fall: (2) Closed traumatic nondisplaced fracture of multiple ribs of right side: (3) Closed fracture of transverse process of lumbar vertebra: per admitting service notes with addendum: Patient is 67 y/o F with PMH heart block, nonischemic cardiomyopathy, s/p pacemaker, asthma, DM II, diabetes insipidus, hypothyroidism and others listed below presented to ER with complaint of fall and right back pain x4 days. CT Lumbar spine: 1. Acute nondisplaced right L1 and L2 transverse process fractures. 2. Please refer to the CT abdomen and pelvis study of same day for discussion of the right-sided rib fractures. 3. Lumbar levoscoliosis. CT abd/pelvis: 1. Nondisplaced acute right L1 and L2 transverse process fractures. 2. Nondisplaced acute right posterior ninth through 12th rib fractures. . 3. Multiple subacute bilateral anterior rib fractures. 4. Additional findings as described above. CXR: no acute infiltrate, no pneumothorax noted per my interpretation 02/18 pain well controlled Ortho: no surgical intervention, brace recommended Dutton PRN, precautions given NSAID contraindicated due to CKD, Tramadol also contraindicated as patient on Amiodarone patient prefers to go home instructed to use Incentive Spirometry frequently (4) WILFRID (acute kidney injury): Cr: 1.49. Baseline 0.9-1.0 crea improved to 1.2 repeat BMP on ff up with PCP (5) Hypomagnesemia: resolved (6) Second degree AV block: (7) Nonischemic cardiomyopathy: S/P ICD Pacemaker interrogation BP noted to be on the lower side asymptomatic discussed with KRYSTEN Young recommend to reduce Entresto to 1/2 tab BID will have ff up with Dr. Zhang on 02/22 advised to keep the appointment (8) Asthma: No signs acute exacerbation Continue home inhalers, nebulizers, zafirlukast (9) Diabetes type 2, controlled: A1c: 7.9 on 01/11/2023 Random glucose 308 continue metformin, Ozempic (10) Diabetes insipidus: Previously diagnosed with diabetes insipidus Currently following with [facility] endocrine. Has been taken off DDAVP recently (11) Hypothyroidism: TSH: 3.5 Continue levothyroxine plan of care discussed with patient in detail and at length all questions answered she is understanding, agreeable, comfortable with the plan of care Discharge Exam General- oriented x 3, not in distress, speaks in sentences with no effort or accessory muscle use Eyes- anicteric Neck- no JVD Lungs- clear breath sounds bilaterally, no rales/wheezes Heart- normal rate, regular rhythm; no murmurs Abdomen- normal bowel sounds, nondistended, soft, nontender Extremities- no pretibial edema, no calf tenderness Neuro- alert, oriented x 3; no gross focal neurologic deficits Skin- warm & dry Updated Medication List Medication Instructions Recorded Confirmed Type levothyroxine 50 mcg tablet 50 mcg PO DAILYBB #90 tabs 03/02/19 02/16/23 History metformin 500 mg tablet,extended 500 mg PO BID #360 tabs 03/02/19 02/16/23 History release 24 hr pantoprazole 40 mg tablet,delayed 40 mg PO HS #90 tabs 03/02/19 02/16/23 History release zafirlukast 20 mg tablet 20 mg PO BID 05/29/21 02/16/23 History cholecalciferol (vitamin D3) 25 25 mcg PO DAILY 04/30/22 02/16/23 History mcg (1,000 unit) chewable tablet (Vitamin D3) budesonide 0.5 mg/2 mL suspension 1 mg inhalation AMHS 11/15/22 02/16/23 History for nebulization amiodarone 200 mg tablet 200 mg PO DAILY #30 tabs 11/26/22 02/16/23 Rx atorvastatin 40 mg tablet 40 mg PO HS #30 tabs 11/26/22 02/16/23 Rx clopidogrel 75 mg tablet 75 mg PO QAM #30 tabs 11/26/22 02/16/23 Rx furosemide 40 mg tablet 40 mg PO QAM #30 tabs 11/26/22 02/16/23 Rx magnesium chloride 64 mg 64 mg PO DAILY #30 tabs 11/26/22 02/16/23 Rx (magnesium chloride) tablet,delayed release metoprolol succinate 25 mg 25 mg PO BID #60 tabs 11/26/22 02/16/23 Rx tablet,extended release 24 hr sacubitril 49 mg-valsartan 51 mg 1 tab PO BID #60 tabs 11/26/22 02/16/23 Rx tablet (Entresto) albuterol sulfate 90 mcg/actuation 2 puff inhalation Q6H PRN 02/16/23 02/16/23 History aerosol inhaler Shortness Of Breath Or Wheezing fluticasone propionate 110 2 puff inhalation BID 02/16/23 02/16/23 History mcg/actuation HFA aerosol inhaler (Flovent HFA) prednisone 10 mg tablet 10 mg PO DAILY 02/16/23 02/16/23 History semaglutide 0.25 mg or 0.5 mg (2 0.25 mg subcut WK 02/16/23 02/16/23 History mg/3 mL) subcutaneous pen injector (Ozempic) tiotropium bromide 2.5 2 puff inhalation DAILY 02/16/23 02/16/23 History mcg/actuation mist for inhalation (Spiriva Respimat) hydrocodone 5 mg-acetaminophen 325 1 tab PO Q6H PRN moderate to 02/18/23 Rx mg tablet severe pain #14 tabs Hospital Stay Data Consultations 02/16/23 16:34 ED Decision to Admit Stat 02/17/23 08:00 Consult Orthopedic Spine Surgery Routine Diagnostic Imagining Performed Laboratory Results WBC 6.45 K/ul (4.8-10.8) 02/18/23 09:19 RBC 3.42 M/uL (4.20-5.40) L 02/18/23 09:19 Hgb 10.5 g/dl (12.0-16.0) L 02/18/23 09:19 Hct 31.2 % (37.0-47.0) L 02/18/23 09:19 MCV 91.2 fL (80.0-100.0) 02/18/23 09:19 MCH 30.7 pg (25.0-34.0) 02/18/23 09:19 MCHC 33.7 g/dL (32.0-36.0) 02/18/23 09:19 RDW Std Deviation 51.4 fL (36.4-46.3) H 02/18/23 09:19 RDW Coeff of Park 15.3 % (11.5-14.5) H 02/18/23 09:19 Plt Count 268 K/uL (130-400) 02/18/23 09:19 MPV 9.9 fL (9.4-12.4) 02/18/23 09:19 Immature Gran % (Auto) 0.3 % 02/18/23 09:19 Neut % (Auto) 81.1 % 02/18/23 09:19 Lymph % (Auto) 13.3 % 02/18/23 09:19 [place]urel % (Auto) 5.0 % 02/18/23 09:19 Eos % (Auto) 0.0 % 02/18/23 09:19 Baso % (Auto) 0.3 % 02/18/23 09:19 Neut # (Auto) 5.23 K/uL (1.40-6.50) 02/18/23 09:19 Lymph # (Auto) 0.86 K/uL (1.20-3.40) L 02/18/23 09:19 Laurel # (Auto) 0.32 K/uL (0.11-0.59) 02/18/23 09:19 Eos # (Auto) 0.00 K/uL (0.00-0.50) 02/18/23 09:19 Baso # (Auto) 0.02 K/uL (0.00-0.20) 02/18/23 09:19 Immature Gran # (Auto) 0.02 K/uL (0.01-0.20) 02/18/23 09:19 PT 11.2 Seconds (9.0-12.0) 02/16/23 12:55 INR 1.0 (0.9-1.1) 02/16/23 12:55 Sodium 139 mmol/L (136-145) 02/18/23 09:19 Potassium 3.7 mmol/L (3.5-5.1) 02/18/23 09:19 Chloride 107 mmol/L (98-107) 02/18/23 09:19 Carbon Dioxide 23 mmol/L (21-32) 02/18/23 09:19 Anion Gap 9 (3-11) 02/18/23 09:19 BUN 21 mg/dl (6-23) 02/18/23 09:19 Creatinine 1.27 mg/dl (0.6-1.2) H 02/18/23 09:19 Est Cr Clr Drug Dosing 38.1 ml/min 02/18/23 09:19 Est GFR ( Amer) 50.2 ml/min 02/18/23 09:19 Est GFR (Non-Af Amer) 43.3 ml/min 02/18/23 09:19 BUN/Creatinine Ratio 16.5 (10-20) 02/18/23 09:19 Glucose 110 mg/dl (70-99(Fasting)) H 02/18/23 09:19 POC Glucose 132 mg/dl (70-99) H 02/18/23 11:59 Estimat Average Glucose 180 mg/dl 02/17/23 07:15 Hemoglobin A1c 7.9 % (4.5-5.6) H 02/17/23 07:15 Osmolality 290 mOsm/kg (280-300) 02/17/23 07:15 Calcium 9.0 mg/dl (8.6-10.3) 02/18/23 09:19 Phosphorus 3.5 mg/dl (2.5-4.9) 02/16/23 12:40 Magnesium 1.8 mg/dl (1.7-2.4) 02/17/23 07:15 Total Bilirubin 0.4 mg/dl (0.2-1.0) 02/16/23 12:40 AST 13 U/L (13-39) 02/16/23 12:40 ALT 15 U/L (7-52) 02/16/23 12:40 Alkaline Phosphatase 104 U/L (34-104) 02/16/23 12:40 Troponin I High Sens 12.5 pg/ml (0-14) 02/16/23 12:40 B-Natriuretic Peptide 239 pg/ml (0-100) H 02/16/23 12:55 Total Protein 6.3 gm/dl (6.0-8.3) 02/16/23 12:40 Albumin 3.5 gm/dl (3.4-5.0) 02/16/23 12:40 Globulin 2.8 gm/dl (2.5-4.0) 02/16/23 12:40 Albumin/Globulin Ratio 1.3 (0.9-2) 02/16/23 12:40 Lipase 23 U/L (11-82) 02/16/23 12:40 TSH 3.528 uIu/ml (0.300-4.500) 02/16/23 12:40 Urine Osmolality 507 mOsm/kg (500-800) 02/16/23 21:56 Ur Random Creatinine 74.1 mg/dl 02/16/23 21:56 Urine Sodium 36 mmol/L 02/16/23 21:56 Urine Potassium 29.2 mmol/L 02/16/23 21:56 Urine Chloride 38 mmol/L 02/16/23 21:56 Impressions Chest X-Ray 02/16/23 12:36 XR chest 1V portable CLINICAL HISTORY: Chest pain, nonspecific TECHNIQUE: Single frontal radiograph of the chest was obtained. Comparison: Comparison is made to chest radiograph 11/25/2022 FINDINGS: Pacemaker defibrillator is seen. The cardiomediastinal silhouette is normal. The lungs are clear. No evidence of pleural effusion or pneumothorax. A prominent hiatal hernia is again seen. IMPRESSION: No acute chest disease. ACT 112: Negative or not required by law. Electronically signed by: Gaston Davis M.D. 02/16/2023 1:35 PM Abdomen/Pelvis CT 02/16/23 13:[address] WITH IV CONTRAST CT DOSE: 972.25 mGy.cm HISTORY: Fall, lumbar, right hip pain TECHNIQUE: Multiaxial CT images of the abdomen and pelvis were performed following the use of intravenous contrast. A dose lowering technique was utilized adhering to the principles of ALARA. COMPARISON STUDY: Chest CT 11/15/2022. FINDINGS: There is a stable 3 mm nodular density within the left lung base on image 72. This remains unchanged. There is a moderate to large hiatus hernia again noted. The heart is mildly enlarged. Pacemaker wires are present. No pneumoperitoneum. No pneumatosis. There are acute nondisplaced right L1 and L2 transverse process fractures. Multiple subacute/healing bilateral anterior rib fractures. There are also acute right posterior ninth through 12th rib fractures. Prior cholecystectomy. The liver, spleen, adrenal glands, and pancreas are within normal limits. There are few punctate bilateral renal calculi. No ureteral calculi. No hydronephrosis. The main portal vein is patent. Normal caliber abdominal aorta. No retroperitoneal hematoma or lymphadenopathy. Small subcutaneous contusion within the right lower back. Normal bladder. The uterus and bilateral adnexa are within normal limits. Trace pelvic free fluid. Moderate fecal retention. No bowel wall thickening or obstruction. Normal appendix. IMPRESSION: 1. Nondisplaced acute right L1 and L2 transverse process fractures. 2. Nondisplaced acute right posterior ninth through 12th rib fractures. . 3. Multiple subacute bilateral anterior rib fractures. 4. Additional findings as described above. ACT 112: Negative or not required by law. Electronically signed by: Anderson Villagomez M.D. 02/16/2023 3:[address] 02/16/23 13:02 CT lumbar spine w con HISTORY: 67 years-old Female fall pain . Back pain status post fall COMPARISON: CT abdomen and pelvis of same day TECHNIQUE: Multiple axial CT images of the lumbar spine were obtained following the intravenous administration of 92 mL Optiray 320. A dose lowering technique was used consistent with the principals of FRANCIA. FINDINGS: Levoscoliosis. Acute nondisplaced fractures of the right L1 and L2 transverse processes. No acute sacral insufficiency fracture. No additional acute fracture or subluxation identified. Multilevel degenerative changes include moderate to severe facet arthrosis at L5-S1. No high-grade central canal or neural foraminal narrowing identified by CT technique. The intra-abdominal and intrapelvic structures are better evaluated on the comparison CT abdomen and pelvis exam. IMPRESSION: 1. Acute nondisplaced right L1 and L2 transverse process fractures. 2. Please refer to the CT abdomen and pelvis study of same day for discussion of the right-sided rib fractures. 3. Lumbar levoscoliosis. ACT 112: Negative or not required by law. The above report was generated using voice recognition software. It may contain grammatical, syntax or spelling errors. Electronically signed by: Francesco Naik M.D. 02/16/2023 3:26 PM 02/16/23 13:02 CT abd pelvis IV con only Stat CT lumbar spine w con Stat Pending Results Patient Have Any Pending Studies at Discharge: No Discharge Instructions Given to Patient (Per Discharging Provider) Reduce your Entresto by taking 1/2 tablet twice a day. You new medication is Dutton as needed for severe pain. Take a laxative daily. You can use Tylenol 500 mg every 4-6 hours as needed for pain. Do not take more than 3000 mg of Tylenol within 24 hours. Resume Metformin tomorrow. Use incentive spirometry every 2-3 hours. Use back brace as directed. PLEASE CALL YOUR PRIMARY CARE PHYSICIAN OR RETURN TO THE ER IF WITH WORSENING OF SYMPTOMS, INCLUDING Pain, shortness of breath, dizziness, weakness, leg weakness or numbness, etc. FOLLOW UP WITH PRIMARY CARE PHYSICIAN OUTLINED ABOVE. FOLLOW UP WITH PELLETIZER OPERATOR SCHEDULED. Total Time Total Time Spent Total Time Spent (In Minutes): >30 minutes
[2023-02-18 12:53] VITALS: PULSE 89
== END 2023-02-18 13:27 | disposition home or self-care (01) | DRG 543 ==
LOC: ED 12:11 → EDINP 18:13 → SUATTDRO 18:13 → 2N 20:41